=== PATIENT | male | born 1980 | race Caucasian/White ===

== ENCOUNTER 2017-01-30 06:16 | Emergency (ER) | payer MEDICAID ==
[~2017-01-30] VITALS: Ht 180.3 cm; Wt 88.9 kg
[~2017-01-30 06:16] MED LIST: AMOXICOT500 M1 PO; CORTISPORIN (GE10 M2 OT; FLEXERIL10 MG PO; IBUPROFEN800 MG PO; LORTAB 5/500 501 TAB PO; MOBIC7.5 MG PO; NOMEDS; NOMEDS *; PERCOCET 5/3251 EACH PO
--- OUTSIDE RECORDS SUMMARY | 2017-01-30 06:21 | External Medical Summary Rpt ---
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 [facility] Unavailable Unavailable ANNMARIE, [facility] DAVID VALERO, Unavailable Unavailable DAVID RIGGINS FOSTER Unavailable Unavailable KORI KERR, Unavailable Unavailable KORI COURTNEY ANNE E, Unavailable Unavailable LUIS MARTINEZ GRAY ROB Unavailable Unavailable EDUIN OLIVA E, Unavailable Unavailable EDUIN OLIVA E NOEMY CHU, Unavailable Unavailable HAGCHNEPAXTON SALGUERO, Unavailable Unavailable NOEMY ZAZUETA JENNIFER K HARRIS, CHARLOTTE J, Unavailable Unavailable [facility] Un[facility] Unavailable INC, [facility] CORNELIUS LUTHER, CORNELIUS Unavailable Unavailable LUTHER KEEF, ALISE, KEEF, Unavailable Unavailable [facility] Unavailable Unavailable IMAGING [facility], [facility] [id number] # Unavailable Unavailable [id number], [facility] [id number] # [id number] [facility] Unavailable Unavailable [facility] BASSAM CERVANTES, Unavailable Unavailable BASS[facility] CERVANTES [facility] Unavailable Unavailable SERVICES, [facility], Unavailable Unavailable [facility] [place] [facility] Unavailable Unavailable [facility] LIFE SCIENCE RESEARCH ASSISTANT Unavailable Unavailable [facility] LIFE SCIENCE RESEARCH ASSISTANT [facility] Unavailable Unavailable [facility] Unavailable Unavailable [facility], [facility] Unavailable Unavailable MEDICAL, [facility] Unavailable Unavailable MEDICAL CENTER, [facility] Gaston JEWELL N, Gaston JEWELL N Unavailable Unavailable [id number], Unavailable Unavailable [id number] PEREZ CHR, Unavailable Unavailable PEREZ CHR GRADY PEREZ, Unavailable Unavailable GRADY PEREZ, ISMAEL, Unavailable Unavailable CHRIS ISMAEL Purpose Continuity of Care Document - 10-13-2008 through 2016 Problems Code Diagnosis DOS Provider Status F17.210 NICOTINE 01-08-2017 DEPENDENCE, CIGARETTES, UNCOMPLICAT ED S01.81XA LACERATION 01-08-2017 WITHOUT FOREIGN BODY OF OTHER PART OF HEAD, INITIAL ENCOUNTER S20.211A CONTUSION 01-08-2017 OF RIGHT FRONT WALL OF THORAX, INITIAL ENCOUNTER S21.219A LACERATION 01-08-2017 WITHOUT FOREIGN BODY OF UNSPECIFIED BACK WALL OF THORAX WITHOUT PENETRATION INTO THORACIC CAVITY, INITIAL ENCOUNTER S41.012A LACERATION 01-08-2017 WITHOUT FOREIGN BODY OF LEFT SHOULDER, INITIAL ENCOUNTER S70.02XA CONTUSION 01-08-2017 OF LEFT HIP, INITIAL ENCOUNTER W01.110A FALL ON 01-08-2017 SAME LEVEL FROM SLIPPING, TRIPPING AND STUMBLING WITH SUBSEQUENT STRIKING AGAINST SHARP GLASS, INITIAL ENCOUNTER W13.4XXA FALL FROM, 01-08-2017 OUT OF OR THROUGH WINDOW, INITIAL ENCOUNTER 7231 CERVICALGIA 11-23-2011 [facility] 8470 NECK SPRAIN 11-23-2011 [facility] E9270 OVEREXERTIO 11-23-2011 [place] [facility] STRENUOUS MOVEMENT 5950 ACUTE 06-25-2011 [facility] 9390 FOREIGN 12-12-2010 [facility] BODY IN GENERAL BLADDER AND SURGERY URETHRA 5921 CALCULUS OF 12-09-2010 [facility] URETER GENERAL SURGERY 591 HYDRONEPHRO 12-08-2010 [facility] 61412 OTHER 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 5990 URINARY 12-08-2010 [facility] SITE NOT SPECIFIED 06799 FEVER 12-08-2010 [facility] UNSPECIFIED GENERAL SURGERY 7880 RENAL COLIC 12-08-2010 [facility] 03642 ABDOMINAL 12-08-2010 [facility] PAIN OTHER GENERAL SPECIFIED SURGERY SITE 5920 CALCULUS OF 09-28-2010 [facility] 7919 OTHER 09-28-2010 [facility] NONSPECIFIC REGIONAL FINDING MEDICAL EXAMINATION OF URINE V1301 PERSONAL 09-28-2010 [facility] HISTORY OF REGIONAL URINARY MEDICAL CALCULI 27698 NAUSEA WITH 03-29-2010 [facility] 04048 ABDOMINAL 03-29-2010 [facility] PAIN, REGIONAL UNSPECIFIED MEDICAL SITE CENTER 5959 UNSPECIFIED 03-21-2010 [facility] 35208 HEMATURIA 03-18-2010 [place] UNSPECIFIED [facility]OLOGY ASSOCIATES PSC 7936 NONSPEC ABN 03-18-2010 [place] [facility] RADIOLOG[facility] & OTH EXAM [facility]OCIATES ABDOMINAL [facility] AREA 7172 DERANGEMENT 10-23-2009 [facility] OF MEDIAL MENISCUS 50495 PAIN IN 10-23-2009 [facility] JOINT, H LOWER LEG ANESTHESIA PSC 8360 TEAR MEDIAL 10-23-2009 [facility] CURRENT 8362 OTHER TEAR 09-05-2009 [facility] CURRENT 8363 CLOSED 06-21-2009 [facility] Medications Na ND Rx Da Fi Fi Am Da Di Ph RX Ph St me C No te ll ll ou ys ag ar # ys at rm s nt no ma ic us Or Da si cy ia de te s n re d UL 59 04 04 0 45 7 MA 60 Ac ES 63 -1 -1 4. YS 41 TT ti FI 00 9- 9- 00 84 MA ve A 78 20 20 0 LL 9 N 5% 00 11 11 E NA 8 OB NC LO Y TI GY E ON N FA VT LY HE AL TH 53 03 03 1 20 6 KM 44 DE Ac 74 -1 -1 .0 AR 74 NN ti 60 3- 3- 00 T 01 IS ve 11 20 20 PH 5 ON 10 11 11 AR 5 MA KIMO CY SE 96 PH 84 R # 96 84 HY 00 01 01 2 20 3 MA [address] 40 -1 -2 .0 YS 05 NN ti OC 60 4- 4- 00 78 IS ve OD 36 20 20 LL 8 ON ON 50 11 11 E -A 1 OB KIMO CE SE TA GY PH VT N R NO FA PH VT EN LY 5- HE 32 AL 5 TH HY 00 01 01 2 20 3 MA [address] 40 -1 -1 .0 YS 05 NN ti OC 60 4- 7- 00 78 IS ve OD 36 20 20 LL 8 ON ON 50 11 11 E -A 1 OB KIMO CE SE TA GY PH VT N R NO FA PH VT EN LY 5- HE 32 AL 5 TH HY 00 01 01 2 20 3 MA [address] 40 -1 -1 .0 YS 05 NN ti OC 60 4- 4 00 78 IS ve OD 36 20 20 LL 8 ON ON 50 11 11 E -A 1 OB KIMO CE SE TA GY PH VT N R NO FA PH VT EN LY 5- HE 32 AL 5 RI 68 01 01 0 20 5 MA 60 DE Ac OM 38 -1 -1 .0 YS 35 NN ti ET 20 4 97 IS ve MCKEON 04 20 20 LL 3 ON ZI 10 11 11 E NE 1 OB KIMO SE 25 GY PH N R MG FA VT TA LY BL ET HE AL TH 00 12 01 2 30 3 MA 40 DE Ac 40 -3 -0 .0 SO 45 NN ti 60 1 6 N 67 IS ve 35 20 20 FA ON 70 10 11 VT [address] PH UG R 00 12 01 2 30 3 MA 40 DE Ac 60 -3 -0 .0 SO 45 NN ti 33 1- 3- 00 N 67 IS ve 88 20 20 FA ON 13 10 11 VT [address] PH UG R 00 12 12 2 30 3 MA 40 DE Ac 60 -3 -3 .0 SO 45 NN ti 33 1- 1- N 67 IS ve 88 20 20 FA ON 13 10 10 VT [address] PH UG R RI 68 12 12 0 12 2 MA 62 DE Ac OM 38 -3 -3 .0 SO 78 NN ti ET 20 1 N 77 IS ve MCKEON 04 20 20 FA ON ZI 10 10 10 VT NE 1 LY K[address] SE [address] PH UG R MG TA BL ET PE 00 12 12 0 40 10 MA 60 Ac NI 78 -0 -0 .0 YS 34 TT ti CI 11 37 MA ve LL 65 20 20 LL 6 N IN 50 10 10 E NA 1 OB NC VK Y GY E 50 N 0 FA MG VT LY TA BL HE ET AL TH NA 68 09 11 1 60 30 MA 60 Ac RI 46 -2 -1 .0 YS 30 TT ti OX 20 2- 6 48 MA ve EN 19 20 20 LL 2 N 00 10 10 E NA 50 5 OB NC 0 Y MG GY E N TA FA BL VT ET LY HE AL NA 68 09 09 1 60 30 MA 60 Ac RI 46 -2 -2 .0 YS 30 TT ti OX 20 2- 2- 00 48 MA ve EN 19 20 20 LL 2 N 00 10 10 E NA 50 5 OB NC 0 Y MG GY E N TA FA BL VT ET LY HE AL RI 68 07 08 1 20 3 MA 60 DE Ac OM 38 -1 -0 .0 YS 27 NN ti ET 20 3- 3 20 IS ve MCKEON 04 20 20 LL 9 ON ZI 10 10 10 E NE 1 OB KIMO SE 25 GY PH N R MG FA VT TA LY BL ET HE AL 00 07 07 2 20 3 MA 40 DE Ac 59 -1 -1 .0 YS 04 NN ti 10 3- 59 IS ve 34 20 20 LL 9 ON 90 10 10 E 5 OB KIMO SE GY PH N R FA VT LY HE AL 00 07 07 2 20 2 MA 40 DE Ac 59 -1 -1 .0 YS 04 NN ti 10 3- 3 59 IS ve 34 20 20 LL 9 ON 90 10 10 E 5 OB KIMO SE GY PH N R FA VT LY HE AL RI 68 07 07 1 20 3 MA 60 DE Ac OM 38 -1 -1 .0 YS 27 NN ti ET 20 20 IS ve MCKEON 04 20 20 LL 9 ON ZI 10 10 10 E NE 1 OB KIMO SE 25 GY PH N R MG FA VT TA LY BL ET HE AL CI 68 07 07 1 40 20 MA 60 DE Ac RI 08 -1 -1 .0 YS 27 NN ti OF 40 3 21 IS ve LO 07 20 20 LL 0 ON XA 00 10 10 E CI 1 OB KIMO N SE HC GY PH L N R 50 FA 0 VT MG LY TA HE B AL TA 00 07 07 0 14 14 EA 18 JUNIOR Ac MS 09 -0 -[address] 18 LL ti UL 37 SI 39 IV ve OS 33 20 20 DE AN IN 80 10 10 1 PH CH HC AR RI L MA ST 0. CY IN 4 A MG OF M CA CY PS NT UL HI E AN A 00 07 07 0 20 3 EA 18 JUNIOR Ac 05 -0 -[address] 18 LL ti 44 1- 1- 00 SI 40 IV ve 65 20 20 DE AN 02 10 10 9 PH CH AR RI MA ST CY IN A OF M CY NT HI AN A EN 60 06 06 0 12 6 MA 20 FI Ac DO 95 -2 -2 .0 YS 02 NL ti CE 10 3- 3- 00 49 EY ve T 60 20 20 LL 4 5- 28 10 10 E PA 32 5 OB UL 5 W TA GY BL N ET FA VT LY HE AL TH PH 65 06 06 0 6. 2 MA 60 FI Ac EN 16 -2 -2 00 YS 26 NL ti AZ 20 3- 3- 0 42 EY ve OP 52 20 20 LL 7 YR 01 10 10 E PA ID 0 OB UL IN W E GY 20 N 0 FA MG VT LY TA B HE AL TH CI 55 06 06 0 20 10 MA 60 FI Ac RI 11 -2 -2 .0 YS 26 NL ti OF 10 3- 3- 00 42 EY ve LO 12 20 20 LL 8 XA 60 10 10 E PA CI 1 OB UL N W HC GY L N 25 FA 0 VT MG LY TA HE B AL TH OX 53 06 06 0 20 3 KM 21 PO Ac YC 74 -2 -2 .0 AR 62 HL ti OD 60 0- 0- 00 T 52 M ve ON 20 20 20 PH 2 N E- 30 10 10 AR AC 5 MA ET CY AM 96 IN 84 OP # HE N 96 5- 84 32 5 RI 57 06 06 0 12 3 KM 69 PO Ac OM 66 -2 -2 .0 AR 98 HL ti ET 40 0- 0- 00 T 12 M ve MCKEON 10 20 20 PH 9 N ZI 88 10 10 AR NE 8 MA CY 25 96 84 MG # TA 96 BL 84 ET LI 60 06 06 1 60 2 MA 60 Ac ND 43 -1 -1 .0 YS 25 TT ti AN 20 1- 1- 00 90 MA ve E 83 20 20 LL 8 N 1% 46 10 10 E NA 0 OB NC SH Y AM GY E PO N O FA VT LY HE AL TH NA 68 04 03 2 60 30 MA 60 KE Ac RI 46 -2 -1 .0 YS 09 EF ti OX 20 0- 0- 00 49 ve EN 19 20 20 LL 5 KI 00 09 10 E MB 50 5 OB ER 0 LY MG GY N TA FA BL VT ET LY HE AL TH RI 68 01 02 00 30 8 MA 60 MCKEON Ac OM 38 -2 -1 .0 YS 19 RR ti ET 20 5- 1- 00 86 IS ve MCKEON 04 20 20 LL 5 ZI 10 10 10 E CH NE 1 OB AR /G LO 25 YN TT E MG FA J VT TA LY BL ET HE AL 00 01 02 00 30 5 MA 40 MCKEON Ac 59 -2 -1 .0 YS 03 RR ti 10 5- 1- 00 65 IS ve 34 20 20 LL 9 90 10 10 E CH 5 OB AR /G LO YN TT E FA J VT LY HE AL 00 01 01 01 30 5 MA 40 MCKEON Ac 59 -1 -2 .0 YS 03 RR ti 10 2- 8- 57 IS ve 34 20 20 LL 3 90 10 10 E CH 5 OB AR /G LO YN TT E FA J VT LY HE AL NA 68 04 01 01 60 30 MA 60 KE Ac RI 46 -2 -2 .0 YS 09 EF ti OX 20 0- 8- 00 49 ve EN 19 20 20 LL 5 KI 00 09 10 E MB 50 5 OB ER 0 /G LY MG YN TA FA BL VT ET LY HE AL 01 01 00 30 5 MA 40 MCKEON Ac 59 -1 -2 .0 YS 03 RR ti 10 2- 8- 57 IS ve 34 20 20 LL 3 90 10 10 E CH 5 OB AR /G LO YN TT E FA J VT LY HE AL IN 00 12 12 00 60 20 MA 60 MA Ac DO 09 -0 -1 .0 YS 17 RK ti ME 34 7- 7- 00 76 ES ve TH 02 20 20 LL 6 BE AC 90 09 09 E RY IN 1 OB /G MCKEON 25 YN RO LD MG FA V VT CA LY PS UL HE E AL 00 12 12 00 60 10 MA 40 Ac 59 -0 -1 .0 YS 03 TT ti 10 8- 7- 00 40 MA ve 34 20 20 LL 3 N 90 09 09 E NA 5 OB NC /G Y YN E FA VT LY HE AL LI 60 10 11 00 60 3 MA 60 Ac ND 43 -2 -0 .0 YS 16 TT ti AN 20 9- 5- 00 17 MA ve E 83 20 20 LL 3 N 1% 36 09 09 E NA 0 OB NC LO /G Y TI YN E ON FA VT LY HE AL 49 09 10 00 20 5 MA 60 JUNIOR Ac 88 -2 -0 .0 YS 14 LL ti 40 3- 8- 00 68 IV ve 77 20 20 LL 3 AN 70 09 09 E 5 OB CH /G RI YN ST IN FA A VT M LY HE AL TR 65 09 10 00 20 3 MA 40 JUNIOR Ac AM 16 -2 -0 .0 YS 02 LL ti AD 20 3- 8- 00 99 IV ve OL 62 20 20 LL 5 AN 71 09 09 E HC 1 OB CH L /G RI [address] IN MG FA A VT M TA LY BL ET HE AL NA 68 04 05 00 60 30 MA 60 KE Ac RI 46 -2 -0 .0 YS 09 EF ti OX 20 0- 7- 00 49 ve EN 19 20 20 LL 5 KI 00 09 09 E MB 50 5 OB ER 0 /G LY MG YN TA FA BL VT ET LY HE AL OV 51 01 01 01 59 1 RI 64 Ac ID 67 -1 -3 .0 TE 17 TT ti E 25 2- 0- 00 77 MA ve 0. 27 20 20 AI N 5% 60 09 09 D NA 4 PH NC LO AR Y TI M E ON #3 92 0 00 01 01 00 10 3 MA 40 AD Ac 59 -0 -1 .0 YS 01 AM ti 10 6- 5- 00 74 S ve 34 20 20 LL 7 JA 90 09 09 E ME 5 OB S /G E YN FA VT LY HE AL 60 12 01 00 10 2 MA 20 AD Ac 95 -0 -1 .0 YS 01 AM ti 10 5- 5- 00 19 S ve 79 20 20 LL 5 JA 67 08 09 E ME 0 OB S /G E YN FA VT LY Procedures Procedure [place] [address] MAEVE KUMARON CERVICAL 2 [facility] [place] [place] [facility] [place] [place] [facility] SPINE W/O INC INC CONTRAST MATERIAL 3D 24326 [place] [facility]AM[facility] RENDERING 2 MEDICAL TORRES IMAGING W/INTERP& ASS POSTPROC DIFF WORK STATION INJECTION J0696 BJ MONTANO 1 PRIMARY Y BILLY CEFTRIAXO CARE NE SODIUM CENTER PER 250 MG THERAPEUT 49744 BJ MONTANO IC 1 PRIMARY Y BILLY PROPHYLAC CARE TIC/DX CENTER INJECTION SUBQ/IM CYSTO 95781 KENISHA SIERRA W/URETERO 1 W GENERAL J. SCOPY SURGERY W/RMVL/MA [place] STONES ANES 57961 [facility] ZARAON TRURL 1 [facility] ANESTHESI MANJ&/RMV A PSC L URETERAL CALCULUS CYSTO 66320 KENISHA SIERRA W/INSERT 1 W GENERAL J. URETERAL SURGERY STENT RADEX 14586 [facility] ABDOMEN 1 1 [facility] ANTEROPOS ASSOCIAT TERIOR VIEW 3D 42358 [facility] RENDERING 1 EIDER KIMBERLEY W/INTERP RADIOLOGY & [place] [address] [facility] ABDOMEN & 1 EIDER KIMBERLEY PELVIS RADIOLOGY W/O ASSOCIAT CONTRAST MATERIAL INITIAL 25780 [facility] 1 W GENERAL J. CARE/DAY SURGERY 50 MINUTES THER 55471 [facility] PROPH/DX 0 W W NJX IV REGIONAL REGIONAL PUSH MEDICAL MEDICAL SINGLE/1S T SBST/DRUG RADEX 50283 [facility] ABDOMEN 1 0 W W REGIONAL REGIONAL [place] [address] [facility] ABDOMEN 0 W W W/O REGIONAL REGIONAL CONTRAST MEDICAL MEDICAL MATERIAL COLLECTIO 47400 [facility] N VENOUS 0 W W BLOOD REGIONAL [place] [address] [facility] INFUSION 0 W W HYDRATION REGIONAL REGIONAL EACH MEDICAL MEDICAL ADDITIONA L HOUR 3D 56855 [facility] RENDERING 0 [facility]HER W/INTERP RADIOLOGY & ASSOCIAT POSTPROCE SS SUPERVISI ON THERAPEUT 28108 [facility] IC 0 W W INJECTION REGIONAL REGIONAL IV PUSH MEDICAL MEDICAL EACH NEW DRUG URNLS DIP 82169 [facility] 0 W W STICK/TAB REGIONAL REGIONAL LET MEDICAL MEDICAL REAGENT AUTO MICROSCOP Y BLOOD 61951 [facility] COUNT 0 W W COMPLETE REGIONAL REGIONAL AUTO&AUTO MEDICAL MEDICAL DIFRNTL WBC CT PELVIS 88400 [facility] W/O 0 W W CONTRAST REGIONAL [facility] MATERIAL MEDICAL MEDICAL CULTURE 78957 [facility] BACTERIAL 0 W W [facility] QUANTTA MEDICAL MEDICAL VE COLONY COUNT URINE BASIC 18648 [facility] METABOLIC 0 W W PANEL [facility] CALCIUM MEDICAL [facility] 56394 KENISHA RIGO DISCHARGE 0 W GENERAL J. DAY SURGERY MANAGEMEN T 30 MIN/< CYSTO 97638 [place] RIGO, W/URETERO 0 W GENERAL J. SCOPY SURGERY ANDI R W/RMVL/MA [place] STONES FLUOROSCO 51249 [facility] PY SPX UP 0 W W TO 1 [facility] MEDICAL MEDICAL PHYS/QHP TIME CYSTO 19706 LATONIAWMILADIS PAVONRIGO, W/INSERT 0 W GENERAL J. URETERAL SURGERY ANDI R STENT ANES 34681 [facility] LIAM TRURL 0 LTH ADELE FRAGMNTJ ANESTHESI MANJ&/RMV A PSC L URETERAL CALCULUS CALCULUS 78827 [facility] QUANTITAT 0 W W PA [facility] CHEMICAL MEDICAL MEDICAL THERAPEUT 28322 [facility] IC 0 W W INJECTION [facility] IV PUSH MEDICAL MEDICAL EACH NEW DRUG CYSTO 56665 [place] [facility] W/INSERT 0 W W URETERAL [facility] STENT MEDICAL MEDICAL URNLS DIP 24024 [facility] 0 W W STICK/TAB [facility] LET MEDICAL MEDICAL REAGENT AUTO MICROSCOP Y BLOOD 45613 [facility] COUNT 0 W W COMPLETE [facility] AUTO&AUTO MEDICAL MEDICAL DIFRNTL [facility] G0378 [facility] OBSERVATI 0 W W ON [facility] SERVICE MEDICAL MEDICAL PER HOUR COLLECTIO 71779 [facility] N VENOUS 0 W W BLOOD [facility] VENIPUNCT MEDICAL MEDICAL URE THER 13105 [facility] PROPH/DX 0 W W NJX IV REGIONAL [facility] MEDICAL MEDICAL SINGLE/1S T SBST/DRUG CYSTO 84484 [facility] W/URETERO 0 W W SCOPY REGIONAL [facility] W/RMVL/MA MEDICAL MEDICAL [place] STONES INITIAL 23758 [facility] 0 W GENERAL J. CARE/DAY SURGERY 50 MINUTES BASIC 17065 [facility] METABOLIC 0 W W PANEL REGIONAL [facility] CALCIUM MEDICAL MEDICAL TOTAL CULTURE 54024 [facility] BACTERIAL 0 W W [facility] MEDICAL VE COLONY CENTER CENTER COUNT URINE THER 76823 [facility] PROPH/DX 0 W W NJX IV REGIONAL [facility] MEDICAL MEDICAL [facility]/ CENTER CENTER T SBST/[place] [address] [facility] INFUSION 0 W W HYDRATION [facility] ADDITIONA [facility] L HOUR URNLS DIP 68594 [facility] 0 W W STICK/TAB REGIONAL REGIONAL LET MEDICAL MEDICAL REAGENT [facility] AUTO MICROSCOP Y THERAPEUT 81048 [facility] IC 0 W W INJECTION REGIONAL REGIONAL IV [facility] DRUG URNLS DIP 79499 [facility] 0 W W STICK/TAB REGIONAL [facility] REAGENT [facility] AUTO MICROSCOP Y THERAPEUT 57888 [facility] IC 0 W W INJECTION REGIONAL REGIONAL IV [facility] DRUG CT PELVIS 57170 [facility] 0 EIDER, W/CONTRAS RADIOLOGY MIRTH[place] [address] [facility] ABDOMEN 0 W W W/O REGIONAL [facility] CONTRAST MEDICAL MEDICAL MATERIAL CENTER CENTER THER 97067 [facility] PROPH/DX 0 W W NJX IV REGIONAL [facility]/ CENTER CENTER T SBST/DRUG 3D 74852 [facility] RENDERING 0 EIDER, W/INTERP RADIOLOGY MIRTHA & K POSTPROCE ASSOCIATE SS S PSC SUPERVISI ON CULTURE 82307 KENISHA DE BACTERIAL 0 W W [facility] MEDICAL VE COLONY CENTER CENTER COUNT URINE CT PELVIS 60031 [facility] [place] W/O 0 W W CONTRAST [facility] MATERIAL [facility] ANESTH 80480 COMMONFLETCHER COURTNEY, DIAGNOSTI 0 [facility] KORI Lopez ANESTHESI ARTHROSCO A [facility] PIC PROC KNEE JOINT ARTHRS 60729 JOSÉ KUMAR, KNE SURG 0 JAMARI JAMARI W/MENISCE J J CTOMY MED/LAT W/SHVG MRI ANY 00205 NOEWMILADIS LIUWMILADIS JT LOWER 9 W W [facility] W/O MEDICAL MEDICAL CONTRAST [facility] MATRL Encounters Encounter Start End Date Code Location Performer Type Date EMERGENCY 25665 MA[facility]E 2 2 [facility] [place] [place] [facility] L[facility]/MODER SEVERITY [facility]OSPITAL MA[facility]E - 2 2 [facility] [place] [place] [facility] OUTPATIEN INC T EMERGENCY 56134 JOHANNA NGUYEN DEPT 2 2 EMERGENCY VISIT SERVICES HIGH SEVERITY& THREAT [facility] OFFICE 44756 BJ MONTANO OUTPATIEN 1 1 PRIMARY Y BILLY T VISIT CARE 15 CENTER MINUTES OFFICE 49452 KENISHA SIERRA OUTPATIEN 1 1 W GENERAL J. T VISIT 5 SURGERY MINUTES EMERGENCY 76391 JOHANNA CAST DEPT 1 1 EMERGENCY JAM VISIT SERVICES HIGH SEVERITY& THREAT FUN EMERGENCY 26375 NOEWMILADIS 0 0 W [facility] V[facility] MEDICAL HIGH/URGE NT SEVERITY HOSPITAL KENISHA - 0 0 W OUTPATIEN [facility] T MEDICAL EMERGENCY 85498 JOHANNA PEREZ DEPT 0 0 EMERGENCY CHR VISIT SERVICES HIGH SEVERITY& THREAT FUN EMERGENCY 83015 KENISHA DEPT 0 0 W VISIT [facility] HIGH MEDICAL SEVERITY& THREAT [facility] 0 0 W [facility] OFF[facility] 46687 ALYSA PETTIT 0 0 W GENERAL J. T VISIT SURGERY ANDI R 10 MINUTES OFFICE 29996 RUY MARTINEZPATICHENG 0 0 PRIMARY LUIS E T VISIT CARE 15 [facility] EMERGENCY 23934 JOHANNA PEREZ, DEPT 0 0 EMERGENCY VISIT SERVICES ISMAEL HIGH SEVERITY& ASSOCIATE THREAT S [facility] - 0 0 W [facility] EMERGENCY 93599 [facility] 0 0 W [facility] T VISIT MEDICAL HIGH/URGE CENTER NT SEVERITY EMERGENCY 57916 JOHANNA RIGGINS, 0 0 EMERGENCY DAVID W DEPARTMEN SERVICES T VISIT HIGH/URGE ASSOCIATE NT S SEVERITY EMERGENCY 02460 Gaston VILLAREAL DEPT 0 0 EMERGENCY VISIT SERVICES HIGH SEVERITY& ASSOCIATE THREAT S [facility] EMERGENCY 66782 [facility] 0 0 W [facility] REGIONAL T VISIT MEDICAL HIGH/URGE CENTER NT SEVERITY HOSPITAL [facility] - 0 0 W [facility] MEADOWVIE - 0 0 W [facility] OFFICE 24691 JOSÉ, JOSÉ, CONSULTAT 0 0 JAMARI Morrison NEW/ESTAB PATIENT 40 MIN OFFICE 94063 ALYSA ENGLE 9 9 PRIMARY EDUIN E T VISIT CARE 10 [facility] H[facility]PITAL MEAKAROL - 9 9 W [facility] EMERGENCY 69000 JOHANNA PEREZ, 9 9 EMERGENCY DEPARTMEN SERVICES [facility] T VISIT MODERATE ASSOCIATE SEVERITY S OFFICE 68254 ALYSA NGUYEN [address]
--- OUTSIDE RECORDS SUMMARY | 2017-01-30 06:21 | External Medical Summary Rpt ---
Author Author , Organization [employer] Address Unknown Phone Unavailable Care Team Providers Care Call Person Name Role Phone LIAM ANGULO, Unavailable Unavailable LIAM ANGULO JAMEE TORRES, Unavailable Unavailable JAMEE TORRES RIGO THOMAS Unavailable Unavailable Agustín GARCIA Unavailable Unavailable RRIGO J. RANDALL R [facility] Unavailable Unavailable ANNMARIE, [facility] DAVID VALERO, Unavailable Unavailable DAVID [...] Unavailable LUTHER KEEF, ALISE, KEEF, Unavailable Unavailable [facility] Unavailable Unavailable IMAGING [facility], [facility] [id number] # Unavailable Unavailable [id number], [facility] [id number] # [id number] [facility] Unavailable Unavailable [facility] BASSAM CERVANTES, Unavailable Unavailable [facility] C[facility]ANT[facility] Unavailable Unavailable SERVICES, [facility], Unavailable Unavailable [facility] WOOD TRAIN RESERVATION CLERK Unavailable Unavailable [facility] TRAIN RESERVATION CLERK [facility] SENIOR ASSOCIATE Unavailable Unavailable [facility] SENIOR ASSOCIATE [facility] Unavailable [facility] Unavailable Unavailable SURGERY, [facility] Unavailable [facility]available MEDICAL, [facility] MEDICAL [facility] Unavailable Unavailable MEDICAL CENTER, [facility] Gaston JEWELL N, Gaston JEWELL N Unavailable [...] THROUGH WINDOW, INITIAL ENCOUNTER 7231 CERVICALGIA 11-23-2011 [facility] 8470 NECK SPRAIN 11-23-2011 [facility] E9270 OVEREXERTIO 11-23-2011 [place] [facility] STRENUOUS MOVEMENT 5950 ACUTE 06-25-2011 [facility] 9390 FOREIGN 12-12-2010 [facility] BODY IN GENERAL BLADDER AND SURGERY URETHRA 5921 CALCULUS OF 12-09-2010 [facility] URETER GENERAL SURGERY 591 HYDRONEPHRO 12-08-2010 [facility] 24879 OTHER 12-08-[facility] 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 5990 URINARY 12-08-2010 [facility] INFECTION SERVICES SITE NOT SPECIFIED 58123 FEVER 12-08-2010 [facility] UNSPECIFIED GENERAL SURGERY 7880 RENAL COLIC 12-08-2010 [facility] 63395 ABDOMINAL 12-08-2010 [facility] PAIN OTHER GENERAL SPECIFIED SURGERY SITE 5920 CALCULUS OF 09-28-2010 [facility] 7919 OTHER 09-28-2010 [facility] NONSPECIFIC REGIONAL FINDING MEDICAL EXAMINATION OF URINE V1301 PERSONAL 09-28-2010 [facility] HISTORY OF REGIONAL URINARY MEDICAL CALCULI 01907 NAUSEA WITH 03-29-2010 [facility] 11284 ABDOMINAL 03-29-2010 [facility] PAIN, REGIONAL UNSPECIFIED MEDICAL SITE CENTER 5959 UNSPECIFIED 03-21-2010 [facility] 91818 HEMATURIA 03-18-2010 [facility]PECIF[facility] PSC 7936 NONSPEC ABN 03-18-2010 [facility] RADIOLOG[facility] & OTH EXAM [facility] ABDOMINAL [facility] 7172 DERANGEMENT 10-23-2009 PEYTON KUMAR [facility] OF MEDIAL MENISC[facility] 82578 PAIN IN 10-23-2009 [facility] JOINT, H LOWER LEG ANESTHESIA PSC 8360 TEAR MEDIAL 10-23-2009 [facility] CURRENT 8362 OTHER TEAR 09-05-2009 [facility] OR [facility] CURRENT 8363 CLOSED 06-21-2009 [facility] Medications [...] Y TI GY E ON N FA AZ LY HE AL TH 53 03 03 [...] OB KIMO CE SE TA GY PH AZ N R NO FA PH AZ EN LY 5- HE 32 AL 5 TH HY 00 01 01 2 20 3 MA [address] 40 -1 -1 .0 YS 05 NN ti OC 60 4- 7- 00 78 IS ve OD 36 20 20 LL 8 ON ON 50 11 11 E -A 1 OB KIMO CE SE TA GY PH AZ N R NO FA PH AZ EN LY 5- HE 32 AL 5 TH HY 00 01 01 2 20 3 MA [address] 40 -1 -1 .0 YS 05 NN ti OC 60 4- 4 00 78 IS ve OD 36 20 20 LL 8 ON ON 50 11 11 E -A 1 OB KIMO CE SE TA GY PH AZ N R NO FA PH AZ EN LY 5- HE 32 AL 5 UT 68 01 01 0 20 5 MA 60 DE Ac OM 38 -1 -1 .0 YS 35 NN ti ET 20 4 97 IS ve MCKEON 04 20 20 LL 3 ON ZI 10 11 11 E NE 1 OB KIMO SE 25 GY PH N R MG FA AZ TA LY BL ET HE AL TH 00 12 01 2 30 3 MA 40 DE Ac 40 -3 -0 .0 SO 45 NN ti 60 1 6 N 67 IS ve 35 20 20 FA ON 70 10 11 AZ [address] PH UG R 00 12 01 2 30 3 MA 40 DE Ac 60 -3 -0 .0 SO 45 NN ti 33 1- 3- 00 N 67 IS ve 88 20 20 FA ON 13 10 11 AZ [address] PH UG R 00 12 12 2 30 3 MA 40 DE Ac 60 -3 -3 .0 SO 45 NN ti 33 1- 1- N 67 IS ve 88 20 20 FA ON 13 10 10 AZ [address] PH UG R UT 68 12 12 0 12 2 MA 62 DE Ac OM 38 -3 -3 .0 SO 78 NN ti ET 20 1 N 77 IS ve MCKEON 04 20 20 FA ON ZI 10 10 10 AZ NE 1 LY KIMO SE [address] PH UG R MG TA BL ET PE 00 12 12 0 40 10 MA 60 Ac NI 78 -0 -0 .0 YS 34 TT ti CI 11 37 MA ve LL 65 20 20 LL 6 N IN 50 10 10 E NA 1 OB NC VK Y GY E 50 N 0 FA MG AZ LY TA BL HE ET AL TH NA 68 09 11 1 60 30 MA 60 Ac UT 46 -2 -1 .0 YS 30 TT ti OX 20 2- 6 48 MA ve EN 19 20 20 LL 2 N 00 10 10 E NA 50 5 OB NC 0 Y MG GY E N TA FA BL AZ ET LY HE AL NA 68 09 09 1 60 30 MA 60 Ac UT 46 -2 -2 .0 YS 30 TT ti OX 20 2- 2- 00 48 MA ve EN 19 20 20 LL 2 N 00 10 10 E NA 50 5 OB NC 0 Y MG GY E N TA FA BL AZ ET LY HE AL UT 68 07 08 1 20 3 MA 60 DE Ac OM 38 -1 -0 .0 YS 27 NN ti ET 20 3- 3 20 IS ve MCKEON 04 20 20 LL 9 ON ZI 10 10 10 E NE 1 OB KIMO SE 25 GY PH N R MG FA AZ TA LY BL ET HE AL 00 07 07 2 20 3 MA 40 DE Ac 59 -1 -1 .0 YS 04 NN ti 10 3- 59 IS ve 34 20 20 LL 9 ON 90 10 10 E 5 OB KIMO SE GY PH N R FA AZ LY HE AL 00 07 07 2 20 2 MA 40 DE Ac 59 -1 -1 .0 YS 04 NN ti 10 3- 3 59 IS ve 34 20 20 LL 9 ON 90 10 10 E 5 OB KIMO SE GY PH N R FA AZ LY HE AL UT 68 07 07 1 20 3 MA 60 DE Ac OM 38 -1 -1 .0 YS 27 NN ti ET 20 20 IS ve MCKEON 04 20 20 LL 9 ON ZI 10 10 10 E NE 1 OB KIMO SE 25 GY PH N R MG FA AZ TA LY BL ET HE AL CI 68 07 07 1 40 20 MA 60 DE Ac UT 08 -1 -1 .0 YS 27 NN ti OF 40 3 21 IS ve LO 07 20 20 LL 0 ON XA 00 10 10 E CI 1 OB KIMO N SE HC GY PH L N R 50 FA 0 AZ MG LY TA HE B AL TA [...] W TA GY BL N ET FA AZ LY HE AL TH PH 65 06 06 0 6. 2 MA 60 FI Ac EN 16 -2 -2 00 YS 26 NL ti AZ 20 3- 3- 0 42 EY ve OP 52 20 20 LL 7 YR 01 10 10 E PA ID 0 OB UL IN W E GY 20 N 0 FA MG AZ LY TA B HE AL TH CI 55 06 06 0 20 10 MA 60 FI Ac UT 11 -2 -2 .0 YS 26 NL ti OF 10 3- 3- 00 42 EY ve LO 12 20 20 LL 8 XA 60 10 10 E PA CI 1 OB UL N W HC GY L N 25 FA 0 AZ MG LY TA HE B AL TH [...] HE N 96 5- 84 32 5 UT 57 06 06 0 12 3 KM [...] AM GY E PO N O FA AZ LY HE AL TH NA 68 04 03 2 60 30 MA 60 KE Ac UT 46 -2 -1 .0 YS 09 EF ti OX 20 0- 0- 00 49 ve EN 19 20 20 LL 5 KI 00 09 10 E MB 50 5 OB ER 0 LY MG GY N TA FA BL AZ ET LY HE AL TH UT 68 01 02 00 30 8 MA 60 MCKEON Ac OM 38 -2 -1 .0 YS 19 RR ti ET 20 5- 1- 00 86 IS ve MCKEON 04 20 20 LL 5 ZI 10 10 10 E CH NE 1 OB AR /G LO 25 YN TT E MG FA J AZ TA LY BL ET HE AL 00 01 02 00 30 5 MA 40 MCKEON Ac 59 -2 -1 .0 YS 03 RR ti 10 5- 1- 00 65 IS ve 34 20 20 LL 9 90 10 10 E CH 5 OB AR /G LO YN TT E FA J AZ LY HE AL 00 01 01 01 30 5 MA 40 MCKEON Ac 59 -1 -2 .0 YS 03 RR ti 10 2- 8- 57 IS ve 34 20 20 LL 3 90 10 10 E CH 5 OB AR /G LO YN TT E FA J AZ LY HE AL NA 68 04 01 01 60 30 MA 60 KE Ac UT 46 -2 -2 .0 YS 09 EF ti OX 20 0- 8- 00 49 ve EN 19 20 20 LL 5 KI 00 09 10 E MB 50 5 OB ER 0 /G LY MG YN TA FA BL AZ ET LY HE AL 01 01 00 30 5 MA 40 MCKEON Ac 59 -1 -2 .0 YS 03 RR ti 10 2- 8- 57 IS ve 34 20 20 LL 3 90 10 10 E CH 5 OB AR /G LO YN TT E FA J AZ LY HE AL IN 00 12 12 00 60 20 MA 60 MA Ac DO 09 -0 -1 .0 YS 17 RK ti ME 34 7- 7- 00 76 ES ve TH 02 20 20 LL 6 BE AC 90 09 09 E RY IN 1 OB /G MCKEON 25 YN RO LD MG FA V AZ CA LY PS UL HE E AL 00 12 12 00 60 10 MA 40 Ac 59 -0 -1 .0 YS 03 TT ti 10 8- 7- 00 40 MA ve 34 20 20 LL 3 N 90 09 09 E NA 5 OB NC /G Y YN E FA AZ LY HE AL LI 60 10 11 00 60 3 MA 60 Ac ND 43 -2 -0 .0 YS 16 TT ti AN 20 9- 5- 00 17 MA ve E 83 20 20 LL 3 N 1% 36 09 09 E NA 0 OB NC LO /G Y TI YN E ON FA AZ LY HE AL 49 09 10 00 20 5 MA 60 JUNIOR Ac 88 -2 -0 .0 YS 14 LL ti 40 3- 8- 00 68 IV ve 77 20 20 LL 3 AN 70 09 09 E 5 OB CH /G RI YN ST IN FA A AZ M LY HE AL TR 65 09 10 00 20 3 MA 40 JUNIOR Ac AM 16 -2 -0 .0 YS 02 LL ti AD 20 3- 8- 00 99 IV ve OL 62 20 20 LL 5 AN 71 09 09 E HC 1 OB CH L /G RI [address] IN MG FA A AZ M TA LY BL ET HE AL NA 68 04 05 00 60 30 MA 60 KE Ac UT 46 -2 -0 .0 YS 09 EF ti OX 20 0- 7- 00 49 ve EN 19 20 20 LL 5 KI 00 09 09 E MB 50 5 OB ER 0 /G LY MG YN TA FA BL AZ ET LY HE AL OV 51 01 [...] 5 OB S /G E YN FA AZ LY HE AL 60 12 01 00 10 2 MA 20 AD Ac 95 -0 -1 .0 YS 01 AM ti 10 5- 5- 00 19 S ve 79 20 20 LL 5 JA 67 08 09 E ME 0 OB S /G E YN FA AZ LY Procedures [place] [address] MAEVE KUMARON CERVICAL 2 [facility] SPINE W/O INC INC CONTRAST MATERIAL 3D 79813 [place] [facility] R[facility]ERING 2 MEDICAL TORRES IMAGING W/INTERP& ASS POSTPROC DIFF WORK STATION INJECTION J0696 BJ MONTANO 1 PRIMARY Y BILLY CEFTRIAXO CARE NE SODIUM CENTER PER 250 MG THERAPEUT 57512 BJ MONTANO IC 1 PRIMARY Y BILLY PROPHYLAC CARE TIC/DX CENTER INJECTION SUBQ/IM CYSTO 02767 KENISHA SIERRA W/URETERO 1 W GENERAL J. SCOPY SURGERY W/RMVL/MA [place] STONES ANES 71021 [place] ZARAON TRURL 1 [facility] MANJ&/RMV A PSC L URETERAL CALCULUS CYSTO 36573 KENISHA SIERRA W/INSERT 1 W GENERAL J. URETERAL SURGERY STENT RADEX 48562 [facility] ABDOMEN 1 1 [facility] ANTEROPOS ASSOCIAT TERIOR VIEW 3D 58843 [facility] RENDERING 1 EIDER KIMBERLEY W/INTERP RADIOLOGY & [place] [address] [facility] ABDOMEN & 1 EIDER KIMBERLEY PELVIS RADIOLOGY W/O ASSOCIAT CONTRAST MATERIAL INITIAL 10308 [facility] 1 W GENERAL J. CARE/DAY SURGERY 50 MINUTES THER 91681 [facility] PROPH/DX 0 W W NJX IV REGIONAL REGIONAL PUSH MEDICAL MEDICAL SINGLE/1S T SBST/DRUG RADEX 91632 [facility] ABDOMEN 1 0 W W REGIONAL REGIONAL [place] [address] [facility] ABDOMEN 0 W W W/O REGIONAL REGIONAL CONTRAST MEDICAL MEDICAL MATERIAL COLLECTIO 10410 [facility] N VENOUS 0 W W BLOOD REGIONAL [place] [address] [facility] INFUSION 0 W W HYDRATION REGIONAL REGIONAL EACH MEDICAL MEDICAL ADDITIONA L HOUR 3D 02329 [facility] RENDERING 0 LUTHER W/INTERP RADIOLOGY & ASSOCIAT POSTPROCE SS SUPERVISI ON THERAPEUT 02498 [facility] IC 0 W W INJECTION REGIONAL REGIONAL IV PUSH MEDICAL MEDICAL EACH NEW DRUG URNLS DIP 43022 [facility] 0 W W STICK/TAB REGIONAL REGIONAL LET MEDICAL MEDICAL REAGENT AUTO MICROSCOP Y BLOOD 30252 [facility] COUNT 0 W W COMPLETE REGIONAL REGIONAL AUTO&AUTO MEDICAL MEDICAL DIFRNTL WBC CT PELVIS 22274 [facility] W/O 0 W W CONTRAST [facility] MATERIAL MEDICAL MEDICAL CULTURE 83059 [facility] BACTERIAL 0 W W [facility] MED[facility] MEDICAL VE COLONY COUNT URINE BASIC 08266 [facility] METABOLIC 0 W W PANEL [facility] 78803 KENISHA RIGO DISCHARGE 0 W GENERAL J. DAY SURGERY MANAGEMEN T 30 MIN/< CYSTO 18718 [place] RIGO, W/URETERO 0 W GENERAL J. SCOPY SURGERY ANDI R W/RMVL/MA [place] STONES FLUOROSCO 12118 [facility] PY SPX UP 0 W W TO 1 [facility] MEDICAL MEDICAL PHYS/QHP TIME CYSTO 24764 LATONIAWMILADIS PAVONRIGO, W/INSERT 0 W GENERAL J. URETERAL SURGERY ANDI R STENT ANES 10741 [place] LIAM TRURL 0 LTH ADELE FRAGMNTJ ANESTHESI MANJ&/RMV A PSC L URETERAL CALCULUS CALCULUS 66839 [facility] QUANTITAT 0 W W PA [facility] CHEMICAL MEDICAL MEDICAL THERAPEUT 20531 [facility] IC 0 W W INJECTION [facility] IV PUSH MEDICAL MEDICAL EACH NEW DRUG CYSTO 62690 [place] [facility] W/INSERT 0 W W URETERAL [facility] STENT MEDICAL MEDICAL URNLS DIP 96621 [facility] 0 W W STICK/TAB [facility] LET MEDICAL MEDICAL REAGENT AUTO MICROSCOP Y BLOOD 75061 [facility] COUNT 0 W W COMPLETE [facility] AUTO&AUTO MEDICAL MEDICAL DIFRNTL WBC HOSPITAL G0378 [facility] OBSERVATI 0 W W ON [facility] SERVICE MEDICAL MEDICAL PER HOUR COLLECTIO 83120 [facility] N VENOUS 0 W W BLOOD [facility] VENIPUNCT MEDICAL MEDICAL URE THER 07922 [facility] PROPH/DX 0 W W NJX IV REGIONAL [facility] MEDICAL MEDICAL SINGLE/1S T SBST/DRUG CYSTO 96648 [facility] W/URETERO 0 W W SCOPY [facility] W/RMVL/MA MEDICAL MEDICAL [place] STONES INITIAL 44409 [facility] 0 W GENERAL J. CARE/DAY SURGERY 50 MINUTES BASIC 81075 [facility] METABOLIC 0 W W PANEL [facility] CALCIUM MEDICAL MEDICAL TOTAL CULTURE 76361 [facility] BACTERIAL 0 W W [facility] MEDICAL VE COLONY CENTER CENTER COUNT URINE THER 22484 [facility] PROPH/DX 0 W W NJX IV REGIONAL [facility] MEDICAL MEDICAL [facility] CENTER CENTER T SBST/[place] [address] [facility] INFUSION 0 W W HYDRATION [facility]AL [facility] ADDITIONA [facility] L HOUR URNLS DIP 81678 [facility] 0 W W STICK/TAB REGIONAL REGIONAL LET MEDICAL MEDICAL REAGENT [facility] AUTO MICROSCOP Y THERAPEUT 93266 [facility] IC 0 W W INJECTION REGIONAL REGIONAL IV [facility] DRUG URNLS DIP 01230 [facility] 0 W W STICK/TAB REGIONAL [facility] REAGENT [facility] AUTO MICROSCOP Y THERAPEUT 99321 [facility] IC 0 W W INJECTION REGIONAL REGIONAL IV [facility] DRUG CT PELVIS 63116 [facility] 0 EIDER, W/CONTRAS RADIOLOGY MIRTH[place] [address] [facility] ABDOMEN 0 W W W/O [facility] CONTRAST MEDICAL MEDICAL MATERIAL CENTER CENTER THER 68175 [facility] PROPH/DX 0 W W NJX IV REGIONAL [facility]/ CENTER CENTER T SBST/DRUG 3D 51414 [facility] RENDERING 0 EIDER, W/INTERP RADIOLOGY MIRTHA & K POSTPROCE ASSOCIATE SS S PSC SUPERVISI ON CULTURE 76745 KENISHA DE BACTERIAL 0 W W [facility] MEDICAL VE COLONY CENTER CENTER COUNT URINE CT PELVIS 73856 [facility] [place] W/O 0 W W CONTRAST [facility] MATERIAL [facility] ANESTH 50563 COMMONFLETCHER COURTNEY, DIAGNOSTI 0 [facility] KORI Lopez ANESTHESI ARTHROSCO A [facility] PIC PROC KNEE JOINT ARTHRS 14486 JOSÉ KUMAR, KNE SURG 0 JAMARI JAMARI W/MENISCE J J CTOMY MED/LAT W/SHVG MRI ANY 08983 NOEWMILADIS LIUWMILADIS JT LOWER 9 W W [facility] W/O MEDICAL MEDICAL CONTRAST [facility] MATRL Encounters Encounter Start End Date Code Location Performer Type Date EMERGENCY 18953 MAEVE 2 2 [facility] T VISIT LOW/MODER [facility]VERITY HOSPITAL MAEVE - 2 2 [facility] OUTPATIEN INC T EMERGENCY 84213 JOHANNA NGUYEN DEPT 2 2 EMERGENCY VISIT SERVICES HIGH SEVERITY& THREAT [facility] OFFICE 45828 BJ MONTANO OUTPATIEN 1 1 PRIMARY Y BILLY T VISIT CARE 15 CENTER MINUTES OFFICE 06863 KENISHA SIERRA OUTPATIEN 1 1 W GENERAL J. T VISIT 5 SURGERY MINUTES EMERGENCY 57763 JOHANNA CAST DEPT 1 1 EMERGENCY JAM VISIT SERVICES HIGH SEVERITY& THREAT FUN EMERGENCY 91753 NOEWMILADIS 0 0 W [facility] VISIT MEDICAL HIGH/URGE NT SEVERITY HOSPITAL KENISHA - 0 0 W OUTPATIEN [facility] T MEDICAL EMERGENCY 79600 JOHANNA PEREZ DEPT 0 0 EMERGENCY CHR VISIT SERVICES HIGH SEVERITY& THREAT FUN EMERGENCY 42080 KENISHA DEPT 0 0 W VISIT [facility] HIGH MEDICAL SEVERITY& THREAT [facility] - 0 0 W [facility] MEDICAL OFFICE 99789 ALYSA PETTIT 0 0 W GENERAL J. T VISIT SURGERY ANDI R 10 MINUTES OFFICE 18306 RUY MARTINEZPATICHENG 0 0 PRIMARY LUIS E T VISIT CARE 15 [facility] EMERGENCY 57617 JOHANNA PEREZ, DEPT 0 0 EMERGENCY VISIT SERVICES ISMAEL HIGH SEVERITY& ASSOCIATE THREAT S [facility] - 0 0 W [facility] EMERGENCY 38070 [facility] 0 0 W [facility] T VISIT MEDICAL HIGH/URGE CENTER NT SEVERITY EMERGENCY 07433 JOHANNA RIGGINS, 0 0 EMERGENCY DAVID W DEPARTMEN SERVICES T VISIT HIGH/URGE ASSOCIATE NT S SEVERITY EMERGENCY 10329 Gaston VILLAREAL DEPT 0 0 EMERGENCY VISIT SERVICES HIGH SEVERITY& ASSOCIATE THREAT S [facility] EMERGENCY 97849 [facility] 0 0 W [facility] REGIONAL T VISIT MEDICAL HIGH/URGE CENTER NT SEVERITY HOSPITAL [facility] - 0 0 W [facility] MEADOW[facility]IE - 0 0 W [facility] OFFICE 36739 JOSÉ, JOSÉ, CONSULTAT 0 0 JAMARI Morrison NEW/ESTAB PATIENT 40 MIN OFFICE 00177 ALYSA ENGLE 9 9 PRIMARY EDUIN E T VISIT CARE 10 [facility]ITAL MEAKAROL - 9 9 W [facility] EMERGENCY 95459 JOHANNA PEREZ, 9 9 EMERGENCY DEPARTMEN SERVICES SCIENTOLOGY T VISIT MODERATE ASSOCIATE SEVERITY S OFFICE 91405 ALYSA NGUYEN [address]
--- OUTSIDE RECORDS SUMMARY | 2017-01-30 06:23 | External Medical Summary Rpt ---
Author Author [employer] Kaufman, [employer] Organization [employer] Address Unknown Phone Unavailable
--- OUTSIDE RECORDS SUMMARY | 2017-01-30 06:23 | External Medical Summary Rpt ---
Author Author , Organization [employer] Address Unknown Phone Unavailable Care Team Providers Care Drilling Assistant Name Role Phone LIAM ANGULO, Unavailable Unavailable LIAM ANGULO JAMEE TORRES, Unavailable Unavailable JAMEE TORRES RIGO THOMAS Unavailable Unavailable Agustín GARCIA Unavailable Unavailable RIGO Saleem J. RANDALL R [facility] Unavailable Unavailable ANNMARIE, [facility] DAVID VALERO, Unavailable Unavailable DAVID RIGGINS FOSTER Unavailable Unavailable KORI KERR, Unavailable Unavailable KORI COURTNEY ANNE E, Unavailable Unavailable LUIS MARTINEZ GRAY ROB Unavailable Unavailable EDUIN OLIVA, Unavailable Unavailable EDUIN OLIVA, Unavailable Unavailable NOEMY SALGUERO, Unavailable Unavailable MIRTHA Roe, MIRTHA SALGUERO CHARLOTTE J, Unavailable Unavailable [facility], [facility] CORNELIUS LUTHER, CORNELIUS Unavailable Unavailable LUTHER ALISE DEE KEEF, Unavailable Unavailable [facility] Unavailable Unavailable IMAGING ASS, [facility] [id number] # Unavailable Unavailable [id number], [facility] [id number] # [id number] [facility] Unavailable Unavailable [facility] BASSAM CERVANTES, Unavailable Unavailable BASSAM CERVANTES [facility] Unavailable Unavailable SERVICES, [facility], Unavailable Unavailable [facility] ANKENY FARM MACHINERY ERECTOR Unavailable Unavailable [facility] FARM MACHINERY ERECTOR [facility] PAPER CUTTING MACHINE OPERATOR Unavailable Unavailable [facility] PAPER CUTTING MACHINE OPERATOR [facility] RADIOLOG[facility] Unavailable Unavailable ASSOCIST. [facility] Unavailable [facility]available SURGERY, [facility] Unavailable Unavailable MEDICAL, [facility] Unavailable Unavailable MEDICAL CENTER, [facility], M N, Gaston JEWELL N Unavailable Unavailable [id number], Unavailable Unavailable [id number] CHRIS CHR, Unavailable Unavailable PEREZ CHR GRADY PEREZ, Unavailable Unavailable GRADY PEREZ, ISMAEL, Unavailable Unavailable ISMAEL PEREZ Purpose Continuity of Care Document - 10-13-2008 through 2016 Problems Code Diagnosis DOS Provider Status 7231 CERVICALGIA 11-23-2011 [facility] 8470 NECK SPRAIN 11-23-2011 [place] [facility] E9270 OVEREXERTIO 11-23-2011 [place] [facility] STRENUOUS MOVEMENT 5950 ACUTE 06-25-2011 [facility] 9390 FOREIGN 12-12-2010 [facility] BODY IN GENERAL BLADDER AND SURGERY URETHRA 5921 CALCULUS OF 12-09-2010 [facility] URETER GENERAL SURGERY 591 HYDRONEPHRO 12-08-2010 [facility] 88072 OTHER 12-08-2010 [facility] 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 5990 URINARY 12-08-2010 [facility] SITE NOT SPECIFIED 23438 FEVER 12-08-2010 [facility] UNSPECIFIED GENERAL SURGERY 7880 RENAL COLIC 12-08-2010 [facility] 63007 ABDOMINAL 12-08-2010 [facility] PAIN OTHER GENERAL SPECIFIED SURGERY SITE 5920 CALCULUS OF 09-28-2010 [facility] 7919 OTHER 09-28-2010 [facility] NONSPECIFIC REGIONAL FINDING MEDICAL EXAMINATION OF URINE V1301 PERSONAL 09-28-2010 [facility] HISTORY OF REGIONAL URINARY MEDICAL CALCULI 87701 NAUSEA WITH 03-29-2010 [facility] VOMITING [facility] 67768 ABDOMINAL 03-29-2010 [facility] PAIN, REGIONAL UNSPECIFIED MEDICAL SITE CENTER 5959 UNSPECIFIED 03-21-2010 [facility] [place] [facility] 72957 HEMATURIA 03-18-2010 [facility] UNSPECIFIED RADIOLOGY ASSOCIATES PSC 7936 NONSPEC ABN 03-18-2010 [facility] FINDNG RAD RADIOLOGY & OTH EXAM ASSOCIATES ABDOMINAL [facility] AREA 7172 DERANGEMENT 10-23-2009 [facility] 83134 PAIN IN 10-23-2009 [facility] JOINT, H LOWER LEG ANESTHESIA PSC 8360 TEAR MEDIAL 10-23-2009 [facility] CURRENT 8362 OTHER TEAR 09-05-2009 [facility] CURRENT 8363 CLOSED 06-21-2009 [place] [facility] Medications [...] 4. YS 41 TT ti FI 00 84 MA ve A 78 20 20 0 LL 9 N 5% 00 11 11 E NA 8 OB NC LO Y TI GY E ON N FA ID LY HE AL TH 53 03 03 [...] OB KIMO CE SE TA GY PH ID N R NO FA PH ID EN LY 5- HE 32 AL 5 HY 00 01 01 2 20 3 MA [address] 40 -1 -1 .0 YS 05 NN ti OC 60 4- 7- 00 78 IS ve OD 36 20 20 LL 8 ON ON 50 11 11 E -A 1 OB KIMO CE SE TA GY PH ID N R NO FA PH ID EN LY 5- HE 32 AL 5 HY 00 01 01 2 20 3 MA [address] 40 -1 -1 .0 YS 05 NN ti OC 60 4- 4- 00 78 IS ve OD 36 20 20 LL 8 ON ON 50 11 11 E -A 1 OB KIMO CE SE TA GY PH ID N R NO FA PH ID EN LY 5- HE 32 AL 5 NJ 68 01 01 0 20 5 MA 60 DE Ac OM 38 -1 -1 .0 YS 35 NN ti ET 20 4- 4- 00 97 IS ve MCKEON 04 20 20 LL 3 ON ZI 10 11 11 E NE 1 OB KIMO SE 25 GY PH N R MG FA ID TA LY BL ET HE AL TH 00 12 01 2 30 3 MA 40 DE Ac 40 -3 -0 .0 SO 45 NN ti 60 1- 6- 00 N 67 IS ve 35 20 20 FA ON 70 10 11 ID [address] PH UG R 00 12 01 2 30 3 MA 40 DE Ac 60 -3 -0 .0 SO 45 NN ti 33 1- 3- 00 N 67 IS ve 88 20 20 FA ON 13 10 11 ID [address] PH UG R NJ 68 12 12 0 12 2 MA 62 DE Ac OM 38 -3 -3 .0 SO 78 NN ti ET 20 1- N 77 IS ve MCKEON 04 20 20 FA ON ZI 10 10 10 ID NE 1 LY KIMO SE 25 DR PH UG R MG TA BL ET 00 12 12 2 30 3 MA 40 DE Ac 60 -3 -3 .0 SO 45 NN ti 33 1- N 67 IS ve 88 20 20 FA ON 13 10 10 ID [address] PH UG R PE 00 12 12 0 40 10 MA 60 Ac NI 78 -0 -0 .0 YS 34 TT ti CI 11 37 MA ve LL 65 20 20 LL 6 N IN 50 10 10 E NA 1 OB NC VK Y GY E 50 N 0 FA MG ID LY TA BL HE ET AL NA 68 09 11 1 60 30 MA 60 Ac NJ 46 -2 -1 .0 YS 30 TT ti OX 20 2- 6- 48 MA ve EN 19 20 20 LL 2 N 00 10 10 E NA 50 5 OB NC 0 Y MG GY E N TA FA BL ID ET LY HE AL NA 68 09 09 1 60 30 MA 60 Ac NJ 46 -2 -2 .0 YS 30 TT ti OX 20 2- 2- 00 48 MA ve EN 19 20 20 LL 2 N 00 10 10 E NA 50 5 OB NC 0 Y MG GY E N TA FA BL ID ET LY HE AL NJ 68 07 08 1 20 3 MA 60 DE Ac OM 38 -1 -0 .0 YS 27 NN ti ET 20 3 3 20 IS ve MCKEON 04 20 20 LL 9 ON ZI 10 10 10 E NE 1 OB KIMO SE 25 GY PH N R MG FA ID TA LY BL ET HE AL TH 00 07 07 2 20 3 MA 40 DE Ac 59 -1 -1 .0 YS 04 NN ti 10 3 6 59 IS ve 34 20 20 LL 9 ON 90 10 10 E 5 OB KIMO SE GY PH N R FA ID LY HE AL TH 00 07 07 2 20 2 MA 40 DE Ac 59 -1 -1 .0 YS 04 NN ti 10 3- 3- 00 59 IS ve 34 20 20 LL 9 ON 90 10 10 E 5 OB KIMO SE GY PH N R FA ID LY HE AL TH NJ 68 07 07 1 20 3 MA 60 DE Ac OM 38 -1 -1 .0 YS 27 NN ti ET 20 3- 3- 00 20 IS ve MCKEON 04 20 20 LL 9 ON ZI 10 10 10 E NE 1 OB KIMO SE 25 GY PH N R MG FA ID TA LY BL ET HE AL TH CI 68 07 07 1 40 20 MA 60 DE Ac NJ 08 -1 -1 .0 YS 27 NN ti OF 40 3- 3 21 IS ve LO 07 20 20 LL 0 ON XA 00 10 10 E CI 1 OB KIMO N SE HC GY PH L N R 50 FA 0 ID MG LY TA HE B AL TH TA 00 07 07 0 14 14 EA 18 JUNIOR Ac MS 09 -0 -[address] 18 LL ti UL 37 1- 1- 00 SI 39 IV ve OS 33 20 [...] W TA GY BL N ET FA ID LY HE AL TH PH 65 06 06 0 6. 2 MA 60 FI Ac EN 16 -2 -2 00 YS 26 NL ti AZ 20 3- 3- 0 42 EY ve OP 52 20 20 LL 7 YR 01 10 10 E PA ID 0 OB UL IN W E GY 20 N 0 FA MG ID LY TA B HE AL TH CI 55 06 06 0 20 10 MA 60 FI Ac NJ 11 -2 -2 .0 YS 26 NL ti OF 10 3- 3- 00 42 EY ve LO 12 20 20 LL 8 XA 60 10 10 E PA CI 1 OB UL N W HC GY L N 25 FA 0 ID MG LY TA HE B AL OX 53 06 06 0 20 3 KM 21 PO Ac YC 74 -2 -2 .0 AR 62 HL ti OD 60 0- 0- 00 T 52 M ve ON 20 20 20 PH 2 N E- 30 10 10 AR AC 5 MA ET CY AM 96 IN 84 OP # HE N 96 5- 84 32 5 NJ 57 06 06 0 12 3 KM [...] .0 YS 25 TT ti AN 20 90 MA ve E 83 20 20 LL 8 N 1% 46 10 10 E NA 0 OB NC SH Y AM GY E PO N O FA ID LY HE AL NA 68 04 03 2 60 30 MA 60 KE Ac NJ 46 -2 -1 .0 YS 09 EF ti OX 20 0- 0- 00 49 ve EN 19 20 20 LL 5 KI 00 09 10 E MB 50 5 OB ER 0 LY MG GY N TA FA BL ID ET LY HE AL 02 00 30 5 MA 40 MCKEON Ac 59 -2 -1 .0 YS 03 RR ti 10 65 IS ve 34 20 20 LL 9 90 10 10 E CH 5 OB AR /G LO YN TT E FA J ID LY HE AL NJ 68 01 02 00 30 8 MA 60 MCKEON Ac OM 38 -2 -1 .0 YS 19 RR ti ET 20 86 IS ve MCKEON 04 20 20 LL 5 ZI 10 10 10 E CH NE 1 OB AR /G LO 25 YN TT E MG FA J ID TA LY BL ET HE AL 00 01 01 30 5 MA 40 MCKEON Ac 59 -1 -2 .0 YS 03 RR ti 10 2- 8 57 IS ve 34 20 20 LL 3 90 10 10 E CH 5 OB AR /G LO YN TT E FA J ID LY HE AL 01 00 30 5 MA 40 MCKEON Ac 59 -1 -2 .0 YS 03 RR ti 10 2 8 57 IS ve 34 20 20 LL 3 90 10 10 E CH 5 OB AR /G LO YN TT E FA J ID LY HE AL TH NA 68 04 01 01 60 30 MA 60 KE Ac NJ 46 -2 -2 .0 YS 09 EF ti OX 20 0- 8- 00 49 ve EN 19 20 20 LL 5 KI 00 09 10 E MB 50 5 OB ER 0 /G LY MG YN TA FA BL ID ET LY HE AL TH 00 12 12 00 60 10 MA 40 Ac 59 -0 -1 .0 YS 03 TT ti 10 8- 7- 40 MA ve 34 20 20 LL 3 N 90 09 09 E NA 5 OB NC /G Y YN E FA ID LY HE AL TH IN 00 12 12 00 60 20 MA 60 MA Ac DO 09 -0 -1 .0 YS 17 RK ti ME 34 7- 7- 76 ES ve TH 02 20 20 LL 6 BE AC 90 09 09 E RY IN 1 OB /G MCKEON 25 YN RO LD MG FA V ID CA LY PS UL HE E AL TH LI 60 10 11 00 60 3 MA 60 Ac ND 43 -2 -0 .0 YS 16 TT ti AN 20 9- 5- 00 17 MA ve E 83 20 20 LL 3 N 1% 36 09 09 E NA 0 OB NC LO /G Y TI YN E ON FA ID LY HE AL TH 49 09 10 00 20 5 MA 60 JUNIOR Ac 88 -2 -0 .0 YS 14 LL ti 40 3- 8- 00 68 IV ve 77 20 20 LL 3 AN 70 09 09 E 5 OB CH /G RI YN ST IN FA A ID M LY HE AL TH TR 65 09 10 00 20 3 MA 40 JUNIOR Ac AM 16 -2 -0 .0 YS 02 LL ti AD 20 3- 8- 00 99 IV ve OL 62 20 20 LL 5 AN 71 09 09 E HC 1 OB CH L /G RI [address] IN MG FA A ID M TA LY BL ET HE AL TH NA 68 04 05 00 60 30 MA 60 KE Ac NJ 46 -2 -0 .0 YS 09 EF ti OX 20 0- 7- 00 49 ve EN 19 20 20 LL 5 KI 00 09 09 E MB 50 5 OB ER 0 /G LY MG YN TA FA BL ID ET LY HE AL TH OV 51 01 01 01 59 1 RI 64 Ac ID 67 -1 -3 .0 TE 17 TT ti E 25 2- 0- 00 77 MA ve 0. 27 20 20 AI N 5% 60 09 09 D NA 4 PH NC LO AR Y TI M E ON #3 92 0 60 12 01 00 10 2 MA 20 AD Ac 95 -0 -1 .0 YS 01 AM ti 10 5- 5- 00 19 S ve 79 20 20 LL 5 JA 67 08 09 E ME 0 OB S /G E YN FA ID LY HE AL TH 00 01 01 00 10 3 MA 40 AD Ac 59 -0 -1 .0 YS 01 AM ti 10 6- 5- 00 74 S ve 34 20 20 LL 7 JA 90 09 09 E ME 5 OB S /G E YN FA ID LY HE AL Procedures Procedure DOS Code Location Performer Comment 3D 85488 [place] [facility] RENDERING 2 MEDICAL TORRES IMAGING W/INTERP& [place] [address] [place] [facility] CERVICAL 2 MEDICAL TORRES SPINE W/O IMAGING CONTRAST ASS MATERIAL INJECTION J0696 [facility]J MONTANO 1 PRIMARY Y BILLY CEFTRIAXO CARE NE SODIUM CENTER PER 250 MG THERAPEUT 03606 BJ MONTANO IC 1 PRIMARY Y BILLY PROPHYLAC CARE TIC/DX CENTER INJECTION SUBQ/IM ANES 03111 [facility]&/RMV A PSC L URETERAL CALCULUS CYSTO 25977 [facility] 1 W GENERAL J. SCOPY SURGERY W/RMVL/MA [place] [facility] CYSTO 34982 [facility] W/INSERT 1 W GENERAL J. URETERAL SURGERY STENT INITIAL 06752 [facility] 1 W GENERAL J. CARE/[place] SURG[place] [address] [place] [address] [facility] ABDOMEN & 1 EIDER KIMBERLEY PELVIS RADIOLOGY W/O ASSOCIAT CONTRAST MATERIAL 3D [address]14 [facility] RENDERING 1 EIDER KIMBERLEY W/INTERP RADIOLOGY & ASSOCIAT POSTPROCE SS SUPERVISI ON RADEX 77397 [facility] ABDOMEN 1 1 [facility] ANTEROPOS ASSOCIAT TERIOR VIEW RADEX 83346 [facility] ABDOMEN 1 0 [facility] ANTEROPOS ASSOCIAT TERIOR VIEW 3D 59563 [facility] RENDERING 0 [facility] W/INTERP RADIOLOGY & [place] [address] [facility] MEADOWVIE INFUSION 0 W W HYDRATION [facility]AL EACH MEDICAL MEDICAL ADDITIONA L HOUR COLLECTIO 37758 [facility] MEADOWVIE N VENOUS 0 W W BLOOD [facility] [place] [address] [facility] ABDOMEN 0 [facility] W/O RADIOLOGY CONTRAST ASSOCIAT MATERIAL BASIC 65564 [facility]OW[facility] METABOLIC 0 W W PANEL [facility] CALCIUM MEDICAL MEDICAL TOTAL CULTURE 03033 [facility]OWV[facility] BACTERIAL 0 W W REGIONAL REGIONAL QUANTTATI MEDICAL MEDICAL VE COLONY COUNT URINE CT PELVIS 63149 [facility] W/O 0 [facility] CONTRAST RADIOLOGY MATERIAL ASSOCIAT THER 32281 [facility] MEADOW[facility] PROPH/DX 0 W W NJX IV REGIONAL REGIONAL PUSH MEDICAL MEDICAL SINGLE/1S T SBST/DRUG BLOOD 64648 [facility] MEADOW[facility]IE COUNT 0 W W COMPLETE REGIONAL REGIONAL AUTO&AUTO MEDICAL MEDICAL DIFRNTL WBC URNLS DIP 25608 [facility] MEADOWVIE 0 W W STICK/TAB REGIONAL REGIONAL LET MEDICAL MEDICAL REAGENT AUTO MICROSCOP Y THERAPEUT 18026 [facility] MEADOWVIE IC 0 W W INJECTION REGIONAL REGIONAL IV PUSH MEDICAL MEDICAL EACH NEW DRUG ANES 58687 [facility] TRURL 0 LTH ADELE FRAGMNTJ ANESTHESI MANJ&/RMV A PSC L URETERAL CALCULUS CYSTO 54402 MEAWMILADIS MASTERSON, W/INSERT 0 W GENERAL J. URETERAL SURGERY ANDI R STENT CALCULUS 47545 [facility] MEADOWVIE QUANTITAT 0 W W PA REGIONAL REGIONAL CHEMICAL MEDICAL MEDICAL CYSTO 07337 NOEWMILADIS MASTERSON, W/URETERO 0 W GENERAL J. SCOPY SURGERY ANDI R W/RMVL/[place] [facility] 10576 [facility] DISCHARGE 0 W GENERAL J. DAY SURGERY MANAGEMEN T 30 MIN/< FLUOROSCO 65723 MARTHAMILADIS KENISHA PY SPX UP 0 W W TO 1 REGIONAL [facility] MEDICAL MEDICAL PHYS/QHP TIME HOSPITAL G0378 MARTHAMILADIS NOEWVIE OBSERVATI 0 W W ON [facility] SERVICE MEDICAL MEDICAL PER HOUR BASIC 22413 KENISHA MEAWVIE METABOLIC 0 W W PANEL [facility] CALCIUM MEDICAL MEDICAL TOTAL COLLECTIO 12008 LATONIAWALLYMILADIS NOEWVIE N VENOUS 0 W W BLOOD [facility] VENIPUNCT MEDICAL MEDICAL URE CYSTO 22953 NOE[place]IE MEADOWVIE W/URETERO 0 W W SCOPY REGIONAL REGIONAL W/RMVL/MA MEDICAL MEDICAL [place] [facility] THER 68041 NOEWMILADIS MEAWVIE PROPH/DX 0 W W NJX IV REGIONAL REGIONAL PUSH MEDICAL MEDICAL SINGLE/1S T SBST/DRUG BLOOD 95880 LATONIA[place]IE MEADOWVIE COUNT 0 W W COMPLETE REGIONAL REGIONAL AUTO&AUTO MEDICAL MEDICAL DIFRNTL WBC URNLS DIP 77493 [facility] MEADOWVIE 0 W W STICK/TAB REGIONAL REGIONAL LET MEDICAL MEDICAL REAGENT AUTO MICROSCOP Y CYSTO 95886 LATONIAWMILADIS MEADOWVIE W/INSERT 0 W W URETERAL REGIONAL REGIONAL STENT MEDICAL MEDICAL THERAPEUT 77477 MEAWVIE MEADOWVIE IC 0 W W INJECTION REGIONAL REGIONAL IV PUSH MEDICAL MEDICAL EACH NEW DRUG INITIAL 08696 [facility] 0 W GENERAL J. CARE/DAY SURGERY 50 MINUTES URNLS DIP 36166 MEADOW[facility]IE MEADOWVIE 0 W W STICK/TAB REGIONAL REGIONAL LET MEDICAL MEDICAL REAGENT CENTER CENTER AUTO MICROSCOP Y THERAPEUT 17041 MEAW[facility]IE MEADOWVIE IC 0 W W INJECTION REGIONAL REGIONAL IV PUSH MEDICAL MEDICAL EACH NEW CENTER CENTER DRUG THER 25104 [facility] MEADOWVIE PROPH/DX 0 W W NJX IV REGIONAL REGIONAL PUSH MEDICAL MEDICAL SINGLE/ CENTER CENTER T SBST/DRUG CULTURE 92893 MEAD[facility]IE MEADOWVIE BACTERIAL 0 W W [facility] [place] [address] MEADOW[facility]IE MEADOWVIE INFUSION 0 W W HYDRATION [facility] [place] [address] [facility] ABDOMEN 0 EIDER, W/O RADIOLOGY MIRTHA CONTRAST K MATERIAL ASSOCIATE S [facility] CT PELVIS 12522 [facility] 0 EIDER, W/CONTRAS RADIOLOGY MIRTHA T K MATERIAL ASSOCIATE S [facility] [address] [facility] RENDERING 0 EIDER, W/INTERP RADIOLOGY MIRTHA & K POSTPROCE ASSOCIATE S [facility] SUPERVISI ON CT PELVIS 14503 ME[facility]IE MEADOWVIE W/O 0 W W CONTRAST [facility] CULTURE 75382 MEADOW[facility]IE MEADOWVIE BACTERIAL 0 W W [facility] COUNT URINE THERAPEUT 89542 MEAD[facility]IE MEADOWVIE IC 0 W W INJECTION [facility]IONAL [facility] DRUG URNLS DIP 58690 MEAD[facility]IE MEADOWVIE 0 W W STICK/TAB [facility] C[facility] AUTO MICROSCOP Y THER 38154 MEAD[facility]IE MEADOWVIE PROPH/DX 0 W W NJX IV [facility]/1S CENTER CENTER T SBST/DRUG ARTHRS 81009 JOSÉ KUMAR, NADINE SURG 0 JAMARI JAMARI W/MENISCE J J CTOMY MED/LAT W/SHVG ANESTH 45266 DONG LOFTON 0 [facility] KORI Lopez ANESTHESI ARTHROSCO A [facility] PIC PROC KNEE JOINT MRI ANY 76676 MEAD[facility]IE MEADOWVIE JT LOWER 9 W W [facility] W/O MEDICAL MEDICAL [facility] MATRL Encounters Encounter Start End Date Code Location Performer Type Date EMERGENCY 42084 MAEVE 2 2 [facility] T VISIT LOW/MODER SEVERITY EMERGENCY 54485 JOHANNA NGUYEN DEPT 2 2 EMERGENCY VISIT SERVICES HIGH SEVERITY& THREAT [facility] MAEVE - 2 2 [facility] 20521 B[facility]OW [facility]TR[facility] OUTPATIEN 1 1 PRIMARY Y BILLY T VISIT CARE 15 [facility] OFFICE 02692 MARTHAMILADIS SIERRA OUTPATIEN 1 1 W GENERAL J. T VISIT 5 SURGERY MINUTES EMERGENCY 20815 JOHANNA CAST DEPT 1 1 EMERGENCY JAM VISIT SERVICES HIGH SEVERITY& THREAT [facility] MEADOWVIE - 0 0 W [facility] MEDICAL EMERGENCY 21114 JOHANNA PEREZ DEPT 0 0 EMERGENCY CHR VISIT SERVICES HIGH SEVERITY& THREAT [facility] EMERGENCY 17578 MEADOWVIE 0 0 W [facility] VISIT MEDICAL HIGH/URGE NT SEVERITY EMERGENCY 64064 JOHANNA PEREZ DEPT 0 0 EMERGENCY CHR VISIT SERVICES HIGH SEVERITY& THREAT [facility] MEADOWVIE - 0 0 W [facility] MEDICAL OFFICE 05566 KENISHA SIERRA, OUTPATIEN 0 0 W GENERAL J. T VISIT SURGERY ANDI R 10 MINUTES OFFICE 62129 BJ MARTINEZ, OUTPATIEN 0 0 PRIMARY LUIS E T VISIT CARE 15 [facility] MEADOWVIE - 0 0 W [facility] EMERGENCY 91724 MEADOWVIE 0 0 W [facility] VISIT MEDICAL HIGH/URGE CENTER NT SEVERITY EMERGENCY 53144 JOHANNA PEREZ DEPT 0 0 EMERGENCY VISIT SERVICES ISMAEL HIGH SEVERITY& ASSOCIATE THREAT S [facility] EMERGENCY 49426 JOHANNA RIGGINS, 0 0 EMERGENCY DAVID W DEPARTMEN SERVICES T VISIT HIGH/URGE ASSOCIATE NT S SEVERITY EMERGENCY 92088 KENISHA 0 0 W [facility] T VISIT MEDICAL HIGH/URGE CENTER NT SEVERITY EMERGENCY 86128 Gaston VILLAREAL DEPT 0 0 EMERGENCY VISIT SERVICES HIGH SEVERITY& ASSOCIATE THREAT S [facility] MEADOWVIE - 0 0 W [facility] MEADOWVIE - 0 0 W [facility] OFFICE 02792 JOSÉ KUMAR, CONSULTAT 0 0 JAMARI Morrison NEW/ESTAB PATIENT 40 MIN OFFICE 79504 ALYSA ENGLE 9 9 PRIMARY EDUIN E T VISIT CARE 10 [facility] KENISHA - 9 9 W [facility] EMERGENCY 46818 JOHANNA PEREZ, 9 9 EMERGENCY DEPARTMEN SERVICES [facility] T VISIT MODERATE ASSOCIATE SEVERITY S OFFICE 34042 ALYSA NGUYEN 9 9 PRIMARY ALISE T [address]
--- OUTSIDE RECORDS SUMMARY | 2017-01-30 06:23 | External Medical Summary Rpt ---
Demographics Preferred Language Citizen Of [place] Marital Status Unknown Jewish Affiliation Unknown Race Unknown Ethnic Group Unknown Author Author , Organization [employer] Address Unknown Phone Unavailable Purpose Continuity of Care Document - through 2016 Immunization No patient found.
--- OUTSIDE RECORDS SUMMARY | 2017-01-30 06:23 | External Medical Summary Rpt ---
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 RANDALL R [facility] Unavailable Unavailable ANNMARIE, [facility] DAVID VALERO, Unavailable Unavailable DAVID [...] Unavailable LUTHER ALISE DEE KEEF, Unavailable Unavailable [facility] Unavailable Unavailable IMAGING ASS, [facility] [id number] # Unavailable Unavailable [id number], [facility] [id number] # [id number] [facility] Unavailable Unavailable [facility] BASSAM CERVANTES, Unavailable Unavailable BASSAM CERVANTES [facility] Unavailable Unavailable SERVICES, [facility], Unavailable Unavailable [facility] [employer] Unavailable Unavailable [facility] 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 Unavailable Unavailable [facility]REIGHT CONDUCTOR [facility] Unavailable Unavailable [facility] Unavailable Unavailable SURG[facility], [facility] Unavailable Unavailable MEDICAL, [facility] MEDICAL [facility] Unavailable Unavailable MEDICAL CENTER, [facility], M N, Gaston JEWELL N Unavailable Unavailable [id number], Unavailable Unavailable [id number] CHRIS CHR, Unavailable Unavailable PEREZ CHR GRADY PEREZ, Unavailable Unavailable GRADY PEREZ, ISMAEL, Unavailable Unavailable ISMAEL PEREZ Purpose Continuity of Care Document - 10-13-2008 through 2016 Problems Code Diagnosis DOS Provider Status 7231 CERVICALGIA 11-23-2011 [facility] 8470 NECK SPRAIN 11-23-2011 [facility] E9270 OVEREXERTIO 11-23-2011 [place] [facility] FROM [facility] STRENUOUS MOVEMENT 5950 ACUTE 06-25-2011 [facility] 9390 FOREIGN 12-12-2010 [facility] BODY IN GENERAL BLADDER AND SURGERY URETHRA 5921 CALCULUS OF 12-09-2010 [facility] URETER GENERAL SURGERY 591 HYDRONEPHRO 12-08-2010 [facility] 48494 OTHER 12-08-2010 [facility] 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 5990 URINARY 12-08-2010 [facility] SITE NOT SPECIFIED 09923 FEVER 12-08-2010 [facility] UNSPECIFIED GENERAL SURGERY 7880 RENAL COLIC 12-08-2010 [facility] 56055 ABDOMINAL 12-08-2010 [facility] PA[facility] OTHER GENERAL SPECIFIED SURGERY SITE 5920 CALCULUS OF 09-28-2010 [facility] 7919 OTHER 09-28-2010 [facility] NONSPECIFIC REGIONAL FINDING MEDICAL EXAMINATION OF URINE V1301 PERSONAL 09-28-2010 [facility] HISTORY OF REGIONAL URINARY MEDICAL CALCULI 39772 NAUSEA WITH 03-29-2010 [facility]OMITING [facility] 76914 ABDOMINAL 03-29-2010 [facility] PAIN, REGIONAL UNSPECIFIED MEDICAL SITE CENTER 5959 UNSPECIFIED 03-21-2010 [facility] 13929 HEMATURIA 03-18-2010 [facility] UNSPECIFIED RADIOLOGY ASSOCIATES PSC 7936 NONSPEC ABN 03-18-2010 [facility] RADIOLOG[facility] & OTH EXAM [facility]OCIATES ABDOMINAL [facility] 7172 DERANGEMENT 10-23-2009 [facility] KUMAR [facility] OF MEDIAL MENISCUS 74611 PAIN IN 10-23-2009 [facility] JOINT, H LOWER LEG ANESTHESIA PSC 8360 TEAR MEDIAL 10-23-2009 [facility] CURRENT 8362 OTHER TEAR 09-05-2009 [facility] CURRENT 8363 CLOSED 06-21-2009 [facility] Medications [...] Y TI GY E ON N FA WY LY HE AL TH 53 03 03 [...] OB KIMO CE SE TA GY PH WY N R NO FA PH WY EN LY 5- HE 32 AL 5 HY 00 01 01 2 20 3 MA [address] 40 -1 -1 .0 YS 05 NN ti OC 60 4- 7- 00 78 IS ve OD 36 20 20 LL 8 ON ON 50 11 11 E -A 1 OB KIMO CE SE TA GY PH WY N R NO FA PH WY EN LY 5- HE 32 AL 5 HY 00 01 01 2 20 3 MA [address] 40 -1 -1 .0 YS 05 NN ti OC 60 4- 4- 00 78 IS ve OD 36 20 20 LL 8 ON ON 50 11 11 E -A 1 OB KIMO CE SE TA GY PH WY N R NO FA PH WY EN LY 5- HE 32 AL 5 IL 68 01 01 0 20 5 MA 60 DE Ac OM 38 -1 -1 .0 YS 35 NN ti ET 20 4- 4- 00 97 IS ve MCKEON 04 20 20 LL 3 ON ZI 10 11 11 E NE 1 OB KIMO SE 25 GY PH N R MG FA WY TA LY BL ET HE AL TH 00 12 01 2 30 3 MA 40 DE Ac 40 -3 -0 .0 SO 45 NN ti 60 1- 6- 00 N 67 IS ve 35 20 20 FA ON 70 10 11 WY [address] PH UG R 00 12 01 2 30 3 MA 40 DE Ac 60 -3 -0 .0 SO 45 NN ti 33 1- 3- 00 N 67 IS ve 88 20 20 FA ON 13 10 11 W[place] [address] PH UG R IL 68 12 12 0 12 2 MA 62 DE Ac OM 38 -3 -3 .0 SO 78 NN ti ET 20 1- N 77 IS ve MCKEON 04 20 20 FA ON ZI 10 10 10 WY NE 1 LY KIMO SE [address] PH UG R MG TA BL ET 00 12 12 2 30 3 MA 40 DE Ac 60 -3 -3 .0 SO 45 NN ti 33 1- N 67 IS ve 88 20 20 FA ON 13 10 10 WY [address] PH UG R PE 00 12 12 0 40 10 MA 60 Ac NI 78 -0 -0 .0 YS 34 TT ti CI 11 37 MA ve LL 65 20 20 LL 6 N IN 50 10 10 E NA 1 OB NC VK Y GY E 50 N 0 FA MG WY LY TA BL HE ET AL NA 68 09 11 1 60 30 MA 60 Ac IL 46 -2 -1 .0 YS 30 TT ti OX 20 2- 6- 48 MA ve EN 19 20 20 LL 2 N 00 10 10 E NA 50 5 OB NC 0 Y MG GY E N TA FA BL WY ET LY HE AL NA 68 09 09 1 60 30 MA 60 Ac IL 46 -2 -2 .0 YS 30 TT ti OX 20 2- 2- 00 48 MA ve EN 19 20 20 LL 2 N 00 10 10 E NA 50 5 OB NC 0 Y MG GY E N TA FA BL WY ET LY HE AL IL 68 07 08 1 20 3 MA 60 DE Ac OM 38 -1 -0 .0 YS 27 NN ti ET 20 3 3 20 IS ve MCKEON 04 20 20 LL 9 ON ZI 10 10 10 E NE 1 OB KIMO SE 25 GY PH N R MG FA WY TA LY BL ET HE AL TH 00 07 07 2 20 3 MA 40 DE Ac 59 -1 -1 .0 YS 04 NN ti 10 3 6 59 IS ve 34 20 20 LL 9 ON 90 10 10 E 5 OB KIMO SE GY PH N R FA WY LY HE AL TH 00 07 07 2 20 2 MA 40 DE Ac 59 -1 -1 .0 YS 04 NN ti 10 3- 3- 00 59 IS ve 34 20 20 LL 9 ON 90 10 10 E 5 OB KIMO SE GY PH N R FA WY LY HE AL TH IL 68 07 07 1 20 3 MA 60 DE Ac OM 38 -1 -1 .0 YS 27 NN ti ET 20 3- 3- 00 20 IS ve MCKEON 04 20 20 LL 9 ON ZI 10 10 10 E NE 1 OB KIMO SE 25 GY PH N R MG FA WY TA LY BL ET HE AL TH CI 68 07 07 1 40 20 MA 60 DE Ac IL 08 -1 -1 .0 YS 27 NN ti OF 40 3- 3 21 IS ve LO 07 20 20 LL 0 ON XA 00 10 10 E CI 1 OB KIMO N SE HC GY PH L N R 50 FA 0 WY MG LY TA HE B AL TH [...] W TA GY BL N ET FA WY LY HE AL TH PH 65 06 06 0 6. 2 MA 60 FI Ac EN 16 -2 -2 00 YS 26 NL ti AZ 20 3- 3- 0 42 EY ve OP 52 20 20 LL 7 YR 01 10 10 E PA ID 0 OB UL IN W E GY 20 N 0 FA MG WY LY TA B HE AL TH CI 55 06 06 0 20 10 MA 60 FI Ac IL 11 -2 -2 .0 YS 26 NL ti OF 10 3- 3- 00 42 EY ve LO 12 20 20 LL 8 XA 60 10 10 E PA CI 1 OB UL N W HC GY L N 25 FA 0 WY MG LY TA HE B AL OX [...] HE N 96 5- 84 32 5 IL 57 06 06 0 12 3 KM [...] AM GY E PO N O FA WY LY HE AL NA 68 04 03 2 60 30 MA 60 KE Ac IL 46 -2 -1 .0 YS 09 EF ti OX 20 0- 0- 00 49 ve EN 19 20 20 LL 5 KI 00 09 10 E MB 50 5 OB ER 0 LY MG GY N TA FA BL WY ET LY HE AL 02 00 30 5 MA 40 MCKEON Ac 59 -2 -1 .0 YS 03 RR ti 10 65 IS ve 34 20 20 LL 9 90 10 10 E CH 5 OB AR /G LO YN TT E FA J WY LY HE AL IL 68 01 02 00 30 8 MA 60 MCKEON Ac OM 38 -2 -1 .0 YS 19 RR ti ET 20 86 IS ve MCKEON 04 20 20 LL 5 ZI 10 10 10 E CH NE 1 OB AR /G LO 25 YN TT E MG FA J WY TA LY BL ET HE AL 00 01 01 30 5 MA 40 MCKEON Ac 59 -1 -2 .0 YS 03 RR ti 10 2- 8 57 IS ve 34 20 20 LL 3 90 10 10 E CH 5 OB AR /G LO YN TT E FA J WY LY HE AL 01 00 30 5 MA 40 MCKEON Ac 59 -1 -2 .0 YS 03 RR ti 10 2 8 57 IS ve 34 20 20 LL 3 90 10 10 E CH 5 OB AR /G LO YN TT E FA J WY LY HE AL TH NA 68 04 01 01 60 30 MA 60 KE Ac IL 46 -2 -2 .0 YS 09 EF ti OX 20 0- 8- 00 49 ve EN 19 20 20 LL 5 KI 00 09 10 E MB 50 5 OB ER 0 /G LY MG YN TA FA BL WY ET LY HE AL TH 00 12 12 00 60 10 MA 40 Ac 59 -0 -1 .0 YS 03 TT ti 10 8- 7- 40 MA ve 34 20 20 LL 3 N 90 09 09 E NA 5 OB NC /G Y YN E FA WY LY HE AL TH IN 00 12 12 00 60 20 MA 60 MA Ac DO 09 -0 -1 .0 YS 17 RK ti ME 34 7- 7- 76 ES ve TH 02 20 20 LL 6 BE AC 90 09 09 E RY IN 1 OB /G MCKEON 25 YN RO LD MG FA V WY CA LY PS UL HE E AL TH LI 60 10 11 00 60 3 MA 60 Ac ND 43 -2 -0 .0 YS 16 TT ti AN 20 9- 5- 00 17 MA ve E 83 20 20 LL 3 N 1% 36 09 09 E NA 0 OB NC LO /G Y TI YN E ON FA WY LY HE AL TH 49 09 10 00 20 5 MA 60 JUNIOR Ac 88 -2 -0 .0 YS 14 LL ti 40 3- 8- 00 68 IV ve 77 20 20 LL 3 AN 70 09 09 E 5 OB CH /G RI YN ST IN FA A WY M LY HE AL TH TR 65 09 10 00 20 3 MA 40 JUNIOR Ac AM 16 -2 -0 .0 YS 02 LL ti AD 20 3- 8- 00 99 IV ve OL 62 20 20 LL 5 AN 71 09 09 E HC 1 OB CH L /G RI [address] IN MG FA A WY M TA LY BL ET HE AL TH NA 68 04 05 00 60 30 MA 60 KE Ac IL 46 -2 -0 .0 YS 09 EF ti OX 20 0- 7- 00 49 ve EN 19 20 20 LL 5 KI 00 09 09 E MB 50 5 OB ER 0 /G LY MG YN TA FA BL WY ET LY HE AL TH OV 51 [...] 0 OB S /G E YN FA WY LY HE AL TH 00 01 01 00 10 3 MA 40 AD Ac 59 -0 -1 .0 YS 01 AM ti 10 6- 5- 00 74 S ve 34 20 20 LL 7 JA 90 09 09 E ME 5 OB S /G E YN FA WY LY HE AL Procedures Procedure DOS Code Location Performer Comment 3D 41449 [place] [facility] RENDERING 2 MEDICAL TORRES IMAGING W/INTERP& [place] [address] [place] JAMEE CERVICAL 2 MEDICAL TORRES SPINE W/O IMAGING CONTRAST ASS MATERIAL INJECTION J0696 BJ MONTANO 1 PRIMARY Y BILLY CEFTRIAXO CARE NE SODIUM CENTER PER 250 MG THERAPEUT 59816 BJ MONTANO IC 1 PRIMARY Y BILLY PROPHYLAC CARE TIC/DX CENTER INJECTION SUBQ/IM ANES 70338 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 SCOPY SURGERY W/RMVL/MA [place] [facility] CYSTO 18167 [facility] W/INSERT 1 W GENERAL J. URETERAL SURGERY STENT INITIAL 07420 [facility] 1 W GENERAL J. CARE/[place] [address] [place] [address] [facility] ABDOMEN & 1 EIDER KIMBERLEY PELVIS RADIOLOGY W/O ASSOCIAT CONTRAST MATERIAL 3D 45937 [facility] RENDERING 1 EIDER KIMBERLEY W/INTERP RADIOLOGY & ASSOCIAT POSTPROCE SS SUPERVISI ON RADEX 59483 [facility] ABDOMEN 1 1 [facility] ANTEROPOS ASSOCIAT TERIOR VIEW RADEX 04293 [facility] ABDOMEN 1 0 [facility] ANTEROPOS ASSOCIAT TERIOR VIEW 3D 49981 [facility] RENDERING 0 [facility] W/INTERP RADIOLOGY & [place] [address] [facility] MEADOWVIE INFUSION 0 W W HYDRATION REGIONAL REGIONAL EACH MEDICAL MEDICAL ADDITIONA L HOUR COLLECTIO 96898 [facility] MEADOWVIE N VENOUS 0 W W BLOOD REGIONAL [facility] [place] [address] [facility] ABDOMEN 0 [facility] W/O RADIOLOGY CONTRAST ASSOCIAT MATERIAL BASIC 58141 [facility] MEADOW[facility]IE METABOLIC 0 W W PANEL REGIONAL [facility] CALCIUM MEDICAL MEDICAL TOTAL CULTURE 52171 [facility] MEADOW[facility]IE BACTERIAL 0 W W REGIONAL REGIONAL QUANTTATI MEDICAL MEDICAL VE COLONY COUNT URINE CT PELVIS 57269 [facility] W/O 0 [facility] CONTRAST RADIOLOGY MATERIAL ASSOCIAT THER 03662 [facility] MEADOWVIE PROPH/DX 0 W W NJX IV REGIONAL REGIONAL PUSH MEDICAL MEDICAL SINGLE/1S T SBST/DRUG BLOOD 10908 [facility] MEADOWVIE COUNT 0 W W COMPLETE REGIONAL REGIONAL AUTO&AUTO MEDICAL MEDICAL DIFRNTL WBC URNLS DIP 90747 [facility] MEADOWVIE 0 W W STICK/TAB REGIONAL REGIONAL LET MEDICAL MEDICAL REAGENT AUTO MICROSCOP Y THERAPEUT 74318 [facility] MEADOWVIE IC 0 W W INJECTION REGIONAL REGIONAL IV PUSH MEDICAL MEDICAL EACH NEW DRUG ANES 48420 [facility] BRAUGHTON TRURL 0 LTH ADELE FRAGMNTJ ANESTHESI MANJ&/RMV A PSC L URETERAL CALCULUS CYSTO 17417 MEAWMILADIS MASTERSON, W/INSERT 0 W GENERAL J. URETERAL SURGERY ANDI R STENT CALCULUS 12173 [facility] MEADOWVIE QUANTITAT 0 W W PA REGIONAL REGIONAL CHEMICAL MEDICAL MEDICAL CYSTO 00334 NOEWMILADIS MASTERSON, W/URETERO 0 W GENERAL J. SCOPY SURGERY ANDI R W/RMVL/[facility] 02566 [facility] DIS[facility] 0 W GENERAL J. DAY SURGERY MANAGEMEN T 30 MIN/< FLUOROSCO 11089 MARTHAMILADIS KENISHA PY SPX UP 0 W W TO 1 REGIONAL PENDING SALE TO [facility] MEDICAL PHYS/QHP TIME [facility] G0378 MARTHAMILADIS NOEWVIE OBSERVATI 0 W W ON REGIONAL [facility] SERVICE MEDICAL MEDICAL PER HOUR BASIC 93828 KENISHA MEAWVIE METABOLIC 0 W W PANEL [facility] CALCIUM MEDICAL MEDICAL TOTAL COLLECTIO 66349 LATONIAWALLYMILADIS NOEWVIE N VENOUS 0 W W BLOOD [facility] VENIPUNCT MEDICAL MEDICAL URE CYSTO 73725 NOEWVIE MEADOWVIE W/URETERO 0 W W SCOPY REGIONAL REGIONAL W/RMVL/MA MEDICAL MEDICAL [place] [facility] THER 54091 NOEWMILADIS MEAWVIE PROPH/DX 0 W W NJX IV REGIONAL REGIONAL PUSH MEDICAL MEDICAL SINGLE/1S T SBST/DRUG BLOOD 81005 LATONIAWVIE MEADOWVIE COUNT 0 W W COMPLETE REGIONAL REGIONAL AUTO&AUTO MEDICAL MEDICAL DIFRNTL WBC URNLS DIP 51681 ME[facility]IE MEADOWVIE 0 W W STICK/TAB REGIONAL REGIONAL LET MEDICAL MEDICAL REAGENT AUTO MICROSCOP Y CYSTO 31433 LATONIAWMILADIS MEADOWVIE W/INSERT 0 W W URETERAL REGIONAL REGIONAL STENT MEDICAL MEDICAL THERAPEUT 78134 MEAWVIE MEADOWVIE IC 0 W W INJECTION REGIONAL REGIONAL IV PUSH MEDICAL MEDICAL EACH NEW DRUG INITIAL 93981 [facility] 0 W GENERAL J. CARE/DAY SURGERY 50 MINUTES URNLS DIP 75200 MEADOW[facility]IE MEADOWVIE 0 W W STICK/TAB REGIONAL REGIONAL LET MEDICAL MEDICAL REAGENT CENTER CENTER AUTO MICROSCOP Y THERAPEUT 36951 MEAWVIE MEADOWVIE IC 0 W W INJECTION REGIONAL REGIONAL IV PUSH MEDICAL MEDICAL EACH NEW CENTER CENTER DRUG THER 26527 ME[facility]IE MEADOWVIE PROPH/DX 0 W W NJX IV REGIONAL REGIONAL PUSH MEDICAL MEDICAL SINGLE/ CENTER CENTER T SBST/DRUG CULTURE 61375 ME[facility]IE MEADOWVIE BACTERIAL 0 W W [facility] [place] [address] MEADOW[place]IE MEADOWVIE INFUSION 0 W W HYDRATION [facility] [place] [address] [facility] ABDOMEN 0 EIDER, W/O RADIOLOGY MIRTHA CONTRAST K MATERIAL ASSOCIATE S [facility] CT PELVIS 75[address] [facility] 0 EIDER, W/CONTRAS RADIOLOGY MIRTHA T K MATERIAL ASSOCIATE S [facility] 3D 30834 [facility] RENDERING 0 EIDER, W/INTERP RADIOLOGY MIRTHA & K POSTPROCE ASSOCIATE S [facility] SUPERVISI ON CT PELVIS 40245 [facility] MEADOWVIE W/O 0 W W CONTRAST [facility] CULTURE 99021 MEADOW[facility]IE MEADOWVIE BACTERIAL 0 W W [facility] CENTER COUNT URINE THERAPEUT 36899 ME[facility] MEADOWVIE IC 0 W W INJECTION [facility]AL [facility] DRUG URNLS DIP 95209 ME[facility]IE MEADOWVIE 0 W W STICK/TAB [facility] CENTER AUTO MICROSCOP Y THER 56595 ME[facility]IE MEADOWVIE PROPH/DX 0 W W NJX IV [facility]/1S CENTER CENTER T SBST/DRUG ARTHRS 33479 JOSÉ KUMAR, NADINE SURG 0 JAMARI JAMARI W/MENISCE J J CTOMY MED/LAT W/SHVG ANESTH 96707 DONG LOFT[place] 0 [facility] KORI Lopez ANESTHESI ARTHROSCO A [facility] PIC PROC KNEE JOINT MRI ANY 10352 [facility] MEADOWVIE JT LOWER 9 W W EXTREM [facility] W/O MEDICAL MEDICAL [facility] Encounters Encounter Start End Date Code Location Performer Type Date EMERGENCY 24441 MAEVE 2 2 [facility] [place] T VISIT LOW/MODER SEVERITY EMERGENCY 06275 JOHANNA NGUYEN DEPT 2 2 EMERGENCY VISIT SERVICES HIGH SEVERITY& THREAT [facility] MAEVE - 2 2 [facility] OFF[facility] 68436 [facility]ER[facility]TRISH OUTPATIEN 1 1 PRIMARY Y BILLY T VISIT CARE 15 [facility] OFFICE 82603 MARTHAMILADIS SIERRA OUTPATIEN 1 1 W GENERAL J. T VISIT 5 SURGERY MINUTES EMERGENCY 91954 JOHANNA CAST DEPT 1 1 EMERGENCY JAM VISIT SERVICES HIGH SEVERITY& THREAT [facility] MEADOWVIE - 0 0 W [facility] MEDICAL EMERGENCY 26873 JOHANNA PEREZ DEPT 0 0 EMERGENCY CHR VISIT SERVICES HIGH SEVERITY& THREAT [facility] EMERGENCY 84356 MEADOW[facility]IE 0 0 W [facility] VISIT MEDICAL HIGH/URGE NT SEVERITY EMERGENCY 93352 JOHANNA PEREZ DEPT 0 0 EMERGENCY CHR VISIT SERVICES HIGH SEVERITY& THREAT [facility] MEADOWVIE - 0 0 W [facility] MEDICAL OFFICE 84071 KENISHA SIERRA, OUTPATIEN 0 0 W GENERAL J. T VISIT SURGERY ANDI R 10 MINUTES OFFICE 58866 BJ MARTINEZ, OUTPATIEN 0 0 PRIMARY LUIS E T VISIT CARE 15 [facility] MEADOWVIE - 0 0 W [facility] EMERGENCY 07869 MEADOWVIE 0 0 W [facility] VISIT MEDICAL HIGH/URGE CENTER NT SEVERITY EMERGENCY 99969 JOHANNA PEREZ DEPT 0 0 EMERGENCY VISIT SERVICES ISMAEL HIGH SEVERITY& ASSOCIATE THREAT S [facility] EMERGENCY 53382 JOHANNA RIGGINS, 0 0 EMERGENCY DAVID W DEPARTMEN SERVICES T VISIT HIGH/URGE ASSOCIATE NT S SEVERITY EMERGENCY 24910 KENISHA 0 0 W [facility] REGIONAL T VISIT MEDICAL HIGH/URGE CENTER NT SEVERITY EMERGENCY 91725 Gaston VILLAREAL DEPT 0 0 EMERGENCY VISIT SERVICES HIGH SEVERITY& ASSOCIATE THREAT S [facility] MEADOWVIE - 0 0 W [facility] MEADOWVIE - 0 0 W [facility] OFFICE 88264 JOSÉ KUMAR, CONSULTAT 0 0 JAMARI Morrison NEW/ESTAB PATIENT 40 MIN OFFICE 76673 ALYSA ENGLE 9 9 PRIMARY EDUIN E T VISIT CARE 10 [facility] KENISHA - 9 9 W [facility] EMERGENCY 85365 JOHANNA PEREZ, 9 9 EMERGENCY DEPARTMEN SERVICES JUDAISM T VISIT MODERATE ASSOCIATE SEVERITY S OFFICE 53966 ALYSA NGUYEN 9 9 PRIMARY ALISE T [address]
--- OUTSIDE RECORDS SUMMARY | 2017-01-30 06:23 | External Medical Summary Rpt ---
Demographics Preferred Language Ugandan Marital Status Unknown Pentecostalism Affiliation Unknown Race Unknown Ethnic Group Unknown Author Author , Organization [employer] Address Unknown Phone Unavailable Purpose Continuity of Care Document - through 2016 Immunization No patient found.
[2017-01-30 06:43] LABS: URINE BLOOD 3+ (NEG)
[2017-01-30 06:45] LABS: HEMOGLOBIN 15.9 g/dL (14.1-18.0); LYMPH # 3.8 K/mm3 (0.7-4.5)
--- NOTE | 2017-01-30 06:47 | Emergency Room Report ---
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 N Clinical Suspician of Infection? N Mental Status: 1 - Regular (Normal Baseline) Sepsis Risk:Low Sepsis Risk Have you (or family members/close friends) recently traveled outside the [place]? N If Yes, where/when: Have you had exposure to infectious disease within the past month? N TB? Other? Specify: Source patient, RN notes reviewed, family, old records Exam Limitations no limitations Comment acute onset of rt flank pain with hematuria and hx of kidney stone Cardiac Chest Pain Chest pain indicative of cardiac No Timing/Duration this morning Severity moderate ALLERGIES Coded Allergies: No Known Allergies (01/30/17) Home Medications Active Scripts Amoxicillin (Amoxicot) 500 MG PO TID #30 CAP Prov: 11/29/14 Kkpg-Xktaq-An Otic Susp (Ttoqxikv-Zxfodjxtv-Os Ear Susp) 2 DROP OT Q6H #10 EACH Prov: 11/29/14 Reported Medications No Home Medications (NO HOME MEDICATIONS) 1 X * ONCE History Medical History General CAD? No Angina: No [place]: No Hypertension? No Hyperlipidemia? No CHF? No COPD? No Asthma? No Anemia? No Hernia? No Thyroid Problems? No Hypothyroidism? No CVA? No Seizures? No Diabetes? No End Stage Renal Disease? No UTI? No Stones? No GB Disease: No Nephritic Syndrome? No Asplenia? No Hepatitis? No Sickle Cell Disease? No Arthritis? No Cataracts? No Glaucoma? No MRSA? No TB? No Cancer? No Immunization Hx DT/Tetanus 1-4 YRS Surgical Hx Previous Surgery?Y KIDNEY STONE X 3 LEFT KNEE Social History Smoking Hx Smoker: Current Every Day Smoker Tobacco: Yes Type Cigarettes Packs/day < 1 Pack Alcohol Alcohol: No Drugs none Review of Systems All Other Systems Reviewed and Negative Constitutional denies fever Eyes denies drainage ENT denies: ear pain, epistaxis, throat pain. Respiratory denies cough, denies shortness of breath, denies wheezing Cardiovascular denies chest pain, denies palpitations, denies syncope Gastrointestinal see HPI, abdominal pain, denies diarrhea, nausea, denies vomiting, other Genitourinary see HPI, hematuria. denies: dysuria, frequency, hesitancy, scrotal/testicular pain. Musculoskeletal denies back pain, denies joint pain, denies joint swelling, denies neck pain Skin denies rash Psychiatric/Neurological denies headache, denies seizure Physical Exam Vital Signs Vital Signs Date Time Temp Pulse Resp B/P Pulse O2 O2 Flow FiO2 Ox Delivery Rate 01/30 0719 68 20 133/67 97 01/30 0718 20 01/30 0649 20 01/30 0634 98.5 64 20 125/73 98 General Appearance no apparent distress Eye Exam - bilateral eye PERRL, bilateral eye EOMI Ear, Nose, Throat normal ENT inspection Neck supple Respiratory Status No: respiratory distress. Cardiovascular regular rate/rhythm Peripheral Pulses Pulses normal Yes Gastrointestinal soft, no organomegaly Back no CVA tenderness Extremities normal inspection Strength 4 Upper Ext (L), 4 Upper Ext (R), 4 Lower Ext (L), 4 Lower Ext (R) Neurologic alert, accelerator technician II-XII nml as tested, no motor/sensory deficits Reflexes Reflexes normal No Mental status normal mood/affect Skin no rash cons.w/shingles Medical Decision Making LABS/Meds/Orders Pt receiving controlled substance in ED? No Results/Orders Laboratory Tests 01/30/17 0629: Sodium 143, Potassium 4.2, Chloride 108 H, Carbon Dioxide 29, BUN 13, Creatinine 0.9, Estimated Creat Clear 144, Estimated GFR (MDRD) 96, Glucose 100, Calcium 8.3 L, Total Bilirubin 0.3, AST 14 L, ALT 26, Alkaline Phosphatase 66, Total Protein 7.1, Albumin 3.7, Globulin 3.4 H, Albumin/Globulin Ratio 1.1, WBC 8.0, RBC 4.72, Hgb 15.9, Hct 47.7, MCV 101.0 H, RDW 12.3, Plt Count 268, MPV 5.8 L, Gran % 41.2, Gran # 3.3, Lymphocytes % 48.0, Monocytes % 4.6, Eosinophils % 5.4, Basophils % 0.7, Lymphocytes # 3.8, Monocytes # 0.4, Eosinophils # 0.4, Basophils # 0.1, PUBS MCHC 33.4, MCH 33.7 H 01/30/17 0624: Urine Color BEST, Urine Appearance TURBID, Urine pH 6.0, Ur Specific [place] >= 1.030, Urine Protein 1+ H, Urine Ketones NEGATIVE, Urine Blood 3+ H, Urine Nitrate NEGATIVE, Urine Bilirubin NEGATIVE, Urine Urobilinogen 1.0, Ur Leukocyte Esterase NEGATIVE, Urine RBC 50-100, Urine WBC OCC, Urine Bacteria TRACE, Urine Glucose NEGATIVE Current Medication Orders Sig/Lorraine Start time Last Medication Dose Route Stop Time Status Admin Hydromorphone HCl 1 MG ONCE ONE 01/30 715 DC 01/30 IV 01/31 716 0718 Promethazine HCl 12.5 MG ONCE ONE 01/30 715 DC 01/30 IV 01/30 0716 0717 Sodium Chloride 25 ML ONCE ONE 01/30 715 DC 01/30 IV 01/30 0729 0718 Tamsulosin HCl 0.4 MG ONCE ONE 01/30 715 DC 01/30 PO 01/30 0716 0717 Promethazine HCl 0 .STK-MED ONE 01/30 710 DC .ROUTE Sodium Chloride 25 ML .STK-MED ONE 01/30 710 DC IV Tamsulosin HCl 0 .STK-MED ONE 01/30 0710 DC PO Hydromorphone HCl 0 .STK-MED ONE 01/30 0709 DC .ROUTE Ketorolac 30 MG ONCE ONE 01/30 645 DC 01/30 Tromethamine IV 01/30 0646 0649 Ondansetron HCl 4 MG ONCE ONE 01/30 645 DC 01/30 IV 01/30 0646 0649 Sodium Chloride 10 ML PRN PRN 01/30 645 AC IV 01/31 0632 Ketorolac 0 .STK-MED ONE 01/30 0638 DC Tromethamine .ROUTE Ondansetron HCl 0 .STK-MED ONE 01/30 0638 DC .ROUTE Orders Procedure Date/time Status CT SCAN REQUEST 01/30 633 Complete IV SALINE LOCK 01/30 633 Active URINALYSIS/COMPLETE 01/30 633 Complete COMPLETE METABOLIC PANEL 01/30 633 Complete CBC WITH AUTO DIFF 01/[address] ABD & PELVIS W/O CONTRAST 01/30 UNK Active XRAY/CT/US XRAY/CT/US CT abdomen, pelvis CT interpretation by discussed w/radiologist Time results known: 724 CT Results abnormal (2.5 mm stone) Departure Departure Time of Disposition 725 Disposition DC Home or Self Care(routine) Clinical Impression Primary Impression: Renal colic on right side Condition STABLE Referrals Pascual PRICE,Evangelista Alexander MD,Jerry Patient Instructions DI for Kidney Stones Additional Instructions see pcp and card for follow up Discharge Counseling Counseled pt/family regarding diagnosis, test results, medications/RX, follow up needs Prescriptions Current Visit Scripts TAMSULOSIN HCL (Flomax 0.4MG) 0.4 MG PO QHS #10 CAP OXYCODONE HCL/ACETAMINOPHEN (Percocet 7.5-325 MG Tablet) 1 TAB PO Q6HP PRN pain #15 TAB ED Critical Care Critical Care No at 0757
[2017-01-30 06:50] LABS: URINE BILIRUBIN - DIPSTICK NEGATIVE (NEG)
--- OUTSIDE RECORDS SUMMARY | 2017-01-30 07:20 | External Medical Summary Rpt ---
Author Author , Organization [employer] Address Unknown Phone Unavailable Care Team Providers Care Aging Room Operator Name Role Phone LIAM ANGULO, Unavailable Unavailable LIAM ANGULO JAMEE TORRES, Unavailable Unavailable JAMEE TORRES RIGO THOMAS Unavailable Unavailable Agustín GARCIA Unavailable Unavailable RRIGO J. RANDALL R [facility] Unavailable Unavailable ANNMARIE, [facility] DAVID VALERO, Unavailable [...] Unavailable LUTHER KEEF, ALISE, KEEF, Unavailable Unavailable [facility] Unavailable Unavailable IM[facility]ING [facility], [place] [facility] [id number] # Unavailable Unavailable [id number], [facility] [id number] # [id number] [facility] Unavailable Unavailable [facility] BASSAM CERVANTES, Unavailable Unavailable BASSAM CERVANTES [facility] Unavailable Unavailable SERVICES, [facility], [facility]available Unavailable [facility] SE[facility]ING Unavailable Unavailable [facility] 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 Unavailable Unavailable SURGERY, [facility] Unavailable Unavailable MEDICAL, [facility] MEDICAL [facility] Unavailable Unavailable MEDICAL CENTER, [facility] Gaston JEWELL N, Gaston JEWELL N [...] MEDICAL IMAGING ASS 8470 NECK SPRAIN 11-23-2011 [facility] E9270 OVEREXERTIO 11-23-2011 [place] N FROM [facility]ICAL [facility] STRENUOUS MOVEMENT 5950 ACUTE 06-25-2011 [facility] 9390 FOREIGN 12-12-2010 [facility] BODY IN GENERAL BLADDER AND SURGERY URETHRA 5921 CALCULUS OF 12-09-2010 [facility] URETER GENERAL SURGERY 591 HYDRONEPHRO 12-08-2010 [facility] [place] 56059 OTHER 12-08-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 5990 URINARY 12-08-2010 [facility] INFECTION SERVICES SITE NOT SPECIFIED 05914 FEVER 12-08-2010 [facility] UNSPECIFIED GENERAL SURGERY 7880 RENAL COLIC 12-08-2010 [facility] 94069 ABDOMINAL 12-08-2010 [facility] PAIN OTHER GENERAL SPECIFIED SURGERY SITE 5920 CALCULUS OF 09-28-2010 [facility] 7919 OTHER 09-28-2010 [facility] NONSPECIFIC REGIONAL FINDING MEDICAL EXAMINATION OF URINE V1301 PERSONAL 09-28-2010 [facility] HISTORY OF REGIONAL URINARY MEDICAL CALCULI 68381 NAUSEA WITH 03-29-2010 [facility] VOMITING [facility] 93760 ABDOMINAL 03-29-2010 [facility] PAIN, REGIONAL UNSPECIFIED MEDICAL SITE CENTER 5959 UNSPECIFIED 03-21-2010 [facility] 88550 HEMATURIA 03-18-2010 [facility] [place] UNSPECIFIED [facility]IOLOGY ASSOCIATES PSC 7936 NONSPEC ABN 03-18-2010 [facility] FINDNG RAD RADIOLOGY & OTH EXAM ASSOCIATES ABDOMINAL [facility] 7172 DERANGEMENT 10-23-2009 [facility] KUMAR [facility] MEDIAL M[facility]ISC[facility] 52569 PAIN IN 10-23-2009 [facility] JOINT, H LOWER LEG ANESTHESIA PSC 8360 TEAR MEDIAL 10-23-2009 [facility] CURRENT 8362 OTHER TEAR 09-05-2009 [facility] PRIMARY OR [facility] KNEE CENTERINC CURRENT 8363 CLOSED 06-21-2009 [facility] Medications [...] Y TI GY E ON N FA SD LY HE AL TH 53 03 03 [...] OB KIMO CE SE TA GY PH SD N R NO FA PH SD EN LY 5- HE 32 AL 5 TH HY 00 01 01 2 20 3 MA [address] 40 -1 -1 .0 YS 05 NN ti OC 60 4- 7- 00 78 IS ve OD 36 20 20 LL 8 ON ON 50 11 11 E -A 1 OB KIMO CE SE TA GY PH SD N R NO FA PH SD EN LY 5- HE 32 AL 5 TH HY 00 01 01 2 20 3 MA [address] 40 -1 -1 .0 YS 05 NN ti OC 60 4- 4 00 78 IS ve OD 36 20 20 LL 8 ON ON 50 11 11 E -A 1 OB KIMO CE SE TA GY PH SD N R NO FA PH SD EN LY 5- HE 32 AL 5 VA 68 01 01 0 20 5 MA 60 DE Ac OM 38 -1 -1 .0 YS 35 NN ti ET 20 97 IS ve MCKEON 04 20 20 LL 3 ON ZI 10 11 11 E NE 1 OB KIMO SE 25 GY PH N R MG FA SD TA LY BL ET HE AL TH 00 12 01 2 30 3 MA 40 DE Ac 40 -3 -0 .0 SO 45 NN ti 60 N 67 IS ve 35 20 20 FA ON 70 10 11 SD [address] PH UG R 00 12 01 2 30 3 MA 40 DE Ac 60 -3 -0 .0 SO 45 NN ti 33 1 3 00 N 67 IS ve 88 20 20 FA ON 13 10 11 SD [address] PH UG R VA 68 12 12 0 12 2 MA 62 DE Ac OM 38 -3 -3 .0 SO 78 NN ti ET 20 1 N 77 IS ve MCKEON 04 20 20 FA ON ZI 10 10 10 SD NE 1 LY KIMO SE 25 DR PH UG R MG TA BL ET 00 12 12 2 30 3 MA 40 DE Ac 60 -3 -3 .0 SO 45 NN ti 33 1 N 67 IS ve 88 20 20 FA ON 13 10 10 SD [address] PH UG R PE 00 12 12 0 40 10 MA 60 Ac NI 78 -0 -0 .0 YS 34 TT ti CI 11 37 MA ve LL 65 20 20 LL 6 N IN 50 10 10 E NA 1 OB NC VK Y GY E 50 N 0 FA MG SD LY TA BL HE ET AL TH NA 68 09 11 1 60 30 MA 60 Ac VA 46 -2 -1 .0 YS 30 TT ti OX 20 2- 6 48 MA ve EN 19 20 20 LL 2 N 00 10 10 E NA 50 5 OB NC 0 Y MG GY E N TA FA BL SD ET LY HE AL NA 68 09 09 1 60 30 MA 60 Ac VA 46 -2 -2 .0 YS 30 TT ti OX 20 2- 2- 00 48 MA ve EN 19 20 20 LL 2 N 00 10 10 E NA 50 5 OB NC 0 Y MG GY E N TA FA BL SD ET LY HE AL VA 68 07 08 1 20 3 MA 60 DE Ac OM 38 -1 -0 .0 YS 27 NN ti ET 20 3- 3 20 IS ve MCKEON 04 20 20 LL 9 ON ZI 10 10 10 E NE 1 OB KIMO SE 25 GY PH N R MG FA SD TA LY BL ET HE AL 00 07 07 2 20 3 MA 40 DE Ac 59 -1 -1 .0 YS 04 NN ti 10 3- 59 IS ve 34 20 20 LL 9 ON 90 10 10 E 5 OB KIMO SE GY PH N R FA SD LY HE AL 00 07 07 2 20 2 MA 40 DE Ac 59 -1 -1 .0 YS 04 NN ti 10 3- 3 59 IS ve 34 20 20 LL 9 ON 90 10 10 E 5 OB KIMO SE GY PH N R FA SD LY HE AL VA 68 07 07 1 20 3 MA 60 DE Ac OM 38 -1 -1 .0 YS 27 NN ti ET 20 20 IS ve MCKEON 04 20 20 LL 9 ON ZI 10 10 10 E NE 1 OB KIMO SE 25 GY PH N R MG FA SD TA LY BL ET HE AL CI 68 07 07 1 40 20 MA 60 DE Ac VA 08 -1 -1 .0 YS 27 NN ti OF 40 3 21 IS ve LO 07 20 20 LL 0 ON XA 00 10 10 E CI 1 OB KIMO N SE HC GY PH L N R 50 FA 0 SD MG LY TA HE B AL TA [...] W TA GY BL N ET FA SD LY HE AL TH PH 65 06 06 0 6. 2 MA 60 FI Ac EN 16 -2 -2 00 YS 26 NL ti AZ 20 3- 3- 0 42 EY ve OP 52 20 20 LL 7 YR 01 10 10 E PA ID 0 OB UL IN W E GY 20 N 0 FA MG SD LY TA B HE AL TH CI 55 06 06 0 20 10 MA 60 FI Ac VA 11 -2 -2 .0 YS 26 NL ti OF 10 3- 3- 00 42 EY ve LO 12 20 20 LL 8 XA 60 10 10 E PA CI 1 OB UL N W HC GY L N 25 FA 0 SD MG LY TA HE B AL TH [...] HE N 96 5- 84 32 5 VA 57 06 06 0 12 3 KM [...] AM GY E PO N O FA SD LY HE AL TH NA 68 04 03 2 60 30 MA 60 KE Ac VA 46 -2 -1 .0 YS 09 EF ti OX 20 0- 0- 00 49 ve EN 19 20 20 LL 5 KI 00 09 10 E MB 50 5 OB ER 0 LY MG GY N TA FA BL SD ET LY HE AL TH 00 01 02 00 30 5 MA 40 MCKEON Ac 59 -2 -1 .0 YS 03 RR ti 10 5- 65 IS ve 34 20 20 LL 9 90 10 10 E CH 5 OB AR /G LO YN TT E FA J SD LY HE AL TH VA 68 01 02 00 30 8 MA 60 MCKEON Ac OM 38 -2 -1 .0 YS 19 RR ti ET 20 5- - 86 IS ve MCKEON 04 20 20 LL 5 ZI 10 10 10 E CH NE 1 OB AR /G LO 25 YN TT E MG FA J SD TA LY BL ET HE AL 00 01 01 01 30 5 MA 40 MCKEON Ac 59 -1 -2 .0 YS 03 RR ti 10 2 8 57 IS ve 34 20 20 LL 3 90 10 10 E CH 5 OB AR /G LO YN TT E FA J SD LY HE AL 00 01 01 00 30 5 MA 40 MCKEON Ac 59 -1 -2 .0 YS 03 RR ti 10 57 IS ve 34 20 20 LL 3 90 10 10 E CH 5 OB AR /G LO YN TT E FA J SD LY HE AL TH NA 68 04 01 01 60 30 MA 60 KE Ac VA 46 -2 -2 .0 YS 09 EF ti OX 20 0- 8- 49 ve EN 19 20 20 LL 5 KI 00 09 10 E MB 50 5 OB ER 0 /G LY MG YN TA FA BL SD ET LY HE AL 00 12 12 00 60 10 MA 40 Ac 59 -0 -1 .0 YS 03 TT ti 10 8- 7 40 MA ve 34 20 20 LL 3 N 90 09 09 E NA 5 OB NC /G Y YN E FA SD LY HE AL TH IN 00 12 12 00 60 20 MA 60 MA Ac DO 09 -0 -1 .0 YS 17 RK ti ME 34 7- 7- 76 ES ve TH 02 20 20 LL 6 BE AC 90 09 09 E RY IN 1 OB /G MCKEON 25 YN RO LD MG FA V SD CA LY PS UL HE E AL TH LI 60 10 11 00 60 3 MA 60 Ac ND 43 -2 -0 .0 YS 16 TT ti AN 20 9- 5- 17 MA ve E 83 20 20 LL 3 N 1% 36 09 09 E NA 0 OB NC LO /G Y TI YN E ON FA SD LY HE AL TH 49 09 10 00 20 5 MA 60 JUNIOR Ac 88 -2 -0 .0 YS 14 LL ti 40 3- 8- 00 68 IV ve 77 20 20 LL 3 AN 70 09 09 E 5 OB CH /G RI YN ST IN FA A SD M LY HE AL TR 65 09 10 00 20 3 MA 40 JUNIOR Ac AM 16 -2 -0 .0 YS 02 LL ti AD 20 3- 8- 00 99 IV ve OL 62 20 20 LL 5 AN 71 09 09 E HC 1 OB CH L /G RI [address] IN MG FA A SD M TA LY BL ET HE AL NA 68 04 05 00 60 30 MA 60 KE Ac VA 46 -2 -0 .0 YS 09 EF ti OX 20 0- 7- 00 49 ve EN 19 20 20 LL 5 KI 00 09 09 E MB 50 5 OB ER 0 /G LY MG YN TA FA BL SD ET LY HE OV 51 01 01 01 59 1 [...] 0 OB S /G E YN FA SD LY HE 00 01 01 00 10 3 MA 40 AD Ac 59 -0 -1 .0 YS 01 AM ti 10 6- 5- 00 74 S ve 34 20 20 LL 7 JA 90 09 09 E ME 5 OB S /G E YN FA SD LY Procedures Procedure [place] [address] [place] JAM[facility] CERVICAL 2 MEDICAL TORRES SPINE W/O IMAGING CONTRAST ASS MATERIAL 3D 64899 [place] [facility] RENDERING 2 MEDICAL TORRES IMAGING W/INTERP& ASS POSTPROC DIFF WORK STATION THERAPEUT 07258 [facility] MONT[facility] IC 1 PRIMARY Y BILLY PROPHYLAC CARE TIC/DX CENTER INJECTION SUBQ/IM INJECTION J0696 [facility]J MONTANO 1 PRIMARY Y BILLY CEFTRIAXO CARE NE SODIUM CENTER PER 250 MG ANES 91518 [facility] BRALORION TRURL 1 LTH ADELE FRAGMNTJ ANESTHESI MANJ&/RMV A PSC L URETERAL CALCULUS CYSTO 07359 [facility] W/URETERO 1 W GENERAL J. SCOPY SURGERY W/RMVL/MA [place] [facility] CYSTO 14133 [facility] W/INSERT 1 W GENERAL J. URETERAL SURGERY STENT INITIAL 03264 [facility] 1 W GENERAL J. CARE/[place] [address] [place] [address] [facility] ABDOMEN & 1 EIDER KIMBERLEY PELVIS RADIOLOGY W/O ASSOCIAT CONTRAST MATERIAL 3D 05319 [facility] RENDERING 1 EIDER KIMBERLEY W/INTERP RADIOLOGY & ASSOCIAT POSTPROCE SS SUPERVISI ON RADEX 09866 [facility] ABDOMEN 1 1 [facility] ANTEROPOS ASSOCIAT TERIOR VIEW RADEX 68088 [facility] ABDOMEN 1 0 [facility] ANTEROPOS ASSOCIAT TERIOR VIEW 3D 05473 [facility] RENDERING 0 [facility] W/INTERP RADIOLOGY & ASSOCIAT POSTPROCE SS SUPERVISI ON BASIC 18659 [facility] METABOLIC 0 W W PANEL [facility] CALCIUM MEDICAL MEDICAL TOTAL CULTURE 07660 [facility] BACTERIAL [address] [facility] MEDICAL VE COLONY COUNT URINE CT PELVIS 28048 [facility] W/O 0 [facility] [place] [address] [facility] INFUSION 0 W W HYDRATION [facility] EACH MEDICAL MEDICAL ADDITIONA L HOUR COLLECTIO 95142 [facility] N VENOUS 0 W W BLOOD [facility] [place] [address] [facility] ABDOMEN 0 [facility] W/O RADIOLOGY CONTRAST ASSOCIAT MATERIAL THER 11807 [facility] PROPH/DX 0 W W NJX IV [facility] PUSH MEDICAL MEDICAL SINGLE/1S T SBST/DRUG BLOOD 63269 [facility] COUNT 0 W W COMPLETE REGIONAL REGIONAL AUTO&AUTO MEDICAL MEDICAL DIFRNTL WBC URNLS DIP 42945 [facility] LINCOLN[place] 0 W W STICK/TAB REGIONAL REGIONAL LET MEDICAL MEDICAL REAGENT AUTO MICROSCOP Y THERAPEUT 46303 LATONIAWALLYMILADIS LINCOLN[place]IE IC 0 W W INJECTION REGIONAL REGIONAL IV PUSH MEDICAL MEDICAL EACH NEW DRUG ANES 35207 MIRANDA WHEELER TRURL 0 LTH [facility] FRAGMNTJ ANESTHESI MANJ&/RMV A PSC L URETERAL CALCULUS CYSTO 80513 KENISHA MASTERSON, W/INSERT 0 W GENERAL J. URETERAL SURGERY ANDI R STENT CALCULUS 76293 LATONIAKAROL LIUWVIE QUANTITAT [address] [facility] CHEMICAL MEDICAL MEDICAL CYSTO 50391 KENISHA MASTERSON, W/URETERO 0 W GENERAL J. SCOPY SURGERY ANDI R W/RMVL/[place] [facility] 67140 KEN[facility] MASTERSON DISCHARGE 0 W GENERAL J. DAY SURGERY MANAGEMEN T 30 MIN/< FLUOROSCO 29493 KENISHA DE PY SPX UP 0 W W TO 1 REGIONAL REGIONAL HOUR MEDICAL MEDICAL PHYS/QHP TIME HOSP[facility] G0378 KENISHA LIUWVIE OBSERVATI [address] [facility] SERVICE MEDICAL MEDICAL PER HOUR COLLECTIO 90764 KENISHA LIU[place]IE N VENOUS [address] [facility] VENIPUNCT MEDICAL MEDICAL URE CYSTO 70100 KENISHA LIUWVIE W/URETERO [address] [facility] W/RMVL/MA MEDICAL MEDICAL [place] [facility] THER 73736 KENISHA LIU[place]IE PROPH/DX 0 W W NJX IV REGIONAL REGIONAL PUSH MEDICAL MEDICAL SINGLE/1S T SBST/DRUG BLOOD 23183 KENISHA LIU[place]IE COUNT 0 W W COMPLETE REGIONAL REGIONAL AUTO&AUTO MEDICAL MEDICAL DIFRNTL WBC URNLS DIP 59667 LATONIAKAROL LIU[place]IE 0 W W STICK/TAB REGIONAL REGIONAL LET MEDICAL MEDICAL REAGENT AUTO MICROSCOP Y CYSTO 09740 [facility] W/INSERT 0 W W URETERAL REGIONAL REGIONAL STENT MEDICAL MEDICAL THERAPEUT 57171 [facility] IC 0 W W INJECTION REGIONAL REGIONAL IV PUSH [facility] DRUG INITIAL 32860 [facility] 0 W GENERAL J. CARE/DAY SURGERY 50 MINUTES BASIC 42793 [facility] METABOLIC 0 W W PANEL [facility] MEDICAL TOTAL CULTURE 42597 [facility] BACTERIAL 0 W W [facility] MED[facility] VE [facility] CENTER COUNT URINE URNLS DIP 00520 [facility] 0 W W STICK/TAB [facility] LET MEDICAL MEDICAL REAGENT [facility] AUTO MICROSCOP Y THERAPEUT 46166 [facility] IC 0 W W INJECTION REGIONAL REGIONAL IV PUSH MEDICAL MEDICAL [facility] DRUG THER 42586 [facility] PROPH/DX 0 W W NJX IV REGIONAL REGIONAL [facility] MEDICAL MEDICAL [facility]/ CENTER CENTER T SBST/[place] [address] [facility] INFUSION 0 W W HYDRATION [facility] ADDITIONA [facility] [place] [address] [facility] ABDOMEN 0 EIDER, W/O RADIOLOGY MIRTHA CONTRAST K MATERIAL ASSOCIATE S [facility] CT PELVIS [address] [facility] 0 EIDER, W/CONTRAS RADIOLOGY MIRTHA T K MATERIAL ASSOCIATE S PSC 3D 37520 [facility] RENDERING 0 EIDER, W/INTERP RADIOLOGY MIRTHA & K POSTPROCE ASSOCIATE SS S PSC SUPERVISI ON THERAPEUT 90290 [facility] IC 0 W W INJECTION REGIONAL REGIONAL IV PUSH MEDICAL MEDICAL [facility] DRUG URNLS DIP 74620 [facility] 0 W W STICK/TAB [facility] REAGENT [facility] AUTO MICROSCOP Y THER 97342 [facility] PROPH/DX 0 W W NJX IV [facility] MEDICAL [facility]/1S CENTER CENTER T SBST/DRUG CT PELVIS 70989 KENISHA LIUWMILADIS W/O [address] [facility] MATERIAL [facility] C[facility] CULTURE 19747 KENISHA DE BACTERIAL [address] [facility] MEDICAL VE [facility] CENTER COUNT URINE ANESTH 10587 DONG [place] 0 LT KORI Lopez ANESTHESI ARTHROSCO A PSC PIC PROC KNEE JOINT ARTHRS 28471 JOSÉ KUMAR KNE SURG 0 JAMARI JAMARI W/MENISCE J J CTOMY MED/LAT W/SHVG MRI ANY 57005 KENISHA DE JT LOWER 9 W W [facility] W/O MEDICAL [facility] MATRL Encounters Encounter Start End Date Code Location Performer Type Date EMERGENCY 44910 [facility] 2 2 [facility] VISIT LOW/MODER SEVERITY [facility]OSPITAL [facility] - 2 2 [facility] 83940 JOHAN[facility] NGUYEN DEPT 2 2 EMERGENCY VISIT SERVICES HIGH SEVERITY& THREAT FUNCJ OFFICE 64054 [facility]ONT[facility] OUTPATIEN 1 1 PRIMARY Y BILLY T VISIT CARE 15 CENTER MINUTES OFFICE 03278 MARTHAMILADIS RIGO OUTPATIEN 1 1 W GENERAL J. T VISIT 5 SURGERY MINUTES EMERGENCY 29862 JOHANNA CAST DEPT 1 1 EMERGENCY JAM VISIT SERVICES HIGH SEVERITY& THREAT FUNCJ EMERGENCY 79110 JOHANNA PEREZ DEPT 0 0 EMERGENCY CHR VISIT SERVICES HIGH SEVERITY& THREAT [facility] 68541 NOEWVIE 0 0 W [facility] VISIT MEDICAL HIGH/URGE NT SEVERITY [facility] 58907 JOHANNA PEREZ DEPT 0 0 EMERGENCY CHR VISIT SERVICES HIGH SEVERITY& THREAT [facility] OFFICE 01203 KENISHA SIERRA OUTPATIEN 0 0 W GENERAL J. T VISIT SURGERY ANDI R 10 MINUTES OFFICE 71286 BJ MARTINEZ OUTPATIEN 0 0 PRIMARY LUIS E T VISIT CARE 15 CENTERINC MINUTES EMERGENCY 00072 JOHANNA PEREZ, DEPT 0 0 EMERGENCY VISIT SERVICES ISMAEL HIGH SEVERITY& ASSOCIATE THREAT S [facility] EMERGENCY 50409 MEADOWVIE 0 0 [facility] H[facility]GE [facility] NT SEVERITY [facility]OSPITAL MEAWALLYVIE - 0 0 W [facility] EMERGENCY 77612 JOHANNA RIGGINS, 0 0 [facility]Y [facility] T VISIT HIGH/URGE ASSOCIATE NT S SEVERITY EMERGENCY 80923 NOEWVIE 0 0 W [facility]URGE CENTER NT SEVERITY EMERGENCY 87711 [place] VILLAREAL DEPT 0 0 EMERGENCY VISIT SERVICES HIGH SEVERITY& ASSOCIATE THREAT S [facility] ME[facility] - 0 0 W [facility] HOSPITAL MEADOWVIE - 0 0 W [facility] OFFICE 20462 JOSÉ KUMAR, CONSULTAUGUSTO 0 0 JAMARI Morrison J NEW/ESTAB PATIENT 40 MIN OFFICE 00699 BJ OLIVA OUTPATIEN 9 9 PRIMARY EDUIN E T VISIT CARE 10 [facility] MEAKAROL - 9 9 W [facility] EMERGENCY 88826 JOHANNA PEREZ, 9 9 EMERGENCY [facility]PART[facility] SERVICES [facility] T VISIT MODERATE ASSOCIATE SEVERITY S OFFICE 48173 BJ DEE OUTNIDIAEN 9 9 PRIMARY ALISE T NEW CARE MINUTES CENTERINC
--- OUTSIDE RECORDS SUMMARY | 2017-01-30 07:20 | External Medical Summary Rpt ---
Author Author , Organization [employer] Address Unknown Phone Unavailable Care Team Providers Care Manager Lab Name Role Phone LIAM ANGULO, Unavailable Unavailable LIAM ANGULO JAMEE TORRES, Unavailable Unavailable JAMEE TORRES RIGO THOMAS Unavailable Unavailable Agustín GARCIA Unavailable Unavailable RRIGO J. RANDALL R [facility] Unavailable Unavailable ANNMARIE, [facility] DAVID VALERO, Unavailable Unavailable [...] Unavailable LUTHER KEEF, ALISE, KEEF, Unavailable Unavailable [facility] Unavailable Unavailable [facility]ING [facility], [facility] [id number] # Unavailable Unavailable [id number], [facility] [id number] # [id number] [facility] Unavailable Unavailable [facility] BASSAM CERVANTES, Unavailable Unavailable BASSAM CERVANTES [facility] Unavailable Unavailable SERVICES, [facility], Unavailable Unavailable [facility] [place] [facility] IN[facility]AL CLEANER Unavailable Unavailable [facility] COMMERCIAL OR INSTITUTIONAL CLEANER [facility] CHANDELIER MAKER Unavailable [facility]available [facility] CHANDELIER MAKER [facility] RADIOLOGY Unavailable [facility]available [facility] Un[facility]available SUR[facility], [facility] Un[facility] Unavailable [facility], [facility]available Unavailable [facility], [facility] Gaston JEWELL N, Gaston JEWELL N [...] THROUGH WINDOW, INITIAL ENCOUNTER 7231 CERVICALGIA 11-23-2011 [facility] 8470 NECK SPRAIN 11-23-2011 [facility] E9270 OVEREXERTIO 11-23-2011 [place] [facility] STRENUOUS MOVEMENT 5950 ACUTE 06-25-2011 [facility] 9390 FOREIGN 12-12-2010 [facility] BODY IN GENERAL BLADDER AND SURGERY URETHRA 5921 CALCULUS OF 12-09-2010 [facility] URETER GENERAL SURGERY 591 HYDRONEPHRO 12-08-2010 [place] [facility] 53414 OTHER 12-08-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 5990 URINARY 12-08-2010 [facility] SITE NOT SPECIFIED 76065 FEVER 12-08-2010 [facility] UNSPECIFIED GENERAL SURGERY 7880 RENAL COLIC 12-08-2010 [facility] 67549 ABDOMINAL 12-08-2010 [facility] PAIN OTHER GENERAL SPECIFIED SURGERY SITE 5920 CALCULUS OF 09-28-2010 [facility] 7919 OTHER 09-28-2010 [facility] NONSPECIFIC REGIONAL FINDING MEDICAL EXAMINATION OF URINE V1301 PERSONAL 09-28-2010 [facility] HISTORY OF REGIONAL URINARY MEDICAL CALCULI 34535 NAUSEA WITH 03-29-2010 [facility] VOMITING [facility] 39059 ABDOMINAL 03-29-2010 [facility] PAIN, REGIONAL UNSPECIFIED MEDICAL SITE CENTER 5959 UNSPECIFIED 03-21-2010 [facility] 98266 HEMATURIA 03-18-2010 [place] UNSPECIFIED [facility]IATES PSC 7936 NONSPEC ABN 03-18-2010 [place] [facility] RAD RADIOLOGY & OTH EXAM ASSOCIATES ABDOMINAL [facility] 7172 DERANGEMENT 10-23-2009 [facility] KUMAR [facility] MEDIAL M[facility]ISC[facility] 94047 PAIN IN 10-23-2009 [facility] JOINT, H LOWER LEG ANESTHESIA PSC 8360 TEAR MEDIAL 10-23-2009 [facility] CURRENT 8362 OTHER TEAR 09-05-2009 [facility] CENTERINC CURRENT 8363 CLOSED 06-21-2009 [facility] Medications [...] Y TI GY E ON N FA ME LY HE AL TH 53 03 03 [...] OB KIMO CE SE TA GY PH ME N R NO FA PH ME EN LY 5- HE 32 AL 5 TH HY 00 01 01 2 20 3 MA [address] 40 -1 -1 .0 YS 05 NN ti OC 60 4- 7- 00 78 IS ve OD 36 20 20 LL 8 ON ON 50 11 11 E -A 1 OB KIMO CE SE TA GY PH ME N R NO FA PH ME EN LY 5- HE 32 AL 5 TH HY 00 01 01 2 20 3 MA [address] 40 -1 -1 .0 YS 05 NN ti OC 60 4- 4 00 78 IS ve OD 36 20 20 LL 8 ON ON 50 11 11 E -A 1 OB KIMO CE SE TA GY PH ME N R NO FA PH ME EN LY 5- HE 32 AL 5 IA 68 01 01 0 20 5 MA 60 DE Ac OM 38 -1 -1 .0 YS 35 NN ti ET 20 97 IS ve MCKEON 04 20 20 LL 3 ON ZI 10 11 11 E NE 1 OB KIMO SE 25 GY PH N R MG FA ME TA LY BL ET HE AL TH 00 12 01 2 30 3 MA 40 DE Ac 40 -3 -0 .0 SO 45 NN ti 60 N 67 IS ve 35 20 20 FA ON 70 10 11 ME [address] PH UG R 00 12 01 2 30 3 MA 40 DE Ac 60 -3 -0 .0 SO 45 NN ti 33 1 3 00 N 67 IS ve 88 20 20 FA ON 13 10 11 ME [address] PH UG R IA 68 12 12 0 12 2 MA 62 DE Ac OM 38 -3 -3 .0 SO 78 NN ti ET 20 1 N 77 IS ve MCKEON 04 20 20 FA ON ZI 10 10 10 ME NE 1 LY KIMO SE 25 DR PH UG R MG TA BL ET 00 12 12 2 30 3 MA 40 DE Ac 60 -3 -3 .0 SO 45 NN ti 33 1 N 67 IS ve 88 20 20 FA ON 13 10 10 ME [address] PH UG R PE 00 12 12 0 40 10 MA 60 Ac NI 78 -0 -0 .0 YS 34 TT ti CI 11 37 MA ve LL 65 20 20 LL 6 N IN 50 10 10 E NA 1 OB NC VK Y GY E 50 N 0 FA MG ME LY TA BL HE ET AL TH NA 68 09 11 1 60 30 MA 60 Ac IA 46 -2 -1 .0 YS 30 TT ti OX 20 2- 6 48 MA ve EN 19 20 20 LL 2 N 00 10 10 E NA 50 5 OB NC 0 Y MG GY E N TA FA BL ME ET LY HE AL NA 68 09 09 1 60 30 MA 60 Ac IA 46 -2 -2 .0 YS 30 TT ti OX 20 2- 2- 00 48 MA ve EN 19 20 20 LL 2 N 00 10 10 E NA 50 5 OB NC 0 Y MG GY E N TA FA BL ME ET LY HE AL IA 68 07 08 1 20 3 MA 60 DE Ac OM 38 -1 -0 .0 YS 27 NN ti ET 20 3- 3 20 IS ve MCKEON 04 20 20 LL 9 ON ZI 10 10 10 E NE 1 OB KIMO SE 25 GY PH N R MG FA ME TA LY BL ET HE AL 00 07 07 2 20 3 MA 40 DE Ac 59 -1 -1 .0 YS 04 NN ti 10 3- 59 IS ve 34 20 20 LL 9 ON 90 10 10 E 5 OB KIMO SE GY PH N R FA ME LY HE AL 00 07 07 2 20 2 MA 40 DE Ac 59 -1 -1 .0 YS 04 NN ti 10 3- 3 59 IS ve 34 20 20 LL 9 ON 90 10 10 E 5 OB KIMO SE GY PH N R FA ME LY HE AL IA 68 07 07 1 20 3 MA 60 DE Ac OM 38 -1 -1 .0 YS 27 NN ti ET 20 20 IS ve MCKEON 04 20 20 LL 9 ON ZI 10 10 10 E NE 1 OB KIMO SE 25 GY PH N R MG FA ME TA LY BL ET HE AL CI 68 07 07 1 40 20 MA 60 DE Ac IA 08 -1 -1 .0 YS 27 NN ti OF 40 3 21 IS ve LO 07 20 20 LL 0 ON XA 00 10 10 E CI 1 OB KIMO N SE HC GY PH L N R 50 FA 0 ME MG LY TA HE B AL TA [...] W TA GY BL N ET FA ME LY HE AL TH PH 65 06 06 0 6. 2 MA 60 FI Ac EN 16 -2 -2 00 YS 26 NL ti AZ 20 3- 3- 0 42 EY ve OP 52 20 20 LL 7 YR 01 10 10 E PA ID 0 OB UL IN W E GY 20 N 0 FA MG ME LY TA B HE AL TH CI 55 06 06 0 20 10 MA 60 FI Ac IA 11 -2 -2 .0 YS 26 NL ti OF 10 3- 3- 00 42 EY ve LO 12 20 20 LL 8 XA 60 10 10 E PA CI 1 OB UL N W HC GY L N 25 FA 0 ME MG LY TA HE B AL TH [...] HE N 96 5- 84 32 5 IA 57 06 06 0 12 3 KM [...] AM GY E PO N O FA ME LY HE AL TH NA 68 04 03 2 60 30 MA 60 KE Ac IA 46 -2 -1 .0 YS 09 EF ti OX 20 0- 0- 00 49 ve EN 19 20 20 LL 5 KI 00 09 10 E MB 50 5 OB ER 0 LY MG GY N TA FA BL ME ET LY HE AL TH 00 01 02 00 30 5 MA 40 MCKEON Ac 59 -2 -1 .0 YS 03 RR ti 10 5- 65 IS ve 34 20 20 LL 9 90 10 10 E CH 5 OB AR /G LO YN TT E FA J ME LY HE AL TH IA 68 01 02 00 30 8 MA 60 MCKEON Ac OM 38 -2 -1 .0 YS 19 RR ti ET 20 5- - 86 IS ve MCKEON 04 20 20 LL 5 ZI 10 10 10 E CH NE 1 OB AR /G LO 25 YN TT E MG FA J ME TA LY BL ET HE AL 00 01 01 01 30 5 MA 40 MCKEON Ac 59 -1 -2 .0 YS 03 RR ti 10 2 8 57 IS ve 34 20 20 LL 3 90 10 10 E CH 5 OB AR /G LO YN TT E FA J ME LY HE AL 00 01 01 00 30 5 MA 40 MCKEON Ac 59 -1 -2 .0 YS 03 RR ti 10 57 IS ve 34 20 20 LL 3 90 10 10 E CH 5 OB AR /G LO YN TT E FA J ME LY HE AL TH NA 68 04 01 01 60 30 MA 60 KE Ac IA 46 -2 -2 .0 YS 09 EF ti OX 20 0- 8- 49 ve EN 19 20 20 LL 5 KI 00 09 10 E MB 50 5 OB ER 0 /G LY MG YN TA FA BL ME ET LY HE AL 00 12 12 00 60 10 MA 40 Ac 59 -0 -1 .0 YS 03 TT ti 10 8- 7 40 MA ve 34 20 20 LL 3 N 90 09 09 E NA 5 OB NC /G Y YN E FA ME LY HE AL TH IN 00 12 12 00 60 20 MA 60 MA Ac DO 09 -0 -1 .0 YS 17 RK ti ME 34 7- 7- 76 ES ve TH 02 20 20 LL 6 BE AC 90 09 09 E RY IN 1 OB /G MCKEON 25 YN RO LD MG FA V ME CA LY PS UL HE E AL TH LI 60 10 11 00 60 3 MA 60 Ac ND 43 -2 -0 .0 YS 16 TT ti AN 20 9- 5- 17 MA ve E 83 20 20 LL 3 N 1% 36 09 09 E NA 0 OB NC LO /G Y TI YN E ON FA ME LY HE AL TH 49 09 10 00 20 5 MA 60 JUNIOR Ac 88 -2 -0 .0 YS 14 LL ti 40 3- 8- 00 68 IV ve 77 20 20 LL 3 AN 70 09 09 E 5 OB CH /G RI YN ST IN FA A ME M LY HE AL TR 65 09 10 00 20 3 MA 40 JUNIOR Ac AM 16 -2 -0 .0 YS 02 LL ti AD 20 3- 8- 00 99 IV ve OL 62 20 20 LL 5 AN 71 09 09 E HC 1 OB CH L /G RI [address] IN MG FA A ME M TA LY BL ET HE AL NA 68 04 05 00 60 30 MA 60 KE Ac IA 46 -2 -0 .0 YS 09 EF ti OX 20 0- 7- 00 49 ve EN 19 20 20 LL 5 KI 00 09 09 E MB 50 5 OB ER 0 /G LY MG YN TA FA BL ME ET LY HE OV 51 01 01 [...] 0 OB S /G E YN FA ME LY HE 00 01 01 00 10 3 MA 40 AD Ac 59 -0 -1 .0 YS 01 AM ti 10 6- 5- 00 74 S ve 34 20 20 LL 7 JA 90 09 09 E ME 5 OB S /G E YN FA ME LY Procedures Procedure [place] [address] [facility] CERVICAL 2 MEDICAL [facility] SPINE W/O IMAGING CONTRAST ASS MATERIAL 3D 59728 [place] [facility] RENDERING 2 MEDICAL [facility]ORRES IMAGING W/INTERP& ASS POSTPROC DIFF WORK STATION THERAPEUT 32449 [facility] MONTANO IC 1 PRIMARY Y BILLY PROPHYLAC CARE TIC/DX CENTER INJECTION SUBQ/IM INJECTION J0696 BJ MONTANO 1 PRIMARY Y BILLY CEFTRIAXO CARE NE SODIUM CENTER PER 250 MG ANES 30060 [facility] BRALORION TRURL 1 LTH ADELE FRAGMNTJ ANESTHESI MANJ&/RMV A PSC L URETERAL CALCULUS CYSTO 93901 [facility] RIGO W/URETERO 1 W GENERAL J. SCOPY SURGERY W/RMVL/MA [place] [facility] CYSTO 00603 [facility] RIGO W/INSERT 1 W GENERAL J. URETERAL SURGERY STENT INITIAL 28190 [facility] 1 W GENERAL J. CARE/[place] [address] [place] [address] [facility] ABDOMEN & 1 EIDER KIMBERLEY PELVIS RADIOLOGY W/O ASSOCIAT CONTRAST MATERIAL 3D 04306 [facility] RENDERING 1 EIDER KIMBERLEY W/INTERP RADIOLOGY & ASSOCIAT POSTPROCE SS SUPERVISI ON RADEX 16238 [facility] ABDOMEN 1 1 [facility] ANTEROPOS ASSOCIAT TERIOR VIEW RADEX 84583 [facility] ABDOMEN 1 0 [facility] ANTEROPOS ASSOCIAT TERIOR VIEW 3D 65287 [facility] RENDERING 0 [facility] W/INTERP RADIOLOGY & ASSOCIAT POSTPROCE SS SUPERVISI ON BASIC 64636 [facility] METABOLIC 0 W W PANEL [facility] CALCIUM MEDICAL MEDICAL TOTAL CULTURE 90633 [facility] BACTERIAL 0 W W [facility] QU[facility]TTATI [facility] VE COLONY COUNT URINE CT PELVIS 84645 [facility] W/O 0 [place] [address] [facility] INFUSION 0 W W HYDRATION [facility] EACH MEDICAL MEDICAL ADDITIONA L HOUR COLLECTIO 15041 [facility] N VENOUS 0 W W BLOOD [facility] [place] [address] [facility] ABDOMEN 0 [facility] W/O RADIOLOGY CONTRAST ASSOCIAT MATERIAL THER 26776 [facility] PROPH/DX 0 W W NJX IV [facility] PUSH MEDICAL MEDICAL SINGLE/1S T SBST/DRUG BLOOD 75014 [facility] COUNT 0 W W COMPLETE REGIONAL REGIONAL AUTO&AUTO MEDICAL MEDICAL DIFRNTL WBC URNLS DIP 47814 [facility] LINCOLNWVIE 0 W W STICK/TAB REGIONAL REGIONAL LET MEDICAL MEDICAL REAGENT AUTO MICROSCOP Y THERAPEUT 62963 LATONIAWALLYMILADIS LINCOLNWVIE IC 0 W W INJECTION REGIONAL REGIONAL IV PUSH MEDICAL MEDICAL EACH NEW DRUG ANES 20582 MIRANDA WHEELER TRURL 0 LTH [facility] FRAGMNTJ ANESTHESI MANJ&/RMV A PSC L URETERAL CALCULUS CYSTO 19006 KENISHA MASTERSON, W/INSERT 0 W GENERAL J. URETERAL SURGERY ANDI R STENT CALCULUS 35116 LATONIAKAROL LIUWVIE QUANTITAT 0 W W PA [facility] CHEMICAL MEDICAL MEDICAL CYSTO 35396 KENISHA MASTERSON, W/URETERO 0 W GENERAL J. SCOPY SURGERY ANDI R W/RMVL/[place] [facility] 75305 KENISHA MASTERSON DISCHARGE 0 W GENERAL J. DAY SURGERY MANAGEMEN T 30 MIN/< FLUOROSCO 96048 KENISHA DE PY SPX UP 0 W W TO 1 REGIONAL REGIONAL HOUR MEDICAL MEDICAL PHYS/QHP TIME [facility]OSP[facility] G0378 KENISHA LIUWVIE OBSERVATI 0 W W ON [facility] SERVICE MEDICAL MEDICAL PER HOUR COLLECTIO 80518 KENISHA LIUWVIE N VENOUS 0 W W BLOOD [facility] VENIPUNCT MEDICAL MEDICAL URE CYSTO 20591 KENISHA LIUWVIE W/URETERO 0 W W SCOPY [facility] W/RMVL/MA MEDICAL MEDICAL [place] [facility] THER 99611 KENISHA LIUWVIE PROPH/DX 0 W W NJX IV REGIONAL REGIONAL PUSH MEDICAL MEDICAL SINGLE/1S T SBST/DRUG BLOOD 08236 K[facility]HA LIUWVIE COUNT 0 W W COMPLETE REGIONAL REGIONAL AUTO&AUTO MEDICAL MEDICAL DIFRNTL WBC URNLS DIP 10328 LATONIAKAROL LIUWVIE 0 W W STICK/TAB REGIONAL REGIONAL LET MEDICAL MEDICAL REAGENT AUTO MICROSCOP Y CYSTO 81950 [facility] W/INSERT 0 W W URETERAL REGIONAL REGIONAL STENT MEDICAL MEDICAL THERAPEUT 17176 [facility] IC 0 W W INJECTION REGIONAL REGIONAL IV PUSH [facility] DRUG INITIAL 49028 [facility] 0 W GENERAL J. CARE/DAY SURGERY 50 MINUTES BASIC 06651 [facility] METABOLIC 0 W W PANEL [facility] MEDICAL TOTAL CULTURE 42515 [facility] BACTERIAL [address] [facility]I [facility] MEDICAL VE [facility] CENTER COUNT URINE URNLS DIP 39869 [facility] 0 W W STICK/TAB [facility] LET MEDICAL MEDICAL REAGENT [facility] AUTO MICROSCOP Y THERAPEUT 73992 [facility]OW[facility] IC 0 W W INJECTION REGIONAL REGIONAL IV PUSH MEDICAL MEDICAL [facility] DRUG THER 34889 [facility] PROPH/DX 0 W W NJX IV REGIONAL REGIONAL [facility] MEDICAL MEDICAL [facility] CENTER CENTER T SBST/[place] [address] [facility] INFUSION 0 W W HYDRATION REGIONAL [facility] ADDITION[place] [address] [facility] ABDOMEN 0 EIDER, W/O RADIOLOGY MIRTHA CONTRAST K MATERIAL ASSOCIATE S [facility] CT PELVIS 80494 [facility] 0 EIDER, W/CONTRAS RADIOLOGY MIRTHA T K MATERIAL ASSOCIATE S PSC 3D 56194 [facility] RENDERING 0 EIDER, W/INTERP RADIOLOGY MIRTHA & K POSTPROCE ASSOCIATE SS S PSC SUPERVISI ON THERAPEUT 90222 [facility] IC 0 W W INJECTION REGIONAL REGIONAL IV PUSH MEDICAL MEDICAL [facility] DRUG URNLS DIP 61837 [facility] 0 W W STICK/TAB [facility] REAGENT [facility] AUTO MICROSCOP Y THER 40342 [facility] PROPH/DX 0 W W NJX IV [facility] MEDICAL [facility]/1S CENTER CENTER T SBST/DRUG CT PELVIS 58738 KENISHA LIUWMILADIS W/O 0 W W CONTRAST [facility] MATERIAL [facility] CENTER CULTURE 64541 KENISHA DE BACTERIAL 0 W W [facility] QU[facility]TTATI [facility] MEDICAL VE [facility] CENTER COUNT URINE ANESTH 88593 DONG [place] 0 LT KORI Lopez ANESTHESI ARTHROSCO A PSC PIC PROC KNEE JOINT ARTHRS 67140 JOSÉ KUMAR KNE SURG 0 JAMARI JAMARI W/MENISCE J J CTOMY MED/LAT W/SHVG MRI ANY 45789 KENISHA DE JT LOWER 9 W W [facility] W/O MEDICAL MEDICAL [facility] MATRL Encounters Encounter Start End Date Code Location Performer Type Date EMERGENCY 97845 MAEVE 2 2 [facility] VISIT LOW/MODER SEVERITY HOSPITAL MAEVE - 2 2 [facility]ERG[facility] 19514 JOHANNA NGUYEN DEPT 2 2 EMERGENCY VISIT SERVICES HIGH SEVERITY& THREAT FUNCJ OFFICE 26533 [facility] MONTANO OUTPATIEN 1 1 PRIMARY Y BILLY T VISIT CARE 15 CENTER MINUTES OFFICE 44074 MARTHAMILADIS RIGO OUTPATIEN 1 1 W GENERAL J. T VISIT 5 SURGERY MINUTES EMERGENCY 71320 JOHANNA CAST DEPT 1 1 EMERGENCY JAM VISIT SERVICES HIGH SEVERITY& THREAT FUNCJ EMERGENCY 95677 JOHANNA PEREZ DEPT 0 0 EMERGENCY CHR VISIT SERVICES HIGH SEVERITY& THREAT [facility] NOE[facility]ADIS - [facility] 30924 NOEWVIE 0 0 W [facility] VISIT MEDICAL HIGH/URGE NT SEVERITY [facility] MEAWVIE - 0 0 [facility] 12613 JOHANNA PEREZ DEPT 0 0 EMERGENCY CHR VISIT SERVICES HIGH SEVERITY& THREAT [facility] OFFICE 88448 KENISHA SIERRA OUTPATIEN 0 0 W GENERAL J. T VISIT SURGERY ANDI R 10 MINUTES OFFICE 29552 BJ MARTINEZ OUTPATIEN 0 0 PRIMARY LUIS E T VISIT CARE 15 CENTERINC MINUTES EMERGENCY 75221 JOHANNA PEREZ, DEPT 0 0 EMERGENCY VISIT SERVICES ISMAEL HIGH SEVERITY& ASSOCIATE THREAT S [facility] EMERGENCY 80009 [facility] 0 0 [facility] T VISIT MEDICAL HIGH/URGE CENTER NT SEVERITY HOSPITAL MEAWALLYVIE - 0 0 W [facility] EMERGENCY 66983 JOHANNA RIGGINS, 0 0 EMERGENCY DAVID [facility] SERVICES T VISIT HIGH/URGE ASSOCIATE NT S SEVERITY EMERGENCY 01645 [facility]EWVIE 0 0 W [facility]IS[facility] MEDICAL HIGH/URGE CENTER NT SEVERITY EMERGENCY 91071 Gaston VILLAREAL DEPT 0 0 EMERGENCY VISIT SERVICES HIGH SEVERITY& ASSOCIATE THREAT S [facility] - 0 0 W [facility]OSPITAL [facility] - 0 0 W [facility] OFFICE 69425 JOSÉ KUMAR, CONSULTAUGUSTO 0 0 JAMARI Morrison J NEW/ESTAB PATIENT 40 MIN OFFICE 19736 BJ OLIVA OUTPATIEN 9 9 PRIMARY EDUIN E T VISIT CARE 10 [facility] MEAKAROL - 9 9 W [facility] EMERGENCY 20539 JOHANNA PEREZ, 9 9 EMERGENCY DEPARTMEN SERVICES BAHAI T VISIT MODERATE ASSOCIATE SEVERITY S OFFICE 99948 BJ DEE OUTNIDIAEN 9 9 PRIMARY ALISE T NEW CARE MINUTES CENTERINC
--- OUTSIDE RECORDS SUMMARY | 2017-01-30 07:22 | External Medical Summary Rpt ---
Author Author , Organization [employer] Address Unknown Phone Unavailable Care Team Providers Care Expense Analyst Name Role Phone LIAM ANGULO, Unavailable Unavailable LIAM ANGULO JAMEE TORRES, Unavailable Unavailable JAMEE TORRES RIGO THOMAS Unavailable Unavailable Agustín GARCIA Unavailable Unavailable RIGO Saleem J. RANDALL R [facility] Unavailable Unavailable ANNMARIE, [facility] DAVID VALERO, Unavailable [...] Unavailable LUTHER ALISE DEE KEEF, Unavailable Unavailable [facility] Unavailable Unavailable IMAGING ASS, [facility] [id number] # Unavailable Unavailable [phone], [facility] [id number] # [id number] [facility] Unavailable Unavailable [facility] BASSAM CERVANTES, Unavailable Unavailable BASS[facility] CERVANTES [facility] Unavailable Unavailable SERVICES, [facility], Unavailable Unavailable [facility] LEASING MANAGER Unavailable Unavailable 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 Unavailable Unavailable [facility] Unavailable Unavailable [facility] Unavailable Unavailable MEDICAL, [facility] MEDICAL [facility] Unavailable Unavailable MEDICAL CENTER, [facility], M N, Gaston JEWELL N Unavailable Unavailable [id number], Unavailable Unavailable [id number] CHRIS CHR, Unavailable Unavailable PEREZ CHR GRADY PEREZ, Unavailable Unavailable GRADY PEREZ, ISMAEL, Unavailable Unavailable ISMAEL PEREZ Purpose Continuity of Care Document - 10-13-2008 through 2016 Problems Code Diagnosis DOS Provider Status 7231 CERVICALGIA 11-23-2011 [facility] 8470 NECK SPRAIN 11-23-2011 [facility] [id number] OVEREXERTIO 11-23-2011 [place] [facility] STRENUOUS MOVEMENT 5950 ACUTE 06-25-2011 [facility] 9390 FOREIGN 12-12-2010 [facility] IN GENERAL BLADDER AND SURGERY URETHRA 5921 CALCULUS OF 12-09-2010 [facility] URETER GENERAL SURGERY 591 HYDRONEPHRO 12-08-2010 [facility] 72281 OTHER 12-08-2010 [facility] 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 5990 URINARY 12-08-2010 [facility] SITE NOT SPECIFIED 08136 FEVER 12-08-2010 [facility] UNSPECIFIED GENERAL SURGERY 7880 RENAL COLIC 12-08-2010 [facility] 27953 ABDOMINAL 12-08-2010 [facility] PAIN OTHER GENERAL SPECIFIED SURGERY SITE 5920 CALCULUS OF 09-28-2010 [facility] 7919 OTHER 09-28-2010 [facility] NONSPECIFIC REGIONAL FINDING MEDICAL EXAMINATION OF URINE V1301 PERSONAL 09-28-2010 [facility] HISTORY OF REGIONAL URINARY MEDICAL CALCULI 17201 NAUSEA WITH 03-29-2010 [facility] VOMITING [facility] 42676 ABDOMINAL 03-29-2010 [facility] PAIN, REGIONAL UNSPECIFIED MEDICAL SITE CENTER 5959 UNSPECIFIED 03-21-2010 [facility] 37961 HEMATURIA 03-18-2010 [facility] UNSPECIFIED [facility]OCIATES PSC 7936 NONSPEC ABN 03-18-2010 [facility]INDNG [facility] RADIOLOGY & OTH EXAM [facility]OCIATES ABDOMINAL [facility] 7172 DERANGEMENT 10-23-2009 [facility] KUMAR [facility]ISC[facility] 82142 PAIN IN 10-23-2009 [facility] JOINT, H LOWER LEG ANESTHESIA PSC 8360 TEAR MEDIAL 10-23-2009 [facility] CURRENT 8362 OTHER TEAR 09-05-2009 [facility] CURRENT 8363 CLOSED 06-21-2009 [place] [facility] [place] [...] Y TI GY E ON N FA NM LY HE AL TH 53 03 03 [...] OB KIMO CE SE TA GY PH NM N R NO FA PH NM EN LY 5- HE 32 AL 5 HY 00 01 01 2 20 3 MA [address] 40 -1 -1 .0 YS 05 NN ti OC 60 4- 7- 00 78 IS ve OD 36 20 20 LL 8 ON ON 50 11 11 E -A 1 OB KIMO CE SE TA GY PH NM N R NO FA PH NM EN LY 5- HE 32 AL 5 HY 00 01 01 2 20 3 MA [address] 40 -1 -1 .0 YS 05 NN ti OC 60 4- 4- 00 78 IS ve OD 36 20 20 LL 8 ON ON 50 11 11 E -A 1 OB KIMO CE SE TA GY PH NM N R NO FA PH NM EN LY 5- HE 32 AL 5 IN 68 01 01 0 20 5 MA 60 DE Ac OM 38 -1 -1 .0 YS 35 NN ti ET 20 4- 4- 00 97 IS ve MCKEON 04 20 20 LL 3 ON ZI 10 11 11 E NE 1 OB KIMO SE 25 GY PH N R MG FA NM TA LY BL ET HE AL TH 00 12 01 2 30 3 MA 40 DE Ac 40 -3 -0 .0 SO 45 NN ti 60 1- 6- 00 N 67 IS ve 35 20 20 FA ON 70 10 11 NM [address] PH UG R 00 12 01 2 30 3 MA 40 DE Ac 60 -3 -0 .0 SO 45 NN ti 33 1- 3- 00 N 67 IS ve 88 20 20 FA ON 13 10 11 NM [address] PH UG R IN 68 12 12 0 12 2 MA 62 DE Ac OM 38 -3 -3 .0 SO 78 NN ti ET 20 1- N 77 IS ve MCKEON 04 20 20 FA ON ZI 10 10 10 NM NE 1 LY KIMO SE [address] PH UG R MG TA BL ET 00 12 12 2 30 3 MA 40 DE Ac 60 -3 -3 .0 SO 45 NN ti 33 1- N 67 IS ve 88 20 20 FA ON 13 10 10 NM [address] PH UG R PE 00 12 12 0 40 10 MA 60 Ac NI 78 -0 -0 .0 YS 34 TT ti CI 11 37 MA ve LL 65 20 20 LL 6 N IN 50 10 10 E NA 1 OB NC VK Y GY E 50 N 0 FA MG NM LY TA BL HE ET AL NA 68 09 11 1 60 30 MA 60 Ac IN 46 -2 -1 .0 YS 30 TT ti OX 20 2- 6- 48 MA ve EN 19 20 20 LL 2 N 00 10 10 E NA 50 5 OB NC 0 Y MG GY E N TA FA BL NM ET LY HE AL NA 68 09 09 1 60 30 MA 60 Ac IN 46 -2 -2 .0 YS 30 TT ti OX 20 2- 2- 00 48 MA ve EN 19 20 20 LL 2 N 00 10 10 E NA 50 5 OB NC 0 Y MG GY E N TA FA BL NM ET LY HE AL IN 68 07 08 1 20 3 MA 60 DE Ac OM 38 -1 -0 .0 YS 27 NN ti ET 20 3 3 20 IS ve MCKEON 04 20 20 LL 9 ON ZI 10 10 10 E NE 1 OB KIMO SE 25 GY PH N R MG FA NM TA LY BL ET HE AL TH 00 07 07 2 20 3 MA 40 DE Ac 59 -1 -1 .0 YS 04 NN ti 10 3 6 59 IS ve 34 20 20 LL 9 ON 90 10 10 E 5 OB KIMO SE GY PH N R FA NM LY HE AL TH 00 07 07 2 20 2 MA 40 DE Ac 59 -1 -1 .0 YS 04 NN ti 10 3- 3- 00 59 IS ve 34 20 20 LL 9 ON 90 10 10 E 5 OB KIMO SE GY PH N R FA NM LY HE AL TH IN 68 07 07 1 20 3 MA 60 DE Ac OM 38 -1 -1 .0 YS 27 NN ti ET 20 3- 3- 00 20 IS ve MCKEON 04 20 20 LL 9 ON ZI 10 10 10 E NE 1 OB KIMO SE 25 GY PH N R MG FA NM TA LY BL ET HE AL TH CI 68 07 07 1 40 20 MA 60 DE Ac IN 08 -1 -1 .0 YS 27 NN ti OF 40 3- 3 21 IS ve LO 07 20 20 LL 0 ON XA 00 10 10 E CI 1 OB KIMO N SE HC GY PH L N R 50 FA 0 NM MG LY TA HE B AL TH [...] W TA GY BL N ET FA NM LY HE AL TH PH 65 06 06 0 6. 2 MA 60 FI Ac EN 16 -2 -2 00 YS 26 NL ti AZ 20 3- 3- 0 42 EY ve OP 52 20 20 LL 7 YR 01 10 10 E PA ID 0 OB UL IN W E GY 20 N 0 FA MG NM LY TA B HE AL TH CI 55 06 06 0 20 10 MA 60 FI Ac IN 11 -2 -2 .0 YS 26 NL ti OF 10 3- 3- 00 42 EY ve LO 12 20 20 LL 8 XA 60 10 10 E PA CI 1 OB UL N W HC GY L N 25 FA 0 NM MG LY TA HE B AL OX [...] HE N 96 5- 84 32 5 IN 57 06 06 0 12 3 KM [...] AM GY E PO N O FA NM LY HE AL NA 68 04 03 2 60 30 MA 60 KE Ac IN 46 -2 -1 .0 YS 09 EF ti OX 20 0- 0- 00 49 ve EN 19 20 20 LL 5 KI 00 09 10 E MB 50 5 OB ER 0 LY MG GY N TA FA BL NM ET LY HE AL 02 00 30 5 MA 40 MCKEON Ac 59 -2 -1 .0 YS 03 RR ti 10 65 IS ve 34 20 20 LL 9 90 10 10 E CH 5 OB AR /G LO YN TT E FA J NM LY HE AL IN 68 01 02 00 30 8 MA 60 MCKEON Ac OM 38 -2 -1 .0 YS 19 RR ti ET 20 86 IS ve MCKEON 04 20 20 LL 5 ZI 10 10 10 E CH NE 1 OB AR /G LO 25 YN TT E MG FA J NM TA LY BL ET HE AL 00 01 01 30 5 MA 40 MCKEON Ac 59 -1 -2 .0 YS 03 RR ti 10 2- 8 57 IS ve 34 20 20 LL 3 90 10 10 E CH 5 OB AR /G LO YN TT E FA J NM LY HE AL 01 00 30 5 MA 40 MCKEON Ac 59 -1 -2 .0 YS 03 RR ti 10 2 8 57 IS ve 34 20 20 LL 3 90 10 10 E CH 5 OB AR /G LO YN TT E FA J NM LY HE AL TH NA 68 04 01 01 60 30 MA 60 KE Ac IN 46 -2 -2 .0 YS 09 EF ti OX 20 0- 8- 00 49 ve EN 19 20 20 LL 5 KI 00 09 10 E MB 50 5 OB ER 0 /G LY MG YN TA FA BL NM ET LY HE AL TH 00 12 12 00 60 10 MA 40 Ac 59 -0 -1 .0 YS 03 TT ti 10 8- 7- 40 MA ve 34 20 20 LL 3 N 90 09 09 E NA 5 OB NC /G Y YN E FA NM LY HE AL TH IN 00 12 12 00 60 20 MA 60 MA Ac DO 09 -0 -1 .0 YS 17 RK ti ME 34 7- 7- 76 ES ve TH 02 20 20 LL 6 BE AC 90 09 09 E RY IN 1 OB /G MCKEON 25 YN RO LD MG FA V NM CA LY PS UL HE E AL TH LI 60 10 11 00 60 3 MA 60 Ac ND 43 -2 -0 .0 YS 16 TT ti AN 20 9- 5- 00 17 MA ve E 83 20 20 LL 3 N 1% 36 09 09 E NA 0 OB NC LO /G Y TI YN E ON FA NM LY HE AL TH 49 09 10 00 20 5 MA 60 JUNIOR Ac 88 -2 -0 .0 YS 14 LL ti 40 3- 8- 00 68 IV ve 77 20 20 LL 3 AN 70 09 09 E 5 OB CH /G RI YN ST IN FA A NM M LY HE AL TH TR 65 09 10 00 20 3 MA 40 JUNIOR Ac AM 16 -2 -0 .0 YS 02 LL ti AD 20 3- 8- 00 99 IV ve OL 62 20 20 LL 5 AN 71 09 09 E HC 1 OB CH L /G RI [address] IN MG FA A NM M TA LY BL ET HE AL TH NA 68 04 05 00 60 30 MA 60 KE Ac IN 46 -2 -0 .0 YS 09 EF ti OX 20 0- 7- 00 49 ve EN 19 20 20 LL 5 KI 00 09 09 E MB 50 5 OB ER 0 /G LY MG YN TA FA BL NM ET LY HE AL TH OV 51 [...] 0 OB S /G E YN FA NM LY HE AL TH 00 01 01 00 10 3 MA 40 AD Ac 59 -0 -1 .0 YS 01 AM ti 10 6- 5- 00 74 S ve 34 20 20 LL 7 JA 90 09 09 E ME 5 OB S /G E YN FA NM LY HE AL Procedures Procedure DOS Code Location Performer Comment 3D 22314 [place] [facility] RENDERING 2 MEDICAL TORRES IMAGING W/INTERP& [place] [address] [place] JAM[facility] CERVICAL 2 MEDICAL TORRES SPINE W/O IMAGING CONTRAST ASS MATERIAL THERAPEUT 57374 BJ MONTANO IC 1 PRIMARY Y BILLY PROPHYLAC CARE TIC/DX CENTER INJECTION SUBQ/IM INJECTION J0696 BJ MONTANO 1 PRIMARY Y BILLY CEFTRIAXO CARE NE SODIUM CENTER PER 250 MG CYSTO 68893 [facility]/URETERO 1 W GENERAL J. SCOPY SURGERY W/RMVL/MA [place] [facility] CYSTO 50593 [facility] RIGO W/INSERT 1 W GENERAL J. URETERAL SURGERY STENT ANES 33330 [facility]&/RMV A PSC L URETERAL CALCULUS INITIAL 06698 [facility] 1 W GENERAL J. CARE/[place] [address] [place] [address] [facility] ABDOMEN & 1 EIDER KIMBERLEY PELVIS RADIOLOGY W/O ASSOCIAT CONTRAST MATERIAL 3D 50660 [facility] RENDERING 1 EIDER KIMBERLEY W/INTERP RADIOLOGY & ASSOCIAT POSTPROCE SS SUPERVISI ON RADEX 09297 [facility] ABDOMEN 1 1 [facility] ANTEROPOS ASSOCIAT TERIOR VIEW RADEX 42719 [facility] ABDOMEN 1 0 [facility] ANTEROPOS ASSOCIAT TERIOR VIEW 3D 74535 [facility] RENDERING 0 [facility] W/INTERP RADIOLOGY & [place] [address] [facility] MEADOWVIE INFUSION 0 W W HYDRATION [facility] MEDICAL MEDICAL ADDITIONA L HOUR COLLECTIO 50273 [facility] MEADOWVIE N VENOUS 0 W W BLOOD [facility] [place] [address] [facility] ABDOMEN 0 [facility] W/O RADIOLOGY CONTRAST ASSOCIAT MATERIAL BASIC 28267 [facility] ME[facility]OW[facility]IE METABOLIC 0 W W PANEL [facility] CALCIUM MEDICAL MEDICAL TOTAL CULTURE 03034 [facility] MEADOWVIE BACTERIAL 0 W W [facility] QUANTTAPRESENTATION [facility]ICAL CENTER MEDICAL VE COLONY COUNT URINE CT PELVIS 99554 [facility] W/O 0 [facility] CONTRAST RADIOLOGY MATERIAL ASSOCIAT BLOOD 99936 [facility] MEADOWVIE COUNT 0 W W COMPLETE [facility] AUTO&AUTO MEDICAL MEDICAL DIFRNTL WBC URNLS DIP 47834 [facility] MEADOWVIE 0 W W STICK/TAB [facility] LET MEDICAL MEDICAL REAGENT AUTO MICROSCOP Y THERAPEUT 08993 [facility] MEADOWVIE IC 0 W W INJECTION [facility] IV PUSH MEDICAL MEDICAL EACH NEW DRUG THER 03710 ME[facility] MEADOWVIE PROPH/DX 0 W W NJX IV [facility] PUSH MEDICAL MEDICAL SINGLE/1S T SBST/DRUG CYSTO 29754 [facility] RIGO, W/INSERT 0 W GENERAL J. URETERAL SURGERY ANDI R STENT CALCULUS 75564 [facility] MEADOWVIE QUANTITAT 0 W W PA [facility] CHEMICAL MEDICAL MEDICAL CYSTO 01397 [facility] RIGO, W/URETERO 0 W GENERAL J. SCOPY SURGERY ANDI R W/RMVL/[facility] 50244 [facility] RIGO DISCHARGE 0 W GENERAL J. DAY SURGERY MANAGEMEN T 30 MIN/< ANES 30734 MIRANDA WHEELER TRURL 0 LTH ADELE FRAGMNTJ ANESTHESI MANJ&/RMV A PSC L URETERAL CALCULUS FLUOROSCO 01974 [facility] NOEWVIE PY SPX UP 0 W W TO 1 [facility] HOUR MEDICAL MEDICAL PHYS/QHP TIME HOSP[facility] G0378 MEAWVIE MEADOW[facility]IE OBSERVATI 0 W W ON [facility] SERVICE MEDICAL MEDICAL PER HOUR COLLECTIO 09126 ME[facility] MEADOWVIE N VENOUS 0 W W BLOOD [facility] VENIPUNCT MEDICAL MEDICAL URE INITIAL 77391 [facility] 0 W GENERAL J. CARE/DAY SURGERY 50 MINUTES BASIC 17981 MEADOW[facility]IE MEADOWVIE METABOLIC 0 W W PANEL [facility] CALCIUM MEDICAL MEDICAL TOTAL CYSTO 57219 MEADOW[facility]IE MEADOWVIE W/URETERO 0 W W SCOPY [facility] W/RMVL/MA MEDICAL MEDICAL [place] STONES THER 60294 ME[facility]IE MEADOWVIE PROPH/DX 0 W W NJX IV [facility] PUSH MEDICAL MEDICAL SINGLE/1S T SBST/DRUG BLOOD 29523 ME[facility] MEADOWVIE COUNT 0 W W COMPLETE [facility]AL AUTO&AUTO MEDICAL MEDICAL DIFRNTL WBC URNLS DIP 48086 [facility] MEADOWVIE 0 W W STICK/TAB [facility]AL LET MEDICAL MEDICAL REAGENT AUTO MICROSCOP Y CYSTO 26986 [facility] MEADOWVIE W/INSERT 0 W W URETERAL [facility]AL STENT MEDICAL MEDICAL THERAPEUT 73374 [facility] MEADOWVIE IC 0 W W INJECTION [facility]AL IV PUSH MEDICAL MEDICAL EACH NEW DRUG URNLS DIP 51624 [facility] MEADOWVIE 0 W W STICK/TAB [facility]AL LET MEDICAL MEDICAL REAGENT CENTER CENTER AUTO MICROSCOP Y THERAPEUT 74729 ME[facility]IE MEADOWVIE IC 0 W W INJECTION [facility]AL IV PUSH MEDICAL MEDICAL EACH NEW CENTER CENTER DRUG THER 77905 ME[facility]IE MEADOWVIE PROPH/DX 0 W W NJX IV [facility]AL PUSH MEDICAL MEDICAL SINGLE/ CENTER CENTER T SBST/DRUG CULTURE 26078 ME[facility]IE MEADOWVIE BACTERIAL 0 W W [facility] [place] [address] MEADOW[place]IE MEADOWVIE INFUSION 0 W W HYDRATION [facility] [place] [address] [facility] ABDOMEN 0 EIDER, W/O RADIOLOGY MIRHTA CONTRAST K MATERIAL ASSOCIATE S PSC CT PELVIS 78055 [facility] 0 EIDER, W/CONTRAS RADIOLOGY MIRTHA T K MATERIAL ASSOCIATE S [facility] CT PELVIS 32684 ME[facility] MEADOWVIE W/O 0 W W CONTRAST [facility] CULTURE 59199 MEADOW[facility]IE MEADOWVIE BACTERIAL 0 W W [facility] COUNT URINE 3D 37099 [facility] RENDERING 0 EIDER, W/INTERP RADIOLOGY MIRTHA & K POSTPROCE ASSOCIATE SS S [place]I [place] THER 66836 MEADOW[facility]IE MEADOWVIE PROPH/DX 0 W W NJX IV [facility]/[address] [place] [address] T SBST/DRUG THERAPEUT 76469 MEADOW[facility]IE MEADOWVIE IC 0 W W INJECTION [facility] DRUG URNLS DIP 32736 MEADOW[facility]IE MEADOWVIE 0 W W STICK/TAB [facility] REAGENT [facility] AUTO MICROSCOP Y ARTHRS 55707 JOSÉ, JOSÉ, KNE SURG 0 JAMARI JAMARI W/MENISCE J J CTOMY MED/LAT W/SHVG ANESTH 59104 DONG LOFT[place] 0 [facility] KORI Lopez ANESTHESI ARTHROSCO A [facility] PROC [place]EE JO[place] ANY [address] ME[facility] MEADOWVIE JT LOWER 9 W W EXTREM [facility] W/O MEDICAL MEDICAL CONTRAST [facility] MATRL Encounters Encounter Start End Date Code Location Performer Type Date EMERGENCY 27241 JOHANNA RUIZ WENDY DEPT 2 2 EMERGENCY VISIT SERVICES HIGH SEVERITY& THREAT FUNCJ EMERGENCY 13501 MAEVE 2 2 [facility] T VISIT LOW/MODER SEVERITY HOSPITAL MAEVE - 2 2 [facility] OFF[facility] 24751 BJ MONTANO OUTPATIEN 1 1 PRIMARY Y BILLY T VISIT CARE 15 CENTER MINUTES OFFICE 41367 KENISHA SIERRA OUTPATIEN 1 1 W GENERAL J. T VISIT 5 SURGERY MINUTES EMERGENCY 53331 JOHANNA CAST DEPT 1 1 EMERGENCY JAM VISIT SERVICES HIGH SEVERITY& THREAT FUN EMERGENCY 85050 [facility] 0 0 W [facility] T VISIT MEDICAL HIGH/URGE NT SEVERITY HOSPITAL ME[facility]OW[facility]IE - 0 [facility] 23053 JOHANNA PEREZ DEPT 0 0 EMERGENCY CHR VISIT SERVICES HIGH SEVERITY& THREAT FUN EMERGENCY 27152 JOHANNA PEREZ DEPT 0 0 EMERGENCY CHR VISIT SERVICES HIGH SEVERITY& THREAT [facility]OSPITAL MEADOWVIE - 0 0 W [facility] MEDICAL OFFICE 62048 KENISHA SIERRA, OUTPATIEN 0 0 W GENERAL J. T VISIT SURGERY ANDI R 10 MINUTES OFFICE 30347 BJ MARTINEZ, OUTPATIEN 0 0 PRIMARY LUIS E T [facility] 75159 JOHANNA PEREZ DEPT 0 0 EMERGENCY VISIT SERVICES ISMAEL HIGH SEVERITY& ASSOCIATE THREAT S FUN EMERGENCY 46388 MEAWVIE 0 0 W [facility] VISIT MEDICAL HIGH/URGE CENTER NT SEVERITY EMERGENCY 84389 JOHANNA RIGGINS, 0 0 EMERGENCY DAVID W DEPARTMEN SERVICES T VISIT HIGH/URGE ASSOCIATE NT S SEVERITY EMERGENCY 06312 Gaston VILLAREAL DEPT 0 0 EMERGENCY VISIT SERVICES HIGH SEVERITY& ASSOCIATE THREAT S [facility] MEAWVIE - 0 0 W [facility] EMERGENCY 89284 NOEWVIE 0 0 W [facility] T VISIT MEDICAL HIGH/URGE CENTER NT SEVERITY [facility] MEADOWVIE - 0 0 W [facility] OFFICE 45537 JOSÉ KUMAR, CONSULTAT 0 0 JAMARI Morrison NEW/ESTAB PATIENT 40 MIN OFFICE 31058 ALYSA ENGLE 9 9 PRIMARY EDUIN E T [facility] KENISHA - 9 9 W [facility] EMERGENCY 11661 JOHANNA PEREZ, 9 9 EMERGENCY DEPARTMEN SERVICES YAZIDISM T VISIT MODERATE ASSOCIATE SEVERITY S OFFICE 26838 ALYSA NGUYEN 9 9 PRIMARY ALISE T NEW [address] [place] [address]
--- OUTSIDE RECORDS SUMMARY | 2017-01-30 07:22 | External Medical Summary Rpt ---
Author Author , Organization [employer] Address Unknown Phone Unavailable Care Team Providers Care Cytogenetic Technologist Name Role Phone LIAM ANGULO, Unavailable Unavailable LIAM ANGULO JAMEE TORRES, Unavailable Unavailable JAMEE TORRES RIGO THOMAS Unavailable Unavailable Agustín GARCIA Unavailable Unavailable RIGO Saleem J. RANDALL R [facility] Unavailable Unavailable ANNMARIE, [facility] DAVID VALERO, Unavailable [...] Unavailable LUTHER ALISE DEE KEEF, Unavailable Unavailable [facility] Unavailable Unavailable IMAGING [facility], [facility] [id number] # Unavailable Unavailable [id number], [facility] [id number] # [id number] [facility] Unavailable Unavailable [facility] BASSAM CERVANTES, Unavailable Unavailable BASSAM CERVANTES [facility] Unavailable Unavailable SERVICES, [facility], [facility]available Unavailable [facility] 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 [facility] VOTING MACHINE MECHANIC [facility] W[facility] Unavailable Unavailable [facility] WARE TESTER [facility]available Unavailable [facility] Unavailable Unavailable SURG[facility], [facility] Unavailable Unavailable MEDICAL, [facility] Unavailable Unavailable [facility]ENTER, [facility], M N, Gaston JEWELL N Unavailable Unavailable [id number], Unavailable Unavailable [id number] CHRIS CHR, Unavailable Unavailable P[facility] CHR GRADY PEREZ, Unavailable Unavailable GRADY PEREZ, ISMAEL, Unavailable Unavailable ISMAEL PEREZ Purpose Continuity of Care Document - 10-13-2008 through 2016 Problems Code Diagnosis DOS Provider Status 7231 CERVICALGIA 11-23-2011 [facility] 8470 NECK SPRAIN 11-23-2011 [facility] E9270 OVEREXERTIO 11-23-2011 [facility] STRENUOUS MOVEMENT 5950 ACUTE 06-25-2011 [facility] 9390 FOREIGN 12-12-2010 [facility] GENERAL BLADDER AND SURGERY URETHRA 5921 CALCULUS OF 12-09-2010 [facility] URETER GENERAL SURGERY 591 HYDRONEPHRO 12-08-2010 [facility] 18321 OTHER 12-08-2010 [facility] 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 5990 URINARY 12-08-2010 [facility] SITE NOT SPECIFIED 51208 FEVER 12-08-2010 [facility] UNSPECIFIED GENERAL SURGERY 7880 RENAL COLIC 12-08-2010 [facility] 72196 ABDOMINAL 12-08-2010 [facility] PAIN OTHER GENERAL SPECIFIED SURGERY SITE 5920 CALCULUS OF 09-28-2010 [facility] 7919 OTHER 09-28-2010 [facility] NONSPECIFIC REGIONAL FINDING MEDICAL EXAMINATION OF URINE V1301 PERSONAL 09-28-2010 [facility] HISTORY OF REGIONAL URINARY MEDICAL CALCULI 29179 NAUSEA WITH 03-29-2010 [facility] VOMIT[facility] 11631 ABDOMINAL 03-29-2010 [facility] PAIN, REGIONAL UNSPECIFIED MEDICAL SITE CENTER 5959 UNSPECIFIED 03-21-2010 [facility] 74577 HEMATURIA 03-18-2010 [facility] U[facility]PECIF[facility] PSC 7936 NONSPEC ABN 03-18-2010 [facility] & OTH EXAM [facility]OCIATES ABDOMINAL [facility] 7172 DERANGEMENT 10-23-2009 PE[facility] KUMAR [facility] MEDIAL MENISC[facility] 63270 PAIN IN 10-23-2009 [facility] JOINT, H LOWER LEG ANESTHESIA PSC 8360 TEAR MEDIAL 10-23-2009 [facility] CURRENT 8362 OTHER TEAR 09-05-2009 [facility]ENTER[facility] CURRENT 8363 CLOSED 06-21-2009 [facility] Medications [...] Y TI GY E ON N FA TN LY HE AL TH 53 03 03 [...] OB KIMO CE SE TA GY PH TN N R NO FA PH TN EN LY 5- HE 32 AL 5 HY 00 01 01 2 20 3 MA [address] 40 -1 -1 .0 YS 05 NN ti OC 60 4- 7- 00 78 IS ve OD 36 20 20 LL 8 ON ON 50 11 11 E -A 1 OB KIMO CE SE TA GY PH TN N R NO FA PH TN EN LY 5- HE 32 AL 5 HY 00 01 01 2 20 3 MA [address] 40 -1 -1 .0 YS 05 NN ti OC 60 4- 4- 00 78 IS ve OD 36 20 20 LL 8 ON ON 50 11 11 E -A 1 OB KIMO CE SE TA GY PH TN N R NO FA PH TN EN LY 5- HE 32 AL 5 WY 68 01 01 0 20 5 MA 60 DE Ac OM 38 -1 -1 .0 YS 35 NN ti ET 20 4- 4- 00 97 IS ve MCKEON 04 20 20 LL 3 ON ZI 10 11 11 E NE 1 OB KIMO SE 25 GY PH N R MG FA TN TA LY BL ET HE AL TH 00 12 01 2 30 3 MA 40 DE Ac 40 -3 -0 .0 SO 45 NN ti 60 1- 6- 00 N 67 IS ve 35 20 20 FA ON 70 10 11 TN [address] PH UG R 00 12 01 2 30 3 MA 40 DE Ac 60 -3 -0 .0 SO 45 NN ti 33 1- 3- 00 N 67 IS ve 88 20 20 FA ON 13 10 11 TN [address] PH UG R WY 68 12 12 0 12 2 MA 62 DE Ac OM 38 -3 -3 .0 SO 78 NN ti ET 20 1- N 77 IS ve MCKEON 04 20 20 FA ON ZI 10 10 10 TN NE 1 LY K[address] SE [address] PH UG R MG TA BL ET 00 12 12 2 30 3 MA 40 DE Ac 60 -3 -3 .0 SO 45 NN ti 33 1- N 67 IS ve 88 20 20 FA ON 13 10 10 TN [address] PH UG R PE 00 12 12 0 40 10 MA 60 Ac NI 78 -0 -0 .0 YS 34 TT ti CI 11 37 MA ve LL 65 20 20 LL 6 N IN 50 10 10 E NA 1 OB NC VK Y GY E 50 N 0 FA MG TN LY TA BL HE ET AL NA 68 09 11 1 60 30 MA 60 Ac WY 46 -2 -1 .0 YS 30 TT ti OX 20 2- 6- 48 MA ve EN 19 20 20 LL 2 N 00 10 10 E NA 50 5 OB NC 0 Y MG GY E N TA FA BL TN ET LY HE AL NA 68 09 09 1 60 30 MA 60 Ac WY 46 -2 -2 .0 YS 30 TT ti OX 20 2- 2- 00 48 MA ve EN 19 20 20 LL 2 N 00 10 10 E NA 50 5 OB NC 0 Y MG GY E N TA FA BL TN ET LY HE AL WY 68 07 08 1 20 3 MA 60 DE Ac OM 38 -1 -0 .0 YS 27 NN ti ET 20 3 3 20 IS ve MCKEON 04 20 20 LL 9 ON ZI 10 10 10 E NE 1 OB KIMO SE 25 GY PH N R MG FA TN TA LY BL ET HE AL TH 00 07 07 2 20 3 MA 40 DE Ac 59 -1 -1 .0 YS 04 NN ti 10 3 6 59 IS ve 34 20 20 LL 9 ON 90 10 10 E 5 OB KIMO SE GY PH N R FA TN LY HE AL TH 00 07 07 2 20 2 MA 40 DE Ac 59 -1 -1 .0 YS 04 NN ti 10 3- 3- 00 59 IS ve 34 20 20 LL 9 ON 90 10 10 E 5 OB KIMO SE GY PH N R FA TN LY HE AL TH WY 68 07 07 1 20 3 MA 60 DE Ac OM 38 -1 -1 .0 YS 27 NN ti ET 20 3- 3- 00 20 IS ve MCKEON 04 20 20 LL 9 ON ZI 10 10 10 E NE 1 OB KIMO SE 25 GY PH N R MG FA TN TA LY BL ET HE AL TH CI 68 07 07 1 40 20 MA 60 DE Ac WY 08 -1 -1 .0 YS 27 NN ti OF 40 3- 3 21 IS ve LO 07 20 20 LL 0 ON XA 00 10 10 E CI 1 OB KIMO N SE HC GY PH L N R 50 FA 0 TN MG LY TA HE B AL TH [...] W TA GY BL N ET FA TN LY HE AL TH PH 65 06 06 0 6. 2 MA 60 FI Ac EN 16 -2 -2 00 YS 26 NL ti AZ 20 3- 3- 0 42 EY ve OP 52 20 20 LL 7 YR 01 10 10 E PA ID 0 OB UL IN W E GY 20 N 0 FA MG TN LY TA B HE AL TH CI 55 06 06 0 20 10 MA 60 FI Ac WY 11 -2 -2 .0 YS 26 NL ti OF 10 3- 3- 00 42 EY ve LO 12 20 20 LL 8 XA 60 10 10 E PA CI 1 OB UL N W HC GY L N 25 FA 0 TN MG LY TA HE B AL OX [...] HE N 96 5- 84 32 5 WY 57 06 06 0 12 3 KM [...] AM GY E PO N O FA TN LY HE AL NA 68 04 03 2 60 30 MA 60 KE Ac WY 46 -2 -1 .0 YS 09 EF ti OX 20 0- 0- 00 49 ve EN 19 20 20 LL 5 KI 00 09 10 E MB 50 5 OB ER 0 LY MG GY N TA FA BL TN ET LY HE AL 02 00 30 5 MA 40 MCKEON Ac 59 -2 -1 .0 YS 03 RR ti 10 65 IS ve 34 20 20 LL 9 90 10 10 E CH 5 OB AR /G LO YN TT E FA J TN LY HE AL WY 68 01 02 00 30 8 MA 60 MCKEON Ac OM 38 -2 -1 .0 YS 19 RR ti ET 20 86 IS ve MCKEON 04 20 20 LL 5 ZI 10 10 10 E CH NE 1 OB AR /G LO 25 YN TT E MG FA J TN TA LY BL ET HE AL 00 01 01 30 5 MA 40 MCKEON Ac 59 -1 -2 .0 YS 03 RR ti 10 2- 8 57 IS ve 34 20 20 LL 3 90 10 10 E CH 5 OB AR /G LO YN TT E FA J TN LY HE AL 01 00 30 5 MA 40 MCKEON Ac 59 -1 -2 .0 YS 03 RR ti 10 2 8 57 IS ve 34 20 20 LL 3 90 10 10 E CH 5 OB AR /G LO YN TT E FA J TN LY HE AL TH NA 68 04 01 01 60 30 MA 60 KE Ac WY 46 -2 -2 .0 YS 09 EF ti OX 20 0- 8- 00 49 ve EN 19 20 20 LL 5 KI 00 09 10 E MB 50 5 OB ER 0 /G LY MG YN TA FA BL TN ET LY HE AL TH 00 12 12 00 60 10 MA 40 Ac 59 -0 -1 .0 YS 03 TT ti 10 8- 7- 40 MA ve 34 20 20 LL 3 N 90 09 09 E NA 5 OB NC /G Y YN E FA TN LY HE AL TH IN 00 12 12 00 60 20 MA 60 MA Ac DO 09 -0 -1 .0 YS 17 RK ti ME 34 7- 7- 76 ES ve TH 02 20 20 LL 6 BE AC 90 09 09 E RY IN 1 OB /G MCKEON 25 YN RO LD MG FA V TN CA LY PS UL HE E AL TH LI 60 10 11 00 60 3 MA 60 Ac ND 43 -2 -0 .0 YS 16 TT ti AN 20 9- 5- 00 17 MA ve E 83 20 20 LL 3 N 1% 36 09 09 E NA 0 OB NC LO /G Y TI YN E ON FA TN LY HE AL TH 49 09 10 00 20 5 MA 60 JUNIOR Ac 88 -2 -0 .0 YS 14 LL ti 40 3- 8- 00 68 IV ve 77 20 20 LL 3 AN 70 09 09 E 5 OB CH /G RI YN ST IN FA A TN M LY HE AL TH TR 65 09 10 00 20 3 MA 40 JUNIOR Ac AM 16 -2 -0 .0 YS 02 LL ti AD 20 3- 8- 00 99 IV ve OL 62 20 20 LL 5 AN 71 09 09 E HC 1 OB CH L /G RI [address] IN MG FA A TN M TA LY BL ET HE AL TH NA 68 04 05 00 60 30 MA 60 KE Ac WY 46 -2 -0 .0 YS 09 EF ti OX 20 0- 7- 00 49 ve EN 19 20 20 LL 5 KI 00 09 09 E MB 50 5 OB ER 0 /G LY MG YN TA FA BL TN ET LY HE AL TH OV 51 [...] 0 OB S /G E YN FA TN LY HE AL TH 00 01 01 00 10 3 MA 40 AD Ac 59 -0 -1 .0 YS 01 AM ti 10 6- 5- 00 74 S ve 34 20 20 LL 7 JA 90 09 09 E ME 5 OB S /G E YN FA TN LY HE AL Procedures Procedure DOS Code Location Performer Comment 3D 87657 [facility] RENDERING 2 MEDICAL [facility]ORRES IMAGING W/INTERP& [place] [address] [facility]AMEE CERVICAL 2 MEDICAL TORRES SPINE W/O IMAGING CONTRAST ASS MATERIAL THERAPEUT 01497 BJ MONTANO IC 1 PRIMARY Y BILLY PROPHYLAC CARE TIC/DX CENTER INJECTION SUBQ/IM INJECTION J0696 BJ MONTANO 1 PRIMARY Y BILLY CEFTRIAXO CARE NE SODIUM CENTER PER 250 MG CYSTO 31559 [facility]URETERO 1 W GENERAL J. SCOPY SURGERY W/RMVL/MA [place] STONES CYSTO 62627 [facility] RIGO W/INSERT 1 W GENERAL J. URETERAL SURGERY STENT ANES 49517 [facility]ION TRURL 1 [facility] ANEST[facility]ESI MANJ&/RMV A PSC L URETERAL CALCULUS INITIAL 55079 [facility] 1 W GENERAL J. CARE/[place] [address] [place] [address] [facility] ABDOMEN & 1 EIDER KIMBERLEY PELVIS RADIOLOGY W/O ASSOCIAT CONTRAST MATERIAL 3D 95174 [facility] RENDERING 1 EIDER KIMBERLEY W/INTERP RADIOLOGY & ASSOCIAT POSTPROCE SS SUPERVISI ON RADEX 25881 [facility] ABDOMEN 1 1 [facility] ANTEROPOS ASSOCIAT TERIOR VIEW RADEX 59534 [facility] ABDOMEN 1 0 [facility] ANTEROPOS ASSOCIAT TERIOR VIEW 3D 08065 [facility] RENDERING 0 [facility] W/INTERP RADIOLOGY & [place] [address] [facility] MEADOWVIE INFUSION 0 W W HYDRATION [facility] MEDICAL MEDICAL ADDITIONA L HOUR COLLECTIO 20752 MEADOW[facility]IE MEADOWVIE N VENOUS 0 W W BLOOD [facility] [place] [address] [facility] ABDOMEN 0 [facility] W/O RADIOLOGY CONTRAST ASSOCIAT MATERIAL BASIC 99080 MEADOW[facility]IE MEADOWVIE METABOLIC 0 W W PANEL [facility] CALCIUM MEDICAL MEDICAL TOTAL CULTURE 82647 MEADOW[facility]IE MEADOWVIE BACTERIAL 0 W W [facility] VE COLONY COUNT URINE CT PELVIS 69036 [facility] W/O 0 [place] CONTRAST RADIOLOGY MATERIAL ASSOCIAT BLOOD 45709 MEAD[facility]IE MEADOWVIE COUNT 0 W W COMPLETE [facility] AUTO&AUTO MEDICAL MEDICAL DIFRNTL WBC URNLS DIP 53092 [facility]IE MEADOWVIE 0 W W STICK/TAB [facility] LET MEDICAL MEDICAL REAGENT AUTO MICROSCOP Y THERAPEUT 05798 [facility] MEADOWVIE IC 0 W W INJECTION [facility]AL IV PUSH MEDICAL MEDICAL EACH NEW DRUG THER 88088 MEAD[facility]IE MEADOWVIE PROPH/DX 0 W W NJX IV [facility] PUSH MEDICAL MEDICAL SINGLE/1S T SBST/DRUG CYSTO 65654 [facility] RIGO, W/INSERT 0 W GENERAL J. URETERAL SURGERY ANDI R STENT CALCULUS 86376 MEAD[facility]IE MEADOWVIE QUANTITAT 0 W W PA [facility] CHEMICAL MEDICAL MEDICAL CYSTO 26622 [facility] RIGO, W/URETERO 0 W GENERAL J. SCOPY SURGERY ANDI R W/RMVL/MA [facility] 62125 [facility] RIGO DISCHARGE 0 W GENERAL J. DAY SURGERY MANAGEMEN T 30 MIN/< ANES 80677 MIRANDA WHEELER TRURL 0 LTH ADELE FRAGMNTJ ANESTHESI MANJ&/RMV A PSC L URETERAL CALCULUS FLUOROSCO 28185 [facility] NOEWVIE PY SPX UP 0 W W TO 1 [facility]IONAL [facility] HOUR MEDICAL MEDICAL PHYS/QHP TIME HOSP[facility] G0378 MEAWVIE MEADOWVIE OBSERVATI 0 W W ON [facility] SERVICE MEDICAL MEDICAL PER HOUR COLLECTIO 79956 MEAD[facility]IE MEADOWVIE N VENOUS 0 W W BLOOD [facility] VENIPUNCT MEDICAL MEDICAL URE INITIAL 15493 [facility] 0 W GENERAL J. CARE/DAY SURGERY 50 MINUTES BASIC 30705 MEADOWVIE MEADOWVIE METABOLIC 0 W W PANEL [facility] CALCIUM MEDICAL MEDICAL TOTAL CYSTO 31831 MEADOW[facility]IE MEADOWVIE W/URETERO 0 W W SCOPY [facility] W/RMVL/MA MEDICAL MEDICAL [place] STONES THER 43972 MEADOW[facility]IE MEADOWVIE PROPH/DX 0 W W NJX IV [facility] PUSH MEDICAL MEDICAL SINGLE/1S T SBST/DRUG BLOOD 30487 MEADOW[facility]IE MEADOWVIE COUNT 0 W W COMPLETE [facility]AL REGIONAL AUTO&AUTO MEDICAL MEDICAL DIFRNTL WBC URNLS DIP 12337 MEAD[facility]IE MEADOWVIE 0 W W STICK/TAB [facility] REG[facility]AL LET MEDICAL MEDICAL REAGENT AUTO MICROSCOP Y CYSTO 79287 MEADOW[facility]IE MEADOWVIE W/INSERT 0 W W URETERAL [facility]IONAL STENT MEDICAL MEDICAL THERAPEUT 77861 MEADOW[facility]IE MEADOWVIE IC 0 W W INJECTION [facility]AL REGIONAL IV PUSH MEDICAL MEDICAL EACH NEW DRUG URNLS DIP 18698 MEADOW[facility]IE MEADOWVIE 0 W W STICK/TAB [facility] REGIONAL LET MEDICAL MEDICAL REAGENT CENTER CENTER AUTO MICROSCOP Y THERAPEUT 65004 MEADOWVIE MEADOWVIE IC 0 W W INJECTION [facility] REGIONAL IV PUSH MEDICAL MEDICAL EACH NEW CENTER CENTER DRUG THER 41164 MEADOW[facility]IE MEADOWVIE PROPH/DX 0 W W NJX IV [facility]IONAL REGIONAL PUSH MEDICAL MEDICAL SINGLE/ CENTER CENTER T SBST/DRUG CULTURE 04632 MEADOWVIE MEADOWVIE BACTERIAL 0 W W [facility] [place] [address] MEADOW[place]IE MEADOWVIE INFUSION 0 W W HYDRATION [facility] [address] [facility] ABDOMEN 0 EIDER, W/O RADIOLOGY MIRTHA CONTRAST K MATERIAL ASSOCIATE S PSC CT PELVIS 11413 [facility] 0 EIDER, W/CONTRAS RADIOLOGY MIRTHA T K MATERIAL ASSOCIATE S [facility] CT PELVIS 58308 MEADOW[facility]IE MEADOWVIE W/O 0 W W CONTRAST [facility] CULTURE 71584 MEADOWVIE MEADOWVIE BACTERIAL 0 W W [facility] COUNT URINE 3D 48058 [facility] RENDERING 0 EIDER, W/INTERP RADIOLOGY MIRTHA & K POSTPROCE ASSOCIATE SS S PSC SUPERVISI ON THER 85009 MEADOWVIE MEADOWVIE PROPH/DX 0 W W NJX IV [facility]/[address] [place] [address] T SBST/DRUG THERAPEUT 53821 MEADOWVIE MEADOWVIE IC 0 W W INJECTION [facility] DRUG URNLS DIP 46041 MEADOWVIE MEADOWVIE 0 W W STICK/TAB [facility] AUTO MICROSCOP Y ARTHRS 95526 JOSÉ, JOSÉ, KNE SURG 0 JAMARI JAMARI W/MENISCE J J CTOMY MED/LAT W/SHVG ANESTH 47689 DONG LOFT[place] [address] [facility] KORI Lopez ANESTHESI ARTHROSCO A [facility] [place] [address] MEADOWVIE MEADOWVIE JT LOWER 9 W W EXTREM [facility] W/O MEDICAL MEDICAL CONTRAST [facility] MATRL Encounters Encounter Start End Date Code Location Performer Type Date EMERGENCY 21638 JOHANNA RUIZ WENDY DEPT 2 2 EMERGENCY VISIT SERVICES HIGH SEVERITY& THREAT FUNCJ EMERGENCY 71785 MAEVE 2 2 [facility] T VISIT LOW/MODER SEVERITY HOSPITAL MAEVE - 2 2 [facility] OUTPATIEN [facility] T OFFICE 59889 BJ MONTANO OUTPATIEN 1 1 PRIMARY Y BILLY T VISIT CARE 15 CENTER MINUTES OFFICE 30191 KENISHA SIERRA OUTPATIEN 1 1 W GENERAL J. T VISIT 5 SURGERY MINUTES EMERGENCY 57612 JOHANNA CAST DEPT 1 1 EMERGENCY JAM VISIT SERVICES HIGH SEVERITY& THREAT FUN EMERGENCY 59736 MEADOW[facility]IE 0 0 W [facility] T VISIT MEDICAL HIGH/URGE NT SEVERITY [facility]OSPITAL [facility] 46087 JOHANNA PEREZ DEPT 0 0 EMERGENCY CHR VISIT SERVICES HIGH SEVERITY& THREAT FUN EMERGENCY 20786 JOHANNA PEREZ DEPT 0 0 EMERGENCY CHR VISIT SERVICES HIGH SEVERITY& THREAT [facility] MEADOWVIE - 0 0 W [facility] MEDICAL OFFICE 96109 KENISHA SIERRA, OUTPATIEN 0 0 W GENERAL J. T VISIT SURGERY ANDI R 10 MINUTES OFFICE 23071 BJ MARTINEZ, OUTPATIEN 0 0 PRIMARY LUIS E T [facility] 90177 JOHANNA PEREZ DEPT 0 0 EMERGENCY VISIT SERVICES ISMAEL HIGH SEVERITY& ASSOCIATE THREAT S FUN EMERGENCY 69233 ME[facility]IE 0 0 [facility] V[facility] MEDICAL HIGH/URGE CENTER NT SEVERITY EMERGENCY 13814 JOHANNA RIGGINS, 0 0 EMERGENCY DAVID W DEPARTMEN SERVICES T VISIT HIGH/URGE ASSOCIATE NT S SEVERITY EMERGENCY 29704 Gaston VILLAREAL DEPT 0 0 EMERGENCY VISIT SERVICES HIGH SEVERITY& ASSOCIATE THREAT S [facility] MEAWVIE - [address] [facility] EMERGENCY 45395 NOEWVIE 0 0 W [facility] T VISIT MEDICAL HIGH/URGE CENTER NT SEVERITY [facility] MEADOWVIE - [address] [facility] OFFICE 28265 JOSÉ KUMAR, CONSULTAT 0 0 JAMARI Morrison NEW/ESTAB PATIENT 40 MIN OFFICE 19090 ALYSA ENGLE 9 9 PRIMARY EDUIN E T [facility] KENISHA - [address] [facility] EMERGENCY 16023 JOHANNA PEREZ, 9 9 EMERGENCY DEPARTMEN SERVICES MANDAEISM T VISIT MODERATE ASSOCIATE SEVERITY S OFFICE 73548 ALYSA NGUYEN 9 9 PRIMARY ALISE T NEW [address] [place] [address]
--- OUTSIDE RECORDS SUMMARY | 2017-01-30 07:23 | External Medical Summary Rpt ---
Demographics Preferred Language Samoan Marital Status Unknown Quaker Affiliation Unknown Race Unknown Ethnic Group Unknown Author Author , Organization [employer] Address Unknown Phone Unavailable Purpose Continuity of Care Document - through 2016 Immunization No patient found.
--- OUTSIDE RECORDS SUMMARY | 2017-01-30 07:23 | External Medical Summary Rpt ---
Demographics Preferred Language Danish Marital Status Unknown Faith Affiliation Unknown Race Unknown Ethnic Group Unknown Author Author , Organization [employer] Address Unknown Phone Unavailable Purpose Continuity of Care Document - through 2016 Immunization No patient found.
[2017-01-30] MEDS ORDERED: FLOMAX 0.4MG C0.4 MG PO (07:29)
[2017-01-30] MEDS ORDERED: PERCOCET 325 MG1 TA4 PO (07:29)
[2017-01-30 07:42] VITALS: BP 124/79
--- NOTE | 2017-01-30 09:48 | RADIOLOGY REPORT PS360 ---
CT ABD PELVIS W/O CONTRAST CLINICAL INDICATION: RIGHT FLANK PAIN ORDERING PHYSICIAN: Tami Kirk MD PATIENT AGE: 36 years COMPARISON: None TECHNIQUE: Axial images obtained with sagittal and coronal reformats. PROCEDURE: Oral Contrast: None IV Contrast: None . FINDINGS: Lower thorax: No acute finding ABDOMEN: Liver: No masses or biliary dilatation. Gallbladder: Nondistended. No radio opaque stones. Pancreas: No masses or peripancreatic fluid collections. Spleen: Unremarkable. Adrenals: Unremarkable Kidneys/ureters: There are punctate bilateral renal calculi. A 3 mm stone is present in the proximal to mid right ureter at the lower L3 level causing mild right-sided obstructive uropathy. Stomach bowel: Nondistended. No obvious mass or thickening. Appendix: No evidence of appendicitis. PELVIS: Reproductive: Unremarkable Bladder: Nondistended. No obvious stones or masses. ABDOMEN & PELVIS: Peritoneum: No abnormal fluid collections. No obvious inflammatory changes. No free air. Lymph nodes: No enlarged lymph nodes apparent. There is some mild haziness of the retroperitoneal fat on the left is nonspecific. There is a retroaortic left renal vein as a normal variant. Vasculature: No evidence of abdominal aortic aneurysm. No retroperitoneal hemorrhage evident. Bones: No acute fracture IMPRESSION: 1. 3 mm proximal to mid right ureteral stone with mild hydroureteronephrosis. 2. Bilateral nephrolithiasis. 3. Mild haziness of the retroperitoneal fat on the left. This is nonspecific. Suggest short-term follow-up in 3 months to confirm short-term stability. Retroperitoneal fibrosis is included in the differential diagnosis.
== END 2017-01-30 07:43 | disposition home or self-care (01) ==
LOC: ER 06:16
PROVIDERS: Emergency Medicine
DX: N13.2 Hydronephrosis with renal and ureteral calculous obstruction (principal)
CPT/HCPCS: J2405

== ENCOUNTER 2017-06-29 11:14 | Emergency (ER) | payer SELFPAY ==
[~2017-06-29] VITALS: Ht 180.3 cm; Wt 83.9 kg
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
[2017-06-29 14:40] LABS: HEMOGLOBIN 16.2 g/dL (14.1-18.0); LYMPH # 2.1 K/mm3 (0.7-4.5); LYMPH % 19.8 % (10-50)
[2017-06-29 15:27] VITALS: BP 135/80
--- OUTSIDE RECORDS SUMMARY | 2017-07-09 21:41 | External Medical Summary Rpt ---
Author Author , CHONG Tony CHONG Address Unknown Phone [email or web address] Care Team Providers Care Rail Splitter Name Role Phone COLLEEN MACIAS Unavailable Unavailable CALDERÓN, CALDERÓN Unavailable Unavailable BRAUGHTON ADELE, Unavailable Unavailable BRAUGHTON ADELE JAMEE TORRES, Unavailable Unavailable JAMEE TORRES RIGO THOMAS Unavailable Unavailable Agustín GARCIA Unavailable Unavailable R, Agustín SIERRA R [facility] Unavailable Unavailable [place], [facility] [place] DAVID RIGGINS, Unavailable Unavailable DAVID RIGGINS, FOSTER Unavailable Unavailable LORENA LEON Unavailable Unavailable KORI COURTNEY, Unavailable Unavailable KORI COURTNEY ANNE E, Unavailable Unavailable LUIS MARTINEZ GRAY ROB Unavailable Unavailable EDUIN OLIVA E, Unavailable Unavailable HAZEL, EDUIN E NOEMY CHU, Unavailable Unavailable NOEMY SALGUERO, Unavailable Unavailable NOEMY ZAZUETA JENNIFER K HARRIS, CHARLOTTE J, Unavailable Unavailable [facility] Un[facility] Un[facility], [facility] CORNELIUS LUTHER, CORNELIUS Unavailable Unavailable LUTHER [facility], Unavailable Unavailable [facility] ALISE DEE KEEF, Unavailable Unavailable [facility] Unavailable Unavailable IM[facility]ING [facility], [facility] [id number] # Unavailable Unavailable [id number], [facility] [id number] # [id number] [facility] Unavailable Unavailable [facility] BASSAM CERVANTES, Unavailable Unavailable BASSAM CERVANTES [facility] Unavailable Unavailable SERVICES, [facility], Unavailable Unavailable [facility] Unavailable Unavailable [facility] HAND POTTER [facility] FINANCIAL [facility] DIRECTOR Unavailable Unavailable [facility] FINANCIAL AID DIRECTOR [facility] Unavailable Unavailable [facility] Un[facility] Unavailable SUR[facility], [facility] Unavailable Unavailable MEDICAL, [facility] Unavailable Unavailable [facility]ENTER, [facility], Unavailable Unavailable PLL, [facility], [facility] Gaston JEWELL N, Gaston JEWELL N Unavailable Unavailable [id number] Unavailable Unavailable [id number] Unavailable Unavailable EMERGENCY PHYS, [facility] PEREZ CHR, Unavailable Unavailable PEREZ CHR PEREZ, GNOSTICIST, Unavailable Unavailable PEREZ GNOSTICIST PEREZ, ISMAEL, Unavailable Unavailable PEREZ, ISMAEL Purpose Continuity of Care Document - 10-13-2008 through 2016 Problems Code Diagnosis DOS Provider Status N200 CALCULUS OF 02-03-2017 [facility] Z720 TOBACCO USE 02-03-2017 [facility] N132 HYDRONEPHRO 01-30-2017 [facility] W/RENAL MEDICAL & [facility]L [facility] CALCULOUS OBST N23 UNSPECIFIED 01-30-2017 [facility], [facility] R1031 RIGHT LOWER 01-30-2017 [facility] Z4802 ENCOUNTER 01-14-2017 [facility] INC [id number] LACERATION 01-05-2017 [facility] W/O FB N EMERGENCY OTHER PART PHYS HEAD INITIAL ENC [id number] CONTUSION 01-05-2017 [facility] RT FRONT N EMERGENCY WALL THORAX PHYS INITIAL ENCOUNTER [id number] LACERATION 01-05-2017 [facility] W/O FB LT N EMERGENCY SHOULDER PHYS INITIAL ENC [id number] CONTUSION 01-05-2017 [facility] OF LEFT HIP N EMERGENCY INITIAL PHYS ENCOUNTER 7231 CERVICALGIA 11-23-2011 [facility] 8470 NECK SPRAIN 11-23-2011 [facility] E9270 OVEREXERTIO 11-23-2011 [facility] N FROM MEDICAL SUDDEN [facility] STRENUOUS MOVEMENT 5950 ACUTE 06-25-2011 [facility] 9390 FOREIGN 12-12-2010 [facility] BODY IN GENERAL BLADDER AND SURGERY URETHRA 5921 CALCULUS OF 12-09-2010 [facility] URETER GENERAL SURGERY 591 HYDRONEPHRO 12-08-2010 [facility] 56363 OTHER 12-08-2010 [facility] 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 5990 URINARY 12-08-2010 [facility] SITE NOT SPECIFIED 87616 FEVER 12-08-2010 [facility] UNSPECIFIED GENERAL SURGERY 7880 RENAL COLIC 12-08-2010 [facility] 74907 ABDOMINAL 12-08-2010 [facility] PAIN OTHER GENERAL SPECIFIED SURGERY SITE 5920 CALCULUS OF 09-28-2010 [facility] 7919 OTHER 09-28-2010 [facility] NONSPECIFIC REGIONAL FINDING MEDICAL EXAMINATION OF URINE V1301 PERSONAL 09-28-2010 [facility] HISTORY OF REGIONAL URINARY MEDICAL CALCULI 99648 NAUSEA WITH 03-29-2010 [facility] 53063 ABDOMINAL 03-29-2010 [facility] PAIN, REGIONAL UNSPECIFIED MEDICAL SITE CENTER 5959 UNSPECIFIED 03-21-2010 [facility] 96904 HEMATURIA 03-18-2010 [facility] UNSPECIFIED [facility]IOLOGY ASSOCIATES PSC 7936 NONSPEC ABN 03-18-2010 [facility] & OTH EXAM [facility]ATES ABDOMINAL [facility] 7172 DERANGEMENT 10-23-2009 [facility] 18275 PAIN IN 10-23-2009 [facility] JOINT, H LOWER LEG ANESTHESIA PSC 8360 TEAR MEDIAL 10-23-2009 [facility] CURRENT 8362 OTHER TEAR 09-05-2009 [facility] CURRENT 8363 CLOSED 06-21-2009 [facility] Medications Na ND Rx Da Fi Fi Am Da Di Ph RX Ph St me C No te ll ll ou ys ag ar # ys at rm s nt no ma ic us Or Da si cy ia de te s n re d CI 16 05 06 14 7 00 EA Ac MO 71 -0 -[address] ti OF 40 8- 2- 00 00 SI ve LO 65 20 20 48 DE XA 20 17 17 65 CI 4 48 PH N AR HC MA L CY 50 0 OF MG CY NT TA HI B AN A IN C OX 53 05 06 30 10 00 EA Ac YC 74 -0 -[address] ti OD 60 8- 2- 00 00 SI ve ON 20 20 20 48 DE E- 40 17 17 65 AC 1 50 PH ET AR AM MA IN CY OP HE OF N CY 10 NT -3 HI 25 AN A IN C TA 65 05 06 10 10 00 EA Ac MS 86 -0 -[address] ti UL 20 4- 2- 00 00 SI ve OS 59 20 20 48 DE IN 80 17 17 61 5 06 PH HC AR L MA 0. CY 4 MG OF CY CA NT PS HI UL AN E A IN C BE 67 05 06 30 10 00 EA Ac NZ 87 -0 -[address] ti ON 70 4- 2- 00 00 SI ve AT 10 20 20 48 DE AT 50 17 17 61 E 5 08 PH 10 AR 0 MA MG CY CA OF PS CY UL NT E HI AN A IN C CE 65 04 05 40 10 00 EA Ac PH 86 -0 -[address] ti AL 20 9- 2- 00 00 SI ve EX 01 20 20 48 DE IN 90 17 17 29 5 88 PH 50 AR 0 MA MG CY CA OF PS CY UL NT E HI AN A IN C 59 04 04 0 45 7 MA 60 Ac 63 -1 -1 4. YS 41 TT ti 00 84 MA ve 78 20 20 0 LL 9 N 00 11 11 E NA 8 OB NC Y GY E N FA WV LY HE AL TH 53 03 03 [...] OB KIMO CE SE TA GY PH WV N R NO FA PH WV EN LY 5- HE 32 AL 5 TH HY 00 01 01 2 20 3 MA [address] 40 -1 -1 .0 YS 05 NN ti OC 60 4- 7- 00 78 IS ve OD 36 20 20 LL 8 ON ON 50 11 11 E -A 1 OB KIMO CE SE TA GY PH WV N R NO FA PH WV EN LY 5- HE 32 AL 5 TH MO 68 01 01 0 20 5 MA 60 DE Ac OM 38 -1 -1 .0 YS 35 NN ti ET 20 4- 4- 00 97 IS ve MCKEON 04 20 20 LL 3 ON ZI 10 11 11 E NE 1 OB KIMO SE 25 GY PH N R MG FA WV TA LY BL ET HE AL TH HY 00 01 01 2 20 3 MA [address] 40 -1 -1 .0 YS 05 NN ti OC 60 4- 4- 00 78 IS ve OD 36 20 20 LL 8 ON ON 50 11 11 E -A 1 OB KIMO CE SE TA GY PH WV N R NO FA PH WV EN LY 5- HE 32 AL 5 TH 00 12 01 2 30 3 MA 40 DE Ac 40 -3 -0 .0 SO 45 NN ti 60 1- 6- 00 N 67 IS ve 35 20 20 FA ON 70 10 11 WV [address] PH UG R 00 12 01 2 30 3 MA 40 DE Ac 60 -3 -0 .0 SO 45 NN ti 33 1- 3- 00 N 67 IS ve 88 20 20 FA ON 13 10 11 WV [address] PH UG R 00 12 12 2 30 3 MA 40 DE Ac 60 -3 -3 .0 SO 45 NN ti 33 1- N 67 IS ve 88 20 20 FA ON 13 10 10 WV [address] PH UG R MO 68 12 12 0 12 2 MA 62 DE Ac OM 38 -3 -3 .0 SO 78 NN ti ET 20 N 77 IS ve MCKEON 04 20 20 FA ON ZI 10 10 10 WV NE 1 LY K[address] SE [address] PH UG R MG TA BL ET PE 00 12 12 0 40 10 MA 60 Ac NI 78 -0 -0 .0 YS 34 TT ti CI 11 37 MA ve LL 65 20 20 LL 6 N IN 50 10 10 E NA 1 OB NC VK Y GY E 50 N 0 FA MG WV LY TA BL HE ET AL NA 09 11 1 60 30 MA 60 Ac MO 46 -2 -1 .0 YS 30 TT ti OX 20 2- 6- 00 48 MA ve EN 19 20 20 LL 2 N 00 10 10 E NA 50 5 OB NC 0 Y MG GY E N TA FA BL WV ET LY HE AL NA 09 09 1 60 30 MA 60 Ac MO 46 -2 -2 .0 YS 30 TT ti OX 20 2- 2- 00 48 MA ve EN 19 20 20 LL 2 N 00 10 10 E NA 50 5 OB NC 0 Y MG GY E N TA FA BL WV ET LY HE AL MO 68 07 08 1 20 3 MA 60 DE Ac OM 38 -1 -0 .0 YS 27 NN ti ET 20 3- 3- 00 20 IS ve MCKEON 04 20 20 LL 9 ON ZI 10 10 10 E NE 1 OB KIMO SE 25 GY PH N R MG FA WV TA LY BL ET HE AL 00 07 07 2 20 3 MA 40 DE Ac 59 -1 -1 .0 YS 04 NN ti 10 3- 6- 00 59 IS ve 34 20 20 LL 9 ON 90 10 10 E 5 OB KIMO SE GY PH N R FA WV LY HE AL CI 68 07 07 1 40 20 MA 60 DE Ac MO 08 -1 -1 .0 YS 27 NN ti OF 40 3- 3- 00 21 IS ve LO 07 20 20 LL 0 ON XA 00 10 10 E CI 1 OB KIMO N SE HC GY PH L N R 50 FA 0 WV MG LY TA HE B AL MO 68 07 07 1 20 3 MA 60 DE Ac OM 38 -1 -1 .0 YS 27 NN ti ET 20 3- 3- 00 20 IS ve MCKEON 04 20 20 LL 9 ON ZI 10 10 10 E NE 1 OB KIMO SE 25 GY PH N R MG FA WV TA LY BL ET HE AL 00 07 07 2 20 2 MA 40 DE Ac 59 -1 -1 .0 YS 04 NN ti 10 59 IS ve 34 20 20 LL 9 ON 90 10 10 E 5 OB KIMO SE GY PH N R FA WV LY HE AL 00 07 07 0 20 3 EA 18 JUNIOR Ac 05 -0 -[address] 18 LL ti 44 SI 40 IV ve 65 20 20 DE AN 02 10 10 9 PH CH AR RI MA ST CY IN A OF M CY NT HI AN A 00 07 07 0 14 14 EA 18 JUNIOR Ac 09 -0 -[address] 18 LL ti 37 SI 39 IV ve 33 20 20 DE AN 80 10 10 1 PH CH AR RI MA ST CY IN A OF M CY NT HI AN A CI 55 06 06 0 20 10 MA 60 FI Ac MO 11 -2 -2 .0 YS 26 NL ti OF 10 3 3- 00 42 EY ve LO 12 20 20 LL 8 XA 60 10 10 E PA CI 1 OB UL N W HC GY L N 25 FA 0 WV MG LY TA HE B AL 65 06 06 0 6. 2 MA 60 FI Ac 16 -2 -2 00 YS 26 NL ti 20 3- 3- 0 42 EY ve 52 20 20 LL 7 01 10 10 E PA 0 OB UL W GY N FA WV LY HE AL TH EN 60 06 06 0 12 6 MA 20 FI Ac DO 95 -2 -2 .0 YS 02 NL ti CE 10 3- 3- 00 49 EY ve T 60 20 20 LL 4 5- 28 10 10 E PA 32 5 OB UL 5 W TA GY BL N ET FA WV LY HE AL MO 57 06 06 0 12 3 KM 69 PO Ac OM 66 -2 -2 .0 AR 98 HL ti ET 40 0- 0- 00 T 12 M ve MCKEON 10 20 20 PH 9 N ZI 88 10 10 AR NE 8 MA CY 25 96 84 MG # TA 96 BL 84 ET OX 53 06 06 0 20 3 KM 21 PO Ac YC 74 -2 -2 .0 AR 62 HL ti OD 60 0- 0- 00 T 52 M ve ON 20 20 20 PH 2 N E- 30 10 10 AR AC 5 MA ET CY AM 96 IN 84 OP # HE N 96 5- 84 32 5 LI 60 06 06 1 60 2 MA 60 Ac ND 43 -1 -1 .0 YS 25 TT ti AN 20 1- 1- 00 90 MA ve E 83 20 20 LL 8 N 1% 46 10 10 E NA 0 OB NC SH Y AM GY E PO N O FA WV LY HE AL NA 68 04 03 2 60 30 MA 60 KE Ac MO 46 -2 -1 .0 YS 09 EF ti OX 20 0- 0- 00 49 ve EN 19 20 20 LL 5 KI 00 09 10 E MB 50 5 OB ER 0 LY MG GY N TA FA BL WV ET LY HE AL MO 68 01 02 00 30 8 MA 60 MCKEON Ac OM 38 -2 -1 .0 YS 19 RR ti ET 20 5- 1- 00 86 IS ve MCKEON 04 20 20 LL 5 ZI 10 10 10 E CH NE 1 OB AR /G LO 25 YN TT E MG FA J WV TA LY BL ET HE AL 00 01 02 00 30 5 MA 40 MCKEON Ac 59 -2 -1 .0 YS 03 RR ti 10 5- 1- 00 65 IS ve 34 20 20 LL 9 90 10 10 E CH 5 OB AR /G LO YN TT E FA J WV LY HE AL NA 68 04 01 01 60 30 MA 60 KE Ac MO 46 -2 -2 .0 YS 09 EF ti OX 20 0- 8- 00 49 ve EN 19 20 20 LL 5 KI 00 09 10 E MB 50 5 OB ER 0 /G LY MG YN TA FA BL WV ET LY HE AL TH 00 01 01 01 30 5 MA 40 MCKEON Ac 59 -1 -2 .0 YS 03 RR ti 10 2- 8- 57 IS ve 34 20 20 LL 3 90 10 10 E CH 5 OB AR /G LO YN TT E FA J WV LY HE AL TH 00 01 01 00 30 5 MA 40 MCKEON Ac 59 -1 -2 .0 YS 03 RR ti 10 57 IS ve 34 20 20 LL 3 90 10 10 E CH 5 OB AR /G LO YN TT E FA J WV LY HE AL TH 00 12 12 00 60 10 MA 40 Ac 59 -0 -1 .0 YS 03 TT ti 10 8 40 MA ve 34 20 20 LL 3 N 90 09 09 E NA 5 OB NC /G Y YN E FA WV LY HE AL TH IN 00 12 12 00 60 20 MA 60 MA Ac DO 09 -0 -1 .0 YS 17 RK ti ME 34 7 7 76 ES ve TH 02 20 20 LL 6 BE AC 90 09 09 E RY IN 1 OB /G MCKEON 25 YN RO LD MG FA V WV CA LY PS UL HE E AL TH LI 60 10 11 00 60 3 MA 60 Ac ND 43 -2 -0 .0 YS 16 TT ti AN 20 9- 5- 00 17 MA ve E 83 20 20 LL 3 N 1% 36 09 09 E NA 0 OB NC LO /G Y TI YN E ON FA WV LY HE AL TH 49 09 10 00 20 5 MA 60 JUNIOR Ac 88 -2 -0 .0 YS 14 LL ti 40 3- 8- 00 68 IV ve 77 20 20 LL 3 AN 70 09 09 E 5 OB CH /G RI YN ST IN FA A WV M LY HE AL TH TR 65 09 10 00 20 3 MA 40 JUNIOR Ac AM 16 -2 -0 .0 YS 02 LL ti AD 20 3- 8- 00 99 IV ve OL 62 20 20 LL 5 AN 71 09 09 E HC 1 OB CH L /G RI [address] IN MG FA A WV M TA LY BL ET HE AL TH NA 68 04 05 00 60 30 MA 60 KE Ac MO 46 -2 -0 .0 YS 09 EF ti OX 20 0- 7- 49 ve EN 19 20 20 LL 5 KI 00 09 09 E MB 50 5 OB ER 0 /G LY MG YN TA FA BL WV ET LY HE AL TH OV 51 [...] 0 OB S /G E YN FA WV LY HE AL TH 00 01 01 00 10 3 MA 40 AD Ac 59 -0 -1 .0 YS 01 AM ti 10 6- 5- 00 74 S ve 34 20 20 LL 7 JA 90 09 09 E ME 5 OB S /G E YN FA WV LY HE AL Procedures Procedure DOS Code Location Performer Comment URNLS DIP [address] [facility] STICK/TAB INC [place] [address] [facility] CALDERÓN ABDOMEN & 7 MEDICAL PELVIS IMAGING W/O ASS CONTRAST MATERIAL THER [address] PROPH/DX 7 [facility] NJX IV INC INC PUSH SINGLE/1S T SBST/DRUG COMPREHEN [address] SIVE 7 [facility] METABOLIC INC INC PANEL BLOOD [address] [facility] COUNT 7 [facility] COMPLETE INC INC AUTO&AUTO DIFRNTL WBC THERAPEUT [address] IC 7 [facility] INJECTION INC INC IV PUSH EACH NEW DRUG SMPL RPR 31953 [facility] SCALP/NEC 7 [facility] K/AX/[facility] T/TRUNK PHYS 20.1-30.0 CM SIMPLE 52152 [facility] REPAIR 7 JACI F/E/E/N/L EMERGENCY /M PHYS 2.6CM-5.0 CM 3D 13383 [facility] JAMEE RENDERING 2 MEDICAL TORRES IMAGING W/INTERP& [place] [address] [facility] JAMEE CERVICAL 2 MEDICAL TORRES SPINE W/O IMAGING CONTRAST ASS MATERIAL THERAPEUT 25975 BJ MONTANO IC 1 PRIMARY Y BILLY PROPHYLAC CARE TIC/DX CENTER INJECTION SUBQ/IM INJECTION J0696 BJ DUNLAPBER 1 PRIMARY Y BILLY CEFTRIAXO CARE NE SODIUM CENTER PER 250 MG CYSTO 49807 NOEWMILADIS PAVONRIGO W/INSERT 1 W GENERAL J. URETERAL SURGERY STENT ANES 54276 [facility] LIAM TRURL 1 [facility] FRAGMNTJ ANESTHESI MANJ&/RMV A PSC L URETERAL CALCULUS CYSTO 68509 NOEWMILADIS RIGO W/URETERO 1 W GENERAL J. SCOPY SURGERY W/RMVL/MA [place] STONES INITIAL 91731 [facility] 1 W GENERAL J. CARE/DAY SURGERY 50 MINUTES RADEX 45863 [facility] ABDOMEN 1 1 [facility] [place] [address] [facility] ABDOMEN & 1 EICHAMPAGNE PELVIS RADIOLOGY W/O ASSOCIAT CONTRAST MATERIAL 3D 43559 [facility] RENDERING 1 EIDER KIMBERLEY W/INTERP RADIOLOGY & ASSOCIAT POSTPROCE SS SUPERVISI ON THER 07786 MEAD[facility]IE MEADOW[facility]IE PROPH/DX 0 W W NJX IV REGIONAL REGIONAL PUSH MEDICAL MEDICAL SINGLE/1S T SBST/DRUG COLLECTIO 17971 MEAD[facility]IE MEADOWVIE N VENOUS 0 W W BLOOD [facility]AL [facility] [address] [facility]IE ME[facility]OW[facility]IE ABDOMEN 0 W W W/O REGIONAL REGIONAL CONTRAST MEDICAL MEDICAL MATERIAL BLOOD 92857 [facility] MEADOWVIE COUNT 0 W W COMPLETE REGIONAL REGIONAL AUTO&AUTO MEDICAL MEDICAL DIFRNTL WBC THERAPEUT 82748 [facility]AD[facility]IE MEADOWVIE IC 0 W W INJECTION REGIONAL REGIONAL IV [place] [address] MEAD[facility]IE MEADOWVIE INFUSION 0 W W HYDRATION REGIONAL REGIONAL EACH MEDICAL MEDICAL ADDITIONA L HOUR 3D 74310 [facility] CORNELIUS RENDERING 0 [facility] W/INTERP RADIOLOGY & ASSOCIAT POSTPROCE SS SUPERVISI ON CT PELVIS 28739 MEAWMILADIS MEADOWVIE W/O 0 W W CONTRAST [facility] MATERIAL MEDICAL MEDICAL BASIC 15213 MEAWVIE MEADOWVIE METABOLIC 0 W W PANEL [facility] CALCIUM MEDICAL MEDICAL TOTAL CULTURE 39591 LATONIAWMILADIS MEAWVIE BACTERIAL 0 W W [facility] QUANTTATI MEDICAL MEDICAL VE COLONY COUNT URINE RADEX 09887 KENISHA LIUWVIE ABDOMEN 1 0 W W [facility] ANTEROPOS MEDICAL MEDICAL TERIOR [place]IEW URNLS DIP 97682 MEAWVIE MEADOWVIE 0 W W STICK/TAB [facility] MEDICAL MEDICAL REAGENT AUTO MICROSCOP Y ANES 89024 [facility] BRALORION TRURL 0 [facility] FRAGMNTJ ANESTHESI MANJ&/RMV A PSC L URETERAL CALCULUS CYSTO 98718 NOEWMILADIS RIGO, W/URETERO 0 W GENERAL J. SCOPY SURGERY ANDI R W/RMVL/MA [facility] 12578 MEAWVIE RIGO DISCHARGE 0 W GENERAL J. DAY SURGERY MANAGEMEN T 30 MIN/< CYSTO 75178 MARTHAVIE RIGO, W/INSERT 0 W GENERAL J. URETERAL SURGERY ANDI R STENT CALCULUS 62797 KENISHA LIUWVIE QUANTITAT 0 W W PA [facility] CHEMICAL MEDICAL MEDICAL FLUOROSCO 69678 KENISHA LIUWVIE PY SPX UP 0 W W TO 1 [facility] MEDICAL MEDICAL PHYS/QHP TIME HOSPITAL G0378 KENISHA LIUWVIE OBSERVATI 0 W W ON [facility] SERVICE MEDICAL MEDICAL PER HOUR COLLECTIO 76845 KENISHA LIUWVIE N VENOUS 0 W W BLOOD [facility] VENIPUNCT MEDICAL MEDICAL URE THER 91669 KENISHA DE PROPH/DX 0 W W NJX IV [facility] PUSH MEDICAL MEDICAL SINGLE/1S T SBST/DRUG BLOOD 02504 MEADOWVIE MEADOWVIE COUNT 0 W W COMPLETE REGIONAL REGIONAL AUTO&AUTO MEDICAL MEDICAL DIFRNTL WBC THERAPEUT 73837 MEADOWVIE MEADOWVIE IC 0 W W INJECTION REGIONAL REGIONAL IV PUSH MEDICAL MEDICAL EACH NEW DRUG CYSTO 95530 MEADOWVIE MEADOWVIE W/URETERO 0 W W SCOPY REGIONAL REGIONAL W/RMVL/MA MEDICAL MEDICAL NJ STONES URNLS DIP 98781 MEADOWVIE MEADOWVIE 0 W W STICK/TAB REGIONAL REGIONAL LET MEDICAL MEDICAL REAGENT AUTO MICROSCOP Y INITIAL 96638 [facility] 0 W GENERAL J. CARE/DAY SURGERY 50 MINUTES CYSTO 67370 MEADOWVIE MEADOWVIE W/INSERT 0 W W URETERAL REGIONAL REGIONAL STENT MEDICAL MEDICAL BASIC 09957 MEADOWVIE MEADOWVIE METABOLIC 0 W W PANEL [facility] CALCIUM MEDICAL MEDICAL TOTAL CULTURE 68623 MEAD[facility]IE MEADOWVIE BACTERIAL 0 W W REGIONAL REGIONAL QUANTTATI MEDICAL MEDICAL VE COLONY CENTER CENTER COUNT URINE URNLS DIP 14867 MEADOW[facility]IE MEADOWVIE 0 W W STICK/TAB [facility] LET MEDICAL MEDICAL REAGENT CENTER CENTER AUTO MICROSCOP Y THERAPEUT 86024 MEADOW[facility]IE MEADOWVIE IC 0 W W INJECTION REGIONAL REGIONAL IV PUSH MEDICAL MEDICAL [facility] CENTER DRUG THER 80909 MEADOWVIE MEADOWVIE PROPH/DX 0 W W NJX IV REGIONAL REGIONAL PUSH MEDICAL MEDICAL SINGLE/1S CENTER CENTER T SBST/[place] [address] MEADOWVIE MEADOWVIE INFUSION 0 W W HYDRATION REGIONAL REGIONAL EACH MEDICAL MEDICAL [place] [address] MEADOWVIE MEADOWVIE ABDOMEN 0 W W W/O [facility]AL [facility] CONTRAST MEDICAL MEDICAL MATERIAL CENTER CENTER CT PELVIS 00428 [facility] 0 EIDER, W/CONTRAS RADIOLOGY MIRTHA Roe MATERIAL ASSOCIATE S PSC THER 10432 MEADOW[facility]IE MEADOWVIE PROPH/DX 0 W W NJX IV REGIONAL REGIONAL PUSH MEDICAL MEDICAL SINGLE/1S CENTER CENTER T SBST/DRUG THERAPEUT 82576 MEADOW[facility]IE MEADOWVIE IC 0 W W INJECTION REGIONAL REGIONAL IV PUSH MEDICAL MEDICAL EACH [facility] CENTER DRUG URNLS DIP 36290 MEADOW[facility]IE MEADOWVIE 0 W W STICK/TAB REGIONAL REGIONAL LET MEDICAL MEDICAL REAGENT CENTER CENTER AUTO MICROSCOP Y CULTURE 15305 MEAD[facility]IE MEADOWVIE BACTERIAL 0 W W [facility] QUANTTATI MEDICAL MEDICAL VE COLONY CENTER CENTER COUNT URINE CT PELVIS 23857 MEADOW[facility]IE MEADOWVIE W/O 0 W W CONTRAST [facility] MATERIAL MEDICAL MEDICAL CENTER CENTER 3D 19429 [facility] RENDERING 0 EIDER, W/INTERP RADIOLOGY MIRTHA & K POSTPROCE ASSOCIATE SS S PSC SUPERVISI ON ANESTH 78695 [facility] COURTNEY, DIAGNOSTI 0 LTH KORI Lopez ANESTHESI ARTHROSCO A PSC PIC PROC KNEE JOINT ARTHRS 04302 MEADOW[facility]IE MEADOWVIE KNE SURG 0 W W W/MENISCE [facility] CTOMY MEDICAL MEDICAL MED/LAT CENTER CENTER W/SHVG MRI ANY 81772 MEADOW[facility]IE MEADOWVIE JT LOWER 9 W W EXTREM [facility] W/O MEDICAL MEDICAL CONTRAST CENTER CENTER MATRL Encounters Encounter Start End Date Code Location Performer Type Date OFFICE 60818 [facility] WTAT 7 7 PHYSICIAN T NEW 20 S GROUP MINUTES [facility]OSP[facility] - [facility] OUTPATIEN INC T EMERGENCY 04708 [facility] 7 7 [facility] DEPARTMEN INC T VISIT HIGH/URGE NT SEVERITY EMERGENCY 21404 [facility] CARRILLO DEPT 7 7 PHYSICIAN VISIT S, PLLC HIGH SEVERITY& THREAT FUNCJ OFFICE 33517 [facility] WATT 7 7 [facility] T VISIT INC 10 MINUTES HOSPITAL [facility] - 7 7 [facility] OUTPATIEN INC T EMERGENCY 53927 [facility] 7 7 JACI DEPARTMEN EMERGENCY T VISIT PHYS HIGH/URGE NT SEVERITY EMERGENCY 18081 J[facility] NGUYEN DEPT 2 2 EMERGENCY VISIT SERVICES HIGH SEVERITY& THREAT [facility] MAEVE - 2 2 [facility] OUTPATIEN INC T EMERGENCY 24571 [facility] 2 2 [facility] VISIT LOW/MODER SEVERITY OFFICE 95955 [facility] MONTANO OUTPATIEN 1 1 PRIMARY Y BILLY T VISIT CARE 15 CENTER MINUTES OFFICE 64138 KENISHA SIERRA OUTPATIEN 1 1 W GENERAL J. T VISIT 5 SURGERY MINUTES EMERGENCY 87844 JOHANNA CAST DEPT 1 1 EMERGENCY JAM VISIT SERVICES HIGH SEVERITY& THREAT [facility] EMERGENCY 18893 JOHANNA PEREZ DEPT 0 0 EMERGENCY CHR VISIT SERVICES HIGH SEVERITY& THREAT [facility] MEADOWV[facility] 48738 MEADOWVIE 0 0 W [facility] T VISIT MEDICAL HIGH/URGE NT SEVERITY EMERGENCY 75867 KENISHA DEPT 0 0 W VISIT REGIONAL HIGH MEDICAL SEVERITY& THREAT [facility] MEADOW[facility] - 0 0 [facility] 89996 KENISHA SIERRA OUTPATIEN 0 0 W GENERAL J. T VISIT SURGERY ANDI R 10 MINUTES OFFICE 67848 BJ MARTINEZ, OUTPATIEN 0 0 PRIMARY LUIS E T [facility] 41267 MEADOWVIE 0 0 W [facility] VISIT MEDICAL HIGH/URGE CENTER NT SEVERITY EMERGENCY 93517 JOHANNA PEREZ, DEPT 0 0 EMERGENCY VISIT SERVICES ISMAEL HIGH SEVERITY& ASSOCIATE THREAT S [facility] EMERGENCY 61374 JOHANNA RIGGINS, 0 0 EMERGENCY DAVID W DEPARTMEN SERVICES T VISIT HIGH/URGE ASSOCIATE NT S SEVERITY EMERGENCY 99134 MEADOWVIE 0 0 W [facility] MEDICAL HIGH/URGE CENTER NT SEVERITY EMERGENCY 85257 Gaston VILLAREAL DEPT 0 0 EMERGENCY VISIT SERVICES HIGH SEVERITY& ASSOCIATE THREAT S [facility] MEADOWVIE - 0 0 W [facility] MEADOWVIE - 0 0 W [facility] OFFICE 84790 JOSÉ KUMAR, CONSULTAT 0 0 JAMARI Morrison NEW/ESTAB PATIENT 40 MIN OFFICE 83824 ALYSA ENGLE 9 9 PRIMARY EDUIN E T VISIT CARE 10 [facility] KENISHA - 9 9 W [facility] EMERGENCY 16574 JOHANNA PEREZ, 9 9 EMERGENCY DEPARTMEN SERVICES GNOSTICIST T VISIT MODERATE ASSOCIATE SEVERITY S OFFICE 23657 ALYSA NGUYEN 9 9 PRIMARY ALISE T NEW [address] [place], [place] [address]
--- OUTSIDE RECORDS SUMMARY | 2017-07-09 21:41 | External Medical Summary Rpt ---
Author Author , CHONG Tony CHONG Address Unknown Phone [email or web address] Care Team Providers Care Gaming Host Name Role Phone COLLEEN MACIAS Unavailable Unavailable CALDERÓN, CALDERÓN Unavailable Unavailable BRAUGHTON ADELE, Unavailable Unavailable BRAUGHTON ADELE JAMEE TORRES, Unavailable Unavailable JAMEE TORRES RIGO THOMAS Unavailable Unavailable Agustín GARCIA Unavailable Unavailable R, Agustín SIERRA R [facility] Unavailable Unavailable [place], [facility] [place] DAVID RIGGINS, Unavailable Unavailable DAVID RIGGINS, FOSTER Unavailable Unavailable LORENA LEON Unavailable Unavailable KORI COURTNEY, Unavailable Unavailable KORI CUORTNEY ANNE E, Unavailable Unavailable LUIS MARTINEZ GRAY ROB Unavailable Unavailable EDUIN OLIVA E, Unavailable Unavailable HAZEL, EDUIN E NOEMY CHU, Unavailable Unavailable NOEMY SALGUERO, Unavailable Unavailable NOEMY ZAZUETA JENNIFER K HARRIS, CHARLOTTE J, Unavailable Unavailable [facility] Un[facility] Un[facility], [facility] CORNELIUS LUTHER, CORNELIUS Unavailable Unavailable LUTHER [facility], Unavailable Unavailable [facility] ALISE DEE KEEF, Unavailable Unavailable [facility] Unavailable Unavailable IMAGING [facility], [facility] [id number] # Unavailable Unavailable [phone], [facility] [id number] # [id number] [facility] Unavailable Unavailable [facility] BASSAM CERVANTES, Unavailable Unavailable [facility] CERVANT[facility] Unavailable Unavailable SERVICES, [facility], Unavailable Unavailable [facility] 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 [facility] Unavailable Unavailable SURGERY, [facility] Unavailable Unavailable MEDICAL, [facility] Unavailable Unavailable MEDICAL CENTER, [facility], Unavailable Unavailable PLL, [facility], [facility] Gaston JEWELL N, Gaston JEWELL N Unavailable Unavailable [id number], Unavailable Unavailable [id number] Unavailable Unavailable EMERGENCY PHYS, [facility] PEREZ CHR, Unavailable Unavailable PEREZ CHR PEREZ, JEWISH, Unavailable Unavailable PEREZ JEWISH PEREZ, ISMAEL, Unavailable Unavailable PEREZ, ISMAEL Purpose Continuity of Care Document - 10-13-2008 through 2016 Problems Code Diagnosis DOS Provider Status N200 CALCULUS OF 02-03-2017 [facility] Z720 TOBACCO USE 02-03-2017 [facility] N132 HYDRONEPHRO 01-30-2017 [facility] W/RENAL MEDICAL & URETRL IMAGING ASS CALCULOUS OBST N23 UNSPECIFIED 01-30-2017 [facility], [facility] R1031 RIGHT LOWER 01-30-2017 [facility] MEDICAL [facility] IM[facility] Z4802 ENCOUNTER 01-14-2017 [facility] OF SUTURES INC [id number] LACERATION 01-05-2017 [facility] W/O FB N EMERGENCY OTHER PART PHYS HEAD INITIAL ENC [id number] CONTUSION 01-05-2017 [facility] RT FRONT N EMERGENCY WALL THORAX PHYS INITIAL ENCOUNTER [id number] LACERATION 01-05-2017 [facility] W/O FB LT N EMERGENCY SHOULDER PHYS INITIAL ENC [id number] CONTUSION 01-05-2017 [facility] LEFT HIP N EMERGENCY INITIAL PHYS ENCOUNTER 7231 CERVICALGIA 11-23-2011 [facility] 8470 NECK SPRAIN 11-23-2011 [facility] E9270 OVEREXERTIO 11-23-2011 [place] [facility] FROM [facility] STRENUOUS MOVEMENT 5950 ACUTE 06-25-2011 [facility] 9390 FOREIGN 12-12-2010 [facility] BODY IN GENERAL BLADDER AND SURGERY URETHRA 5921 CALCULUS OF 12-09-2010 [facility] URETER GENERAL SURGERY 591 HYDRONEPHRO 12-08-2010 [facility] RADIOLOGY ASSOCIAT 25739 OTHER 12-08-2010 [facility] 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 5990 URINARY 12-08-2010 [facility] SITE NOT SPECIFIED 36109 FEVER 12-08-2010 [facility] UNSPECIFIED GENERAL SURGERY 7880 RENAL COLIC 12-08-2010 [facility] 49880 ABDOMINAL 12-08-2010 [facility] PAIN OTHER GENERAL SPECIFIED SURGERY SITE 5920 CALCULUS OF 09-28-2010 [facility] 7919 OTHER 09-28-2010 [facility] NONSPECIFIC REGIONAL FINDING MEDICAL EXAMINATION OF URINE V1301 PERSONAL 09-28-2010 [facility] HISTORY OF REGIONAL URINARY MEDICAL CALCULI 50001 NAUSEA WITH 03-29-2010 [facility] 49727 ABDOMINAL 03-29-2010 [facility] PAIN, REGIONAL UNSPECIFIED MEDICAL SITE CENTER 5959 UNSPECIFIED 03-21-2010 [facility] 47872 HEMATURIA 03-18-2010 [place] UNSPECIFIED RADIOLOGY ASSOCIATES PSC 7936 NONSPEC ABN 03-18-2010 [place]INDNG RAD RADIOLOGY & OTH EXAM [facility]OCIATES [facility]AL [facility] 7172 DERANGEMENT 10-23-2009 [facility] MENISC[facility] 99721 PAIN IN 10-23-2009 [facility] JOINT, H LOWER LEG ANESTHESIA PSC 8360 TEAR MEDIAL 10-23-2009 [facility] CURRENT 8362 OTHER TEAR 09-05-2009 [facility] CURRENT 8363 CLOSED 06-21-2009 [facility] Medications Na ND Rx Da Fi Fi Am Da Di Ph RX Ph St me C No te ll ll ou ys ag ar # ys at rm s nt no ma ic us Or Da si cy ia de te s n re d CI 16 05 06 14 7 00 EA Ac KS 71 -0 -[address] ti [...] OB NC Y GY E N FA VT LY HE AL TH [...] LY 5- HE 32 AL 5 TH KS 68 01 01 0 20 5 MA [...] LY KIMO SE DR PH UG R KS 68 12 12 0 12 2 MA [...] VT LY TA BL HE ET AL NA 09 11 1 60 30 MA 60 Ac KS 46 -2 -1 .0 YS 30 TT ti OX 20 2- 6- 00 48 MA ve EN 19 20 20 LL 2 N 00 10 10 E NA 50 5 OB NC 0 Y MG GY E N TA FA BL VT ET LY HE AL NA 09 09 1 60 30 MA 60 Ac KS 46 -2 -2 .0 YS 30 TT ti OX 20 2- 2- 00 48 MA ve EN 19 20 20 LL 2 N 00 10 10 E NA 50 5 OB NC 0 Y MG GY E N TA FA BL VT ET LY HE AL KS 68 07 08 1 20 3 MA [...] N R FA VT LY HE AL CI 68 07 07 1 40 20 MA 60 DE Ac KS 08 -1 -1 .0 YS 27 NN ti OF 40 3- 3- 00 21 IS ve LO 07 20 20 LL 0 ON XA 00 10 10 E CI 1 OB KIMO N SE HC GY PH L N R 50 FA 0 VT MG LY TA HE B AL KS 68 07 07 1 20 3 MA [...] VT LY HE AL 00 07 07 0 [...] 0 20 10 MA 60 FI Ac KS 11 -2 -2 .0 YS 26 NL ti OF 10 3 3- 00 42 EY ve LO 12 20 20 LL 8 XA 60 10 10 E PA CI 1 OB UL N W HC GY L N 25 FA 0 VT MG LY TA HE B AL 65 06 06 0 6. 2 MA 60 FI Ac 16 -2 -2 00 YS 26 NL ti 20 3- 3- 0 42 EY ve 52 20 20 LL 7 01 10 10 E PA 0 OB UL W GY N FA VT LY HE AL TH EN 60 06 06 0 12 6 MA 20 FI Ac DO 95 -2 -2 .0 YS 02 NL ti CE 10 3- 3- 00 49 EY ve T 60 20 20 LL 4 5- 28 10 10 E PA 32 5 OB UL 5 W TA GY BL N ET FA VT LY HE AL KS 57 06 06 0 12 3 KM [...] N O FA VT LY HE AL NA 68 04 03 2 60 30 MA 60 KE Ac KS 46 -2 -1 .0 YS 09 EF ti OX 20 0- 0- 00 49 ve EN 19 20 20 LL 5 KI 00 09 10 E MB 50 5 OB ER 0 LY MG GY N TA FA BL VT ET LY HE AL KS 68 01 02 00 30 8 MA [...] 01 60 30 MA 60 KE Ac KS 46 -2 -2 .0 YS 09 EF ti OX 20 0- 8- 00 49 ve EN 19 20 20 LL 5 KI 00 09 10 E MB 50 5 OB ER 0 /G LY MG YN TA FA BL VT ET LY HE AL TH 00 01 01 01 30 5 MA 40 MCKEON Ac 59 -1 -2 .0 YS 03 RR ti 10 2- 8- 57 IS ve 34 20 20 LL 3 90 10 10 E CH 5 OB AR /G LO YN TT E FA J VT LY HE AL TH 00 01 01 00 30 5 MA 40 MCKEON Ac 59 -1 -2 .0 YS 03 RR ti 10 57 IS ve 34 20 20 LL 3 90 10 10 E CH 5 OB AR /G LO YN TT E FA J VT LY HE AL TH 00 12 12 00 60 10 MA 40 Ac 59 -0 -1 .0 YS 03 TT ti 10 8 40 MA ve 34 20 20 LL 3 N 90 09 09 E NA 5 OB NC /G Y YN E FA VT LY HE AL TH IN 00 12 [...] E ON FA VT LY HE AL TH 49 09 10 00 20 5 MA 60 JUNIOR Ac 88 -2 -0 .0 YS 14 LL ti 40 3- 8- 00 68 IV ve 77 20 20 LL 3 AN 70 09 09 E 5 OB CH /G RI YN ST IN FA A VT M LY HE AL TH TR 65 [...] 00 60 30 MA 60 KE Ac KS 46 -2 -0 .0 YS 09 EF ti OX 20 0- 7- 49 ve EN 19 20 20 LL 5 KI 00 09 09 E MB 50 5 OB ER 0 /G LY MG YN TA FA BL VT ET LY HE AL TH OV 51 [...] E YN FA VT LY HE AL TH 00 01 01 00 10 3 MA 40 AD Ac 59 -0 -1 .0 YS 01 AM ti 10 6- 5- 00 74 S ve 34 20 20 LL 7 JA 90 09 09 E ME 5 OB S /G E YN FA VT LY HE AL Procedures Procedure DOS Code Location Performer Comment URNLS DIP [address] [facility] STICK/TAB INC [place] [address] [place] CAL[facility] ABDOMEN & 7 MEDICAL PELVIS IMAGING W/O ASS CONTRAST MATERIAL THER [address] PROPH/DX 7 [facility] NJX IV INC INC PUSH SINGLE/1S T SBST/DRUG COMPREHEN [address] SIVE 7 [facility] METABOLIC INC INC PANEL BLOOD [address] COUNT 7 [facility] COMPLETE INC INC AUTO&AUTO DIFRNTL WBC THERAPEUT [address] IC 7 [facility] INJECTION INC INC IV PUSH EACH NEW DRUG SMPL RPR 80806 [facility] SCALP/NEC 7 JACI K/AX/[facility] T/TRUNK PHYS 20.1-30.0 CM SIMPLE 50442 [facility] REPAIR 7 JACI F/E/E/N/L EMERGENCY /M PHYS 2.6CM-5.0 CM 3D 73257 [place] JAM[facility] RENDERING 2 MEDICAL TORRES IMAGING W/INTERP& [place] [address] [place] JAMEE CERVICAL 2 MEDICAL TORRES SPINE W/O IMAGING CONTRAST ASS MATERIAL THERAPEUT 73272 BJ MONTANO IC 1 PRIMARY Y BILLY PROPHYLAC CARE TIC/DX CENTER INJECTION SUBQ/IM INJECTION J0696 BJ DUNLAPBER 1 PRIMARY Y BILLY CEFTRIAXO CARE NE SODIUM CENTER PER 250 MG CYSTO 68917 NOEWMILADIS PAVONRIGO W/INSERT 1 W GENERAL J. URETERAL SURGERY STENT ANES 12016 [facility] LIAM TRURL 1 [facility] FRAGMNTJ ANESTHESI MANJ&/RMV A PSC L URETERAL CALCULUS CYSTO 53716 NOEWMILADIS RIGO W/URETERO 1 W GENERAL J. SCOPY SURGERY W/RMVL/MA [place] [facility] INITIAL [address] [facility] 1 W GENERAL J. CARE/DAY SURGERY 50 MINUTES RADEX 93981 [facility] ABDOMEN 1 1 [facility] [place] [address] [facility] ABDOMEN & 1 EICHAMPAGNE PELVIS RADIOLOGY W/O ASSOCIAT CONTRAST MATERIAL 3D 31592 [facility] RENDERING 1 EIDER KIMBERLEY W/INTERP RADIOLOGY & ASSOCIAT POSTPROCE [place] SUPERVISI ON THER 84618 [facility] ME[facility] PROPH/DX 0 W W NJX IV REGIONAL REGIONAL PUSH MEDICAL MEDICAL SINGLE/1S T SBST/DRUG COLLECTIO 74415 [facility] MEADOW[facility]IE N VENOUS 0 W W BLOOD REGIONAL [place] [address] [facility] ABDOMEN 0 W W W/O REGIONAL REGIONAL CONTRAST MEDICAL MEDICAL MATERIAL BLOOD 71590 [facility] MEAD[facility] COUNT 0 W W COMPLETE REGIONAL REGIONAL AUTO&AUTO MEDICAL MEDICAL DIFRNTL WBC THERAPEUT 12433 [facility]AD[facility] MEAD[facility] IC 0 W W INJECTION REGIONAL REGIONAL IV [place] [address] MEAD[facility] MEADOW[facility]IE INFUSION 0 W W HYDRATION REGIONAL REGIONAL EACH MEDICAL MEDICAL ADDITIONA L HOUR 3D 95947 [place] CORNELIUS RENDERING 0 [facility] W/INTERP RADIOLOGY & ASSOCIAT POSTPROCE SS SUPERVISI ON CT PELVIS 55089 MEAWMILADIS MEADOWVIE W/O 0 W W CONTRAST [facility] MATERIAL MEDICAL MEDICAL BASIC 77133 MEAWVIE MEAD[facility] METABOLIC 0 W W PANEL [facility] CALCIUM MEDICAL MEDICAL TOTAL CULTURE 56711 LATONIAWMILADIS MEAWVIE BACTERIAL 0 W W [facility] QUANTTATI MEDICAL MEDICAL VE COLONY COUNT URINE RADEX 62641 KENIS[facility] LIUWVIE ABDOMEN 1 0 W W [facility] ANTEROPOS MEDICAL MEDICAL TERIOR VIEW URNLS DIP 02131 MEAWVIE MEADOWVIE 0 W W STICK/TAB [facility] MEDICAL MEDICAL REAGENT AUTO MICROSCOP Y ANES 89750 [facility] BRALORION TRURL 0 LTH [facility] FRAGMNTJ ANESTHESI MANJ&/RMV A PSC L URETERAL CALCULUS CYSTO 69958 NOEWMILADIS RIGO, W/URETERO 0 W GENERAL J. SCOPY SURGERY ANDI R W/RMVL/[facility] 94821 ME[facility]IE RIGO DISCHARGE 0 W GENERAL J. DAY SURGERY MANAGEMEN T 30 MIN/< CYSTO 46332 MARTHAVIE RIGO, W/INSERT 0 W GENERAL J. URETERAL SURGERY ANDI R STENT CALCULUS 98856 KEN[facility] LIUWVIE QUANTITAT 0 W W PA [facility] CHEMICAL MEDICAL MEDICAL FLUOROSCO 45781 KENISHA LIUWVIE PY SPX UP 0 W W TO 1 [facility] MEDICAL MEDICAL PHYS/QHP TIME HOSPITAL G0378 KENISHA LIUWVIE OBSERVATI 0 W W ON [facility] SERVICE MEDICAL MEDICAL PER HOUR COLLECTIO 59305 KENISHA LIUWVIE N VENOUS 0 W W BLOOD [facility] VENIPUNCT MEDICAL MEDICAL URE THER 59660 KENISHA DE PROPH/DX 0 W W NJX IV [facility] PUSH MEDICAL MEDICAL SINGLE/1S T SBST/DRUG BLOOD 92503 MEADOWVIE MEADOWVIE COUNT 0 W W COMPLETE REGIONAL REGIONAL AUTO&AUTO MEDICAL MEDICAL DIFRNTL WBC THERAPEUT 42510 MEADOW[facility]IE MEADOWVIE IC 0 W W INJECTION REGIONAL REGIONAL IV PUSH MEDICAL MEDICAL EACH NEW DRUG CYSTO 47240 MEADOW[facility]IE MEADOWVIE W/URETERO 0 W W SCOPY REGIONAL REGIONAL W/RMVL/MA MEDICAL MEDICAL [place] STONES URNLS DIP 17153 MEADOW[facility]IE MEADOWVIE 0 W W STICK/TAB REGIONAL REGIONAL LET MEDICAL MEDICAL REAGENT AUTO MICROSCOP Y INITIAL 71037 [facility] 0 W GENERAL J. CARE/DAY SURGERY 50 MINUTES CYSTO 97498 MEADOW[facility]IE MEADOWVIE W/INSERT 0 W W URETERAL REGIONAL REGIONAL STENT MEDICAL MEDICAL BASIC 02614 MEADOW[facility]IE MEADOW[facility]IE METABOLIC 0 W W PANEL [facility] CALCIUM MEDICAL MEDICAL TOTAL CULTURE 83524 [facility] MEADOW[facility]IE BACTERIAL 0 W W REGIONAL REGIONAL QUANTTATI MEDICAL MEDICAL VE COLONY CENTER CENTER COUNT URINE URNLS DIP 09722 ME[facility]IE MEADOWVIE 0 W W STICK/TAB [facility] LET MEDICAL MEDICAL REAGENT CENTER CENTER AUTO MICROSCOP Y THERAPEUT 85381 MEADOW[facility]IE MEADOWVIE IC 0 W W INJECTION REGIONAL REGIONAL IV PUSH MEDICAL MEDICAL [facility] CENTER DRUG THER 07202 MEADOW[facility]IE MEADOW[facility]IE PROPH/DX 0 W W NJX IV REGIONAL REGIONAL PUSH MEDICAL MEDICAL SINGLE/1S CENTER CENTER T SBST/[place] [address] MEADOW[facility]IE MEADOWVIE INFUSION 0 W W HYDRATION REGIONAL REGIONAL EACH MEDICAL MEDICAL [place] [address] MEADOW[facility]IE MEADOWVIE ABDOMEN 0 W W W/O [facility] CONTRAST MEDICAL MEDICAL MATERIAL CENTER CENTER CT PELVIS 95952 [facility] 0 EIDER, W/CONTRAS RADIOLOGY MIRTHA Roe MATERIAL ASSOCIATE S PSC THER 40798 MEAD[facility]IE MEADOW[facility]IE PROPH/DX 0 W W NJX IV REGIONAL REGIONAL PUSH MEDICAL MEDICAL SINGLE/1S CENTER CENTER T SBST/DRUG THERAPEUT 82728 MEADOW[facility]IE MEADOWVIE IC 0 W W INJECTION REGIONAL REGIONAL IV PUSH MEDICAL MEDICAL EACH [facility] CENTER DRUG URNLS DIP 24863 MEAD[facility]IE MEADOWVIE 0 W W STICK/TAB REGIONAL REGIONAL LET MEDICAL MEDICAL REAGENT CENTER CENTER AUTO MICROSCOP Y CULTURE 44369 ME[facility] MEADOWVIE BACTERIAL 0 W W [facility] QUANTTATI MEDICAL MEDICAL VE COLONY CENTER CENTER COUNT URINE CT PELVIS 78138 MEADOW[facility]IE MEADOWVIE W/O 0 W W CONTRAST [facility] MATERIAL MEDICAL MEDICAL CENTER CENTER 3D 20733 [facility] RENDERING 0 EIDER, W/INTERP RADIOLOGY MIRTHA & K POSTPROCE ASSOCIATE SS S PSC SUPERVISI ON ANESTH 08421 [facility] COURTNEY, DIAGNOSTI 0 LTH KORI Lopez ANESTHESI ARTHROSCO A PSC PIC PROC KNEE JOINT ARTHRS 83989 ME[facility]IE MEADOWVIE KNE SURG 0 W W W/MENISCE [facility] CTOMY MEDICAL MEDICAL MED/LAT CENTER CENTER W/SHVG MRI ANY 75947 [facility] MEADOW[facility]IE JT LOWER 9 W W EXTREM [facility] W/O MEDICAL MEDICAL CONTRAST CENTER CENTER MATRL Encounters Encounter Start End Date Code Location Performer Type Date OFFICE 38116 [facility] LORENA WATT 7 7 PHYSICIAN T NEW 20 S GROUP MINUTES HOSPITAL [facility] - [facility] 7 [facility] OUTPATIEN INC T EMERGENCY 49067 [facility] 7 7 [facility] DEPARTMEN INC T VISIT HIGH/URGE NT SEVERITY EMERGENCY 57472 [facility] CARRILLO DEPT 7 7 PHYSICIAN VISIT S, PLLC HIGH SEVERITY& THREAT FUNCJ OFFICE 85832 [facility] WATT 7 7 [facility] T VISIT INC 10 MINUTES HOSPITAL [facility] - 7 7 [facility] OUTPATIEN INC T EMERGENCY 41385 [facility] 7 7 JACI DEPARTMEN EMERGENCY T VISIT PHYS HIGH/URGE NT SEVERITY EMERGENCY 07180 JOHANNA NGUYEN DEPT 2 2 EMERGENCY VISIT SERVICES HIGH SEVERITY& THREAT COUNTS INCLUDE 234 [facility] AT [facility] - 2 2 [facility] OUTPATIEN INC T EMERGENCY 30639 [facility] 2 2 [facility]IT LOW/MODER SEVERITY OFFICE 92570 BJ MONTANO OUTPATIEN 1 1 PRIMARY Y BILLY T VISIT CARE 15 CENTER MINUTES OFFICE 52428 KENISHA SIERRA OUTPATIEN 1 1 W GENERAL J. T VISIT 5 SURGERY MINUTES EMERGENCY 35791 JOHANNA CAST DEPT 1 1 EMERGENCY JAM VISIT SERVICES HIGH SEVERITY& THREAT COUNTS INCLUDE 234 [facility]EDS AT THE [facility] EMERGENCY 27639 JOHANNA PEREZ DEPT 0 0 EMERGENCY CHR VISIT SERVICES HIGH SEVERITY& THREAT [facility] ME[facility]OW[facility]IE - [facility] 69966 MEADOW[facility]IE 0 0 W [facility] T VISIT MEDICAL HIGH/URGE NT SEVERITY EMERGENCY 50938 KENISHA DEPT 0 0 W VISIT REGIONAL HIGH MEDICAL SEVERITY& THREAT COUNTS INCLUDE 234 [facility] AT [facility] MEADOWVIE - 0 0 [facility] 60418 KENISHA SIERRA OUTPATIEN 0 0 W GENERAL J. T VISIT SURGERY ANDI R 10 MINUTES OFFICE 40390 BJ MARTINEZ, OUTPATIEN 0 0 PRIMARY LUIS E T [facility] 95807 MEADOW[facility]IE 0 0 W [facility] VISIT MEDICAL HIGH/URGE CENTER NT SEVERITY EMERGENCY 16013 JOHANNA PEREZ, DEPT 0 0 EMERGENCY VISIT SERVICES ISMAEL HIGH SEVERITY& ASSOCIATE THREAT S COUNTS INCLUDE 234 [facility] AT THE [facility] EMERGENCY 58177 JOHANNA RIGGINS, 0 0 EMERGENCY DAVID W DEPARTMEN SERVICES T VISIT HIGH/URGE ASSOCIATE NT S SEVERITY EMERGENCY 89005 [facility] 0 0 W [facility]ISIT MEDICAL HIGH/URGE CENTER NT SEVERITY EMERGENCY 27335 Gaston VILLAREAL DEPT 0 0 EMERGENCY VISIT SERVICES HIGH SEVERITY& ASSOCIATE THREAT S [facility] MEADOWVIE - 0 0 W [facility] MEADOWVIE - 0 0 W [facility] OFFICE 65709 JOSÉ KUMAR, CONSULTAT 0 0 JAMARI Morrison NEW/ESTAB PATIENT 40 MIN OFFICE 27376 ALYSA ENGLE 9 9 PRIMARY EDUIN E T VISIT CARE 10 [facility] KENISHA - 9 9 W [facility] EMERGENCY 47515 JOHANNA PEREZ, 9 9 EMERGENCY DEPARTMEN SERVICES JEWISH T VISIT MODERATE ASSOCIATE SEVERITY S OFFICE 10890 ALYSA NGUYEN 9 9 PRIMARY ALISE T NEW [address] [place], [place] [address]INC
--- OUTSIDE RECORDS SUMMARY | 2017-07-09 21:43 | External Medical Summary Rpt ---
Author Author , CHONG SCHWARZ Address Unknown Phone [email or web address] Care Team Providers Care Cpr Ambulance Driver Name Role Phone COLLEEN MACIAS Unavailable Unavailable CALDERÓN, CALDERÓN Unavailable Unavailable BRAUGHTON ADELE, Unavailable Unavailable BRAUGHTON ADELE JAMEE TORRES, Unavailable Unavailable JAMEE TORRES RIGO THOMAS Unavailable Unavailable Agustín GARCIA Unavailable Unavailable R, Agustín SIERRA R [facility] Unavailable Unavailable CYNEVIEANA, [facility] DAVID VALERO, Unavailable Unavailable DAVID RIGGINS, FOSTER Unavailable Unavailable LORENA LEON Unavailable Unavailable KORI COURTNEY, Unavailable Unavailable KORI COURTNEY ANNE E, Unavailable Unavailable LUIS MARTINEZ GRAY ROB Unavailable Unavailable HAZEL EDUIN E, Unavailable Unavailable HAZEL, EDUIN E NOEMY CHU, Unavailable Unavailable NOEMY SALGUERO, Unavailable Unavailable NOEMY ZAZUETA JENNIFER K HARRIS, CHARLOTTE J, Unavailable Unavailable [facility] Un[facility] Un[facility], [facility] CORNELIUS LUTHER, CORNELIUS Unavailable Unavailable LUTHER [facility], Unavailable Unavailable [facility] ALISE DEE KEEF, Unavailable Unavailable [facility] Unavailable Unavailable IMAGING [facility], [facility] [id number] # Unavailable Unavailable [id number], [facility] [id number] # [phone] [facility] Unavailable Unavailable [facility] BASSAM CERVANTES, Unavailable Unavailable BASSAM CERVANTES [facility] Unavailable Unavailable SERVICES, [facility], Unavailable Unavailable [facility] Un[facility]PER[facility] ZIPPER TRIMMER HAND Unavailable Unavailable [facility]IM[facility] HAND [facility] Unavailable [facility] Unavailable Unavailable SURGERY, [facility] Unavailable Unavailable MEDICAL, [facility] Unavailable Unavailable MEDICAL CENTER, [facility], Unavailable Unavailable [facility], [facility] Gaston JEWELL N, Gaston JEWELL N Unavailable Unavailable [id number], Unavailable Unavailable [id number] Unavailable Unavailable EMERGENCY PHYS, [facility] PEREZ CHR, Unavailable Unavailable [facility] SHANTA PEREZIAN, Unavailable Unavailable PEREZGRADY BEASLEY PEREZ, ISMAEL, Unavailable Unavailable SHANTA PEREZINA Purpose Continuity of Care Document - 10-13-2008 through 2016 Problems Code Diagnosis DOS Provider Status N200 CALCULUS OF 02-03-2017 [facility] Z720 TOBACCO USE 02-03-2017 [facility] N132 HYDRONEPHRO 01-30-2017 [facility]NAL [facility] URETRL [facility]AGING ASS CALCULOUS OBST N23 UNSPECIFIED 01-30-2017 [facility], [facility] R1031 RIGHT LOWER 01-30-2017 [facility] Z4802 ENCOUNTER 01-14-2017 [facility]AL [facility] OF SUTURES INC [id number] LACERATION 01-05-2017 [facility] W[facility] FB N EMERGENCY OTHER PART PHYS HEAD INITIAL ENC [id number] CONTUSION 01-05-2017 [facility] RT FRONT N EMERGENCY WALL THORAX PHYS INITIAL ENCOUNTER [id number] LACERATION 01-05-2017 [facility] W/O FB LT N EMERGENCY SHOULDER PHYS INITIAL ENC [id number] CONTUSION 01-05-2017 [facility] OF LEFT HIP N EMERGENCY INITIAL PHYS ENCOUNTER 7231 CERVICALGIA 11-23-2011 [facility] 8470 NECK SPRAIN 11-23-2011 [facility]ERGENCY SERVICES E9270 OVEREXERTIO 11-23-2011 [facility] N FROM MEDICAL [facility] STRENUOUS MOVEMENT 5950 ACUTE 06-25-2011 [facility] 9390 FOREIGN 12-12-2010 [facility] IN GENERAL BLADDER AND SURGERY URETHRA 5921 CALCULUS OF 12-09-2010 [facility] URETER GENERAL SURGERY 591 HYDRONEPHRO 12-08-2010 [facility] 24670 OTHER 12-08-2010 [facility] 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 5990 URINARY 12-08-2010 [facility] TRACT [facility] INFECTION SERVICES SITE NOT SPECIFIED 85721 FEVER 12-08-2010 [facility] UNSPECIFIED GENERAL SURGERY 7880 RENAL COLIC 12-08-2010 [facility] 17597 ABDOMINAL 12-08-2010 [facility] PAIN OTHER GENERAL SPECIFIED SURGERY SITE 5920 CALCULUS OF 09-28-2010 [facility] 7919 OTHER 09-28-2010 [facility] NONSPECIFIC REGIONAL FINDING MEDICAL EXAMINATION OF URINE V1301 PERSONAL 09-28-2010 [facility] HISTORY OF REGIONAL URINARY MEDICAL CALCULI 61981 NAUSEA WITH 03-29-2010 [facility]OMITING [facility] 59622 ABDOMINAL 03-29-2010 [facility] PAIN, REGIONAL UNSPECIFIED MEDICAL SITE CENTER 5959 UNSPECIFIED 03-21-2010 [facility] 25281 HEMATURIA 03-18-2010 [facility] UNSPECIFIED RADIOLOGY ASSOCIATES PSC 7936 NONSPEC ABN 03-18-2010 [facility] FINDNG RAD RADIOLOGY & OTH EXAM [facility]OCIATES ABDOMINAL PSC AREA 7172 DERANGEMENT 10-23-2009 [facility]UMAR [facility] 86650 PAIN IN 10-23-2009 [facility] JOINT, H LOWER LEG ANESTHESIA PSC 8360 TEAR MEDIAL 10-23-2009 [facility] CURRENT 8362 OTHER TEAR 09-05-2009 [facility] CURRENT 8363 CLOSED 06-21-2009 [facility] Medications Na ND Rx Da Fi Fi Am Da Di Ph RX Ph St me C No te ll ll ou ys ag ar # ys at rm s nt no ma ic us Or Da si cy ia de te s n re d BE 67 05 06 30 10 00 EA Ac NZ 87 -0 -[address] ti ON 70 4- 2- 00 00 SI ve AT 10 20 20 48 DE AT 50 17 17 61 E 5 08 PH 10 AR 0 MA MG CY CA OF PS CY UL NT E HI AN A IN C TA 65 05 06 10 10 00 EA Ac MS 86 -0 -[address] ti UL 20 4- 2- 00 00 SI ve OS 59 20 20 48 DE IN 80 17 17 61 5 06 PH HC AR L MA 0. CY 4 MG OF CY CA NT PS HI UL AN E A IN C OX 53 05 06 30 10 00 EA Ac YC 74 -0 -[address] ti OD 60 8- 2- 00 00 SI ve ON 20 20 20 48 DE E- 40 17 17 65 AC 1 50 PH ET AR AM MA IN CY OP HE OF N CY 10 NT -3 HI 25 AN A IN C CI 16 05 06 14 7 00 EA Ac MO 71 -0 -[address] ti OF 40 8- 2- 00 00 SI ve LO 65 20 20 48 DE XA 20 17 17 65 CI 4 48 PH N AR HC MA L CY 50 0 OF MG CY NT TA HI B AN A IN C CE 65 04 [...] -1 4. YS 41 TT ti 00 9- 9- 00 84 MA ve 78 20 20 0 LL 9 N 00 11 11 E NA 8 OB NC Y GY E N FA WA LY HE AL TH 53 03 03 [...] OB KIMO CE SE TA GY PH WA N R NO FA PH WA EN LY 5- HE 32 AL 5 TH HY 00 01 01 2 20 3 MA [address] 40 -1 -1 .0 YS 05 NN ti OC 60 4- 7- 00 78 IS ve OD 36 20 20 LL 8 ON ON 50 11 11 E -A 1 OB KIMO CE SE TA GY PH WA N R NO FA PH WA EN LY 5- HE 32 AL 5 TH HY 00 01 01 2 20 3 MA [address] 40 -1 -1 .0 YS 05 NN ti OC 60 4- 4- 00 78 IS ve OD 36 20 20 LL 8 ON ON 50 11 11 E -A 1 OB KIMO CE SE TA GY PH WA N R NO FA PH WA EN LY 5- HE 32 AL 5 TH MO 68 01 01 0 20 5 MA 60 DE Ac OM 38 -1 -1 .0 YS 35 NN ti ET 20 4 4 97 IS ve MCKEON 04 20 20 LL 3 ON ZI 10 11 11 E NE 1 OB KIMO SE 25 GY PH N R MG FA WA TA LY BL ET HE AL 00 12 01 2 30 3 MA 40 DE Ac 40 -3 -0 .0 SO 45 NN ti 60 1 6 00 N 67 IS ve 35 20 20 FA ON 70 10 11 WA [address] PH UG R 00 12 01 2 30 3 MA 40 DE Ac 60 -3 -0 .0 SO 45 NN ti 33 N 67 IS ve 88 20 20 FA ON 13 10 11 WA [address] PH UG R MO 68 12 12 0 12 2 MA 62 DE Ac OM 38 -3 -3 .0 SO 78 NN ti ET 20 N 77 IS ve MCKEON 04 20 20 FA ON ZI 10 10 10 WA NE 1 LY KIMO SE [address] DR PH UG R MG TA BL ET 00 12 12 2 30 3 MA 40 DE Ac 60 -3 -3 .0 SO 45 NN ti 33 N 67 IS ve 88 20 20 FA ON 13 10 10 WA [address] PH UG R PE 00 12 12 0 40 10 MA 60 Ac NI 78 -0 -0 .0 YS 34 TT ti CI 11 37 MA ve LL 65 20 20 LL 6 N IN 50 10 10 E NA 1 OB NC VK Y GY E 50 N 0 FA MG WA LY TA BL HE ET AL NA 09 11 1 60 30 MA 60 Ac MO 46 -2 -1 .0 YS 30 TT ti OX 20 2- 6- 00 48 MA ve EN 19 20 20 LL 2 N 00 10 10 E NA 50 5 OB NC 0 Y MG GY E N TA FA BL WA ET LY HE AL NA 09 09 1 60 30 MA 60 Ac MO 46 -2 -2 .0 YS 30 TT ti OX 20 2- 2- 00 48 MA ve EN 19 20 20 LL 2 N 00 10 10 E NA 50 5 OB NC 0 Y MG GY E N TA FA BL WA ET LY HE MO 07 08 1 20 3 MA 60 DE Ac OM 38 -1 -0 .0 YS 27 NN ti ET 20 3- 3- 00 20 IS ve MCKEON 04 20 20 LL 9 ON ZI 10 10 10 E NE 1 OB KIMO SE 25 GY PH N R MG FA WA TA LY BL ET HE AL 00 07 07 2 20 3 MA 40 DE Ac 59 -1 -1 .0 YS 04 NN ti 10 3- 6- 00 59 IS ve 34 20 20 LL 9 ON 90 10 10 E 5 OB KIMO SE GY PH N R FA WA LY HE AL 00 07 07 2 20 2 MA 40 DE Ac 59 -1 -1 .0 YS 04 NN ti 10 3- 3- 00 59 IS ve 34 20 20 LL 9 ON 90 10 10 E 5 OB KIMO SE GY PH N R FA WA LY HE AL MO 68 07 07 1 20 3 MA 60 DE Ac OM 38 -1 -1 .0 YS 27 NN ti ET 20 3- 3- 00 20 IS ve MCKEON 04 20 20 LL 9 ON ZI 10 10 10 E NE 1 OB KIMO SE 25 GY PH N R MG FA WA TA LY BL ET HE AL CI 68 07 07 1 40 20 MA 60 DE Ac MO 08 -1 -1 .0 YS 27 NN ti OF 40 3- 3 00 21 IS ve LO 07 20 20 LL 0 ON XA 00 10 10 E CI 1 OB KIMO N SE HC GY PH L N R 50 FA 0 WA MG LY TA HE B AL 00 07 07 0 14 14 EA 18 JUNIOR Ac 09 -0 -[address] 18 LL ti 37 1- 1- 00 SI 39 IV ve 33 20 20 DE AN 80 10 10 1 PH CH AR RI MA ST CY IN A OF M CY NT HI AN A 00 07 07 0 20 [...] W TA GY BL N ET FA WA LY HE AL TH 65 06 06 0 6. 2 MA 60 FI Ac 16 -2 -2 00 YS 26 NL ti 20 3- 3- 0 42 EY ve 52 20 20 LL 7 01 10 10 E PA 0 OB UL W GY N FA WA LY HE AL TH CI 55 06 06 0 20 10 MA 60 FI Ac MO 11 -2 -2 .0 YS 26 NL ti OF 10 3- 3- 00 42 EY ve LO 12 20 20 LL 8 XA 60 10 10 E PA CI 1 OB UL N W HC GY L N 25 FA 0 WA MG LY TA HE B AL TH [...] HE N 96 5- 84 32 5 MO 57 06 06 0 12 3 [...] YS 25 TT ti AN 20 1- 90 MA ve E 83 20 20 LL 8 N 1% 46 10 10 E NA 0 OB NC SH Y AM GY E PO N O FA WA LY HE AL TH NA 68 04 03 2 60 30 MA 60 KE Ac MO 46 -2 -1 .0 YS 09 EF ti OX 20 0- 0- 00 49 ve EN 19 20 20 LL 5 KI 00 09 10 E MB 50 5 OB ER 0 LY MG GY N TA FA BL WA ET LY HE AL 00 01 02 00 30 5 MA 40 MCKEON Ac 59 -2 -1 .0 YS 03 RR ti 10 5- 1- 00 65 IS ve 34 20 20 LL 9 90 10 10 E CH 5 OB AR /G LO YN TT E FA J WA LY HE AL TH MO 68 01 02 00 30 8 MA 60 MCKEON Ac OM 38 -2 -1 .0 YS 19 RR ti ET 20 5- 1- 00 86 IS ve MCKEON 04 20 20 LL 5 ZI 10 10 10 E CH NE 1 OB AR /G LO 25 YN TT E MG FA J WA TA LY BL ET HE AL TH 00 01 01 01 30 5 MA 40 MCKEON Ac 59 -1 -2 .0 YS 03 RR ti 10 2- 8- 00 57 IS ve 34 20 20 LL 3 90 10 10 E CH 5 OB AR /G LO YN TT E FA J WA LY HE AL TH 00 01 01 00 30 5 MA 40 MCKEON Ac 59 -1 -2 .0 YS 03 RR ti 10 2- 8- 00 57 IS ve 34 20 20 LL 3 90 10 10 E CH 5 OB AR /G LO YN TT E FA J WA LY HE AL TH NA 68 04 01 01 60 30 MA 60 KE Ac MO 46 -2 -2 .0 YS 09 EF ti OX 20 0- 8- 00 49 ve EN 19 20 20 LL 5 KI 00 09 10 E MB 50 5 OB ER 0 /G LY MG YN TA FA BL WA ET LY HE AL TH 00 12 12 00 60 10 MA 40 Ac 59 -0 -1 .0 YS 03 TT ti 10 8- 7- 00 40 MA ve 34 20 20 LL 3 N 90 09 09 E NA 5 OB NC /G Y YN E FA WA LY HE AL TH IN 00 12 12 00 60 20 MA 60 MA Ac DO 09 -0 -1 .0 YS 17 RK ti ME 34 7- 7- 00 76 ES ve TH 02 20 20 LL 6 BE AC 90 09 09 E RY IN 1 OB /G MCKEON 25 YN RO LD MG FA V WA CA LY PS UL HE E AL TH LI 60 10 11 00 60 3 MA 60 Ac ND 43 -2 -0 .0 YS 16 TT ti AN 20 9- 5- 00 17 MA ve E 83 20 20 LL 3 N 1% 36 09 09 E NA 0 OB NC LO /G Y TI YN E ON FA WA LY HE AL TH 49 09 10 00 20 5 MA 60 JUNIOR Ac 88 -2 -0 .0 YS 14 LL ti 40 3- 8- 00 68 IV ve 77 20 20 LL 3 AN 70 09 09 E 5 OB CH /G RI YN ST IN FA A WA M LY HE AL TH TR 65 09 10 00 20 3 MA 40 JUNIOR Ac AM 16 -2 -0 .0 YS 02 LL ti AD 20 3- 8- 00 99 IV ve OL 62 20 20 LL 5 AN 71 09 09 E HC 1 OB CH L /G RI [address] IN MG FA A WA M TA LY BL ET HE AL TH NA 68 04 05 00 60 30 MA 60 KE Ac MO 46 -2 -0 .0 YS 09 EF ti OX 20 0- 7- 00 49 ve EN 19 20 20 LL 5 KI 00 09 09 E MB 50 5 OB ER 0 /G LY MG YN TA FA BL WA ET LY HE AL TH OV 51 [...] 0 OB S /G E YN FA WA LY HE AL TH 00 01 01 00 10 3 MA 40 AD Ac 59 -0 -1 .0 YS 01 AM ti 10 6- 5- 00 74 S ve 34 20 20 LL 7 JA 90 09 09 E ME 5 OB S /G E YN FA WA LY HE AL TH Procedures Procedure DOS Code Location Performer Comment URNLS DIP [address] [facility] STICK/TAB INC [place] [address] [place] CAL[facility] ABDOMEN & 7 MEDICAL PELVIS IMAGING W/O ASS CONTRAST MATERIAL COMPREHEN [address] SIVE 7 [facility] METABOLIC INC INC PANEL THERAPEUT [address] 7 [facility] INJECTION INC INC IV PUSH EACH NEW DRUG BLOOD [address] [facility] [address] COUNT 7 [facility] COMPLETE INC INC AUTO&AUTO DIFRNTL WBC THER [address] PROPH/DX 7 [facility] NJX IV INC INC PUSH SINGLE/1S T SBST/DRUG SMPL RPR 31398 [facility] SCALP/NEC 7 [facility] K/AX/[facility] T/TRUNK PHYS 20.1-30.0 CM SIMPLE 92015 [facility] REPAIR 7 JACI F/E/E/N/L EMERGENCY /M PHYS 2.6CM-[place].[address] [place] [address] [place] JAMEE CERVICAL 2 MEDICAL TORRES SPINE W/O IMAGING CONTRAST ASS MATERIAL 3D 79330 [place] J[facility] RENDERING 2 MEDICAL TORRES IMAGING W/INTERP& ASS POSTPROC DIFF WORK STATION INJECTION J0696 [facility] DUNLAPBER 1 PRIMARY Y BILLY CEFTRIAXO CARE NE SODIUM CENTER PER 250 MG THERAPEUT 06355 [facility] DUNLAPTRISH IC 1 PRIMARY Y BILLY PROPHYLAC CARE TIC/DX CENTER INJECTION SUBQ/IM CYSTO 88657 KENISHA RIGO W/URETERO 1 W GENERAL J. SCOPY SURGERY W/RMVL/MA [place] STONES CYSTO 50772 LATONIADOWVIE RIGO W/INSERT 1 W GENERAL J. URETERAL SURGERY STENT ANES 12215 [facility] BRAUGHTON TRURL [address] [facility] FRAGMNTJ ANESTHESI MANJ&/RMV A PSC L URETERAL CALCULUS RADEX 64482 [facility] ABDOMEN 1 1 [facility] [place] [address] [facility] ABDOMEN & 1 EIDER KIMBERLEY PELVIS RADIOLOGY W/O ASSOCIAT CONTRAST MATERIAL INITIAL 68767 [facility] 1 W GENERAL J. CARE/DAY SURGERY 50 MINUTES 3D 50832 [facility] RENDERING 1 EIDER KIMBERLEY W/INTERP RADIOLOGY & ASSOCIAT POSTPROCE SS SUPERVISI ON THERAPEUT 56391 KENISHA LIUWVIE IC 0 W W INJECTION REGIONAL REGIONAL IV PUSH MEDICAL MEDICAL EACH NEW DRUG BLOOD 14699 MEAD[facility]IE MEADOWVIE COUNT 0 W W COMPLETE REGIONAL REGIONAL AUTO&AUTO MEDICAL MEDICAL DIFRNTL WBC CULTURE 57917 MEAD[facility]IE MEADOWVIE BACTERIAL 0 W W REGIONAL REGIONAL QUANTTATI MEDICAL MEDICAL VE COLONY COUNT URINE CT PELVIS 00175 [facility] W/O 0 [facility] CONTRAST RADIOLOGY MATERIAL ASSOCIAT THER 28177 MEADOWVIE MEADOWVIE PROPH/DX 0 W W NJX IV REGIONAL REGIONAL PUSH MEDICAL MEDICAL SINGLE/1S T SBST/DRUG URNLS DIP 81765 MEADOWVIE MEADOWVIE 0 W W STICK/TAB REGIONAL REGIONAL LET MEDICAL MEDICAL REAGENT AUTO MICROSCOP Y RADEX 89406 [facility] ABDOMEN 1 0 [facility] ANTEROPOS ASSOCIAT [place] 3D 26730 [facility] RENDERING 0 L[facility]HER W/INTERP RADIOLOGY & [place] [address] [facility] ABDOMEN 0 [facility]HER W/[place] [address] MEADOWVIE MEADOWVIE INFUSION 0 W W HYDRATION REGIONAL [facility] MEDICAL MEDICAL ADDITIONA L HOUR BASIC 22302 MEADOW[facility]IE MEADOWVIE METABOLIC 0 W W PANEL [facility] CALCIUM MEDICAL MEDICAL TOTAL COLLECTIO 50513 MEADOW[facility]IE MEADOWVIE N VENOUS 0 W W BLOOD [facility] VENIPUNCT [facility] MEDICAL URE FLUOROSCO 39518 MEADOWVIE MEADOWVIE PY SPX UP 0 W W TO 1 [facility] MEDICAL PHYS/QHP TIME ANES 58653 [facility] LIAM TRURL 0 LTH [facility] ANESTHESI MANJ&/RMV A PSC L URETERAL CALCULUS [facility] 91958 MEADOWVIE RIGO DISCHARGE 0 W GENERAL J. DAY SURGERY MANAGEMEN T 30 MIN/< CYSTO 97567 MEADOW[facility]IE RIGO, W/URETERO 0 W GENERAL J. SCOPY SURGERY ANDI Saleem W/RMVL/MA [place] STONES CYSTO 34619 [facility]IE RIGO, W/INSERT 0 W GENERAL J. URETERAL SURGERY ANDI R STENT CALCULUS 93552 MEADOWVIE MEADOWVIE QUANTITAT 0 W W PA [facility] CHEMICAL MEDICAL MEDICAL BLOOD 02709 MEADOW[facility]IE MEADOWVIE COUNT 0 W W COMPLETE REGIONAL REGIONAL AUTO&AUTO MEDICAL MEDICAL DIFRNTL WBC THERAPEUT 25439 MEADOWVIE MEADOWVIE IC 0 W W INJECTION REGIONAL REGIONAL IV PUSH MEDICAL MEDICAL EACH NEW DRUG CYSTO 44358 MEADOWVIE MEADOWVIE W/INSERT 0 W W URETERAL REGIONAL REGIONAL STENT MEDICAL MEDICAL CYSTO 34528 MEADOWVIE MEADOWVIE W/URETERO 0 W W SCOPY REGIONAL REGIONAL W/RMVL/MA MEDICAL MEDICAL [place] STONES THER 57357 MEADOWVIE MEADOWVIE PROPH/DX 0 W W NJX IV REGIONAL REGIONAL PUSH MEDICAL MEDICAL SINGLE/1S T SBST/DRUG INITIAL 94086 [facility] 0 W GENERAL J. CARE/DAY SURGERY 50 MINUTES URNLS DIP 91992 MEADOWVIE MEADOWVIE 0 W W STICK/TAB [facility] MEDICAL MEDICAL REAGENT AUTO [facility]OSP[facility] G0378 MEADOWVIE MEADOWVIE OBSERVATI 0 W W ON [facility] SERVICE MEDICAL MEDICAL PER HOUR BASIC 32147 MEADOWVIE MEADOWVIE METABOLIC 0 W W PANEL [facility] CALCIUM MEDICAL MEDICAL TOTAL COLLECTIO 18485 MEADOWVIE MEADOWVIE N VENOUS 0 W W BLOOD [facility] [place] [address] MEADOWVIE MEADOWVIE INFUSION 0 W W HYDRATION [facility] ADDITIONA CENTER CENTER L HOUR URNLS DIP 62843 MEADOWVIE MEADOWVIE 0 W W STICK/TAB [facility] LET MEDICAL MEDICAL REAGENT CENTER CENTER AUTO MICROSCOP Y THERAPEUT 37333 MEADOWVIE MEADOWVIE IC 0 W W INJECTION REGIONAL REGIONAL IV PUSH MEDICAL MEDICAL [facility] DRUG THER 78614 MEADOWVIE MEADOWVIE PROPH/DX 0 W W NJX IV [facility] PUSH MEDICAL MEDICAL SINGLE/1S CENTER CENTER T SBST/DRUG CULTURE 69716 MEADOWVIE MEADOWVIE BACTERIAL 0 W W [facility] MEDICAL VE COLONY CENTER CENTER COUNT URINE CT PELVIS 59012 MEADOWVIE MEADOWVIE W/O 0 W W CONTRAST [facility] MATERIAL MEDICAL MEDICAL CENTER CENTER THER 33240 MEADOWVIE MEADOWVIE PROPH/DX 0 W W NJX IV [facility]AL [facility] MEDICAL MEDICAL SINGLE/1S CENTER CENTER T SBST/DRUG THERAPEUT 87187 MEADOWVIE MEADOWVIE IC 0 W W INJECTION REGIONAL REGIONAL IV PUSH MEDICAL MEDICAL [facility] DRUG URNLS DIP 22220 MEADOWVIE MEADOWVIE 0 W W STICK/TAB [facility] LET MEDICAL MEDICAL REAGENT CENTER CENTER AUTO MICROSCOP Y CULTURE 48429 NOEWMILADIS LIUWVIE BACTERIAL 0 W W [facility] QUANTTATI [facility] MEDICAL VE COLONY CENTER CENTER COUNT URINE CT PELVIS 29095 [facility] 0 EIDER, W/CONTRAS RADIOLOGY [place] [address] [facility] ABDOMEN 0 EIDER, W/O RADIOLOGY MIRTHA CONTRAST K MATERIAL ASSOCIATE S PSC 3D 35307 [facility] RENDERING 0 EIDER, W/INTERP RADIOLOGY MIRTHA & K POSTPROCE ASSOCIATE SS S PSC SUPERVISI ON ANESTH 21372 [facility] SHERWIN, DIAGNOSTI 0 [facility] KORI Lopez ANESTHESI ARTHROSCO A [facility] PIC PROC KNEE JOINT ARTHRS 21067 JOSÉ KUMAR, NADINE SURG 0 JAMARI JAMARI W/MENISCE J J CTOMY MED/LAT W/SHVG MRI ANY 55278 MEADOWMILADIS LINCOLNWVIE JT LOWER 9 W W [facility] W/O MEDICAL MEDICAL CONTRAST CENTER CENTER MATRL Encounters Encounter Start End Date Code Location Performer Type Date OFFICE 01827 [facility] L[facility]NA WATT 7 7 PHYSICIAN T NEW 20 S GROUP MINUTES EMERGENCY 93188 [facility] CARRILLO DEPT 7 7 PHYSICIAN VISIT S, PLLC HIGH SEVERITY& THREAT [facility] - [facility] 7 [facility] OUTPATIEN INC T EMERGENCY 09782 [facility] 7 7 [facility] DEPARTMEN INC T VISIT HIGH/URGE NT SEVERITY OFFICE 56527 [facility] WATT 7 7 [facility] T VISIT INC 10 MINUTES HOSPITAL [facility] - 7 7 [facility] OUTPATIEN INC T EMERGENCY 82610 [facility] 7 7 JACI DEPARTMEN EMERGENCY T VISIT PHYS HIGH/URGE NT SEVERITY EMERGENCY 39238 [facility] 2 2 [facility] DEPARTMEN INC T VISIT LOW/MODER SEVERITY [facility]OSPITAL [facility] 2 2 [facility] 464[facility] JOHANNA NGUYEN DEPT 2 2 EMERGENCY VISIT SERVICES HIGH SEVERITY& THREAT [facility] OFFICE 13777 [facility] CROW CHARMAINE OUTPATIEN 1 1 PRIMARY Y BILLY T VISIT CARE 15 [facility] OFFICE 53795 MARTHAMILADIS SIERRA OUTPATIEN 1 1 W GENERAL J. T VISIT 5 SURGERY MINUTES EMERGENCY 77670 JOHANNA CAST DEPT 1 1 EMERGENCY JAM VISIT SERVICES HIGH SEVERITY& THREAT [facility] MEAWVIE - 0 0 W OUTPATIEN [facility] T MEDICAL EMERGENCY [address] [facility] T VISIT MEDICAL HIGH/URGE NT SEVERITY EMERGENCY 74031 JOHANNA PEREZ DEPT 0 0 EMERGENCY CHR VISIT SERVICES HIGH SEVERITY& THREAT [facility] MEAWALLY[facility] 87255 JOHANNA PEREZ DEPT 0 0 EMERGENCY CHR VISIT SERVICES HIGH SEVERITY& THREAT [facility] OFFICE 96394 KENISHA SIERRA, OUTPATIEN 0 0 W GENERAL J. T VISIT SURGERY ANDI R 10 MINUTES OFFICE [id number] BJ MARTINEZ, OUTPATIEN 0 0 PRIMARY LUIS E T VISIT CARE 15 [facility] MEAWVIE - 0 0 W [facility] EMERGENCY 87826 MARTHAVIE 0 0 W [facility] REG[facility] T VISIT MEDICAL HIGH/URGE CENTER NT SEVERITY EMERGENCY 86118 JOHANNA PEREZ DEPT 0 0 EMERGENCY VISIT SERVICES ISMAEL HIGH SEVERITY& ASSOCIATE THREAT S FUN EMERGENCY 93868 JOHANNA RIGGINS, 0 0 EMERGENCY DAVID W DEPARTMEN SERVICES T VISIT HIGH/URGE ASSOCIATE NT S SEVERITY EMERGENCY 19148 MEAWVIE 0 0 W [facility] VISIT MEDICAL HIGH/URGE CENTER NT [facility] MEADOWVIE - 0 0 W [facility] EMERGENCY 94645 Gaston VILLAREAL DEPT 0 0 EMERGENCY VISIT SERVICES HIGH SEVERITY& ASSOCIATE THREAT S [facility] MEADOWVIE - 0 0 W [facility] OFFICE 19620 JOSÉ KUMAR, CONSULTAT 0 0 JAMARI Morrison NEW/ESTAB PATIENT 40 MIN OFFICE 81521 ALYSA ENGLE 9 9 PRIMARY EDUIN E T VISIT CARE 10 [facility] KENISHA - 9 9 W [facility] EMERGENCY 51177 JOHANNA PEREZ, 9 9 EMERGENCY DEPARTMEN SERVICES SHINTO T VISIT MODERATE ASSOCIATE SEVERITY S OFFICE 77169 ALYSA NGUYEN 9 9 [address]
--- OUTSIDE RECORDS SUMMARY | 2017-07-09 21:43 | External Medical Summary Rpt ---
Author Author , CHONG SCHWARZ Address Unknown Phone [email or web address] Providers Care Utilization Management Manager Name Role Phone COLLEEN MACIAS Unavailable Unavailable CALDERÓN, CALDERÓN Unavailable Unavailable BRAUGHTON ADELE, Unavailable Unavailable BRAUGHTON ADELE JAMEE TORRES, Unavailable Unavailable JAMEE TORRES RIGO THOMAS Unavailable Unavailable Agustín GARCIA Unavailable Unavailable R, Agustín SIERRA R [facility] Unavailable Unavailable CYNEVIEANA, [facility] DAVID VALERO, Unavailable [...] INC CORNELIUS LUTHER, CORNELIUS Unavailable Unavailable L[facility]HER [facility], Unavailable Unavailable [facility] ALISE DEE KEEF, Unavailable Unavailable [facility] Unavailable Unavailable IMAGING [facility], [facility] [id number] # Unavailable Unavailable [phone], [facility] [id number] # [id number] [facility] Unavailable Unavailable [facility] BASSAM CERVANTES, Unavailable Unavailable [facility] C[facility]ANT[facility] Unavailable Unavailable SERVICES, [facility], Unavailable Unavailable [facility] WALDRON ASPHALT PAVER OPERATOR Unavailable Unavailable [facility] ASPHALT PAVER OPERATOR [facility]available Unavailable [facility]available [facility] Unavailable Unavailable SURGERY, [facility] Unavailable Unavailable MEDICAL, [facility] Unavailable Unavailable [facility], [facility], Unavailable Unavailable [facility], [facility], [facility] Gaston JEWELL N, Gaston JEWELL N Unavailable Unavailable [id number], Unavailable Unavailable [id number] Unavailable Unavailable EMERGENCY PHYS, [facility] PEREZ CHR, Unavailable Unavailable [facility] SHANTA PEREZIAN, Unavailable Unavailable PEREZGRADY BEASLEY PEREZ, ISMAEL, Unavailable Unavailable SHANTA PEREZINA Purpose Continuity of Care Document - 10-13-2008 through 2016 Problems Code Diagnosis DOS Provider Status N200 CALCULUS OF 02-03-2017 [facility] Z720 TOBACCO USE 02-03-2017 [facility] N132 HYDRONEPHRO 01-30-2017 [place] [facility] W/[facility]NAL [facility]TRL [facility] CALCULOUS OBST N23 UNSPECIFIED 01-30-2017 [facility] RENAL PHYSIC[facility], COLIC [facility] R1031 RIGHT LOWER 01-30-2017 [place] [facility] Z4802 ENCOUNTER 01-14-2017 [facility] FOR REMOVAL [facility] OF SUTURES INC [id number] LACERATION 01-05-2017 [facility] W/O FB N EMERGENCY OTHER PART PHYS HEAD INITIAL ENC [id number] CONTUSION 01-05-2017 [facility] RT FRONT N EMERGENCY WALL THORAX PHYS INITIAL ENCOUNTER [id number] LACERATION 01-05-2017 [facility] W/O FB LT N EMERGENCY SHOULDER PHYS INITIAL ENC [id number] CONTUSION 01-05-2017 [facility] OF LEFT HIP N EMERGENCY INITIAL PHYS ENCOUNTER 7231 CERVICALGIA 11-23-2011 [facility] 8470 NECK SPRAIN 11-23-2011 [facility] E9270 OVEREXERTIO 11-23-2011 [place] N FROM MEDICAL [facility]DEN [facility] STRENUOUS MOVEMENT 5950 ACUTE 06-25-2011 [facility] 9390 FOREIGN 12-12-2010 [facility] BODY IN GENERAL BLADDER AND SURGERY URETHRA 5921 CALCULUS OF 12-09-2010 [facility] URETER GENERAL SURGERY 591 HYDRONEPHRO 12-08-2010 [facility] 33580 OTHER 12-08-2010 [facility] 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 5990 URINARY 12-08-2010 [facility] TRACT [facility] INFECTION SERVICES SITE NOT SPECIFIED 09805 FEVER 12-08-2010 [facility] UNSPECIFIED GENERAL SURGERY 7880 RENAL COLIC 12-08-2010 [facility] 73720 ABDOMINAL 12-08-2010 [place] PAIN OTHER GENERAL SPECIFIED SURGERY SITE 5920 CALCULUS OF 09-28-2010 [facility] 7919 OTHER 09-28-2010 [place] NONSPECIFIC REGIONAL FINDING MEDICAL EXAMINATION OF URINE V1301 PERSONAL 09-28-2010 [facility] HISTORY OF REGIONAL URINARY MEDICAL CALCULI 86203 NAUSEA WITH 03-29-2010 [place] VOMITING [facility] 56663 ABDOMINAL 03-29-2010 [place] PAIN, REGIONAL UNSPECIFIED MEDICAL SITE CENTER 5959 UNSPECIFIED 03-21-2010 [facility] 90930 HEMATURIA 03-18-2010 [facility] UNSPECIFIED [facility]OLOGY ASSOCIATES PSC 7936 NONSPEC ABN 03-18-2010 [facility] FINDNG RAD RADIOLOGY & OTH EXAM [facility]OCIATES ABDOMINAL PSC AREA 7172 DERANGEMENT 10-23-2009 [facility] KUMAR [facility] 46044 PAIN IN 10-23-2009 [facility] JOINT, H LOWER LEG ANESTHESIA PSC 8360 TEAR MEDIAL 10-23-2009 [facility] CURRENT 8362 OTHER TEAR 09-05-2009 [facility] PRIMARY OR [facility]ENTERINC CURRENT 8363 CLOSED 06-21-2009 [facility] Medications [...] 05 06 14 7 00 EA Ac VA 71 -0 -[address] ti [...] OB NC Y GY E N FA CO LY HE AL TH 53 03 03 [...] OB KIMO CE SE TA GY PH CO N R NO FA PH CO EN LY 5- HE 32 AL 5 TH HY 00 01 01 2 20 3 MA [address] 40 -1 -1 .0 YS 05 NN ti OC 60 4- 7- 00 78 IS ve OD 36 20 20 LL 8 ON ON 50 11 11 E -A 1 OB KIMO CE SE TA GY PH CO N R NO FA PH CO EN LY 5- HE 32 AL 5 TH HY 00 01 01 2 20 3 MA [address] 40 -1 -1 .0 YS 05 NN ti OC 60 4- 4- 00 78 IS ve OD 36 20 20 LL 8 ON ON 50 11 11 E -A 1 OB KIMO CE SE TA GY PH CO N R NO FA PH CO EN LY 5- HE 32 AL 5 TH VA 68 01 01 0 20 5 MA 60 DE Ac OM 38 -1 -1 .0 YS 35 NN ti ET 20 4 4 97 IS ve MCKEON 04 20 20 LL 3 ON ZI 10 11 11 E NE 1 OB KIMO SE 25 GY PH N R MG FA CO TA LY BL ET HE AL 00 12 01 2 30 3 MA 40 DE Ac 40 -3 -0 .0 SO 45 NN ti 60 1 6 00 N 67 IS ve 35 20 20 FA ON 70 10 11 CO [address] PH UG R 00 12 01 2 30 3 MA 40 DE Ac 60 -3 -0 .0 SO 45 NN ti 33 N 67 IS ve 88 20 20 FA ON 13 10 11 CO [address] PH UG R VA 68 12 12 0 12 2 MA 62 DE Ac OM 38 -3 -3 .0 SO 78 NN ti ET 20 N 77 IS ve MCKEON 04 20 20 FA ON ZI 10 10 10 CO NE 1 LY KIMO SE [address] DR PH UG R MG TA BL ET 00 12 12 2 30 3 MA 40 DE Ac 60 -3 -3 .0 SO 45 NN ti 33 N 67 IS ve 88 20 20 FA ON 13 10 10 CO [address] PH UG R PE 00 12 12 0 40 10 MA 60 Ac NI 78 -0 -0 .0 YS 34 TT ti CI 11 37 MA ve LL 65 20 20 LL 6 N IN 50 10 10 E NA 1 OB NC VK Y GY E 50 N 0 FA MG CO LY TA BL HE ET AL NA 09 11 1 60 30 MA 60 Ac VA 46 -2 -1 .0 YS 30 TT ti OX 20 2- 6- 00 48 MA ve EN 19 20 20 LL 2 N 00 10 10 E NA 50 5 OB NC 0 Y MG GY E N TA FA BL CO ET LY HE AL NA 09 09 1 60 30 MA 60 Ac VA 46 -2 -2 .0 YS 30 TT ti OX 20 2- 2- 00 48 MA ve EN 19 20 20 LL 2 N 00 10 10 E NA 50 5 OB NC 0 Y MG GY E N TA FA BL CO ET LY HE VA 07 08 1 20 3 MA 60 DE Ac OM 38 -1 -0 .0 YS 27 NN ti ET 20 3- 3- 00 20 IS ve MCKEON 04 20 20 LL 9 ON ZI 10 10 10 E NE 1 OB KIMO SE 25 GY PH N R MG FA CO TA LY BL ET HE AL 00 07 07 2 20 3 MA 40 DE Ac 59 -1 -1 .0 YS 04 NN ti 10 3- 6- 00 59 IS ve 34 20 20 LL 9 ON 90 10 10 E 5 OB KIMO SE GY PH N R FA CO LY HE AL 00 07 07 2 20 2 MA 40 DE Ac 59 -1 -1 .0 YS 04 NN ti 10 3- 3- 00 59 IS ve 34 20 20 LL 9 ON 90 10 10 E 5 OB KIMO SE GY PH N R FA CO LY HE AL VA 68 07 07 1 20 3 MA 60 DE Ac OM 38 -1 -1 .0 YS 27 NN ti ET 20 3- 3- 00 20 IS ve MCKEON 04 20 20 LL 9 ON ZI 10 10 10 E NE 1 OB KIMO SE 25 GY PH N R MG FA CO TA LY BL ET HE AL CI 68 07 07 1 40 20 MA 60 DE Ac VA 08 -1 -1 .0 YS 27 NN ti OF 40 3- 3 00 21 IS ve LO 07 20 20 LL 0 ON XA 00 10 10 E CI 1 OB KIMO N SE HC GY PH L N R 50 FA 0 CO MG LY TA HE B AL 00 [...] W TA GY BL N ET FA CO LY HE AL TH 65 06 06 0 6. 2 MA 60 FI Ac 16 -2 -2 00 YS 26 NL ti 20 3- 3- 0 42 EY ve 52 20 20 LL 7 01 10 10 E PA 0 OB UL W GY N FA CO LY HE AL TH CI 55 06 06 0 20 10 MA 60 FI Ac VA 11 -2 -2 .0 YS 26 NL ti OF 10 3- 3- 00 42 EY ve LO 12 20 20 LL 8 XA 60 10 10 E PA CI 1 OB UL N W HC GY L N 25 FA 0 CO MG LY TA HE B AL TH [...] AM GY E PO N O FA CO LY HE AL TH NA 68 04 03 2 60 30 MA 60 KE Ac VA 46 -2 -1 .0 YS 09 EF ti OX 20 0- 0- 00 49 ve EN 19 20 20 LL 5 KI 00 09 10 E MB 50 5 OB ER 0 LY MG GY N TA FA BL CO ET LY HE AL 00 01 02 00 30 5 MA 40 MCKEON Ac 59 -2 -1 .0 YS 03 RR ti 10 5- 1- 00 65 IS ve 34 20 20 LL 9 90 10 10 E CH 5 OB AR /G LO YN TT E FA J CO LY HE AL TH VA 68 01 02 00 30 8 MA 60 MCKEON Ac OM 38 -2 -1 .0 YS 19 RR ti ET 20 5- 1- 00 86 IS ve MCKEON 04 20 20 LL 5 ZI 10 10 10 E CH NE 1 OB AR /G LO 25 YN TT E MG FA J CO TA LY BL ET HE AL TH 00 01 01 01 30 5 MA 40 MCKEON Ac 59 -1 -2 .0 YS 03 RR ti 10 2- 8- 00 57 IS ve 34 20 20 LL 3 90 10 10 E CH 5 OB AR /G LO YN TT E FA J CO LY HE AL TH 00 01 01 00 30 5 MA 40 MCKEON Ac 59 -1 -2 .0 YS 03 RR ti 10 2- 8- 00 57 IS ve 34 20 20 LL 3 90 10 10 E CH 5 OB AR /G LO YN TT E FA J CO LY HE AL TH NA 68 04 01 01 60 30 MA 60 KE Ac VA 46 -2 -2 .0 YS 09 EF ti OX 20 0- 8- 00 49 ve EN 19 20 20 LL 5 KI 00 09 10 E MB 50 5 OB ER 0 /G LY MG YN TA FA BL CO ET LY HE AL TH 00 12 12 00 60 10 MA 40 Ac 59 -0 -1 .0 YS 03 TT ti 10 8- 7- 00 40 MA ve 34 20 20 LL 3 N 90 09 09 E NA 5 OB NC /G Y YN E FA CO LY HE AL TH IN 00 12 12 00 60 20 MA 60 MA Ac DO 09 -0 -1 .0 YS 17 RK ti ME 34 7- 7- 00 76 ES ve TH 02 20 20 LL 6 BE AC 90 09 09 E RY IN 1 OB /G MCKEON 25 YN RO LD MG FA V CO CA LY PS UL HE E AL TH LI 60 10 11 00 60 3 MA 60 Ac ND 43 -2 -0 .0 YS 16 TT ti AN 20 9- 5- 00 17 MA ve E 83 20 20 LL 3 N 1% 36 09 09 E NA 0 OB NC LO /G Y TI YN E ON FA CO LY HE AL TH 49 09 10 00 20 5 MA 60 JUNIOR Ac 88 -2 -0 .0 YS 14 LL ti 40 3- 8- 00 68 IV ve 77 20 20 LL 3 AN 70 09 09 E 5 OB CH /G RI YN ST IN FA A CO M LY HE AL TH TR 65 09 10 00 20 3 MA 40 JUNIOR Ac AM 16 -2 -0 .0 YS 02 LL ti AD 20 3- 8- 00 99 IV ve OL 62 20 20 LL 5 AN 71 09 09 E HC 1 OB CH L /G RI [address] IN MG FA A CO M TA LY BL ET HE AL TH NA 68 04 05 00 60 30 MA 60 KE Ac VA 46 -2 -0 .0 YS 09 EF ti OX 20 0- 7- 00 49 ve EN 19 20 20 LL 5 KI 00 09 09 E MB 50 5 OB ER 0 /G LY MG YN TA FA BL CO ET LY HE AL TH OV 51 [...] 0 OB S /G E YN FA CO LY HE AL TH 00 01 01 00 10 3 MA 40 AD Ac 59 -0 -1 .0 YS 01 AM ti 10 6- 5- 00 74 S ve 34 20 20 LL 7 JA 90 09 09 E ME 5 OB S /G E YN FA CO LY HE AL TH Procedures Procedure DOS Code Location Performer Comment URNLS DIP [address] [facility] STICK/TAB INC [place] [address] [place] CLADERÓN ABDOMEN & 7 MEDICAL PELVIS IMAGING W/O ASS CONTRAST MATERIAL COMPREHEN [address] SIVE 7 [facility] METABOLIC INC INC PANEL THERAPEUT [address] IC 7 [facility] INJECTION INC INC IV PUSH EACH NEW DRUG BLOOD [address] COUNT 7 [facility] COMPLETE INC INC AUTO&AUTO DIFRNTL WBC THER [address]99 [facility] PROPH/DX 7 [facility] NJX IV INC INC PUSH SINGLE/1S T SBST/DRUG SMPL RPR 14723 [facility] SCALP/NEC 7 JAC[facility] K/AX/[facility] T/TRUNK PHYS 20.1-30.0 CM SIMPLE 68440 [facility] REPAIR 7 JACI F/E/E/N/L EMERGENCY /M PHYS 2.6CM-[place].[address] [place] [address] [place] JAMEE CERVICAL 2 MEDICAL TORRES SPINE W/O IMAGING CONTRAST ASS MATERIAL 3D 01995 [place] JAMEE RENDERING 2 MEDICAL TORRES IMAGING W/INTERP& ASS POSTPROC DIFF WORK STATION INJECTION J0696 [facility]J DUNLAPBER 1 PRIMARY Y BILLY CEFTRIAXO CARE NE SODIUM CENTER PER 250 MG THERAPEUT 94753 BJ DUNLAPTRISH IC 1 PRIMARY Y BILLY PROPHYLAC CARE TIC/DX CENTER INJECTION SUBQ/IM CYSTO 22204 KENISHA RIGO W/URETERO 1 W GENERAL J. SCOPY SURGERY W/RMVL/MA [place] STONES CYSTO 40563 LATONIADOWVIE RIGO W/INSERT 1 W GENERAL J. URETERAL SURGERY STENT ANES 96712 [facility] BRAUGHTON TRURL 1 LTH [facility] FRAGMNTJ ANESTHESI MANJ&/RMV A PSC L URETERAL CALCULUS RADEX 02533 [facility] ABDOMEN 1 1 [facility] [place] [address] [facility] ABDOMEN & 1 EIDER KIMBERLEY PELVIS RADIOLOGY W/O ASSOCIAT CONTRAST MATERIAL INITIAL 12050 [facility] 1 W GENERAL J. CARE/DAY SURGERY 50 MINUTES 3D 46854 [facility] RENDERING 1 EIDER KIMBERLEY W/INTERP RADIOLOGY & ASSOCIAT POSTPROCE SS SUPERVISI ON THERAPEUT 05884 KENISHA LIUWVIE IC 0 W W INJECTION REGIONAL REGIONAL IV PUSH MEDICAL MEDICAL EACH NEW DRUG BLOOD 62845 MEADOW[facility]IE MEADOWVIE COUNT 0 W W COMPLETE REGIONAL REGIONAL AUTO&AUTO MEDICAL MEDICAL DIFRNTL WBC CULTURE 16364 MEADOW[facility]IE MEADOWVIE BACTERIAL 0 W W REGIONAL REGIONAL QUANTTATI MEDICAL MEDICAL VE COLONY COUNT URINE CT PELVIS 23425 [facility] W/O 0 [facility] CONTRAST RADIOLOGY MATERIAL ASSOCIAT THER 89628 MEADOWVIE MEADOWVIE PROPH/DX 0 W W NJX IV REGIONAL REGIONAL PUSH MEDICAL MEDICAL SINGLE/1S T SBST/DRUG URNLS DIP 54447 MEADOWVIE MEADOWVIE 0 W W STICK/TAB REGIONAL REGIONAL LET MEDICAL MEDICAL REAGENT AUTO MICROSCOP Y RADEX 46093 [facility] ABDOMEN 1 0 [facility] ANTEROPOS ASSOCIAT [place] 3D 77517 [facility] RENDERING 0 [facility] W/INTERP RADIOLOGY & [place] [address] [facility] ABDOMEN 0 [facility] W/[place] [address] MEADOWVIE MEADOWVIE INFUSION 0 W W HYDRATION REGIONAL [facility] ADDITIONA L HOUR BASIC 80316 MEADOWVIE MEADOWVIE METABOLIC 0 W W PANEL REGIONAL [facility] CALCIUM MEDICAL MEDICAL TOTAL COLLECTIO 06247 MEADOW[facility]IE MEADOWVIE N VENOUS 0 W W BLOOD [facility] V[facility]IP[facility]CT [facility] MEDICAL URE FLUOROSCO 78958 MEADOW[facility]IE MEADOWVIE PY SPX UP 0 W W TO 1 REGIONAL [facility] MEDICAL PHYS/QHP TIME ANES 49168 [facility] LIAM TRURL 0 [facility] MANJ&/RMV A PSC L URETERAL CALCULUS [facility] 14992 MEADOWVIE RIGO DISCHARGE 0 W GENERAL J. DAY SURGERY MANAGEMEN T 30 MIN/< CYSTO 26939 MEAD[facility]IE RIGO, W/URETERO 0 W GENERAL J. SCOPY SURGERY ANDI Saleem W/RMVL/MA [place] STONES CYSTO 12183 [facility]IE RIGO, W/INSERT 0 W GENERAL J. URETERAL SURGERY ANDI R STENT CALCULUS 40498 MEADOWVIE MEADOWVIE QUANTITAT 0 W W PA REGIONAL [facility] CHEMICAL MEDICAL MEDICAL BLOOD 64636 MEADOWVIE MEADOWVIE COUNT 0 W W COMPLETE REGIONAL REGIONAL AUTO&AUTO MEDICAL MEDICAL DIFRNTL WBC THERAPEUT 81309 MEADOWVIE MEADOWVIE IC 0 W W INJECTION REGIONAL REGIONAL IV PUSH MEDICAL MEDICAL EACH NEW DRUG CYSTO 57651 MEADOWVIE MEADOWVIE W/INSERT 0 W W URETERAL REGIONAL REGIONAL STENT MEDICAL MEDICAL CYSTO 39777 MEADOWVIE MEADOWVIE W/URETERO 0 W W SCOPY REGIONAL REGIONAL W/RMVL/MA MEDICAL MEDICAL [place] STONES THER 45048 MEADOWVIE MEADOWVIE PROPH/DX 0 W W NJX IV REGIONAL REGIONAL PUSH MEDICAL MEDICAL SINGLE/1S T SBST/DRUG INITIAL 10448 [facility] 0 W GENERAL J. CARE/DAY SURGERY 50 MINUTES URNLS DIP 65017 MEADOWVIE MEADOWVIE 0 W W STICK/TAB [facility] MEDICAL MEDICAL REAGENT AUTO MICROSCOP Y HOSPITAL G0378 MEADOWVIE MEADOWVIE OBSERVATI 0 W W ON [facility] SERVICE MEDICAL MEDICAL PER HOUR BASIC 02604 MEADOWVIE MEADOWVIE METABOLIC 0 W W PANEL [facility] CALCIUM MEDICAL MEDICAL TOTAL COLLECTIO 39071 MEADOWVIE MEADOWVIE N VENOUS 0 W W BLOOD [facility] [place] [address] MEADOWVIE MEADOWVIE INFUSION 0 W W HYDRATION [facility] ADDITIONA CENTER CENTER L HOUR URNLS DIP 13224 MEADOWVIE MEADOWVIE 0 W W STICK/TAB REGIONAL [facility] LET MEDICAL MEDICAL REAGENT CENTER CENTER AUTO MICROSCOP Y THERAPEUT 25657 MEADOWVIE MEADOWVIE IC 0 W W INJECTION REGIONAL REGIONAL IV PUSH MEDICAL MEDICAL [facility] DRUG THER 02055 MEADOWVIE MEADOWVIE PROPH/DX 0 W W NJX IV REGIONAL [facility] PUSH MEDICAL MEDICAL SINGLE/1S CENTER CENTER T SBST/DRUG CULTURE 56907 MEADOWVIE MEADOWVIE BACTERIAL 0 W W [facility] MED[facility] VE COLONY CENTER CENTER COUNT URINE CT PELVIS 29201 MEADOWVIE MEADOWVIE W/O 0 W W CONTRAST REGIONAL [facility] MATERIAL MEDICAL MEDICAL CENTER CENTER THER 82420 MEADOWVIE MEADOWVIE PROPH/DX 0 W W NJX IV REGIONAL [facility] MEDICAL MEDICAL SINGLE/1S CENTER CENTER T SBST/DRUG THERAPEUT 13877 MEADOWVIE MEADOWVIE IC 0 W W INJECTION REGIONAL REGIONAL IV PUSH MEDICAL MEDICAL [facility] DRUG URNLS DIP 86103 MEADOWVIE MEADOWVIE 0 W W STICK/TAB REGIONAL [facility] LET MEDICAL MEDICAL REAGENT CENTER CENTER AUTO MICROSCOP Y CULTURE 98237 NOEWMILAIDS ILUWVIE BACTERIAL 0 W W [facility] MEDICAL VE COLONY CENTER CENTER COUNT URINE CT PELVIS 81745 [facility] 0 EIDER, W/CONTRAS RADIOLOGY [place] [address] [facility] ABDOMEN 0 EIDER, W/O RADIOLOGY MIRTHA CONTRAST K MATERIAL ASSOCIATE S PSC 3D 30869 [facility] RENDERING 0 EIDER, W/INTERP RADIOLOGY MIRTHA & K POSTPROCE ASSOCIATE SS S PSC SUPERVISI ON ANESTH 81835 [facility] SHERWIN, DIAGNOSTI 0 [facility] KORI Lopez ANESTHESI ARTHROSCO A [facility] PIC PROC KNEE JOINT ARTHRS 21457 JOSÉ KUMAR, NADINE SURG 0 JAMARI JAMARI W/MENISCE J J CTOMY MED/LAT W/SHVG MRI ANY 86629 MEADOWMILADIS LINCOLNWVIE JT LOWER 9 W W [facility] W/O MEDICAL MEDICAL CONTRAST CENTER CENTER MATRL Encounters Encounter Start End Date Code Location Performer Type Date OFFICE 12323 [facility] WATT 7 7 PHYSICIAN T NEW 20 S GROUP MINUTES EMERGENCY 18839 [facility]ERENA CARRILLO DEPT 7 7 PHYSICIAN VISIT S, PLLC HIGH SEVERITY& THREAT [facility] - 7 7 [facility] OUTPATIEN INC T EMERGENCY 12534 [facility] 7 7 [facility] DEPARTMEN INC T VISIT HIGH/URGE NT SEVERITY OFFICE 49702 [facility] WATT 7 7 [facility] T VISIT INC 10 MINUTES HOSPITAL [facility] - 7 7 [facility] OUTPATIEN INC T EMERGENCY 90388 [facility] 7 7 JACI DEPARTMEN EMERGENCY T VISIT PHYS HIGH/URGE NT SEVERITY EMERGENCY 44089 [facility] 2 2 [facility] DEPARTMEN INC T VISIT LOW/MODER SEVERITY HOSPITAL [facility] - 2 2 [facility] 37224 JOHANNA NGUYEN DEPT 2 2 EMERGENCY VISIT SERVICES HIGH SEVERITY& THREAT [facility] OFFICE 60761 BJ CROW CHARMAINE OUTPATIEN 1 1 PRIMARY Y BILLY T VISIT CARE 15 [facility] OFFICE 29246 MARTHAMILADIS SIERRA OUTPATIEN 1 1 W GENERAL J. T VISIT 5 SURGERY MINUTES EMERGENCY 42760 JOHANNA CAST DEPT 1 1 EMERGENCY JAM VISIT SERVICES HIGH SEVERITY& THREAT [facility] MEAWVIE - 0 0 W OUTPATIEN [facility] T MEDICAL EMERGENCY 62921 MEAWVIE 0 0 W [facility] T VISIT MEDICAL HIGH/URGE NT SEVERITY EMERGENCY 57263 JOHANNA PEREZ DEPT 0 0 EMERGENCY CHR VISIT SERVICES HIGH SEVERITY& THREAT [facility] MEAWALLYVIE - 0 [facility] EMERG[facility] 65460 JOHANNA PEREZ DEPT 0 0 EMERGENCY CHR VISIT SERVICES HIGH SEVERITY& THREAT [facility] OFFICE 17387 KENISHA SIERRA, OUTPATIEN 0 0 W GENERAL J. T VISIT SURGERY ANDI R 10 MINUTES OFFICE 48484 BJ MARTINEZ, OUTPATIEN 0 0 PRIMARY LUIS E T VISIT CARE 15 [facility] MEAWVIE - 0 0 W OUTPATIEN REGIONAL [facility] MEDICAL CENTER EMERGENCY 62145 MARTHAVIE 0 0 W [facility] REGIONAL T VISIT MEDICAL HIGH/URGE CENTER NT SEVERITY EMERGENCY 01424 JOHANNA PEREZ DEPT 0 0 EMERGENCY VISIT SERVICES ISMAEL HIGH SEVERITY& ASSOCIATE THREAT S FUN EMERGENCY 99182 JOHANNA RIGGINS, 0 0 EMERGENCY DAVID W DEPARTMEN SERVICES T VISIT HIGH/URGE ASSOCIATE NT S SEVERITY EMERGENCY 44712 MEAWVIE 0 0 W [facility] VISIT MEDICAL HIGH/URGE CENTER NT [facility] MEADOWVIE - 0 0 W [facility] EMERGENCY 67925 Gaston VILLAREAL DEPT 0 0 EMERGENCY VISIT SERVICES HIGH SEVERITY& ASSOCIATE THREAT S [facility] MEADOWVIE - 0 0 W [facility] OFFICE 88154 JOSÉ KUMAR, CONSULTAT 0 0 JAMARI Morrison NEW/ESTAB PATIENT 40 MIN OFFICE 20912 ALYSA ENGLE 9 9 PRIMARY EDUIN E T VISIT CARE 10 [facility] KENISHA - 9 9 W [facility] EMERGENCY 41204 JOHANNA PEREZ, 9 9 EMERGENCY DEPARTMEN SERVICES SCIENTOLOGIST T VISIT MODERATE ASSOCIATE SEVERITY S OFFICE 76221 ALYSA NGUYEN 9 9 PRIMARY [address]
--- OUTSIDE RECORDS SUMMARY | 2017-07-09 21:44 | External Medical Summary Rpt ---
Demographics Preferred Language Beninese Marital Status Unknown Taoist Affiliation Unknown Race Unknown Ethnic Group Unknown Author Author , CHONG SCHWARZ Address Unknown Phone [email or web address] Immunization Name Date Rout CVX Reac Dose Comm Prov Is Faci e tion ent ider Refu lity Give sed n Td 06-2 9 999 Hist H201 No H201 (lin 4-19 [facility] lt), 97 al Info adso rmat rbed ion - Sour ce Unsp ecif ied
--- OUTSIDE RECORDS SUMMARY | 2017-07-09 21:44 | External Medical Summary Rpt ---
Demographics Preferred Language Tanzanian Marital Status Unknown Holiness Affiliation Unknown Race Unknown Ethnic Group Unknown Author Author , CHONG SCHWARZ Address Unknown Phone [email or web address] Immunization Name Date Rout CVX Reac Dose Comm Prov Is Faci e tion ent ider Refu lity Give sed n Td 06-2 9 999 Hist H201 No H201 (lin 4-19 [facility] lt), 97 al Info adso rmat rbed ion - Sour ce Unsp ecif ied
--- OUTSIDE RECORDS SUMMARY | 2017-07-09 21:44 | External Medical Summary Rpt ---
Author Author [employer] Kaufman, [employer] Organization [employer] Address Unknown Phone Unavailable Results Comprehensive metabolic 2000 panel in Serum or Plasma Observa Value Referen Units Interpr Notes Date tion ce etation Range Albumin/G 1.1 - 1.8 No Normal No Oct 1 lobulin informati informati 2017 2:15 [Mass on in on in PM ratio] in source source Serum or data data Plasma Albumin 3.4 - 5.0 gm/dL Normal No Oct 1 [Mass/vol informati 2017 2:15 ume] in on in PM Serum or source Plasma data Alkaline 46 - 116 U/L Normal No Oct 1 phosphata informati 2017 2:15 se on in PM [Enzymati source c data activity/ volume] in Serum or Plasma Bilirubin 0.2 - 1.0 mg/dL Normal No Oct 1 .total informati 2017 2:15 [Mass/vol on in PM ume] in source Serum or data Plasma Urea 7 - 18 mg/dL Normal No Oct 1 nitrogen informati 2017 2:15 [Mass/vol on in PM ume] in source Serum or data Plasma Calcium 8.5 - mg/dL Normal No Oct 1 [Mass/vol 10.1 informati 2017 2:15 ume] in on in PM Serum or source Plasma data Chloride 98 - 107 mmoL/L Normal No Oct 1 [Moles/vo informati 2017 2:15 lume] in on in PM Serum or source Plasma data Carbon 21.0 - mmoL/L Normal No Oct 1 dioxide, 32.0 informati 2017 2:15 total on in PM [Moles/vo source lume] in data Serum or Plasma Creatinin 0.70 - mg/dL Normal No Oct 1 e 1.30 informati 2017 2:15 [Mass/vol on in PM ume] in source Serum or data Plasma Creatinin 50 - 200 ML/MIN Normal No Oct 1 e renal informati 2017 2:15 clearance on in PM source predicted data by Cockcroft -Gault formula Estimated >60 ML/MIN No REFERENCE Oct 1 informati RANGE: 2017 2:15 glomerula on in >60 PM r source ML/MIN/1. filtratio data 73 SQUARE n rate METERSIf (GF this patient is -A merican, then multiply theresult by 1.210. Globulin 1.3 - 3.2 gm/dL Normal No Jun 29 [Mass/vol informati 2016 2:15 ume] in on in PM Serum source data Glucose 74 - 106 mg/dL Normal No Jun 29 [Mass/vol informati 2016 2:15 ume] in on in PM Serum or source Plasma data Potassium 3.5 - 5.1 mmoL/L Normal No Jun 29 inform2016 2:15 [Moles/vo on in PM lume] in source Serum or data Plasma Sodium 136 - 145 mmoL/L Normal No Jun 29 [Moles/vo informati 2016 2:15 lume] in on in PM Serum or source Plasma data Aspartate 15 - 37 U/L Normal No Jun 29 inform2016 2:15 aminotran on in PM sferase source [Enzymati data c activity/ volume] in Serum or Plasma Alanine 12 - 78 U/L Normal No Jun 29 aminotran informati 2016 2:15 sferase on in PM [Enzymati source c data activity/ volume] in Serum or Plasma Protein 6.4 - 8.2 gm/dL Normal No Jun 29 [Mass/vol informati 2016 2:15 ume] in on in PM Serum or source Plasma data CBC W Auto Differential panel in Blood Observa Value Referen Units Interpr Notes Date tion ce etation Range Basophils 0 - 0.2 K/MM3 Normal No Jun 29 inform2016 2:15 [#/volume on in PM ] in source Blood by data Automated count Basophils 0.1 - 2.0 % Normal No Jun 29 / informati 2016 2:15 leukocyte on in PM s in source Blood by data Automated count Eosinophi 0.0 - 0.4 K/mm3 Normal No Jun 29 ls informati 2016 2:15 [#/volume on in PM ] in source Blood by data Automated count Eosinophi 0.1 - % Normal No Jun 29 ls/100 12.0 informati 2016 2:15 leukocyte on in PM s in source Blood by data Automated count Granulocy 1.3 - 8.0 K/mm3 Normal No Jun 29 carson informati 2016 2:15 [#/volume on in PM ] in source Blood by data Automated count Granulocy 37.0 - % Normal No Jun 29 carson/100 80.0 informati 2016 2:15 leukocyte on in PM s in source Blood by data Automated count Hematocri 42.0 - % Normal No Jun 29 t [Volume 52.0 informati 2016 2:15 on in PM Fraction] source of Blood data Hemoglobi 14.1 - g/dL Normal No Jun 29 n 18.0 informati 2016 2:15 [Mass/vol on in PM ume] in source Blood data Lymphocyt 0.7 - 4.5 K/mm3 Normal No Jun 29 es informati 2016 2:15 [#/volume on in PM ] in source Unspecifi data ed specimen by Automated count Lymphocyt 10 - 50 % Normal No Jun 29 es inform2016 2:15 [#/volume on in PM ] in source Unspecifi data ed specimen by Automated count Erythrocy 27 - 31.2 pg High No Jun 29 te mean inform2016 2:15 corpuscul on in PM ar source hemoglobi data n [Entitic mass] Erythrocy 31.8 - g/dl Normal No Jun 29 te mean 35.4 informati 2016 2:15 corpuscul on in PM ar source hemoglobi data n concentra tion [Mass/vol ume] by Automated count Erythrocy 82.2 - fl Normal No Jun 29 te mean 97.8 informati 2016 2:15 corpuscul on in PM ar volume source [Entitic data volume] by Automated count Monocytes 0.1 - 1.0 K/mm3 Normal No Jun 29 informati 2016 2:15 [#/volume on in PM ] in source Blood by data Automated count Monocytes 1.7 - 9.3 % Normal No Jun 29 informati 2016 2:15 leukocyte on in PM s in source Blood by data Automated count Platelet 7.4 - fl Low No Jun 29 mean 10.4 informati 2016 2:15 volume on in PM [Entitic source volume] data in Blood by Automated count Platelets 142 - 424 K/mm3 Normal No Jun 29 informati 2016 2:15 [#/volume on in PM ] in source Blood data Erythrocy 4.6 - 6.2 M/mm3 Normal No Jun 29 carson informati 2016 2:15 [#/volume on in PM ] in source Amniotic data fluid Erythrocy 11.5 - % Normal No Jun 29 te 17.5 informati 2017 2:15 distribut on in PM ion width source [Entitic data volume] by Automated count Leukocyte 4.8 - K/MM3 Normal No Jun 29 s 10.8 informati 2017 2:15 [#/volume on in PM ] in source Blood data
== END 2017-06-29 15:32 | disposition home or self-care (01) ==
LOC: ER 11:14
PROVIDERS: General Practice
PROC: 0CQ1XZZ Repair Lower Lip, External Approach (ICD-10-PCS; principal; 2017-06-29)
PROC: 0CQ0XZZ Repair Upper Lip, External Approach (ICD-10-PCS; principal; 2017-06-29)
DX: S01.511A Laceration without foreign body of lip, initial encounter (principal); S02.2XXA Fracture of nasal bones, initial encounter for closed fracture; S20.211A Contusion of right front wall of thorax, initial encounter; V43.62XA Car passenger injured in collision with other type car in traffic accident, initial encounter; Y92.488 Other paved roadways as the place of occurrence of the external cause; F17.210 Nicotine dependence, cigarettes, uncomplicated

== ENCOUNTER 2017-07-04 17:26 | Emergency (ER) | payer SELFPAY ==
[~2017-07-04] VITALS: Ht 180.3 cm; Wt 81.6 kg
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
[2017-07-04 19:38] VITALS: BP 136/79
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
--- OUTSIDE RECORDS SUMMARY | 2017-07-11 08:46 | External Medical Summary Rpt | CCD ---
Author Author , CHONG SCHWARZ Address Unknown Phone Care Team Providers Care Pharmacist Apprentice Name Role Phone COLLEEN MACIAS Unavailable Unavailable BRAUGHTON ADELE, Unavailable Unavailable BRAUGHTON ADELE JAMEE TORRES, Unavailable Unavailable JAMEE TORRES RIGO THOMAS Unavailable Unavailable Agustín GARCIA Unavailable Unavailable RRIGO J. [facility]ALL R [facility] Unavailable Unavailable [place], [facility] CYNMAC[place]J DAVID RIGGINS, Unavailable Unavailable [...] INC CORNELIUS LUTHER, CORNELIUS Unavailable Unavailable LUTHER [facility], Unavailable Unavailable [facility] ALISE DEE KEEF, Unavailable Unavailable ALISE [facility] Unavailable Unavailable IMAGING ASS, [facility] [id number] # Unavailable Unavailable [phone], [facility] [id number] # [id number] [facility] Unavailable Unavailable [facility] BASSAM CERVANTES, Unavailable Unavailable BASSAM CERVANTES [facility] Unavailable Unavailable SERVICES, [facility], Unavailable Unavailable [facility] ADJUNCT INSTRUCTOR Unavailable Unavailable [facility] ADJUNCT INSTRUCTOR [facility] COAL [facility]ER Unavailable Unavailable [facility] Unavailable [facility]available [facility] Unavailable Unavailable SUR[facility], [facility] Unavailable Unavailable MEDICAL, [facility] Unavailable Unavailable MEDICAL CENTER, [facility] Unavailable Unavailable PLL, [facility], [facility] Gaston JEWELL N, Gaston JEWELL N Unavailable Unavailable [id number], Unavailable Unavailable [id number] Unavailable Unavailable EMERGENCY PHYS, [facility] PEREZ CHR, Unavailable Unavailable PEREZ CHR PEREZ, MUSLIM, Unavailable Unavailable PEREZ, MUSLIM PEREZ, ISMAEL, Unavailable Unavailable PEREZ, ISMAEL Purpose Continuity of Care Document - 10-13-2008 through 2016 Problems Code Diagnosis DOS Provider Status N200 CALCULUS OF 02-03-2017 [facility] Z720 TOBACCO USE 02-03-2017 [facility] N132 HYDRONEPHRO 01-30-2017 [facility] W/RENAL MEDICAL & URETRL IMAGING ASS CALCULOUS OBST N23 UNSPECIFIED 01-30-2017 [facility] RE[facility]YS[facility], COLIC [facility] R1031 RIGHT LOWER 01-30-2017 [facility] MED[facility] IM[facility] Z4802 ENCOUNTER 01-14-2017 [facility] FOR REMOVAL [facility] OF SUTURES INC [id number] LACERATION 01-05-2017 [facility] W/O FB N EMERGENCY OTHER PART PHYS HEAD INITIAL ENC [id number] CONTUSION 01-05-2017 [facility] RT FRONT N EMERGENCY WALL THORAX PHYS INITIAL ENCOUNTER [id number] LACERATION 01-05-2017 [facility] W/O FB LT N EMERGENCY SHOULDER PHYS INITIAL ENC [id number] CONTUSION 01-05-2017 [facility] OF LEFT HIP N EMERGENCY INITIAL PHYS ENCOUNTER 7231 CERVICALGIA 11-23-2011 [facility] 8470 NECK SPRAIN 11-23-2011 [facility] EMERGENCY SERVICES E9270 OVEREXERTIO 11-23-2011 [facility] [place] FROM [facility] STRENUOUS MOVEMENT 5950 ACUTE 06-25-2011 [facility] 9390 FOREIGN 12-12-2010 [facility] BODY IN GENERAL BLADDER AND SURGERY URETHRA 5921 CALCULUS OF 12-09-2010 [facility] URETER GENERAL SURGERY 591 HYDRONEPHRO 12-08-2010 [facility] 79589 OTHER 12-08-2010 [facility] 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 5990 URINARY 12-08-2010 [facility] SITE NOT SPECIFIED 87591 FEVER 12-08-2010 [facility] UNSPECIFIED GENERAL SURGERY 7880 RENAL COLIC 12-08-2010 [facility] 49591 ABDOMINAL 12-08-2010 [facility] PAIN OTHER GENERAL SPECIFIED SURGERY SITE 5920 CALCULUS OF 09-28-2010 [facility] 7919 OTHER 09-28-2010 [facility] NONSPECIFIC REGIONAL FINDING MEDICAL EXAMINATION OF URINE V1301 PERSONAL 09-28-2010 [facility] HISTORY OF REGIONAL URINARY MEDICAL CALCULI 00343 NAUSEA WITH 03-29-2010 [facility] VOMITING [facility] 53531 ABDOMINAL 03-29-2010 [facility] PAIN, REGIONAL UNSPECIFIED MEDICAL SITE CENTER 5959 UNSPECIFIED 03-21-2010 [facility] 46296 HEMATURIA 03-18-2010 [facility] UNSPECIFIED [facility]OCIATES PSC 7936 NONSPEC ABN 03-18-2010 [facility]NG [facility] RADIOLOG[facility] & OTH EXAM ASSOCIATES ABDOMINAL [facility] AREA 7172 DERANGEMENT 10-23-2009 PE[facility] KUMAR [facility] MEDIAL [facility]ISC[facility] 91182 PAIN IN 10-23-2009 [facility] JOINT, H LOWER LEG ANESTHESIA PSC 8360 TEAR MEDIAL 10-23-2009 [facility] CURRENT 8362 OTHER TEAR 09-05-2009 [facility] CURRENT 8363 CLOSED 06-21-2009 [facility] Medications [...] -1 4. YS 41 TT ti 00 9 84 MA ve 78 20 20 0 LL 9 N 00 11 11 E NA 8 OB NC Y GY E N FA MD LY HE AL TH 53 03 03 [...] OB KIMO CE SE TA GY PH MD N R NO FA PH MD EN LY 5- HE 32 AL 5 TH HY 00 01 01 2 20 3 MA [address] 40 -1 -1 .0 YS 05 NN ti OC 60 4- 7- 00 78 IS ve OD 36 20 20 LL 8 ON ON 50 11 11 E -A 1 OB KIMO CE SE TA GY PH MD N R NO FA PH MD EN LY 5- HE 32 AL 5 TH HY 00 01 01 2 20 3 MA [address] 40 -1 -1 .0 YS 05 NN ti OC 60 4- 4- 00 78 IS ve OD 36 20 20 LL 8 ON ON 50 11 11 E -A 1 OB KIMO CE SE TA GY PH MD N R NO FA PH MD EN LY 5- HE 32 AL 5 TH MO 68 01 01 0 20 5 MA 60 DE Ac OM 38 -1 -1 .0 YS 35 NN ti ET 20 97 IS ve MCKEON 04 20 20 LL 3 ON ZI 10 11 11 E NE 1 OB KIMO SE 25 GY PH N R MG FA MD TA LY BL ET HE AL TH 00 12 01 2 30 3 MA 40 DE Ac 40 -3 -0 .0 SO 45 NN ti 60 1 6 00 N 67 IS ve 35 20 20 FA ON 70 10 11 MD [address] PH UG R 00 12 01 2 30 3 MA 40 DE Ac 60 -3 -0 .0 SO 45 NN ti 33 3- 00 N 67 IS ve 88 20 20 FA ON 13 10 11 MD [address] PH UG R 00 12 12 2 30 3 MA 40 DE Ac 60 -3 -3 .0 SO 45 NN ti 33 N 67 IS ve 88 20 20 FA ON 13 10 10 MD [address] PH UG R MO 68 12 12 0 12 2 MA 62 DE Ac OM 38 -3 -3 .0 SO 78 NN ti ET 20 N 77 IS ve MCKEON 04 20 20 FA ON ZI 10 10 10 MD NE 1 LY KIMO SE 25 DR PH UG R MG TA BL ET PE 00 12 12 0 40 10 MA 60 Ac NI 78 -0 -0 .0 YS 34 TT ti CI 11 37 MA ve LL 65 20 20 LL 6 N IN 50 10 10 E NA 1 OB NC VK Y GY E 50 N 0 FA MG MD LY TA BL HE ET AL NA 09 11 1 60 30 MA 60 Ac MO 46 -2 -1 .0 YS 30 TT ti OX 20 2- 6- 00 48 MA ve EN 19 20 20 LL 2 N 00 10 10 E NA 50 5 OB NC 0 Y MG GY E N TA FA BL MD ET LY HE AL NA 68 09 09 1 60 30 MA 60 Ac MO 46 -2 -2 .0 YS 30 TT ti OX 20 2- 2- 00 48 MA ve EN 19 20 20 LL 2 N 00 10 10 E NA 50 5 OB NC 0 Y MG GY E N TA FA BL MD ET LY HE AL MO 68 07 08 1 20 3 MA 60 DE Ac OM 38 -1 -0 .0 YS 27 NN ti ET 20 3- 3- 00 20 IS ve MCKEON 04 20 20 LL 9 ON ZI 10 10 10 E NE 1 OB KIMO SE 25 GY PH N R MG FA MD TA LY BL ET HE AL 00 07 07 2 20 3 MA 40 DE Ac 59 -1 -1 .0 YS 04 NN ti 10 3- 6 00 59 IS ve 34 20 20 LL 9 ON 90 10 10 E 5 OB KIMO SE GY PH N R FA MD LY HE AL 00 07 07 2 20 2 MA 40 DE Ac 59 -1 -1 .0 YS 04 NN ti 10 3 00 59 IS ve 34 20 20 LL 9 ON 90 10 10 E 5 OB KIMO SE GY PH N R FA MD LY HE AL MO 68 07 07 1 20 3 MA 60 DE Ac OM 38 -1 -1 .0 YS 27 NN ti ET 20 3- 3- 00 20 IS ve MCKEON 04 20 20 LL 9 ON ZI 10 10 10 E NE 1 OB KIMO SE 25 GY PH N R MG FA MD TA LY BL ET HE AL CI 68 07 07 1 40 20 MA 60 DE Ac MO 08 -1 -1 .0 YS 27 NN ti OF 40 - 3 00 21 IS ve LO 07 20 20 LL 0 ON XA 00 10 10 E CI 1 OB KIMO N SE HC GY PH L N R 50 FA 0 MD MG LY TA HE B 00 07 07 0 14 14 EA 18 JUNIOR Ac 09 -0 -[address] 18 LL ti 37 1- - 00 SI 39 IV ve 33 20 [...] HC GY L N 25 FA 0 MD MG LY TA HE B 65 06 06 0 6. 2 MA 60 FI Ac 16 -2 -2 00 YS 26 NL ti 20 3- 3- 0 42 EY ve 52 20 20 LL 7 01 10 10 E PA 0 OB UL W GY N FA MD LY HE AL TH EN 60 06 06 0 12 6 MA 20 FI Ac DO 95 -2 -2 .0 YS 02 NL ti CE 10 3- 3- 00 49 EY ve T 60 20 20 LL 4 5- 28 10 10 E PA 32 5 OB UL 5 W TA GY BL N ET FA MD LY HE AL TH OX 53 06 06 0 [...] AM GY E PO N O FA MD LY HE AL NA 68 04 03 2 60 30 MA 60 KE Ac MO 46 -2 -1 .0 YS 09 EF ti OX 20 0- 0- 00 49 ve EN 19 20 20 LL 5 KI 00 09 10 E MB 50 5 OB ER 0 LY MG GY N TA FA BL MD ET LY HE AL 00 01 02 00 30 5 MA 40 MCKEON Ac 59 -2 -1 .0 YS 03 RR ti 10 5- 1- 00 65 IS ve 34 20 20 LL 9 90 10 10 E CH 5 OB AR /G LO YN TT E FA J MD LY HE AL TH MO 68 01 02 00 30 8 MA 60 MCKEON Ac OM 38 -2 -1 .0 YS 19 RR ti ET 20 5- 1- 00 86 IS ve MCKEON 04 20 20 LL 5 ZI 10 10 10 E CH NE 1 OB AR /G LO 25 YN TT E MG FA J MD TA LY BL ET HE AL NA 68 04 01 01 60 30 MA 60 KE Ac MO 46 -2 -2 .0 YS 09 EF ti OX 20 0- 8- 00 49 ve EN 19 20 20 LL 5 KI 00 09 10 E MB 50 5 OB ER 0 /G LY MG YN TA FA BL MD ET LY HE AL TH 00 01 01 00 30 5 MA 40 MCKEON Ac 59 -1 -2 .0 YS 03 RR ti 10 2- 8- 57 IS ve 34 20 20 LL 3 90 10 10 E CH 5 OB AR /G LO YN TT E FA J MD LY HE AL TH 00 01 01 01 30 5 MA 40 MCKEON Ac 59 -1 -2 .0 YS 03 RR ti 10 57 IS ve 34 20 20 LL 3 90 10 10 E CH 5 OB AR /G LO YN TT E FA J MD LY HE AL TH 00 12 12 00 60 10 MA 40 Ac 59 -0 -1 .0 YS 03 TT ti 10 40 MA ve 34 20 20 LL 3 N 90 09 09 E NA 5 OB NC /G Y YN E FA MD LY HE AL TH IN 00 12 12 00 60 20 MA 60 MA Ac DO 09 -0 -1 .0 YS 17 RK ti ME 34 76 ES ve TH 02 20 20 LL 6 BE AC 90 09 09 E RY IN 1 OB /G MCKEON 25 YN RO LD MG FA V MD CA LY PS UL HE E AL TH LI 60 10 11 00 60 3 MA 60 Ac ND 43 -2 -0 .0 YS 16 TT ti AN 20 9- 5- 17 MA ve E 83 20 20 LL 3 N 1% 36 09 09 E NA 0 OB NC LO /G Y TI YN E ON FA MD LY HE AL TH 49 09 10 00 20 5 MA 60 JUNIOR Ac 88 -2 -0 .0 YS 14 LL ti 40 3- 8- 00 68 IV ve 77 20 20 LL 3 AN 70 09 09 E 5 OB CH /G RI YN ST IN FA A MD M LY HE AL TH TR 65 09 10 00 20 3 MA 40 JUNIOR Ac AM 16 -2 -0 .0 YS 02 LL ti AD 20 3- 8- 99 IV ve OL 62 20 20 LL 5 AN 71 09 09 E HC 1 OB CH L /G RI [address] IN MG FA A MD M TA LY BL ET HE AL TH NA 68 04 05 00 60 30 MA 60 KE Ac MO 46 -2 -0 .0 YS 09 EF ti OX 20 0- 7- 00 49 ve EN 19 20 20 LL 5 KI 00 09 09 E MB 50 5 OB ER 0 /G LY MG YN TA FA BL MD ET LY HE AL TH OV 51 [...] 0 OB S /G E YN FA MD LY HE AL TH 00 01 01 00 10 3 MA 40 AD Ac 59 -0 -1 .0 YS 01 AM ti 10 6- 5- 00 74 S ve 34 20 20 LL 7 JA 90 09 09 E ME 5 OB S /G E YN FA MD LY HE AL Procedures Procedure DOS Code Location Performer Comment URNLS DIP [address] [facility] STICK/TAB INC INC LET REAGENT AUTO MICROSCOP Y COMPREHEN [address] SIVE 7 [facility] METABOLIC INC INC PANEL BLOOD [address] COUNT 7 [facility] COMPLETE INC INC AUTO&AUTO DIFRNTL WBC THERAPEUT [address] 7 [facility] INJECTION INC [place] [address] ABDOMEN & 7 [facility] PELVIS INC INC W/O CONTRAST MATERIAL THER [address] PROPH/DX 7 [facility] NJX IV INC INC PUSH SINGLE/1S T SBST/DRUG SMPL RPR 52008 [facility] SCALP/NEC 7 JACI K/AX/[facility] T/TRUNK PHYS 20.1-30.0 CM SIMPLE 56524 [facility] REPAIR 7 JACI F/E/E/N/L EMERGENCY /M PHYS 2.6CM-[place].[address] [place] [address] MAEVE MCFRALANE CERVICAL 2 [facility] SPINE W/O INC INC CONTRAST MATERIAL 3D 01802 [place] [facility] RENDERING 2 MEDICAL TORRES IMAGING W/INTERP& ASS POSTPROC DIFF WORK STATION INJECTION J0696 [facility]J DUNLAPTRISH 1 PRIMARY Y BILLY CEFTRIAXO CARE NE SODIUM CENTER PER 250 MG THERAPEUT 88737 BJ MONTANO IC 1 PRIMARY Y BILLY PROPHYLAC CARE TIC/DX CENTER INJECTION SUBQ/IM ANES 62578 COMMONFLETCHER WHEELER TRURL 1 [facility] FRAGMNTJ ANESTHESI MANJ&/RMV A PSC L URETERAL CALCULUS CYSTO 93247 [facility] RIGO W/INSERT 1 W GENERAL J. URETERAL SURGERY STENT CYSTO 48698 [facility] RIGO W/URETERO 1 W GENERAL J. SCOPY SURGERY W/RMVL/MA [place] STONES RADEX 16408 [facility] ABDOMEN 1 1 [facility] [place] [address] [facility] ABDOMEN & 1 EIDER KIMBERLEY PELVIS RADIOLOGY W/O ASSOCIAT CONTRAST MATERIAL INITIAL 90539 [facility] 1 W GENERAL J. CARE/DAY SURGERY 50 MINUTES 3D 00101 [facility] RENDERING 1 EIDER KIMBERLEY W/INTERP RADIOLOGY & ASSOCIAT POSTPROCE SS SUPERVISI ON 3D 57383 [facility] RENDERING 0 [facility] W/INTERP RADIOLOGY & ASSOCIAT POSTPROCE SS SUPERVISI ON BLOOD 33441 [facility] ME[facility] COUNT 0 W W COMPLETE REGIONAL REGIONAL AUTO&AUTO MEDICAL MEDICAL DIFRNTL WBC THERAPEUT 60018 [facility] MEADOWVIE IC 0 W W INJECTION REGIONAL REGIONAL [place] [address] [facility]AD[facility] MEADOWVIE INFUSION 0 W W HYDRATION REGIONAL REGIONAL EACH MEDICAL MEDICAL ADDITIONA L HOUR THER 55860 [facility] MEADOW[facility]IE PROPH/DX 0 W W NJX IV REGIONAL REGIONAL PUSH MEDICAL MEDICAL SINGLE/1S T SBST/DRUG URNLS DIP 64006 [facility] MEADOWVIE 0 W W STICK/TAB REGIONAL REGIONAL LET MEDICAL MEDICAL REAGENT AUTO MICROSCOP Y COLLECTIO 41904 KEN[facility] LIUWVIE N VENOUS 0 W W BLOOD [facility] [place] [address] MEADOWVIE MEADOW[facility]IE ABDOMEN 0 W W W/O [facility] CONTRAST MEDICAL MEDICAL MATERIAL RADEX 88921 MEAWMILADIS MEAWVIE ABDOMEN 1 0 W W [facility] ANTEROPOS MEDICAL MEDICAL [place] PELVIS 65940 MEADOW[facility]IE MEADOWVIE W/O 0 W W CONTRAST [facility] MATERIAL MEDICAL MEDICAL BASIC 33131 MEAWVIE [facility] METABOLIC 0 W W PANEL [facility] CALCIUM MEDICAL MEDICAL TOTAL CULTURE 09384 NOEWVIE MEADOWVIE BACTERIAL 0 W W [facility] 64705 KENISHA PAVONNISON DISCHARGE 0 W GENERAL J. DAY SURGERY MANAGEMEN T 30 MIN/< CYSTO 95168 KENISHA MASTERSON, W/URETERO 0 W GENERAL J. SCOPY SURGERY ANDI R W/RMVL/MA [place] STONES FLUOROSCO 15393 NOEWMILADIS LIUWVIE PY SPX UP 0 W W TO [address] [facility] MEDICAL MEDICAL PHYS/QHP TIME ANES 73173 COMMONFLETCHER WHEELER TRURL 0 LTH [facility] FRAGMNTJ ANESTHESI MANJ&/RMV A PSC L URETERAL CALCULUS CYSTO 84096 LATONIAWMILADIS RIGO, W/INSERT 0 W GENERAL J. URETERAL SURGERY ANDI R STENT CALCULUS 79069 MEAWVIE MEADOWVIE QUANTITAT 0 W W PA [facility] G0378 MEAWMILADIS MEADOWVIE OBSERVATI 0 W W ON [facility] SERVICE MEDICAL MEDICAL PER HOUR CYSTO 73456 MEADOW[facility]IE MEADOWVIE W/INSERT 0 W W URETERAL [facility] STENT MEDICAL MEDICAL THERAPEUT 11378 MEAWVIE MEADOWVIE IC 0 W W INJECTION [facility] IV PUSH MEDICAL MEDICAL EACH NEW DRUG BLOOD 45625 MEAWVIE MEADOW[facility]IE COUNT 0 W W COMPLETE REGIONAL REGIONAL AUTO&AUTO MEDICAL MEDICAL DIFRNTL WBC THER 45567 MEADOW[facility]IE MEADOWVIE PROPH/DX 0 W W NJX IV REGIONAL REGIONAL [facility] MEDICAL MEDICAL SINGLE/1S T SBST/DRUG URNLS DIP 45455 MEADOW[facility]IE MEADOWVIE 0 W W STICK/TAB REGIONAL REGIONAL LET MEDICAL MEDICAL REAGENT AUTO MICROSCOP Y INITIAL 78324 [facility] 0 W GENERAL J. CARE/DAY SURGERY 50 MINUTES COLLECTIO 18421 MEADOWVIE MEADOWVIE N VENOUS 0 W W BLOOD REGIONAL REGIONAL VENIPUNCT MEDICAL MEDICAL URE CYSTO 55660 MEADOW[facility]IE MEADOWVIE W/URETERO 0 W W SCOPY REGIONAL REGIONAL W/RMVL/MA MEDICAL MEDICAL NJ STONES BASIC 04300 MEADOW[facility]IE MEADOWVIE METABOLIC 0 W W PANEL [facility] CALCIUM MEDICAL MEDICAL TOTAL CULTURE 69156 MEADOW[facility]IE MEADOWVIE BACTERIAL 0 W W REGIONAL REGIONAL QUAN[facility]I MEDICAL MEDICAL [place] [address] MEADOW[facility]IE MEADOWVIE INFUSION 0 W W HYDRATION REGIONAL [facility] CENTER L HOUR URNLS DIP 10660 ME[facility]IE MEADOWVIE 0 W W STICK/TAB REGIONAL REGIONAL LET MEDICAL MEDICAL REAGENT CENTER CENTER AUTO MICROSCOP Y THER 38606 ME[facility] MEADOWVIE PROPH/DX 0 W W NJX IV REGIONAL REGIONAL PUSH MEDICAL MEDICAL SINGLE/1S CENTER CENTER T SBST/DRUG THERAPEUT 76215 MEADOW[facility]IE MEADOWVIE IC 0 W W INJECTION REGIONAL REGIONAL IV PUSH MEDICAL MEDICAL [facility] DRUG THERAPEUT 10858 MEADOWVIE MEADOWVIE IC 0 W W INJECTION REGIONAL REGIONAL IV PUSH MEDICAL MEDICAL [facility] DRUG 3D 26900 [facility] RENDERING 0 EIDER, W/INTERP RADIOLOGY MIRTHA & K POSTPROCE ASSOCIATE SS S PSC SUPERVISI ON THER 88372 MEADOW[facility]IE MEADOWVIE PROPH/DX 0 W W NJX IV REGIONAL REGIONAL [facility] MEDICAL MEDICAL SINGLE/1S CENTER CENTER T SBST/[place] [address] [facility] ABDOMEN 0 EIDER, W/O RADIOLOGY MIRTHA CONTRAST K MATERIAL ASSOCIATE S PSC CT PELVIS 71309 [facility] 0 EIDER, W/CONTRAS RADIOLOGY MIRTHA T K MATERIAL ASSOCIATE S PSC CULTURE 41993 ME[facility]IE MEADOWVIE BACTERIAL 0 W W REGIONAL [facility] QUANTTATI MEDICAL MEDICAL VE COLONY CENTER CENTER COUNT URINE CT PELVIS 47382 MEADOW[facility]IE MEADOWVIE W/O 0 W W CONTRAST REGIONAL REGIONAL MATERIAL MEDICAL MEDICAL CENTER CENTER URNLS DIP 04805 MEAD[facility]IE MEADOWVIE 0 W W STICK/TAB REGIONAL [facility] LET MEDICAL MEDICAL REAGENT CENTER CENTER AUTO MICROSCOP Y ANESTH 68655 COMMONWEA SHERWIN, DIAGNOSWILBERT 0 LTH KORI Lopez ANESTHESI ARTHROSCO A [facility] PIC PROC KNEE JOINT ARTHRS 61141 JOSÉ KUMAR, NADINE SURG 0 JAMARI JAMARI W/MENISCE J J CTOMY MED/LAT W/SHVG MRI ANY 97501 ME[facility] MEADOWVIE JT LOWER 9 W W EXTREM REGIONAL REGIONAL W/O MEDICAL MEDICAL CONTRAST CENTER CENTER MATRL Encounters Encounter Start End Date Code Location Performer Type Date OFFICE 73057 [facility] L[facility]NA WATT 7 7 PHYSICIAN T NEW 20 S GROUP MINUTES EMERGENCY 54020 VERENA CARRILLO DEPT 7 7 PHYSICIAN VISIT S, PLLC HIGH SEVERITY& THREAT FUNCJ EMERGENCY 71658 [facility] 7 7 [facility] DEPARTMEN INC T VISIT HIGH/URGE NT SEVERITY HOSPITAL [facility] - 7 7 [facility] OUTPATIEN INC T OFFICE 35341 [facility]E WATT 7 7 [facility] T VISIT INC 10 MINUTES HOSPITAL MAEVE - 7 7 [facility] OUTPATIEN INC T EMERGENCY 83200 [facility] 7 7 JACI DEPARTMEN EMERGENCY T VISIT PHYS HIGH/URGE NT SEVERITY HOSPITAL [facility] - 2 2 [facility] OUTPATIEN INC T EMERGENCY 86934 [facility] 2 2 [facility] T VISIT LOW/MODER SEVERITY EMERGENCY 82964 JOHANNA NGUYEN DEPT 2 2 EMERGENCY VISIT SERVICES HIGH SEVERITY& THREAT [facility] OFFICE 49817 BJ DUNLAPBER OUTPATIEN 1 1 PRIMARY Y BILLY T VISIT CARE 15 [facility] OFFICE 91892 KENISHA SIERRA OUTPATIEN 1 1 W GENERAL J. T VISIT 5 SURGERY MINUTES EMERGENCY 91266 JOHANNA CAST DEPT 1 1 EMERGENCY JAM VISIT SERVICES HIGH SEVERITY& THREAT [facility] EMERGENCY 86367 KENISHA 0 0 W [facility] VISIT MEDICAL HIGH/URGE NT SEVERITY EMERGENCY 62953 JOHANNA PEREZ DEPT 0 0 EMERGENCY CHR VISIT SERVICES HIGH SEVERITY& THREAT [facility] H[facility]PITAL MEAWVIE - 0 0 W [facility]ICAL [facility] 49930 KENISHA DEPT 0 0 W VISIT REGIONAL HIGH MEDICAL SEVERITY& THREAT [facility] MEAWVIE - 0 0 W [facility] 60371 KENISHA SIERRA OUTPATIEN 0 0 W GENERAL J. T VISIT SURGERY ANDI R 10 MINUTES OFFICE 72002 BJ MARTINEZ, OUTPATIEN 0 0 PRIMARY LUIS E T VISIT CARE 15 [facility] KENISHA - [facility] 25649 JOHANNA PEREZ DEPT 0 0 EMERGENCY VISIT SERVICES ISMAEL HIGH SEVERITY& ASSOCIATE THREAT S FUN EMERGENCY 80738 KENISHA 0 0 W [facility] VISIT MEDICAL HIGH/URGE CENTER NT SEVERITY EMERGENCY 70271 JOHANNA RIGGINS, 0 0 EMERGENCY DAVID W DEPARTMEN SERVICES T VISIT HIGH/URGE ASSOCIATE NT S SEVERITY EMERGENCY 91242 MEADOW[facility]IE 0 0 W [facility] REGIONAL T VISIT MEDICAL HIGH/URGE CENTER NT [facility] 51339 Gaston VILLAREAL DEPT 0 0 EMERGENCY VISIT SERVICES HIGH SEVERITY& ASSOCIATE THREAT S [facility] MEADOWVIE - 0 0 W [facility] OFFICE 85569 JOSÉ KUMAR, CONSULTAT 0 0 JAMARI Morrison NEW/ESTAB PATIENT 40 MIN OFFICE 72347 ALYSA ENGLE 9 9 PRIMARY EDUIN E T VISIT CARE 10 [facility] MEAWMILADIS - 9 9 W [facility] EMERGENCY 15943 JOHANNA PEREZ, 9 9 EMERGENCY DEPARTMEN SERVICES MUSLIM T VISIT MODERATE ASSOCIATE SEVERITY S OFFICE 56826 ALYSA NGUYEN 9 9 PRIMARY ALISE T NEW [address] [place], [place] [address]INC
--- OUTSIDE RECORDS SUMMARY | 2017-07-11 08:46 | External Medical Summary Rpt | CCD ---
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 RANDALL R [facility] Unavailable Unavailable [place], [facility] [place] DAVID RIGGINS, Unavailable [...] [facility] Unavailable Un[facility], [facility] CORNELIUS LUTHER, CORNELIUS Unavailable Unavailable LUTHER [facility], Unavailable Unavailable [facility] ALISE DEE KEEF, Unavailable Unavailable ALISE [facility] Unavailable Unavailable IMAGING [facility], [facility] [id number] # Unavailable Unavailable [phone], [facility] [id number] # 9684 [facility] Unavailable Unavailable [facility] BASSAM CERVANTES, Unavailable Unavailable BASSAM CERVANTES [facility] Unavailable Unavailable SERVICES, [facility], Unavailable Unavailable [facility] MIRA LOMA BACK GRAY CLOTH WASHER Unavailable [facility]available [facility] BACK GRAY CLOTH WASHER [facility] MEAT GRADER Unavailable [facility]available [facility] MEAT GRADER [facility] Unavailable Unavailable [facility] Unavailable Unavailable SURG[facility], [facility] Unavailable Unavailable MEDICAL, [facility] Unavailable Unavailable MED[facility] CENTER, [facility], Unavailable Unavailable PLL, [facility], [facility] Gaston JEWELL N, Gaston JEWELL N Unavailable Unavailable [id number], Unavailable Unavailable [id number], [facility] PEREZ CHR, Unavailable Unavailable PEREZ CHR PEREZ, ROMAN CATHOLIC, Unavailable Unavailable PEREZ, ROMAN CATHOLIC PEREZ, ISMAEL, Unavailable Unavailable PEREZ, ISMAEL Purpose Continuity of Care Document - 10-13-2008 through 2016 Problems Code Diagnosis DOS Provider Status N200 CALCULUS OF 02-03-2017 [facility] Z720 TOBACCO USE 02-03-2017 [facility] N132 HYDRONEPHRO 01-30-2017 [facility] W/RENAL MEDICAL & URETRL IMAGING ASS CALCULOUS OBST N23 UNSPECIFIED 01-30-2017 [facility] RE[facility], [facility] R1031 RIGHT LOWER 01-30-2017 [facility] MEDICAL PAIN IMAGING ASS Z4802 ENCOUNTER 01-14-2017 [facility] FOR REMOVAL [facility] OF SUTURES INC [id number] LACERATION 01-05-2017 [facility] W/O FB N EMERGENCY OTHER PART PHYS HEAD INITIAL ENC [id number] CONTUSION 01-05-2017 [facility] RT FRONT N EMERGENCY WALL THORAX PHYS INITIAL ENCOUNTER [id number] LACERATION 01-05-2017 [facility] W/O FB LT N EMERGENCY SHOULDER PHYS INITIAL ENC [id number] CONTUSION 01-05-2017 [facility] OF LEFT HIP N EMERGENCY INITIAL PHYS ENCOUNTER 7231 CERVICALGIA 11-23-2011 [facility] 8470 NECK SPRAIN 11-23-2011 [facility] E9270 OVEREXERTIO 11-23-2011 [place] [facility] FROM [facility]ICAL [facility]DEN [facility] STRENUOUS MOVEMENT 5950 ACUTE 06-25-2011 [facility] 9390 FOREIGN 12-12-2010 [facility] BODY IN GENERAL BLADDER AND SURGERY URETHRA 5921 CALCULUS OF 12-09-2010 [facility] URETER GENERAL SURGERY 591 HYDRONEPHRO 12-08-2010 [facility] SIS [facility]Y ASSOCIAT 27459 OTHER 12-08-2010 [facility] LOMA 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 5990 URINARY 12-08-2010 [facility] SITE NOT SPECIFIED 45824 FEVER 12-08-2010 [facility] UNSPECIFIED GENERAL SURGERY 7880 RENAL COLIC 12-08-2010 [facility] 29316 ABDOMINAL 12-08-2010 [facility] PAIN OTHER GENERAL SPECIFIED SURGERY SITE 5920 CALCULUS OF 09-28-2010 [facility] 7919 OTHER 09-28-2010 [facility] NONSPECIFIC REGIONAL FINDING MEDICAL EXAMINATION OF URINE V1301 PERSONAL 09-28-2010 [facility] HISTORY OF REGIONAL URINARY MEDICAL CALCULI 43224 NAUSEA WITH 03-29-2010 [facility] 56879 ABDOMINAL 03-29-2010 [facility] PAIN, REGIONAL UNSPECIFIED MEDICAL SITE CENTER 5959 UNSPECIFIED 03-21-2010 [facility] 08253 HEMATURIA 03-18-2010 [facility] LOMA UNSPECIFIED RADIOLOGY ASSOCIATES PSC 7936 NONSPEC ABN 03-18-2010 [facility] LOMA FINDNG RAD RADIOLOGY & OTH EXAM ASSOCIATES ABDOMINAL [facility] 7172 DERANGEMENT 10-23-2009 [facility] KUMAR [facility] 14686 PAIN IN 10-23-2009 [facility] JOINT, H LOWER LEG ANESTHESIA PSC 8360 TEAR MEDIAL 10-23-2009 [facility] CURRENT 8362 OTHER TEAR 09-05-2009 [facility] CURRENT 8363 CLOSED 06-21-2009 [facility] Medications [...] 05 06 14 7 00 EA Ac UT 71 -0 -[address] ti [...] OB NC Y GY E N FA NV LY HE AL TH 53 03 03 [...] OB KIMO CE SE TA GY PH NV N R NO FA PH NV EN LY 5- HE 32 AL 5 TH HY 00 01 01 2 20 3 MA [address] 40 -1 -1 .0 YS 05 NN ti OC 60 4- 7- 00 78 IS ve OD 36 20 20 LL 8 ON ON 50 11 11 E -A 1 OB KIMO CE SE TA GY PH NV N R NO FA PH NV EN LY 5- HE 32 AL 5 TH HY 00 01 01 2 20 3 MA [address] 40 -1 -1 .0 YS 05 NN ti OC 60 4- 4- 00 78 IS ve OD 36 20 20 LL 8 ON ON 50 11 11 E -A 1 OB KIMO CE SE TA GY PH NV N R NO FA PH NV EN LY 5- HE 32 AL 5 TH UT 68 01 01 0 20 5 MA 60 DE Ac OM 38 -1 -1 .0 YS 35 NN ti ET 20 97 IS ve MCKEON 04 20 20 LL 3 ON ZI 10 11 11 E NE 1 OB KIMO SE 25 GY PH N R MG FA NV TA LY BL ET HE AL TH 00 12 01 2 30 3 MA 40 DE Ac 40 -3 -0 .0 SO 45 NN ti 60 1 6 00 N 67 IS ve 35 20 20 FA ON 70 10 11 NV [address] PH UG R 00 12 01 2 30 3 MA 40 DE Ac 60 -3 -0 .0 SO 45 NN ti 33 3- 00 N 67 IS ve 88 20 20 FA ON 13 10 11 NV [address] PH UG R 00 12 12 2 30 3 MA 40 DE Ac 60 -3 -3 .0 SO 45 NN ti 33 N 67 IS ve 88 20 20 FA ON 13 10 10 NV [address] PH UG R UT 68 12 12 0 12 2 MA 62 DE Ac OM 38 -3 -3 .0 SO 78 NN ti ET 20 N 77 IS ve MCKEON 04 20 20 FA ON ZI 10 10 10 NV NE 1 LY KIMO SE [address] PH UG R MG TA BL ET PE 00 12 12 0 40 10 MA 60 Ac NI 78 -0 -0 .0 YS 34 TT ti CI 11 37 MA ve LL 65 20 20 LL 6 N IN 50 10 10 E NA 1 OB NC VK Y GY E 50 N 0 FA MG NV LY TA BL HE ET AL NA 09 11 1 60 30 MA 60 Ac UT 46 -2 -1 .0 YS 30 TT ti OX 20 2- 6- 00 48 MA ve EN 19 20 20 LL 2 N 00 10 10 E NA 50 5 OB NC 0 Y MG GY E N TA FA BL NV ET LY HE AL NA 68 09 09 1 60 30 MA 60 Ac UT 46 -2 -2 .0 YS 30 TT ti OX 20 2- 2- 00 48 MA ve EN 19 20 20 LL 2 N 00 10 10 E NA 50 5 OB NC 0 Y MG GY E N TA FA BL NV ET LY HE AL UT 68 07 08 1 20 3 MA 60 DE Ac OM 38 -1 -0 .0 YS 27 NN ti ET 20 3- 3- 00 20 IS ve MCKEON 04 20 20 LL 9 ON ZI 10 10 10 E NE 1 OB KIMO SE 25 GY PH N R MG FA NV TA LY BL ET HE AL 00 07 07 2 20 3 MA 40 DE Ac 59 -1 -1 .0 YS 04 NN ti 10 3- 6 00 59 IS ve 34 20 20 LL 9 ON 90 10 10 E 5 OB KIMO SE GY PH N R FA NV LY HE AL 00 07 07 2 20 2 MA 40 DE Ac 59 -1 -1 .0 YS 04 NN ti 10 3 00 59 IS ve 34 20 20 LL 9 ON 90 10 10 E 5 OB KIMO SE GY PH N R FA NV LY HE AL UT 68 07 07 1 20 3 MA 60 DE Ac OM 38 -1 -1 .0 YS 27 NN ti ET 20 3- 3- 00 20 IS ve MCKEON 04 20 20 LL 9 ON ZI 10 10 10 E NE 1 OB KIMO SE 25 GY PH N R MG FA NV TA LY BL ET HE AL CI 68 07 07 1 40 20 MA 60 DE Ac UT 08 -1 -1 .0 YS 27 NN ti OF 40 - 3 00 21 IS ve LO 07 20 20 LL 0 ON XA 00 10 10 E CI 1 OB KIMO N SE HC GY PH L N R 50 FA 0 NV MG LY TA HE B 00 07 [...] HC GY L N 25 FA 0 NV MG LY TA HE B 65 06 06 0 6. 2 MA 60 FI Ac 16 -2 -2 00 YS 26 NL ti 20 3- 3- 0 42 EY ve 52 20 20 LL 7 01 10 10 E PA 0 OB UL W GY N FA NV LY HE AL TH EN 60 06 06 0 12 6 MA 20 FI Ac DO 95 -2 -2 .0 YS 02 NL ti CE 10 3- 3- 00 49 EY ve T 60 20 20 LL 4 5- 28 10 10 E PA 32 5 OB UL 5 W TA GY BL N ET FA NV LY HE AL TH OX 53 06 [...] AM GY E PO N O FA NV LY HE AL NA 68 04 03 2 60 30 MA 60 KE Ac UT 46 -2 -1 .0 YS 09 EF ti OX 20 0- 0- 00 49 ve EN 19 20 20 LL 5 KI 00 09 10 E MB 50 5 OB ER 0 LY MG GY N TA FA BL NV ET LY HE AL 00 01 02 00 30 5 MA 40 MCKEON Ac 59 -2 -1 .0 YS 03 RR ti 10 5- 1- 00 65 IS ve 34 20 20 LL 9 90 10 10 E CH 5 OB AR /G LO YN TT E FA J NV LY HE AL TH UT 68 01 02 00 30 8 MA 60 MCKEON Ac OM 38 -2 -1 .0 YS 19 RR ti ET 20 5- 1- 00 86 IS ve MCKEON 04 20 20 LL 5 ZI 10 10 10 E CH NE 1 OB AR /G LO 25 YN TT E MG FA J NV TA LY BL ET HE AL NA 68 04 01 01 60 30 MA 60 KE Ac UT 46 -2 -2 .0 YS 09 EF ti OX 20 0- 8- 00 49 ve EN 19 20 20 LL 5 KI 00 09 10 E MB 50 5 OB ER 0 /G LY MG YN TA FA BL NV ET LY HE AL TH 00 01 01 00 30 5 MA 40 MCKEON Ac 59 -1 -2 .0 YS 03 RR ti 10 2- 8- 57 IS ve 34 20 20 LL 3 90 10 10 E CH 5 OB AR /G LO YN TT E FA J NV LY HE AL TH 00 01 01 01 30 5 MA 40 MCKEON Ac 59 -1 -2 .0 YS 03 RR ti 10 57 IS ve 34 20 20 LL 3 90 10 10 E CH 5 OB AR /G LO YN TT E FA J NV LY HE AL TH 00 12 12 00 60 10 MA 40 Ac 59 -0 -1 .0 YS 03 TT ti 10 40 MA ve 34 20 20 LL 3 N 90 09 09 E NA 5 OB NC /G Y YN E FA NV LY HE AL TH IN 00 12 12 00 60 20 MA 60 MA Ac DO 09 -0 -1 .0 YS 17 RK ti ME 34 76 ES ve TH 02 20 20 LL 6 BE AC 90 09 09 E RY IN 1 OB /G MCKEON 25 YN RO LD MG FA V NV CA LY PS UL HE E AL TH LI 60 10 11 00 60 3 MA 60 Ac ND 43 -2 -0 .0 YS 16 TT ti AN 20 9- 5- 17 MA ve E 83 20 20 LL 3 N 1% 36 09 09 E NA 0 OB NC LO /G Y TI YN E ON FA NV LY HE AL TH 49 09 10 00 20 5 MA 60 JUNIOR Ac 88 -2 -0 .0 YS 14 LL ti 40 3- 8- 00 68 IV ve 77 20 20 LL 3 AN 70 09 09 E 5 OB CH /G RI YN ST IN FA A NV M LY HE AL TH TR 65 09 10 00 20 3 MA 40 JUNIOR Ac AM 16 -2 -0 .0 YS 02 LL ti AD 20 3- 8- 99 IV ve OL 62 20 20 LL 5 AN 71 09 09 E HC 1 OB CH L /G RI [address] IN MG FA A NV M TA LY BL ET HE AL TH NA 68 04 05 00 60 30 MA 60 KE Ac UT 46 -2 -0 .0 YS 09 EF ti OX 20 0- 7- 00 49 ve EN 19 20 20 LL 5 KI 00 09 09 E MB 50 5 OB ER 0 /G LY MG YN TA FA BL NV ET LY HE AL TH OV 51 [...] 0 OB S /G E YN FA NV LY HE AL TH 00 01 01 00 10 3 MA 40 AD Ac 59 -0 -1 .0 YS 01 AM ti 10 6- 5- 00 74 S ve 34 20 20 LL 7 JA 90 09 09 E ME 5 OB S /G E YN FA NV LY HE AL Procedures Procedure DOS Code Location Performer Comment URNLS DIP [address] 7 [facility] STICK/TAB INC INC LET REAGENT AUTO MICROSCOP Y COMPREHEN [address] SIVE 7 [facility] METABOLIC INC INC PANEL BLOOD [address] COUNT 7 [facility] COMPLETE INC INC AUTO&AUTO DIFRNTL WBC THERAPEUT [address] IC 7 [facility] INJECTION INC [place] [address] [address] ABDOMEN & 7 [facility] PELVIS INC INC W/O CONTRAST MATERIAL THER [address]193 [address] PROPH/DX 7 [facility] NJX IV INC INC PUSH SINGLE/1S T SBST/DRUG SMPL RPR 63750 [facility] SCALP/NEC 7 JACI K/[facility] T/TRUNK PHYS 20.1-30.0 CM SIMPLE 47757 [facility] REPAIR 7 JACI F/E/E/N/L EMERGENCY /M PHYS 2.6CM-[place].[address] [place] [address] [address] CERVICAL 2 [facility] SPINE W/O INC INC CONTRAST MATERIAL 3D 72425 [place] JAMEE RENDERING 2 MEDICAL TORRES IMAGING W/INTERP& ASS POSTPROC DIFF WORK STATION INJECTION J0696 BJ DUNLAPTRISH 1 PRIMARY Y BILLY CEFTRIAXO CARE NE SODIUM CENTER PER 250 MG THERAPEUT 82801 BJ MONTANO IC 1 PRIMARY Y BILLY PROPHYLAC CARE TIC/DX CENTER INJECTION SUBQ/IM ANES 56015 COMMONFLETCHER WHEELER TRURL 1 [facility] FRAGMNTJ ANESTHESI MANJ&/RMV A PSC L URETERAL CALCULUS CYSTO 94343 [facility] RIGO W/INSERT 1 W GENERAL J. URETERAL SURGERY STENT CYSTO 10377 MEADOW[facility]IE RIGO W/URETERO 1 W GENERAL J. SCOPY SURGERY W/RMVL/MA [place] STONES RADEX 98231 [facility] ABDOMEN 1 1 [facility] [place] [address] [facility] ABDOMEN & 1 EIDER KIMBERLEY PELVIS RADIOLOGY W/O ASSOCIAT CONTRAST MATERIAL INITIAL 60422 [facility] 1 W GENERAL J. CARE/DAY SURGERY 50 MINUTES 3D 70197 [facility] RENDERING 1 EIDER KIMBERLEY W/INTERP RADIOLOGY & ASSOCI[place] 3D [address] [facility] RENDERING 0 [facility]HER W/INTERP RADIOLOGY & ASSOCIAT POSTPROCE SS SUPERVISI ON BLOOD 71053 MEADOW[facility]IE MEADOWVIE COUNT 0 W W COMPLETE REGIONAL REGIONAL AUTO&AUTO MEDICAL MEDICAL DIFRNTL WBC THERAPEUT 35720 MEADOW[facility]IE MEADOWVIE IC 0 W W INJECTION REGIONAL REGIONAL [place] [address] [place] MEADOWVIE INFUSION 0 W W HYDRATION REGIONAL REGIONAL EACH MEDICAL MEDICAL ADDITIONA L HOUR THER 77442 MEADOW[facility]IE MEADOWVIE PROPH/DX 0 W W NJX IV REGIONAL REGIONAL PUSH MEDICAL MEDICAL SINGLE/1S T SBST/DRUG URNLS DIP 24357 MEADOW[facility]IE MEADOWVIE 0 W W STICK/TAB REGIONAL REGIONAL LET MEDICAL MEDICAL REAGENT AUTO MICROSCOP Y COLLECTIO 50885 KENISHA LIUWVIE N VENOUS 0 W W BLOOD [facility] [place] [address] MEADOWVIE MEADOW[facility] ABDOMEN 0 W W W/O [facility] CONTRAST MEDICAL MEDICAL MATERIAL RADEX 50611 MEAWMILADIS MEAWVIE ABDOMEN 1 0 W W [facility] ANTEROPOS MEDICAL MEDICAL [place] PELVIS 69803 MEADOWVIE MEADOWVIE W/O 0 W W CONTRAST [facility] MATERIAL MEDICAL MEDICAL BASIC 62644 MEAWVIE MEADOW[facility]IE METABOLIC 0 W W PANEL [facility] CALCIUM MEDICAL MEDICAL TOTAL CULTURE 20799 NOEWVIE MEADOWVIE BACTERIAL 0 W W [facility] MEDICAL VE COLONY COUNT [facility] 12141 KENISHA PAVONNISON DISCHARGE 0 W GENERAL J. DAY SURGERY MANAGEMEN T 30 MIN/< CYSTO 27482 KENISHA MASTERSON, W/URETERO 0 W GENERAL J. SCOPY SURGERY ANDI R W/RMVL/MA [place] STONES FLUOROSCO 71263 NOEWMILADIS LIUWVIE PY SPX UP 0 W W TO 1 [facility] MEDICAL MEDICAL PHYS/QHP TIME ANES 59549 COMMONFLETCHER WHEELER TRURL 0 [facility] FRAGMNTJ ANESTHESI MANJ&/RMV A PSC L URETERAL CALCULUS CYSTO 66561 LATONIAWMILADIS RIGO, W/INSERT 0 W GENERAL J. URETERAL SURGERY ANDI R STENT CALCULUS 06099 MEAWVIE MEADOWVIE QUANTITAT 0 W W PA [facility] G0378 MEAWMILADIS MEADOWVIE OBSERVATI 0 W W ON [facility] MEDICAL MEDICAL PER HOUR CYSTO 15767 MEADOWVIE MEADOWVIE W/INSERT 0 W W URETERAL [facility] STENT MEDICAL MEDICAL THERAPEUT 18369 MEAWVIE MEADOWVIE IC 0 W W INJECTION [facility] IV PUSH MEDICAL MEDICAL EACH NEW DRUG BLOOD 44644 MEAWVIE MEADOWVIE COUNT 0 W W COMPLETE REGIONAL REGIONAL AUTO&AUTO MEDICAL MEDICAL DIFRNTL WBC THER 21853 MEADOWVIE MEADOWVIE PROPH/DX 0 W W NJX IV REGIONAL REGIONAL [facility] MEDICAL MEDICAL SINGLE/1S T SBST/DRUG URNLS DIP 54525 MEADOWVIE MEADOWVIE 0 W W STICK/TAB REGIONAL REGIONAL LET MEDICAL MEDICAL REAGENT AUTO MICROSCOP Y INITIAL 11665 [facility] 0 W GENERAL J. CARE/DAY SURGERY 50 MINUTES COLLECTIO 20329 MEADOWVIE MEADOWVIE N VENOUS 0 W W BLOOD REGIONAL REGIONAL VENIPUNCT MEDICAL MEDICAL URE CYSTO 74381 MEADOWVIE MEADOWVIE W/URETERO 0 W W SCOPY REGIONAL REGIONAL W/RMVL/MA MEDICAL MEDICAL [place] STONES BASIC 42996 MEADOWVIE MEADOWVIE METABOLIC 0 W W PANEL [facility] CALCIUM MEDICAL MEDICAL TOTAL CULTURE 24127 MEADOW[facility]IE MEADOWVIE BACTERIAL 0 W W REGIONAL REGIONAL QUANTTATI MEDICAL MEDICAL [place] [address] MEADOW[facility]IE MEADOWVIE INFUSION 0 W W HYDRATION [facility] ADDITIONA CENTER CENTER L HOUR URNLS DIP 40830 MEADOW[facility]IE MEADOWVIE 0 W W STICK/TAB REGIONAL REGIONAL LET MEDICAL MEDICAL REAGENT CENTER CENTER AUTO MICROSCOP Y THER 08319 MEADOW[facility]IE MEADOWVIE PROPH/DX 0 W W NJX IV REGIONAL REGIONAL PUSH MEDICAL MEDICAL SINGLE/1S CENTER CENTER T SBST/DRUG THERAPEUT 89265 MEADOWVIE MEADOWVIE IC 0 W W INJECTION REGIONAL REGIONAL IV PUSH MEDICAL MEDICAL [facility] DRUG THERAPEUT 51509 MEADOW[facility]IE MEADOWVIE IC 0 W W INJECTION REGIONAL REGIONAL IV PUSH MEDICAL MEDICAL [facility] DRUG 3D 66874 [facility] RENDERING 0 EIDER, W/INTERP RADIOLOGY MIRTHA & K POSTPROCE ASSOCIATE SS S PSC SUPERVISI ON THER 68663 MEADOWVIE MEADOWVIE PROPH/DX 0 W W NJX IV REGIONAL REGIONAL [facility] MEDICAL MEDICAL SINGLE/1S CENTER CENTER T SBST/[place] [address] [facility] ABDOMEN 0 EIDER, W/O RADIOLOGY MIRTHA CONTRAST K MATERIAL ASSOCIATE S PSC CT PELVIS 74[address] [facility] 0 EIDER, W/CONTRAS RADIOLOGY MIRTHA T K MATERIAL ASSOCIATE S PSC CULTURE 11525 MEADOW[facility]IE MEADOWVIE BACTERIAL 0 W W REGIONAL [facility] QUANTTATI MEDICAL MEDICAL VE COLONY CENTER CENTER COUNT URINE CT PELVIS 23663 MEADOWVIE MEADOWVIE W/O 0 W W CONTRAST REGIONAL REGIONAL [facility]ICAL CENTER CENTER URNLS DIP 08246 MEADOWVIE MEADOWVIE 0 W W STICK/TAB REGIONAL [facility] LET MEDICAL MEDICAL REAGENT CENTER CENTER AUTO MICROSCOP Y ANESTH 56883 COMMONWEA SHERWIN, DIAGNOSWILBERT 0 LTH KORI Lopez ANESTHESI ARTHROSCO A [facility] PIC PROC KNEE JOINT ARTHRS 04403 JOSÉ KUMAR, NADINE SURG 0 JAMARI JAMARI W/MENISCE J J CTOMY MED/LAT W/SHVG MRI ANY 01131 MEADOW[facility]IE MEADOWVIE JT LOWER 9 W W EXTREM REGIONAL REGIONAL W/O MEDICAL MEDICAL CONTRAST CENTER CENTER MATRL Encounters Encounter Start End Date Code Location Performer Type Date OFFICE 69969 [facility] W[facility] 7 7 PHYSICIAN T NEW 20 S GROUP MINUTES EMERGENCY 58687 VERENA CARRILLO DEPT 7 7 PHYSICIAN VISIT S, PLLC HIGH SEVERITY& THREAT FUNCJ EMERGENCY 52337 MA[facility]E 7 7 [facility] DEPARTMEN INC T VISIT HIGH/URGE NT SEVERITY HOSPITAL [facility]E - 7 7 [facility] OUTPATIEN INC T OFFICE 65607 MA[facility]E WATT 7 7 [facility] T VISIT INC 10 MINUTES HOSPITAL MAEVE - 7 7 [facility] OUTPATIEN INC T EMERGENCY 86660 [facility] 7 7 JACI DEPARTMEN EMERGENCY T VISIT PHYS HIGH/URGE NT SEVERITY HOSPITAL MAEVE - 2 2 [facility] OUTPATIEN INC T EMERGENCY 79528 [facility]E 2 2 [facility] T VISIT LOW/MODER SEVERITY EMERGENCY 09541 JOHANNA NGUYEN DEPT 2 2 EMERGENCY VISIT SERVICES HIGH SEVERITY& THREAT [facility] OFFICE 02293 BJ DUNLAPBER OUTPATIEN 1 1 PRIMARY Y BILLY T VISIT CARE 15 [facility] OFFICE 85980 KENISHA SIERRA OUTPATIEN 1 1 W GENERAL J. T VISIT 5 SURGERY MINUTES EMERGENCY 72602 JOHANNA CAST DEPT 1 1 EMERGENCY JAM VISIT SERVICES HIGH SEVERITY& THREAT [facility] EMERGENCY 41480 KENISHA 0 0 W [facility] VISIT MEDICAL HIGH/URGE NT SEVERITY EMERGENCY 19439 JOHANNA PEREZ DEPT 0 0 EMERGENCY CHR VISIT SERVICES HIGH SEVERITY& THREAT [facility] 36952 KENISHA DEPT 0 0 W VISIT REGIONAL HIGH MEDICAL SEVERITY& THREAT [facility] 17501 KENISHA SIERRA OUTPATIEN 0 0 W GENERAL J. T VISIT SURGERY ANDI R 10 MINUTES OFFICE 52622 BJ MARTINEZ, OUTPATIEN 0 0 PRIMARY LUIS E T VISIT CARE 15 [facility] KENISHA - 0 0 [facility]ILO [facility]ERG[facility] 43495 JOHANNA PEREZ DEPT 0 0 EMERGENCY VISIT SERVICES ISMAEL HIGH SEVERITY& ASSOCIATE THREAT S FUN EMERGENCY 63355 KENISHA 0 0 W [facility] VISIT MEDICAL HIGH/URGE CENTER NT SEVERITY EMERGENCY 00403 JOHANNA RIGGINS, 0 0 EMERGENCY DAVID W DEPARTMEN SERVICES T VISIT HIGH/URGE ASSOCIATE NT S SEVERITY EMERGENCY 88984 MEADOW[facility]IE 0 0 W [facility] T VISIT MEDICAL HIGH/URGE CENTER NT [facility] ME[facility]OWVIE [facility] 35185 Gaston VILLAREAL DEPT 0 0 EMERGENCY VISIT SERVICES HIGH SEVERITY& ASSOCIATE THREAT S [facility] MEADOWVIE - 0 0 W [facility] OFFICE 42591 JOSÉ KUMAR, CONSULTAT 0 0 JAMARI Morrison NEW/ESTAB PATIENT 40 MIN OFFICE 52888 ALYSA ENGLE 9 9 PRIMARY EDUIN E T VISIT CARE 10 [facility] MEAWMILADIS - 9 9 W [facility] EMERGENCY 21580 JOHANNA PEREZ, 9 9 EMERGENCY DEPARTMEN SERVICES ROMAN CATHOLIC T VISIT MODERATE ASSOCIATE SEVERITY S OFFICE 87395 ALYSA NGUYEN 9 9 PRIMARY ALISE T NEW [address] [place], [place] [address]
--- OUTSIDE RECORDS SUMMARY | 2017-07-11 08:48 | External Medical Summary Rpt | CCD ---
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 Name Role Phone COLLEEN MACIAS Unavailable Unavailable CALDERÓN, CALDERÓN Unavailable Unavailable BRAUGHTON ADELE, Unavailable Unavailable BRAUGHTON ADELE JAMEE TORRES, Unavailable Unavailable JAMEE TORRES RIGO THOMAS Unavailable Unavailable Agustín GARCIA Unavailable Unavailable R, Agustín SIERRA R [facility] Unavailable Unavailable [place], [facility] DAVID VALERO, Unavailable Unavailable DAVID RIGGINS, SEGUN Unavailable Unavailable LORENA LEON Unavailable Unavailable KORI COURTNEY, Unavailable Unavailable KORI COURTNEY ANNE E, Unavailable Unavailable LUIS MARTINEZ, JOSEPH NGUYEN Unavailable Unavailable HAZEL EDUIN E, Unavailable Unavailable HAZEL, EDUIN E NOEMY CHU, Unavailable Unavailable NOEMY SALGUERO, Unavailable Unavailable NOEMY ZAZUETA JENNIFER K HARRIS, CHARLOTTE J, Unavailable Unavailable [facility] Un[facility] Un[facility], [facility] CORNELIUS LUTHER, CORNELIUS Unavailable Unavailable LUTHER [facility], Unavailable Unavailable [facility] ALISE DEE KEEF, Unavailable Unavailable ALISE [facility] Unavailable Unavailable [facility], [facility] [id number] # Unavailable Unavailable [phone], [facility] [id number] # [id number] [facility] Unavailable Unavailable [facility] BASSAM CERVANTES, Unavailable Unavailable BASSAM CERVANTES [facility] Unavailable Unavailable SERVICES, [facility], Unavailable Unavailable [facility] ANITA REFINING SUPERVISOR Unavailable Unavailable [facility] [place] REFINING SUPERVISOR [facility] ORNAMENTAL IRONWORKER Unavailable Unavailable [facility] [place] ORNAMENTAL IRONWORKER [facility] RAD[facility]OLOGY Unavailable [facility] Unavailable Unavailable SURGERY[facility] Unavailable Unavailable MEDICAL, [facility] Unavailable Unavailable MED[facility] CENTER, [facility], Unavailable Unavailable [facility], [facility], [facility] Gaston JEWELL N, Gaston JEWELL N Unavailable Unavailable [id number], Unavailable Unavailable [id number] Unavailable Unavailable EMERGENCY PHYS, [facility] PEREZ CHR, Unavailable Unavailable PEREZ CHR CHRIS RELIGIOUS, Unavailable Unavailable PEREZGRADY BEASLEY PEREZ, ISMAEL, Unavailable Unavailable SHANTA PEREZINA Purpose Continuity of Care Document - 10-13-2008 through 2016 Problems Code Diagnosis DOS Provider Status N200 CALCULUS OF 02-03-2017 [facility] Z720 TOBACCO USE 02-03-2017 [facility] N132 HYDRONEPHRO 01-30-2017 [facility] [place] [facility] W/RENAL [facility]ICAL & URETRL [facility] ASS CALCULOUS OBST N23 UNSPECIFIED 01-30-2017 [facility] RENAL PHYSICIANS, [facility] [id number] RIGHT LOWER 01-30-2017 [facility] [place] [facility] Z4802 ENCOUNTER 01-14-2017 [facility] FOR REMOVAL [facility] OF SUTURES INC [id number] LACERATION 01-05-2017 [facility] W/O FB N EMERGENCY OTHER PART PHYS HEAD INITIAL ENC [id number] CONTUSION 01-05-2017 [facility] RT FRONT N EMERGENCY WALL THORAX PHYS INITIAL ENCOUNTER [id number] LACERATION 01-05-2017 [facility] W/O FB LT N EMERGENCY SHOULDER PHYS INITIAL ENC [id number] CONTUSION 01-05-2017 [facility] OF LEFT HIP N EMERGENCY INITIAL PHYS ENCOUNTER 7231 CERVICALGIA 11-23-2011 [facility] 8470 NECK SPRAIN 11-23-2011 [facility] E9270 OVEREXERTIO 11-23-2011 [place] N FROM MEDICAL [facility]DEN [facility] STRENUOUS MOVEMENT 5950 ACUTE 06-25-2011 [facility] 9390 FOREIGN 12-12-2010 [facility] BODY IN GENERAL BLADDER AND SURGERY URETHRA 5921 CALCULUS OF 12-09-2010 [facility] URETER GENERAL SURGERY 591 HYDRONEPHRO 12-08-2010 [facility] 18134 OTHER 12-08-2010 [facility] 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 5990 URINARY 12-08-2010 [facility] TRACT [facility] INFECTION SERVICES SITE NOT SPECIFIED 48342 FEVER 12-08-2010 [facility] UNSPECIFIED GENERAL SURGERY 7880 RENAL COLIC 12-08-2010 [facility] 30368 ABDOMINAL 12-08-2010 [facility] PAIN OTHER GENERAL SPECIFIED SURGERY SITE 5920 CALCULUS OF 09-28-2010 [facility]IDNEY [facility] 7919 OTHER 09-28-2010 [facility] NONSPECIFIC REGIONAL FINDING MEDICAL EXAMINATION OF URINE V1301 PERSONAL 09-28-2010 [facility] HISTORY OF REGIONAL URINARY MEDICAL CALCULI 27915 NAUSEA WITH 03-29-2010 [facility] 87105 ABDOMINAL 03-29-2010 [facility] PAIN, REGIONAL UNSPECIFIED MEDICAL SITE CENTER 5959 UNSPECIFIED 03-21-2010 [facility] 65979 HEMATURIA 03-18-2010 [facility] UNSPECIFIED RADIOLOGY ASSOCIATES PSC 7936 NONSPEC ABN 03-18-2010 [facility] FINDNG RAD RADIOLOGY & OTH EXAM ASSOCIATES ABDOMINAL [facility] AREA 7172 DERANGEMENT 10-23-2009 PE[facility] KUMAR POSTERIOR [facility] OF MEDIAL MENISCUS 04362 PAIN IN 10-23-2009 [facility]ON[facility] JOINT, H LOWER LEG ANESTHESIA PSC 8360 TEAR MEDIAL 10-23-2009 [facility] CURRENT 8362 OTHER TEAR 09-05-2009 [facility] OR [facility] CURRENT 8363 CLOSED 06-21-2009 [facility] Medications [...] 05 06 14 7 00 EA Ac W[place] 71 -0 -[address] ti [...] 4. YS 41 TT ti 00 9 9 84 MA ve 78 20 20 0 LL 9 N 00 11 11 E NA 8 OB NC Y GY E N FA DC LY HE AL TH 53 03 03 [...] OB KIMO CE SE TA GY PH DC N R NO FA PH DC EN LY 5- HE 32 AL 5 TH HY 00 01 01 2 20 3 MA [address] 40 -1 -1 .0 YS 05 NN ti OC 60 4- 7- 00 78 IS ve OD 36 20 20 LL 8 ON ON 50 11 11 E -A 1 OB KIMO CE SE TA GY PH DC N R NO FA PH DC EN LY 5- HE 32 AL 5 TH HY 00 01 01 2 20 3 MA [address] 40 -1 -1 .0 YS 05 NN ti OC 60 4- 4- 00 78 IS ve OD 36 20 20 LL 8 ON ON 50 11 11 E -A 1 OB KIMO CE SE TA GY PH DC N R NO FA PH DC EN LY 5- HE 32 AL 5 TH WY 68 01 01 0 20 5 MA 60 DE Ac OM 38 -1 -1 .0 YS 35 NN ti ET 20 4- 4- 00 97 IS ve MCKEON 04 20 20 LL 3 ON ZI 10 11 11 E NE 1 OB KIMO SE 25 GY PH N R MG FA DC TA LY BL ET HE AL TH 00 12 01 2 30 3 MA 40 DE Ac 40 -3 -0 .0 SO 45 NN ti 60 1- 6- 00 N 67 IS ve 35 20 20 FA ON 70 10 11 DC [address] PH UG R 00 12 01 2 30 3 MA 40 DE Ac 60 -3 -0 .0 SO 45 NN ti 33 1- 3- 00 N 67 IS ve 88 20 20 FA ON 13 10 11 DC [address] PH UG R WY 68 12 12 0 12 2 MA 62 DE Ac OM 38 -3 -3 .0 SO 78 NN ti ET 20 1 N 77 IS ve MCKEON 04 20 20 FA ON ZI 10 10 10 DC NE 1 LY KIMO SE 25 DR PH UG R MG TA BL ET 00 12 12 2 30 3 MA 40 DE Ac 60 -3 -3 .0 SO 45 NN ti 33 1- - 00 N 67 IS ve 88 20 20 FA ON 13 10 10 DC [address] PH UG R PE 00 12 12 0 40 10 MA 60 Ac NI 78 -0 -0 .0 YS 34 TT ti CI 11 9 9- 00 37 MA ve LL 65 20 20 LL 6 N IN 50 10 10 E NA 1 OB NC VK Y GY E 50 N 0 FA MG DC LY TA BL HE ET AL NA 09 11 1 60 30 MA 60 Ac WY 46 -2 -1 .0 YS 30 TT ti OX 20 2- 6- 00 48 MA ve EN 19 20 20 LL 2 N 00 10 10 E NA 50 5 OB NC 0 Y MG GY E N TA FA BL DC ET LY HE AL NA 68 09 09 1 60 30 MA 60 Ac WY 46 -2 -2 .0 YS 30 TT ti OX 20 2- 2- 00 48 MA ve EN 19 20 20 LL 2 N 00 10 10 E NA 50 5 OB NC 0 Y MG GY E N TA FA BL DC ET LY HE WY 68 07 08 1 20 3 MA 60 DE Ac OM 38 -1 -0 .0 YS 27 NN ti ET 20 3- 3- 00 20 IS ve MCKEON 04 20 20 LL 9 ON ZI 10 10 10 E NE 1 OB KIMO SE 25 GY PH N R MG FA DC TA LY BL ET HE AL 00 07 07 2 20 3 MA 40 DE Ac 59 -1 -1 .0 YS 04 NN ti 10 3- 6 00 59 IS ve 34 20 20 LL 9 ON 90 10 10 E 5 OB KIMO SE GY PH N R FA DC LY HE AL 00 07 07 2 20 2 MA 40 DE Ac 59 -1 -1 .0 YS 04 NN ti 10 3- 3 00 59 IS ve 34 20 20 LL 9 ON 90 10 10 E 5 OB KIMO SE GY PH N R FA DC LY HE AL WY 68 07 07 1 20 3 MA 60 DE Ac OM 38 -1 -1 .0 YS 27 NN ti ET 20 3- 3 00 20 IS ve MCKEON 04 20 20 LL 9 ON ZI 10 10 10 E NE 1 OB KIMO SE 25 GY PH N R MG FA DC TA LY BL ET HE AL CI 68 07 07 1 40 20 MA 60 DE Ac WY 08 -1 -1 .0 YS 27 NN ti OF 40 21 IS ve LO 07 20 20 LL 0 ON XA 00 10 10 E CI 1 OB KIMO N SE HC GY PH L N R 50 FA 0 DC MG LY TA HE B AL 00 07 07 0 14 14 EA 18 JUNIOR Ac 09 -0 -[address] 18 LL ti 37 1- 00 SI 39 IV ve 33 [...] W TA GY BL N ET FA DC LY HE AL TH 65 06 06 0 6. 2 MA 60 FI Ac 16 -2 -2 00 YS 26 NL ti 20 3- 3- 0 42 EY ve 52 20 20 LL 7 01 10 10 E PA 0 OB UL W GY N FA DC LY HE AL TH CI 55 06 06 0 20 10 MA 60 FI Ac WY 11 -2 -2 .0 YS 26 NL ti OF 10 3- 3- 00 42 EY ve LO 12 20 20 LL 8 XA 60 10 10 E PA CI 1 OB UL N W HC GY L N 25 FA 0 DC MG LY TA HE B AL TH [...] YS 25 TT ti AN 20 1- - 90 MA ve E 83 20 20 LL 8 N 1% 46 10 10 E NA 0 OB NC SH Y AM GY E PO N O FA DC LY HE AL NA 68 04 03 2 60 30 MA 60 KE Ac WY 46 -2 -1 .0 YS 09 EF ti OX 20 0- 0- 00 49 ve EN 19 20 20 LL 5 KI 00 09 10 E MB 50 5 OB ER 0 LY MG GY N TA FA BL DC ET LY HE AL 00 01 02 00 30 5 MA 40 MCKEON Ac 59 -2 -1 .0 YS 03 RR ti 10 5- 1- 00 65 IS ve 34 20 20 LL 9 90 10 10 E CH 5 OB AR /G LO YN TT E FA J DC LY HE AL TH WY 68 01 02 00 30 8 MA 60 MCKEON Ac OM 38 -2 -1 .0 YS 19 RR ti ET 20 5- 1- 00 86 IS ve MCKEON 04 20 20 LL 5 ZI 10 10 10 E CH NE 1 OB AR /G LO 25 YN TT E MG FA J DC TA LY BL ET HE AL 00 01 01 01 30 5 MA 40 MCKEON Ac 59 -1 -2 .0 YS 03 RR ti 10 2- 8- 00 57 IS ve 34 20 20 LL 3 90 10 10 E CH 5 OB AR /G LO YN TT E FA J DC LY HE AL TH 00 01 01 00 30 5 MA 40 MCKEON Ac 59 -1 -2 .0 YS 03 RR ti 10 2- 8- 00 57 IS ve 34 20 20 LL 3 90 10 10 E CH 5 OB AR /G LO YN TT E FA J DC LY HE AL TH NA 68 04 01 01 60 30 MA 60 KE Ac WY 46 -2 -2 .0 YS 09 EF ti OX 20 0- 8- 00 49 ve EN 19 20 20 LL 5 KI 00 09 10 E MB 50 5 OB ER 0 /G LY MG YN TA FA BL DC ET LY HE AL TH 00 12 12 00 60 10 MA 40 Ac 59 -0 -1 .0 YS 03 TT ti 10 8- 7 40 MA ve 34 20 20 LL 3 N 90 09 09 E NA 5 OB NC /G Y YN E FA DC LY HE AL TH IN 00 12 12 00 60 20 MA 60 MA Ac DO 09 -0 -1 .0 YS 17 RK ti ME 34 7 7 76 ES ve TH 02 20 20 LL 6 BE AC 90 09 09 E RY IN 1 OB /G MCKEON 25 YN RO LD MG FA V DC CA LY PS UL HE E AL TH LI 60 10 11 00 60 3 MA 60 Ac ND 43 -2 -0 .0 YS 16 TT ti AN 20 9- 5- 00 17 MA ve E 83 20 20 LL 3 N 1% 36 09 09 E NA 0 OB NC LO /G Y TI YN E ON FA DC LY HE AL TH 49 09 10 00 20 5 MA 60 JUNIOR Ac 88 -2 -0 .0 YS 14 LL ti 40 3- 8- 00 68 IV ve 77 20 20 LL 3 AN 70 09 09 E 5 OB CH /G RI YN ST IN FA A DC M LY HE AL TH TR 65 09 10 00 20 3 MA 40 JUNIOR Ac AM 16 -2 -0 .0 YS 02 LL ti AD 20 3- 8- 00 99 IV ve OL 62 20 20 LL 5 AN 71 09 09 E HC 1 OB CH L /G RI [address] IN MG FA A DC M TA LY BL ET HE AL TH NA 68 04 05 00 60 30 MA 60 KE Ac WY 46 -2 -0 .0 YS 09 EF ti OX 20 0- 7- 00 49 ve EN 19 20 20 LL 5 KI 00 09 09 E MB 50 5 OB ER 0 /G LY MG YN TA FA BL DC ET LY HE AL TH OV 51 [...] 0 OB S /G E YN FA DC LY HE AL TH 00 01 01 00 10 3 MA 40 AD Ac 59 -0 -1 .0 YS 01 AM ti 10 6- 5- 00 74 S ve 34 20 20 LL 7 JA 90 09 09 E ME 5 OB S /G E YN FA DC LY HE AL Procedures Procedure [place] [address] [place] CALDERÓN ABDOMEN & 7 MEDICAL PELVIS IMAGING W/O ASS CONTRAST MATERIAL BLOOD [address] [facility] COUNT 7 [facility] COMPLETE INC INC AUTO&AUTO DIFRNTL WBC THERAPEUT [address] [facility] [address] IC 7 [facility] INJECTION INC INC IV PUSH EACH NEW DRUG THER [address] PROPH/DX 7 [facility] NJX IV INC INC PUSH SINGLE/1S T SBST/DRUG COMPREHEN [address] [facility] [address] SIVE 7 [facility] METABOLIC INC INC PANEL URNLS DIP [address] [facility] [facility] STICK/TAB INC INC LET REAGENT AUTO MICROSCOP Y SMPL RPR 36140 [facility] SCALP/NEC 7 JACI K/AX/[facility] T/TRUNK PHYS 20.1-30.0 CM SIMPLE 77619 [facility] REPAIR 7 JACI F/E/E/N/L EMERGENCY /M PHYS 2.6CM-[place].[address] [place] [address] [place] JAMEE CERVICAL 2 MEDICAL TORRES SPINE W/O IMAGING CONTRAST ASS MATERIAL 3D 58364 [place] JAMEE RENDERING 2 MEDICAL TORRES IMAGING W/INTERP& ASS POSTPROC DIFF WORK STATION INJECTION J0696 BJ MONTANO 1 PRIMARY Y BILLY CEFTRIAXO CARE NE SODIUM CENTER PER 250 MG THERAPEUT 85608 BJ MONTANO IC 1 PRIMARY Y BILLY PROPHYLAC CARE TIC/DX CENTER INJECTION SUBQ/IM CYSTO 46903 MEADOWMILADIS RIGO W/URETERO 1 W GENERAL J. SCOPY SURGERY W/RMVL/MA [place] STONES ANES 44250 [facility] BRAUGHTON TRURL 1 [facility] FRAGMNTJ ANESTHESI MANJ&/RMV A PSC L URETERAL CALCULUS CYSTO 23121 MEADOWVIE RIGO W/INSERT 1 W GENERAL J. URETERAL SURGERY STENT RADEX 56835 [facility] ABDOMEN 1 1 [facility] [place] [address] [facility] ABDOMEN & 1 EIDER KIMBERLEY PELVIS RADIOLOGY W/O ASSOCIAT CONTRAST MATERIAL 3D 87341 [facility] RENDERING 1 EIDER KIMBERLEY W/INTERP RADIOLOGY & ASSOCIAT POSTPROCE SS SUPERVISI ON INITIAL 22374 [facility] 1 W GENERAL J. CARE/DAY SURGERY 50 MINUTES COLLECTIO 39161 MEAD[facility]IE MEADOWVIE N VENOUS 0 W W BLOOD REGIONAL [place] [address] [facility] MEADOWVIE INFUSION 0 W W HYDRATION REGIONAL REGIONAL EACH MEDICAL MEDICAL ADDITIONA L HOUR BASIC 65110 [facility] METABOLIC 0 W W PANEL REGIONAL REGIONAL CALCIUM MEDICAL MEDICAL TOTAL URNLS DIP 00718 [facility] MEADOWVIE 0 W W STICK/TAB REGIONAL REGIONAL LET MEDICAL MEDICAL REAGENT AUTO MICROSCOP Y CT PELVIS 24692 [facility] W/O 0 [facility] [place] [address] [facility] ABDOMEN 0 [facility] W/O RADIOLOGY CONTRAST ASSOCIAT MATERIAL CULTURE 61324 MEADOWVIE MEADOWVIE BACTERIAL 0 W W REGIONAL REGIONAL QUANTTATI MEDICAL MEDICAL VE COLONY COUNT URINE THER 64890 KENISHA DE PROPH/DX 0 W W NJX IV [facility] MEDICAL MEDICAL SINGLE/1S T SBST/DRUG 3D 51229 [facility] RENDERING 0 [facility] W/INTERP RADIOLOGY & ASSOCIAT POSTPROCE SS SUPERVISI ON RADEX 68843 [facility] ABDOMEN 1 0 [facility] ANTEROPOS ASSOCIAT [place] BLOOD 14993 KENISHA LIUWVIE COUNT 0 W W COMPLETE [facility] AUTO&AUTO MEDICAL MEDICAL DIFRNTL WBC THERAPEUT 11149 KENISHA THOMASVIE IC 0 W W INJECTION DCH [facility] IV PUSH MEDICAL MEDICAL EACH NEW DRUG CALCULUS 39874 KENISHA LIUWMILADIS QUANTITAT 0 W W PA [facility] CHEMICAL MEDICAL MEDICAL CYSTO 33543 KENISHA SIERRA, W/INSERT 0 W GENERAL J. URETERAL SURGERY ANDI Saleem STENT ANES 13940 COMMONT[place]IA ZARAON TRURL [address] [facility] [facility] FRAGMNTJ ANESTHESI MANJ&/RMV A PSC L URETERAL CALCULUS CYSTO 72693 KENISHA SIERRA, W/URETERO 0 W GENERAL J. SCOPY SURGERY ANDI Saleem W/RMVL/MA [facility] 38297 KENISHA SIERRA DISCHARGE 0 W GENERAL J. DAY SURGERY MANAGEMEN T 30 MIN/< FLUOROSCO 37193 KENISHA DE PY SPX UP 0 W W TO 1 [facility] MEDICAL MEDICAL PHYS/QHP TIME HOSPITAL G0378 KENISHA DE OBSERVATI 0 W W ON DCH [facility] SERVICE MEDICAL MEDICAL PER HOUR BASIC 59066 KENISHA DE METABOLIC 0 W W PANEL [facility] CALCIUM MEDICAL MEDICAL TOTAL COLLECTIO 40642 KENISHA DE N VENOUS 0 W W BLOOD DCH [facility] VENIPUNCT MEDICAL MEDICAL URE INITIAL 48366 [facility] 0 W GENERAL J. CARE/DAY SURGERY 50 MINUTES CYSTO 24018 MEADOWVIE MEADOWVIE W/URETERO 0 W W SCOPY REGIONAL REGIONAL W/RMVL/MA MEDICAL MEDICAL [place] STONES THER 37285 MEADOWVIE MEADOWVIE PROPH/DX 0 W W NJX IV REGIONAL REGIONAL PUSH MEDICAL MEDICAL SINGLE/1S T SBST/DRUG CYSTO 89681 MEADOWVIE MEADOWVIE W/INSERT 0 W W URETERAL REGIONAL REGIONAL STENT MEDICAL MEDICAL BLOOD 09882 MEADOWVIE MEADOWVIE COUNT 0 W W COMPLETE REGIONAL REGIONAL AUTO&AUTO MEDICAL MEDICAL DIFRNTL WBC THERAPEUT 42551 MEADOWVIE MEADOWVIE IC 0 W W INJECTION REGIONAL REGIONAL IV PUSH MEDICAL MEDICAL EACH NEW DRUG URNLS DIP 75537 MEADOWVIE MEADOWVIE 0 W W STICK/TAB REGIONAL REGIONAL LET MEDICAL MEDICAL REAGENT AUTO MICROSCOP Y URNLS DIP 31010 MEAD[facility]IE MEADOWVIE 0 W W STICK/TAB REGIONAL REGIONAL LET MEDICAL MEDICAL REAGENT CENTER CENTER AUTO MICROSCOP Y THERAPEUT 44558 MEADOWVIE MEADOWVIE IC 0 W W INJECTION REGIONAL REGIONAL IV PUSH MEDICAL MEDICAL [facility] C[facility] CENTER DRUG THER 05607 MEADOWVIE MEADOWVIE PROPH/DX 0 W W NJX IV REGIONAL REGIONAL PUSH MEDICAL MEDICAL SINGLE/1S CENTER CENTER T SBST/DRUG CULTURE 17123 MEADOWVIE MEADOWVIE BACTERIAL 0 W W REGIONAL [facility] [place] [address] MEADOWVIE MEADOWVIE INFUSION 0 W W HYDRATION REGIONAL REGIONAL [facility] MEDICAL MEDICAL ADDITIONA CENTER CENTER L HOUR CT PELVIS 04100 [facility] 0 EIDER, W/CONTRAS RADIOLOGY MIRTHA T K MATERIAL ASSOCIATE [place] [address] [facility] ABDOMEN 0 EIDER, W/O RADIOLOGY MIRTHA CONTRAST K MATERIAL ASSOCIATE S [facility] CULTURE 13185 MEADOWVIE MEADOWVIE BACTERIAL 0 W W REGIONAL [facility] VE COLONY CENTER CENTER COUNT URINE CT PELVIS 89214 MEADOW[facility]IE MEADOWVIE W/O 0 W W CONTRAST REGIONAL REGIONAL [facility] CENTER THER 05730 MEADOW[facility]IE NOEWVIE PROPH/DX 0 W W NJX IV REGIONAL REGIONAL PUSH MEDICAL MEDICAL SINGLE/1S CENTER CENTER T SBST/DRUG 3D 81806 [facility] EIDER, W/INTERP RADIOLOGY MIRTHA & K POSTPROCE ASSOCIATE SS S PSC SUPERVISI ON URNLS DIP 99937 MEADOW[facility]IE MEADOWVIE 0 W W STICK/TAB REGIONAL REGIONAL LET MEDICAL MEDICAL REAGENT CENTER CENTER AUTO MICROSCOP Y THERAPEUT 90460 MEADOWVIE MEADOWVIE IC 0 W W INJECTION REGIONAL REGIONAL IV PUSH MEDICAL [facility] DRUG ARTHRS 26104 JOSÉ KUMAR, NADINE SURG 0 JAMARI JAMARI W/MENISCE J J CTOMY MED/LAT W/SHVG ANESTH 34122 [facility] SHERWIN, DIAGNOSTI 0 [facility] KORI Lopez ANESTHESI ARTHROSCO A [facility] PIC PROC KNEE JOINT MRI ANY 04802 ME[facility]IE MEADOWVIE JT LOWER 9 W W EXTREM REGIONAL REGIONAL W/O MEDICAL MEDICAL CONTRAST CENTER CENTER MATRL Encounters Encounter Start End Date Code Location Performer Type Date OFFICE 21267 [facility] LORENA WATT 7 7 PHYSICIAN T NEW 20 S GROUP MINUTES EMERGENCY 77192 [facility] 7 7 [facility] DEPARTMEN INC T VISIT HIGH/URGE NT SEVERITY EMERGENCY 90062 [facility] CARRILLO DEPT 7 7 PHYSICIAN VISIT S, PLLC HIGH SEVERITY& THREAT [facility] - 7 7 [facility] OUTPATIEN INC T HOSPITAL [facility] - 7 7 [facility] OUTPATIEN INC T OFFICE 00505 [facility] WATT 7 7 [facility] T VISIT INC 10 MINUTES EMERGENCY 98759 [facility] 7 7 JACI DEPARTMEN EMERGENCY T VISIT PHYS HIGH/URGE NT SEVERITY HOSPITAL [facility] - 2 2 [facility] OUTPATIEN INC T EMERGENCY 72511 JOHANNA NGUYEN DEPT 2 2 EMERGENCY VISIT SERVICES HIGH SEVERITY& THREAT FUN EMERGENCY 13227 [facility] 2 2 [facility] T VISIT LOW/MODER SEVERITY OFFICE 92043 [facility]OW GERMÁNTRISH OUTPATIEN 1 1 PRIMARY Y BILLY T VISIT CARE 15 CENTER MINUTES OFFICE 80158 KENISHA RIGO OUTPATIEN 1 1 W GENERAL J. T VISIT 5 SURGERY MINUTES EMERGENCY 84551 JOHANNA CAST DEPT 1 1 EMERGENCY JAM VISIT SERVICES HIGH SEVERITY& THREAT FUN EMERGENCY 24671 MEAWMILADIS 0 0 W [facility] VISIT MEDICAL HIGH/URGE NT SEVERITY EMERGENCY 35596 JOHANNA PEREZ DEPT 0 0 EMERGENCY CHR VISIT SERVICES HIGH SEVERITY& THREAT [facility] HOSPITAL MEADOWVIE - 0 0 W [facility] MEDICAL EMERGENCY 32860 JOHANNA PEREZ DEPT 0 0 EMERGENCY CHR VISIT SERVICES HIGH SEVERITY& THREAT [facility] HOSPITAL MEADOWVIE - 0 0 W [facility] MEDICAL OFFICE 67815 KENISHA SIERRA, OUTPATIEN 0 0 W GENERAL J. T VISIT SURGERY ANDI R 10 MINUTES OFFICE 19701 BJ MARTINEZ, OUTPATIEN 0 0 PRIMARY LUIS E T VISIT CARE 15 CENTERINC MINUTES EMERGENCY 50448 JOHANNA PEREZ DEPT 0 0 EMERGENCY VISIT SERVICES ISMAEL HIGH SEVERITY& ASSOCIATE THREAT S FUN EMERGENCY 43359 MEAWVIE 0 0 W [facility] VISIT MEDICAL HIGH/URGE CENTER NT SEVERITY HOSPITAL MEAWALLYVIE - 0 0 W [facility] 28552 JOHANNA RIGGINS, 0 0 EMERGENCY DAVID W DEPARTMEN SERVICES T VISIT HIGH/URGE ASSOCIATE NT S SEVERITY EMERGENCY 21514 Gaston VILLAREAL DEPT 0 0 EMERGENCY VISIT SERVICES HIGH SEVERITY& ASSOCIATE THREAT S [facility] MEAWVIE - 0 0 [facility] 56793 MEAWVIE 0 0 W [facility] T VISIT MEDICAL HIGH/URGE CENTER NT SEVERITY [facility] MEAWVIE - 0 0 W [facility] OFFICE 23017 JOSÉ KUMAR, CONSULTAT 0 0 JAMARI Morrison NEW/ESTAB PATIENT 40 MIN OFFICE 79052 ALYSA ENGLE 9 9 PRIMARY EDUIN E T VISIT CARE 10 [facility] KENISHA - 9 9 W [facility] EMERGENCY 95430 JOHANNA PEREZ, 9 9 EMERGENCY DEPARTMEN SERVICES RELIGIOUS T VISIT MODERATE ASSOCIATE SEVERITY S OFFICE 31401 ALYSA NGUYEN 9 9 PRIMARY [address]ISE [address]
--- OUTSIDE RECORDS SUMMARY | 2017-07-11 08:48 | External Medical Summary Rpt | CCD ---
Author Author , CHONG Tony CHONG Address Unknown Phone [email or web address] Providers Care Nuclear Scientist Name Role Phone COLLEEN MACIAS Unavailable Unavailable CALDERÓN, CALDERÓN Unavailable Unavailable BRAUGHTON ADELE, Unavailable Unavailable BRAUGHTON ADELE JAMEE TORRES, Unavailable Unavailable JAMEE TORRES RIGO THOMAS Unavailable Unavailable Agustín GARCIA Unavailable Unavailable R, Agustín SIERRA R [facility] Unavailable Unavailable [place], [facility] DAVID VALERO, Unavailable Unavailable [...] Unavailable Unavailable INC, [facility] CRONELIUS LUTHER, CORNELIUS Unavailable Unavailable LUTHER [facility], Unavailable Unavailable [facility] ALISE DEE KEEF, Unavailable Unavailable ALISE [facility] Un[facility] Unavailable [facility], [facility] [id number] # Unavailable Unavailable [id number], [facility] [id number] # [id number] [facility] Unavailable Unavailable [facility] BASSAM CERVANTES, Unavailable Unavailable BASSAM CERVANTES [facility] Unavailable Unavailable SERVICES, [facility], Unavailable Unavailable [facility] THICKET ANTHROPOLOGY INSTRUCTOR Unavailable Unavailable [facility] ANTHROPOLOGY INSTRUCTOR [facility] DAM[facility]ENER Unavailable Unavailable [facility] DAMASCENER [facility] Unavailable [facility]available [facility] Unavailable Unavailable SURG[facility], [facility] Unavailable Unavailable MEDICAL, [facility] Unavailable Unavailable MED[facility] CENTER, [facility], Unavailable Unavailable [facility], [facility] Gaston JEWELL N, Gaston JEWELL N Unavailable Unavailable [id number], Unavailable Unavailable [id number] Unavailable Unavailable EMERGENCY PHYS, [facility] PEREZ CHR, Unavailable Unavailable [facility] CHRIS GNOSTICIST, Unavailable Unavailable PEREZGRADY BEASLEY PEREZ, ISMAEL, Unavailable Unavailable SHANTA PEREZINA Purpose Continuity of Care Document - 10-13-2008 through 2016 Problems Code Diagnosis DOS Provider Status N200 CALCULUS OF 02-03-2017 [facility] Z720 TOBACCO USE 02-03-2017 [facility] N132 HYDRONEPHRO 01-30-2017 [facility] CALCULOUS OBST N23 UNSPECIFIED 01-30-2017 [facility], COLIC [facility] R1031 RIGHT LOWER 01-30-2017 [facility] Z4802 ENCOUNTER 01-14-2017 [facility] S[facility]URES INC [id number] LACERATION 01-05-2017 [facility] W/O FB N EMERGENCY OTHER PART PHYS HEAD INITIAL ENC [id number] CONTUSION 01-05-2017 [facility] RT FRONT N EMERGENCY WALL THORAX PHYS INITIAL ENCOUNTER [id number] LACERATION 01-05-2017 [facility] W/O FB LT N EMERGENCY SHOULDER PHYS INITIAL ENC [id number] CONTUSION 01-05-2017 [facility] OF LEFT HIP N EMERGENCY INITIAL PHYS ENCOUNTER 7231 CERVICALGIA 11-23-2011 [facility] 8470 NECK SPRAIN 11-23-2011 [facility] E9270 OVEREXERTIO 11-23-2011 [facility] N FROM [facility] STRENUOUS MOVEMENT 5950 ACUTE 06-25-2011 [facility] 9390 FOREIGN 12-12-2010 [facility] BODY IN GENERAL BLADDER AND SURGERY URETHRA 5921 CALCULUS OF 12-09-2010 [facility] URETER GENERAL SURGERY 591 HYDRONEPHRO 12-08-2010 [facility] 09573 OTHER 12-08-2010 [facility] 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 5990 URINARY 12-08-2010 [facility] SITE NOT SPECIFIED 28922 FEVER 12-08-2010 [facility] UNSPECIFIED GENERAL SURGERY 7880 RENAL COLIC 12-08-2010 [facility] 62179 ABDOMINAL 12-08-2010 [facility] PAIN OTHER GENERAL SPECIFIED SURGERY SITE 5920 CALCULUS OF 09-28-2010 [facility] 7919 OTHER 09-28-2010 [facility] NONSPECIFIC REGIONAL FINDING MEDICAL EXAMINATION OF URINE V1301 PERSONAL 09-28-2010 [facility] HISTORY OF REGIONAL URINARY MEDICAL CALCULI 91029 NAUSEA WITH 03-29-2010 [facility] VOMITING [facility] 97166 ABDOMINAL 03-29-2010 [facility] PAIN, REGIONAL UNSPECIFIED MEDICAL SITE CENTER 5959 UNSPECIFIED 03-21-2010 [facility] 99607 HEMATURIA 03-18-2010 [facility] UNSPECIFIED RADIOLOGY ASSOCIATES PSC 7936 NONSPEC ABN 03-18-2010 [facility] FINDNG RAD RADIOLOGY & OTH EXAM ASSOCIATES ABDOMINAL [facility] 7172 DERANGEMENT 10-23-2009 PEYTON KUMAR [facility] OF MEDIAL MENISCUS 97327 PAIN IN 10-23-2009 [facility] JOINT, H LOWER LEG ANESTHESIA PSC 8360 TEAR MEDIAL 10-23-2009 [facility] CURRENT 8362 OTHER TEAR 09-05-2009 [facility] OR [facility]ENTERINC CURRENT 8363 CLOSED 06-21-2009 [facility] [place] [facility] [place] [...] 05 06 14 7 00 EA Ac IN 71 -0 -[address] ti [...] OB NC Y GY E N FA OH LY HE AL TH 53 03 03 [...] OB KIMO CE SE TA GY PH OH N R NO FA PH OH EN LY 5- HE 32 AL 5 TH HY 00 01 01 2 20 3 MA [address] 40 -1 -1 .0 YS 05 NN ti OC 60 4- 7- 00 78 IS ve OD 36 20 20 LL 8 ON ON 50 11 11 E -A 1 OB KIMO CE SE TA GY PH OH N R NO FA PH OH EN LY 5- HE 32 AL 5 TH HY 00 01 01 2 20 3 MA [address] 40 -1 -1 .0 YS 05 NN ti OC 60 4- 4- 00 78 IS ve OD 36 20 20 LL 8 ON ON 50 11 11 E -A 1 OB KIMO CE SE TA GY PH OH N R NO FA PH OH EN LY 5- HE 32 AL 5 TH IN 68 01 01 0 20 5 MA 60 DE Ac OM 38 -1 -1 .0 YS 35 NN ti ET 20 4- 4- 00 97 IS ve MCKEON 04 20 20 LL 3 ON ZI 10 11 11 E NE 1 OB KIMO SE 25 GY PH N R MG FA OH TA LY BL ET HE AL TH 00 12 01 2 30 3 MA 40 DE Ac 40 -3 -0 .0 SO 45 NN ti 60 1- 6- 00 N 67 IS ve 35 20 20 FA ON 70 10 11 OH [address] PH UG R 00 12 01 2 30 3 MA 40 DE Ac 60 -3 -0 .0 SO 45 NN ti 33 1- 3- 00 N 67 IS ve 88 20 20 FA ON 13 10 11 OH [address] PH UG R IN 68 12 12 0 12 2 MA 62 DE Ac OM 38 -3 -3 .0 SO 78 NN ti ET 20 1 N 77 IS ve MCKEON 04 20 20 FA ON ZI 10 10 10 OH NE 1 LY K[address] SE [address] PH UG R MG TA BL ET 00 12 12 2 30 3 MA 40 DE Ac 60 -3 -3 .0 SO 45 NN ti 33 1- - 00 N 67 IS ve 88 20 20 FA ON 13 10 10 OH [address] PH UG R PE 00 12 12 0 40 10 MA 60 Ac NI 78 -0 -0 .0 YS 34 TT ti CI 11 9 9- 00 37 MA ve LL 65 20 20 LL 6 N IN 50 10 10 E NA 1 OB NC VK Y GY E 50 N 0 FA MG OH LY TA BL HE ET AL NA 09 11 1 60 30 MA 60 Ac IN 46 -2 -1 .0 YS 30 TT ti OX 20 2- 6- 00 48 MA ve EN 19 20 20 LL 2 N 00 10 10 E NA 50 5 OB NC 0 Y MG GY E N TA FA BL OH ET LY HE AL NA 68 09 09 1 60 30 MA 60 Ac IN 46 -2 -2 .0 YS 30 TT ti OX 20 2- 2- 00 48 MA ve EN 19 20 20 LL 2 N 00 10 10 E NA 50 5 OB NC 0 Y MG GY E N TA FA BL OH ET LY HE IN 68 07 08 1 20 3 MA 60 DE Ac OM 38 -1 -0 .0 YS 27 NN ti ET 20 3- 3- 00 20 IS ve MCKEON 04 20 20 LL 9 ON ZI 10 10 10 E NE 1 OB KIMO SE 25 GY PH N R MG FA OH TA LY BL ET HE AL 00 07 07 2 20 3 MA 40 DE Ac 59 -1 -1 .0 YS 04 NN ti 10 3- 6 00 59 IS ve 34 20 20 LL 9 ON 90 10 10 E 5 OB KIMO SE GY PH N R FA OH LY HE AL 00 07 07 2 20 2 MA 40 DE Ac 59 -1 -1 .0 YS 04 NN ti 10 3- 3 00 59 IS ve 34 20 20 LL 9 ON 90 10 10 E 5 OB KIMO SE GY PH N R FA OH LY HE AL IN 68 07 07 1 20 3 MA 60 DE Ac OM 38 -1 -1 .0 YS 27 NN ti ET 20 3- 3 00 20 IS ve MCKEON 04 20 20 LL 9 ON ZI 10 10 10 E NE 1 OB KIMO SE 25 GY PH N R MG FA OH TA LY BL ET HE AL CI 68 07 07 1 40 20 MA 60 DE Ac IN 08 -1 -1 .0 YS 27 NN ti OF 40 21 IS ve LO 07 20 20 LL 0 ON XA 00 10 10 E CI 1 OB KIMO N SE HC GY PH L N R 50 FA 0 OH MG LY TA HE B AL 00 [...] W TA GY BL N ET FA OH LY HE AL TH 65 06 06 0 6. 2 MA 60 FI Ac 16 -2 -2 00 YS 26 NL ti 20 3- 3- 0 42 EY ve 52 20 20 LL 7 01 10 10 E PA 0 OB UL W GY N FA OH LY HE AL TH CI 55 06 06 0 20 10 MA 60 FI Ac IN 11 -2 -2 .0 YS 26 NL ti OF 10 3- 3- 00 42 EY ve LO 12 20 20 LL 8 XA 60 10 10 E PA CI 1 OB UL N W HC GY L N 25 FA 0 OH MG LY TA HE B AL TH [...] AM GY E PO N O FA OH LY HE AL NA 68 04 03 2 60 30 MA 60 KE Ac IN 46 -2 -1 .0 YS 09 EF ti OX 20 0- 0- 00 49 ve EN 19 20 20 LL 5 KI 00 09 10 E MB 50 5 OB ER 0 LY MG GY N TA FA BL OH ET LY HE AL 00 01 02 00 30 5 MA 40 MCKEON Ac 59 -2 -1 .0 YS 03 RR ti 10 5- 1- 00 65 IS ve 34 20 20 LL 9 90 10 10 E CH 5 OB AR /G LO YN TT E FA J OH LY HE AL TH IN 68 01 02 00 30 8 MA 60 MCKEON Ac OM 38 -2 -1 .0 YS 19 RR ti ET 20 5- 1- 00 86 IS ve MCKEON 04 20 20 LL 5 ZI 10 10 10 E CH NE 1 OB AR /G LO 25 YN TT E MG FA J OH TA LY BL ET HE AL 00 01 01 01 30 5 MA 40 MCKEON Ac 59 -1 -2 .0 YS 03 RR ti 10 2- 8- 00 57 IS ve 34 20 20 LL 3 90 10 10 E CH 5 OB AR /G LO YN TT E FA J OH LY HE AL TH 00 01 01 00 30 5 MA 40 MCKEON Ac 59 -1 -2 .0 YS 03 RR ti 10 2- 8- 00 57 IS ve 34 20 20 LL 3 90 10 10 E CH 5 OB AR /G LO YN TT E FA J OH LY HE AL TH NA 68 04 01 01 60 30 MA 60 KE Ac IN 46 -2 -2 .0 YS 09 EF ti OX 20 0- 8- 00 49 ve EN 19 20 20 LL 5 KI 00 09 10 E MB 50 5 OB ER 0 /G LY MG YN TA FA BL OH ET LY HE AL TH 00 12 12 00 60 10 MA 40 Ac 59 -0 -1 .0 YS 03 TT ti 10 8- 7 40 MA ve 34 20 20 LL 3 N 90 09 09 E NA 5 OB NC /G Y YN E FA OH LY HE AL TH IN 00 12 12 00 60 20 MA 60 MA Ac DO 09 -0 -1 .0 YS 17 RK ti ME 34 7 7 76 ES ve TH 02 20 20 LL 6 BE AC 90 09 09 E RY IN 1 OB /G MCKEON 25 YN RO LD MG FA V OH CA LY PS UL HE E AL TH LI 60 10 11 00 60 3 MA 60 Ac ND 43 -2 -0 .0 YS 16 TT ti AN 20 9- 5- 00 17 MA ve E 83 20 20 LL 3 N 1% 36 09 09 E NA 0 OB NC LO /G Y TI YN E ON FA OH LY HE AL TH 49 09 10 00 20 5 MA 60 JUNIOR Ac 88 -2 -0 .0 YS 14 LL ti 40 3- 8- 00 68 IV ve 77 20 20 LL 3 AN 70 09 09 E 5 OB CH /G RI YN ST IN FA A OH M LY HE AL TH TR 65 09 10 00 20 3 MA 40 JUNIOR Ac AM 16 -2 -0 .0 YS 02 LL ti AD 20 3- 8- 00 99 IV ve OL 62 20 20 LL 5 AN 71 09 09 E HC 1 OB CH L /G RI [address] IN MG FA A OH M TA LY BL ET HE AL TH NA 68 04 05 00 60 30 MA 60 KE Ac IN 46 -2 -0 .0 YS 09 EF ti OX 20 0- 7- 00 49 ve EN 19 20 20 LL 5 KI 00 09 09 E MB 50 5 OB ER 0 /G LY MG YN TA FA BL OH ET LY HE AL TH OV 51 [...] 0 OB S /G E YN FA OH LY HE AL TH 00 01 01 00 10 3 MA 40 AD Ac 59 -0 -1 .0 YS 01 AM ti 10 6- 5- 00 74 S ve 34 20 20 LL 7 JA 90 09 09 E ME 5 OB S /G E YN FA OH LY HE AL Procedures Procedure [place] [address] [facility] CAL[facility]N ABDOMEN & 7 MEDICAL PELVIS IMAGING W/O ASS CONTRAST MATERIAL BLOOD [address] COUNT 7 [facility] COMPLETE INC INC AUTO&AUTO DIFRNTL WBC THERAPEUT [address] IC 7 [facility] INJECTION INC INC IV PUSH EACH NEW DRUG THER [address] PROPH/DX 7 [facility] NJX IV INC INC PUSH SINGLE/1S T SBST/DRUG COMPREHEN [address] SIVE 7 [facility] METABOLIC INC INC PANEL URNLS DIP [address] 7 [facility] STICK/TAB INC INC LET REAGENT AUTO MICROSCOP Y SMPL RPR 50670 [facility] SCALP/NEC 7 JACI K/AX/[facility] T/TRUNK PHYS 20.1-30.0 CM SIMPLE 70228 [facility] REPAIR 7 JACI F/E/E/N/L EMERGENCY /M PHYS 2.6CM-[place].[address] [place] [address] [facility] JAMEE CERVICAL 2 MEDICAL TORRES SPINE W/O IMAGING CONTRAST ASS MATERIAL 3D 74585 [place] JAMEE RENDERING 2 MEDICAL TORRES IMAGING W/INTERP& ASS POSTPROC DIFF WORK STATION INJECTION J0696 BJ MONTANO 1 PRIMARY Y BILLY CEFTRIAXO CARE NE SODIUM CENTER PER 250 MG THERAPEUT 45033 [facility] MONT[facility] IC 1 PRIMARY Y BILLY PROPHYLAC CARE TIC/DX CENTER INJECTION SUBQ/IM CYSTO 49664 MEADOWMILADIS RIGO W/URETERO 1 W GENERAL J. SCOPY SURGERY W/RMVL/MA [place] STONES ANES 98931 [facility] BRAUGHTON TRURL 1 [facility] FRAGMNTJ ANESTHESI MANJ&/RMV A PSC L URETERAL CALCULUS CYSTO 11693 MEADOWVIE RIGO W/INSERT 1 W GENERAL J. URETERAL SURGERY STENT RADEX 15949 [facility] ABDOMEN 1 1 [facility] [place] [address] [facility] ABDOMEN & 1 EIDER KIMBERLEY PELVIS RADIOLOGY W/O ASSOCIAT CONTRAST MATERIAL 3D 17924 [facility] RENDERING 1 EIDER KIMBERLEY W/INTERP RADIOLOGY & ASSOCIAT POSTPROCE SS SUPERVISI ON INITIAL 95107 [facility] 1 W GENERAL J. CARE/DAY SURGERY 50 MINUTES COLLECTIO 56376 MEADOWVIE MEADOWVIE N VENOUS 0 W W BLOOD REGIONAL [place] [address] MEADOW[facility]IE MEADOWVIE INFUSION 0 W W HYDRATION REGIONAL REGIONAL EACH MEDICAL MEDICAL ADDITIONA L HOUR BASIC 87754 MEADOW[facility]IE MEADOW[facility]IE METABOLIC 0 W W PANEL REGIONAL REGIONAL CALCIUM MEDICAL MEDICAL TOTAL URNLS DIP 96674 MEADOW[facility]IE MEADOWVIE 0 W W STICK/TAB REGIONAL REGIONAL LET MEDICAL MEDICAL REAGENT AUTO MICROSCOP Y CT PELVIS 45726 [facility] W/O 0 [facility] [place] [address] [facility] ABDOMEN 0 [facility] W/O RADIOLOGY CONTRAST ASSOCIAT MATERIAL CULTURE 40464 MEADOWVIE MEADOWVIE BACTERIAL 0 W W REGIONAL REGIONAL QUANTTATI MEDICAL MEDICAL VE COLONY COUNT URINE THER 35603 KENISHA DE PROPH/DX 0 W W NJX IV [facility] MEDICAL MEDICAL SINGLE/1S T SBST/DRUG 3D 51031 [facility] RENDERING 0 [facility]HER W/INTERP RADIOLOGY & ASSOCIAT POSTPROCE SS SUPERVISI ON RADEX 53432 [facility] ABDOMEN 1 0 [facility] [place] BLOOD 86920 KENISHA LIUWVIE COUNT 0 W W COMPLETE [facility] AUTO&AUTO MEDICAL MEDICAL DIFRNTL WBC THERAPEUT 96745 KENISHA THOMASVIE IC 0 W W INJECTION [facility] IV PUSH MEDICAL MEDICAL EACH NEW DRUG CALCULUS 38528 KENISHA LIUWMILADIS QUANTITAT 0 W W PA [facility] CHEMICAL MEDICAL MEDICAL CYSTO 36633 KENISHA SIERRA, W/INSERT 0 W GENERAL J. URETERAL SURGERY ANDI Saleem STENT ANES 14748 COMMONT[place] ZARAON TRURL [address] [facility] FRAGMNTJ ANESTHESI MANJ&/RMV A PSC L URETERAL CALCULUS CYSTO 13037 KENISHA SIERRA, W/URETERO 0 W GENERAL J. SCOPY SURGERY ANDI Saleem W/RMVL/MA [facility] 67626 KENISHA SIERRA DISCHARGE 0 W GENERAL J. DAY SURGERY MANAGEMEN T 30 MIN/< FLUOROSCO 55534 KENISHA DE PY SPX UP 0 W W TO 1 [facility] MEDICAL MEDICAL PHYS/QHP TIME HOSPITAL G0378 KENISHA DE OBSERVATI 0 W W ON [facility] SERVICE MEDICAL MEDICAL PER HOUR BASIC 80124 KENISHA DE METABOLIC 0 W W PANEL [facility] CALCIUM MEDICAL MEDICAL TOTAL COLLECTIO 02887 KENISHA DE N VENOUS 0 W W BLOOD [facility] VENIPUNCT MEDICAL MEDICAL URE INITIAL 24734 [facility] 0 W GENERAL J. CARE/DAY SURGERY 50 MINUTES CYSTO 83436 MEADOWVIE MEADOWVIE W/URETERO 0 W W SCOPY REGIONAL REGIONAL W/RMVL/MA MEDICAL MEDICAL [place] STONES THER 29150 MEADOWVIE MEADOWVIE PROPH/DX 0 W W NJX IV REGIONAL REGIONAL PUSH MEDICAL MEDICAL SINGLE/1S T SBST/DRUG CYSTO 28459 MEADOWVIE MEADOWVIE W/INSERT 0 W W URETERAL REGIONAL REGIONAL STENT MEDICAL MEDICAL BLOOD 94991 MEADOWVIE MEADOWVIE COUNT 0 W W COMPLETE REGIONAL REGIONAL AUTO&AUTO MEDICAL MEDICAL DIFRNTL WBC THERAPEUT 02816 MEADOWVIE MEADOWVIE IC 0 W W INJECTION REGIONAL REGIONAL IV PUSH MEDICAL MEDICAL EACH NEW DRUG URNLS DIP 76318 MEADOWVIE MEADOWVIE 0 W W STICK/TAB REGIONAL REGIONAL LET MEDICAL MEDICAL REAGENT AUTO MICROSCOP Y URNLS DIP 15478 MEADOW[facility]IE MEADOWVIE 0 W W STICK/TAB REGIONAL REGIONAL LET MEDICAL MEDICAL REAGENT CENTER CENTER AUTO MICROSCOP Y THERAPEUT 97729 MEADOWVIE MEADOWVIE IC 0 W W INJECTION REGIONAL REGIONAL IV PUSH MEDICAL MEDICAL [facility] CENTER DRUG THER 47420 MEADOWVIE MEADOWVIE PROPH/DX 0 W W NJX IV REGIONAL REGIONAL PUSH MEDICAL MEDICAL SINGLE/1S CENTER CENTER T SBST/DRUG CULTURE 47507 MEADOWVIE MEADOWVIE BACTERIAL 0 W W REGIONAL [facility] [place] [address] MEADOWVIE MEADOWVIE INFUSION 0 W W HYDRATION REGIONAL REGIONAL [facility] MEDICAL ADDITIONA CENTER CENTER L HOUR [place] PELVIS 489[address] [facility] 0 EIDER, W/CONTRAS RADIOLOGY MIRTHA T K MATERIAL ASSOCIATE [place] [address] [facility] ABDOMEN 0 EIDER, W/O RADIOLOGY MIRTHA CONTRAST K MATERIAL ASSOCIATE S [facility] CULTURE 69623 MEADOWVIE MEADOWVIE BACTERIAL 0 W W REGIONAL [facility] VE COLONY CENTER CENTER COUNT URINE CT PELVIS 17926 MEADOWVIE MEADOWVIE W/O 0 W W CONTRAST REGIONAL REGIONAL MATERIAL [facility]ICAL MEDICAL CENTER CENTER THER 49054 MEADOWVIE NOEWVIE PROPH/DX 0 W W NJX IV REGIONAL REGIONAL PUSH MEDICAL MEDICAL SINGLE/1S CENTER CENTER T SBST/DRUG 3D 57057 [facility] HARI RENDERING 0 EIDER, W/INTERP RADIOLOGY MIRTHA & K POSTPROCE ASSOCIATE SS S PSC SUPERVISI ON URNLS DIP 60939 MEADOW[facility]IE MEADOWVIE 0 W W STICK/TAB REGIONAL REGIONAL LET MEDICAL MEDICAL REAGENT CENTER CENTER AUTO MICROSCOP Y THERAPEUT 68358 MEADOWVIE MEADOWVIE IC 0 W W INJECTION REGIONAL REGIONAL IV PUSH MEDICAL [facility] DRUG ARTHRS 14351 JOSÉ KUMAR, NADINE SURG 0 JAMARI JAMARI W/MENISCE J J CTOMY MED/LAT W/SHVG ANESTH 09998 [facility] SHERWIN, DIAGNOSTI 0 [facility] KORI Lopez ANESTHESI ARTHROSCO A [facility] PIC PROC KNEE JOINT MRI ANY 17514 MEADOWVIE MEADOWVIE JT LOWER 9 W W EXTREM REGIONAL REGIONAL W/O MEDICAL MEDICAL CONTRAST CENTER CENTER MATRL Encounters Encounter Start End Date Code Location Performer Type Date OFFICE [address] [facility] WATT 7 7 PHYSICIAN T NEW 20 S GROUP MINUTES EMERGENCY 23555 [facility] 7 7 [facility] DEPARTMEN INC T VISIT HIGH/URGE NT SEVERITY EMERGENCY 44051 VERENA CARRILLO DEPT 7 7 PHYSICIAN VISIT S, PLLC HIGH SEVERITY& THREAT [facility] - 7 7 [facility] OUTPATIEN INC T HOSPITAL [facility] - 7 7 [facility] OUTPATIEN INC T OFFICE 09718 [facility] WATT 7 7 [facility] T VISIT INC 10 MINUTES EMERGENCY 82704 [facility] 7 7 JACI DEPARTMEN EMERGENCY T VISIT PHYS HIGH/URGE NT SEVERITY HOSPITAL [facility] - 2 2 [facility] OUTPATIEN INC T EMERGENCY 92057 JOHANNA NGUYEN DEPT 2 2 EMERGENCY VISIT SERVICES HIGH SEVERITY& THREAT FUN EMERGENCY 03610 [facility] 2 2 [facility] T VISIT LOW/MODER SEVERITY OFFICE 68909 [facility]TR[facility] OUTPATIEN 1 1 PRIMARY Y BILLY T VISIT CARE 15 CENTER MINUTES OFFICE 37147 KENISHA RIGO OUTPATIEN 1 1 W GENERAL J. T VISIT 5 SURGERY MINUTES EMERGENCY 19361 JOHANNA CAST DEPT 1 1 EMERGENCY JAM VISIT SERVICES HIGH SEVERITY& THREAT FUN EMERGENCY 41037 MEAWMILADIS 0 0 W [facility] VISIT MEDICAL HIGH/URGE NT SEVERITY EMERGENCY 19211 JOHANNA PEREZ DEPT 0 0 EMERGENCY CHR VISIT SERVICES HIGH SEVERITY& THREAT [facility] MEADOWVIE - 0 0 W [facility] MEDICAL EMERGENCY 78473 JOHANNA PEREZ DEPT 0 0 EMERGENCY CHR VISIT SERVICES HIGH SEVERITY& THREAT [facility]PITAL MEADOWVIE - 0 0 W [facility] MEDICAL OFFICE 27018 KENISHA SIERRA, OUTPATIEN 0 0 W GENERAL J. T VISIT SURGERY ANDI R 10 MINUTES OFFICE 61556 BJ MARTINEZ, OUTPATIEN 0 0 PRIMARY LUIS E T VISIT CARE 15 CENTERINC MINUTES EMERGENCY 86265 JOHANNA PEREZ DEPT 0 0 EMERGENCY VISIT SERVICES ISMAEL HIGH SEVERITY& ASSOCIATE THREAT S FUN EMERGENCY 08253 MEAWVIE 0 0 W [facility] VISIT MEDICAL HIGH/URGE CENTER NT SEVERITY HOSPITAL MEAWALLYVIE - 0 0 W [facility] 64703 JOHANNA RIGGINS, 0 0 EMERGENCY DAVID W DEPARTMEN SERVICES T VISIT HIGH/URGE ASSOCIATE NT S SEVERITY EMERGENCY 62605 Gaston VILLAREAL DEPT 0 0 EMERGENCY VISIT SERVICES HIGH SEVERITY& ASSOCIATE THREAT S [facility] MEAWVIE - 0 0 W [facility] EMERGENCY 76520 MEAWVIE 0 0 W [facility] T VISIT MEDICAL HIGH/URGE CENTER NT SEVERITY [facility] MEAWVIE - 0 0 W [facility] OFFICE 91482 JOSÉ KUMAR, CONSULTAT 0 0 JAMARI Morrison NEW/ESTAB PATIENT 40 MIN OFFICE 24060 ALYSA ENGLE 9 9 PRIMARY EDUIN E T VISIT CARE 10 [facility] KENISHA - 9 9 W [facility] EMERGENCY 94247 JOHANNA PEREZ, 9 9 EMERGENCY DEPARTMEN SERVICES GNOSTICIST T VISIT MODERATE ASSOCIATE SEVERITY S OFFICE 68449 ALYSA NGUYEN 9 9 PRIMARY [address]
--- OUTSIDE RECORDS SUMMARY | 2017-07-11 08:49 | External Medical Summary Rpt | CCD ---
Demographics Preferred Language Estonian Marital Status Unknown Yazidism Affiliation Unknown Race Unknown Ethnic Group Unknown Author Author , CHONG SCHWARZ Address Unknown Phone [email or web address] Immunization Name Date Rout CVX Reac Dose Comm Prov Is Faci e tion ent ider Refu lity Give sed n Td 06-2 9 999 Hist H201 No H201 (lin 4-19 oric lt), 97 al Info adso rmat rbed ion - Sour ce Unsp ecif ied
--- OUTSIDE RECORDS SUMMARY | 2017-07-11 08:49 | External Medical Summary Rpt | CCD ---
Demographics Preferred Language Turkish Marital Status Unknown Temple Affiliation Unknown Race Unknown Ethnic Group Unknown Author Author , CHONG SCHWARZ Address Unknown Phone [email or web address] Immunization Name Date Rout CVX Reac Dose Comm Prov Is Faci e tion ent ider Refu lity Give sed n Td 06-2 9 999 Hist H201 No H201 (lin 4-19 oric lt), 97 al Info adso rmat rbed ion - Sour ce Unsp ecif ied
== END 2017-07-04 19:38 | disposition home or self-care (01) ==
LOC: ER 17:26
DX: S20.211A Contusion of right front wall of thorax, initial encounter (principal); V47.0XXA Car driver injured in collision with fixed or stationary object in nontraffic accident, initial encounter; Y92.410 Unspecified street and highway as the place of occurrence of the external cause; F17.210 Nicotine dependence, cigarettes, uncomplicated